=== PATIENT | male | born 1975 | race American Indian/Alaskan Native ===

== ENCOUNTER 2016-08-01 12:20 | Inpatient (IN) | payer MEDICARE ==
[2016-08-01] MEDS ORDERED: LASIX ONE (12:50)
[2016-08-01] MEDS ORDERED: LASIX IV ONE (12:54)
--- NOTE | 2016-08-01 12:58 | XRay Report ---
AP CHEST: HISTORY: Short of breath Compared to 03/19/15. There is mild cardiomegaly. Patchy infiltrate is identified throughout most of the right lung. This could represent unilateral pulmonary edema or pneumonia. The left lung is generally clear. No large pleural effusion or pneumothorax. IMPRESSION: Cardiomegaly and right lung infiltrates as described, probable pulmonary edema. If fever is present, right lung pneumonia could be considered.
[2016-08-01 13:17] LABS: Eosinophils % (Auto) 0.7 % (0.0-4.3)
[2016-08-01 13:23] LABS: Basophils % (Auto) 0.2 % (0.0-1.8); Hematocrit 36.6 % (35.5-45.6); Hemoglobin 11.3 gm/dl (11.8-15.2); Mean Corpuscular HGB Conc 31 % (32-34); Mean Corpuscular Hemoglobin 27 pg (28-32); Mean Corpuscular Volume 87 fl (84-94); Platelet Count 161 K/mm3 (140-440); Red Cell Distribution Width 16.2 % (13.2-15.2); White Blood Count 11.1 K/mm3 (4.5-11.0)
--- NOTE | 2016-08-01 13:28 | Emergency Department Report ---
HPI - General Chief Complaint: Dyspnea/Respdistress Time Seen by Provider: 08/01/16 12:29 - HPI HPI: Chief complaint: Shortness of breath HPI: Patient is a 41-year-old male with a history of congestive heart failure he states he's been having gradually increasing shortness breath over the last several days and it became much worse this morning. Patient states he has been taking his medications and took 40 mg of Lasix by mouth this morning. Patient is now coughing up pink frothy sputum. Patient denies any chest pain. Patient has pedal edema and orthopnea. Mode of arrival: [EMS] Source: [Patient] [old chart] Began: Increasing over the last few days Duration: See above Context: Last ejection fraction at this facility was 35% Quality: No chest pain Severity: [] out of 10 Improved with: Oxygen Worsened with: Laying flat Associated signs and symptoms: Edema ED Past Medical Hx - Past Medical History Previous Medical History?: Yes Hx Hypertension: Yes Hx CVA: Yes (ischemic, no resid. deficits) Hx Congestive Heart Failure: Yes Hx Pulmonary Embolism: Yes Hx Renal Disease: Yes Additional medical history: gout - Surgical History Past Surgical History?: Yes Additional Surgical History: Heart Cath 2006 - Social History Smoking Status: Never Smoker Substance Use Type: Alcohol - Medications Home Medications: Home Medications Medication Instructions Recorded Confirmed Last Taken Type Aspirin [Aspirin BABY CHEW TAB] 81 mg PO QDAY #30 tab.chew 01/06/15 03/19/15 Rx Carvedilol [Coreg] 25 mg PO BID #60 tablet 01/06/15 03/19/15 03/19/15 Rx Famotidine [Pepcid] 10 mg PO BID #60 tablet 01/06/15 03/19/15 03/19/15 Rx Ferrous Sulfate [Feosol 325 MG tab] 325 mg PO BID #60 tablet 01/06/15 03/19/15 03/19/15 Rx Furosemide [Lasix TAB] 40 mg PO 0600,1800 #60 tablet 01/06/15 03/19/15 03/19/15 Rx Gabapentin [Neurontin] 300 mg PO DAILY #30 capsule 01/06/15 03/19/15 03/19/15 Rx Isosorb Dinit/Hydralazine [Bidil 1 each PO TID #90 tablet 01/06/15 03/19/15 Rx 20/37.5MG] Metolazone [Zaroxolyn] 2.5 mg PO Q48HR #15 tablet 01/06/15 03/19/15 03/19/15 Rx Nitroglycerin [Nitrostat] 0.4 mg SL .Q5MIN PRN #30 tab 01/06/15 03/19/15 Rx Potassium Chloride 2 tab PO DAILY #60 tablet.er 01/06/15 03/19/15 03/19/15 Rx Simvastatin [Zocor TAB] 20 mg PO QHS #30 tablet 01/06/15 03/19/15 03/19/15 Rx Cefuroxime Axetil [Ceftin] 500 mg PO Q12H #8 tablet 03/22/15 Unknown Rx Lisinopril [Zestril TAB] 2.5 mg PO QDAY #30 tab 03/22/15 Unknown Rx Warfarin [Coumadin] 2.5 mg PO QDAY #30 tablet 03/22/15 Unknown Rx cloNIDine [Catapres] 0.1 mg PO BID #60 tablet 03/22/15 Unknown Rx Colchicine [Colcrys] 0.6 mg PO DAILY #10 tablet 04/27/15 Unknown Rx HYDROcodone/APAP 10-325 [[place] 1 each PO Q4-6H PRN #30 tablet 04/27/15 Unknown Rx 10/325] ED Review of Systems ROS: Stated complaint: COUGHING UP BLOOD Other details as noted in HPI ROS Constitutional: No fever ENT: No uri symptoms Cardiovascular: No chest pain Respiratory: See HPI GI: No nausea vomiting or diarrhea : No dysuria frequency or urgency, Skin: No rash Neuro: No focal weakness or numbness Psych: No depression Freddy/lymph: edema Physical Exam - Physical Exam Vital Signs: Vital Signs 08/01/16 08/01/16 12:20 12:42 Temperature 98.1 F Pulse Rate 145 H 117 H Respiratory 26 H 29 H Rate Blood Pressure 166/90 Blood Pressure 130/84 [Left] O2 Sat by Pulse 70 L 100 Oximetry Physical Exam: GENERAL: The patient is well-developed well-nourished . Patient is seen immediately upon arrival to the emergency department with significant respiratory distress and cough productive of pink frothy sputum. Patient's pulse ox was 77 on room air and was placed on 100% nonrebreather and switched to BiPAP. HEENT: Normocephalic. Atraumatic. Extraocular motions are intact. Patient has moist mucous membranes. NECK: Supple. No meningitic signs are noted. There is no adenopathy noted. CHEST/LUNGS: Bibasilar rales There is respiratory distress noted. HEART/CARDIOVASCULAR: Regular. There is no tachycardia. There is no gallop rub or murmur. ABDOMEN: Abdomen is soft, nontender. Patient has normal bowel sounds. There is no abdominal distention. SKIN: There is no rash. There is 1-2+ pedal edema. There is no diaphoresis. NEURO: The patient is awake, alert, and oriented. The patient is cooperative. The patient has no focal neurologic deficits. The patient has normal speech. MUSCULOSKELETAL: There is no tenderness or deformity. There is no limitation range of motion. There is no evidence of acute injury. ED Course Vital Signs 08/01/16 08/01/16 12:20 12:42 Temperature 98.1 F Pulse Rate 145 H 117 H Respiratory 26 H 29 H Rate Blood Pressure 166/90 Blood Pressure 130/84 [Left] O2 Sat by Pulse 70 L 100 Oximetry - Reevaluation(s) Reevaluation #1: 08/01/16 14:07 Patient given 40 mg of IV Lasix and placed on BiPAP significant improvement. Patient will be admitted to the hospitalist. ED Medical Decision Making - Lab Data Result diagrams: 08/01/16 12:56 08/01/16 12:56 Laboratory Tests 08/01/16 08/01/16 12:56 12:56 PT 15.6 H INR 1.25 H APTT 34.0 Calcium 8.2 L CK-MB (CK-2) 4.6 H Troponin T < 0.010 NT-Pro-B Natriuret Pep 2299 H - EKG Data -: EKG Interpreted by Me EKG shows normal: sinus rhythm Rate: tachycardia (113) - EKG Data When compared to previous EKG there are: no significant change (except for tachycardia) Interpretation: nonspecific ST-T wave shannan - Radiology Data Radiology results: report reviewed (chest x-ray shows cardiomegaly and pulmonary edema) Critical care time in (mins) excluding proc time.: 38 Critical care attestation.: If time is entered above; I have spent that time in minutes in the direct care of this critically ill patient, excluding procedure time. ED Disposition Clinical Impression: Hypoxia Acute on chronic congestive heart failure Qualifiers: Congestive heart failure type: unspecified congestive heart failure type Qualified Code(s): I50.9 - Heart failure, unspecified Disposition: OP ADMITTED IP TO THIS HOSP Is pt being admited?: Yes Does the pt Need Aspirin: Yes Condition: Fair Referrals: PRIMARY CARE,MD [Primary Care Provider] - 3-5 Days Time of Disposition: 14:12 (admit to the hospitalists)
[2016-08-01 13:33] LABS: INR 1.25 (0.87-1.13)
[2016-08-01] MEDS ORDERED: ASPIRIN PO ONE (13:36)
--- NOTE | 2016-08-01 13:49 | Admit Criteria Form ---
Admission Criteria Documentation: HEART FAILURE Clinical Indications for Admission to Inpatient Care (Place 'X' for any and all applicable criteria): Admission is indicated by ANY ONE of the following(1)(2)(3)(4): [ ]I. Severe electrolyte abnormalities requiring inpatient care(9) [ ]II. Hemodynamic instability [ ]III. Anasarca [ ]IV. Acute cardiac ischemia causing or associated with failure (Also use Angina or Myocardial Infarction as appropriate) [ ]V. Cardiac arrhythmias of immediate concern [ ]. Precipitating cause for acute decompensation (eg, pneumonia, pulmonary embolism) requires inpatient care [X]VII. Pulmonary edema that is very severe (eg, mechanical ventilation needed, imminent or likely, need for 100% oxygen to keep oxygen saturation above 90%) [ ]VIII. Inpatient admission required rather than observation care (Also use Heart Failure: Observation Care as appropriate) because of ANY ONE of the following: [ ]a) Pulmonary edema that is severe or worsening as indicated by ALL of the following: [ ]i) New need for oxygen therapy to keep oxygen saturation above 90% (or increased FiO2 need from baseline) [ ]ii) Has not improved sufficiently with emergency department or observation care IV diuretics or other heart failure treatments[C] [ ]b) Cognitive impairment that is severe or persistent [ ]c) Increased creatinine (new on laboratory test) with reduction of more than 50% in estimated glomerular filtration rate from baseline. [ ]d) Acute renal insufficiency (progressively (ongoing) rising creatinine (known from past laboratory test) with reduction of more than 25% in estimated glomerular filtration rate from baseline) [ ]e) Acute peripheral ischemia (eg, pulseless, cool, mottled, or cyanotic extremity) [ ]f) Acute renal failure [ ]g) Supplemental O2 or respiratory treatment for >24 hr that are performable only in acute inpatient setting [ ]h) Pulmonary artery catheter monitoring [ ]i) Other condition, treatment or monitoring requiring inpatient admission [ ]IX. Contraindications and/or Inappropriate clinical situations for Observational Care in patients with Heart Failure, when ANY ONE of the following is required: [ ]a) Patient with High risk of cardiac embolism (e.g, patients with previous cardiac embolism, LVEF < 40%, age >75 and patients with prosthetic valve) 18 [ ]b) Patient with Moderate risk including DM patient, CAD and patient aged 65-75 [ ]c) Patient with any change in cardiac biomarker especially troponin should be managed as high risk in an inpatient setting 19 [ ]d) Physician judgement irrespective of ECG and other diagnostic findings 20 [ ]e) Patients with hyponatremia have high risk for mortality and require more extensive care and length of stay 21 [ ]f) Need for large volume diuresis 21 [ ]g) Presence of renal insufficiency or hypotension limiting speed of diuresis 21 [ ]h) Acute cardiac Ischemia in the elderly 21 [ ]i) Patients with a 30 day risk of mortality based on a multidimensional prognostic index (MPI) [J,]21 [ ]X. General contraindications and/or Inappropriate clinical situations for Observational Care in patients with Heart Failure, when ANY ONE of the following is required: [ ]a) Prediction of prolongation of LOS based on ANY ONE of the following may be considered as a contraindication for observational care 2, 3, 4, 5, 6, 7, 8 , 9, 10, 11 [ ]i) Age > 65 yrs. [ ]ii) Patient arriving by ambulance [ ]iii) Patient with high acuity [ ]iv) Patient requiring vital sign monitoring [ ]v) Patient on IV medication [ ]b) Systolic blood pressures 180mmHg 3,12 [ ]c) Patient with altered mental status including delirium and other alteration of consciousness, (3) [ ]d) Patient whose discharge disposition will be to a snf home or rehabilitation home should not be managed in Emergency Department Observation Unit. CMS rule requires 3 days hospital stay before such placement.3,13 [ ]e) Patient with failure to thrive due to broad array of etiologies 3,16,17 [ ]f) Inability to ambulate 3,14 Extended stay beyond goal length of stay may be needed for(1)(3)(21)(25): [ ]a) Cardiac ischemia, confirmed or suspected as precipitant [ ]b) Cardiogenic shock or refractory pulmonary edema [ ]c) Acute kidney injury or renal failure [ ]d) Respiratory failure (eg, need for noninvasive or invasive mechanical ventilation) (23) [ ]e) Concomitant pneumonia or significant electrolyte abnormality (eg, severe hyponatremia) [ ]f) Newly diagnosed (new onset) atrial fibrillation [ ]g) Stage IV chronic kidney disease (estimated glomerular filtration rate of less than 30 mL/min/1.73m2 (0.50 mL/sec/1.73m2), and not previously on chronic dialysis The original [facility] content created by [facility] has been revised. The portions of the content which have been revised are identified through the use of italic text or in bold, and [facility] has neither reviewed nor approved the modified material. All other unmodified content is copyright [facility]. Please see references footnoted in the original [facility] edition 2016 Admission Criteria Met: Yes
[2016-08-01 14:10] LABS: Anion Gap TNR mmol/L; BUN/Creatinine Ratio TNR; Blood Urea Nitrogen TNR mg/dL (9-20); Carbon Dioxide TNR mmol/L (22-30); Chloride TNR mmol/L (98-107); Potassium TNR mmol/L (3.6-5.0); Sodium TNR mmol/L (137-145)
[2016-08-01 14:11] LABS: Calcium TNR mg/dL (8.4-10.2); Creatine Kinase TNR units/L (55-170); Creatine Kinase MB TNR ng/mL (0.0-4.0); Glucose TNR mg/dL (75-100)
[2016-08-01 14:33] LABS: Anion Gap 16 mmol/L; BUN/Creatinine Ratio 12.14; Blood Urea Nitrogen 17 mg/dL (9-20); Calcium 7.9 mg/dL (8.4-10.2); Carbon Dioxide 23 mmol/L (22-30); Chloride 102.5 mmol/L (98-107); Glucose 103 mg/dL (75-100); Potassium 3.7 mmol/L (3.6-5.0); Sodium 138 mmol/L (137-145)
[2016-08-01 14:36] LABS: Creatine Kinase 269 units/L (55-170)
--- NOTE | 2016-08-01 19:32 | History and Physical Report ---
History of Present Illness Date of examination: 08/01/16 Date of admission: 08/01/16 14:12 Chief complaint: Increasing SOB for the last 1 week. History of present illness: 41-year-old male with history of congestive heart failure comes in for increasing shortness of breath for 1 week. Severe shortness of breath since this morning. [place] frothy sputum since this morning. No chest pain. No cough. No fever. No chills. Patient has been compliant with his medications. Has been taking his Lasix on a regular basis. Patient also has high blood pressure coronary artery disease hyperlipidemia and gout. Shortness of breath consistent with [place] Heart [employer] class IV symptoms. Orthopnea present. Has to use 3 pillows at nighttime. No recent travel. No leg swelling. Past History Past Medical History: anemia, heart failure (O'Chidi, comp no oral, hopefullyCrohn's disease number are not placed off work hopefully was given the patient), hypertension, hyperlipidemia Past Surgical History: Other (cardiac cath in the past) Social history: lives with family. denies: smoking, alcohol abuse Family history: hypertension Medications and Allergies Allergies Allergy/AdvReac Type Severity Reaction Status Date / Time No Known Allergies Allergy Verified 03/19/15 16:44 Home Medications Medication Instructions Recorded Confirmed Last Taken Type Aspirin [Aspirin BABY CHEW TAB] 81 mg PO QDAY #30 tab.chew 01/06/15 03/19/15 Rx Carvedilol [Coreg] 25 mg PO BID #60 tablet 01/06/15 03/19/15 03/19/15 Rx Famotidine [Pepcid] 10 mg PO BID #60 tablet 01/06/15 03/19/15 03/19/15 Rx Ferrous Sulfate [Feosol 325 MG tab] 325 mg PO BID #60 tablet 01/06/15 03/19/15 03/19/15 Rx Furosemide [Lasix TAB] 40 mg PO 0600,1800 #60 tablet 01/06/15 03/19/15 03/19/15 Rx Gabapentin [Neurontin] 300 mg PO DAILY #30 capsule 01/06/15 03/19/15 03/19/15 Rx Isosorb Dinit/Hydralazine [Bidil 1 each PO TID #90 tablet 01/06/15 03/19/15 Rx 20/37.5MG] Metolazone [Zaroxolyn] 2.5 mg PO Q48HR #15 tablet 01/06/15 03/19/15 03/19/15 Rx Nitroglycerin [Nitrostat] 0.4 mg SL .Q5MIN PRN #30 tab 01/06/15 03/19/15 Rx Potassium Chloride 2 tab PO DAILY #60 tablet.er 01/06/15 03/19/15 03/19/15 Rx Simvastatin [Zocor TAB] 20 mg PO QHS #30 tablet 01/06/15 03/19/15 03/19/15 Rx Cefuroxime Axetil [Ceftin] 500 mg PO Q12H #8 tablet 03/22/15 Unknown Rx Lisinopril [Zestril TAB] 2.5 mg PO QDAY #30 tab 03/22/15 Unknown Rx Warfarin [Coumadin] 2.5 mg PO QDAY #30 tablet 03/22/15 Unknown Rx cloNIDine [Catapres] 0.1 mg PO BID #60 tablet 03/22/15 Unknown Rx Colchicine [Colcrys] 0.6 mg PO DAILY #10 tablet 04/27/15 Unknown Rx HYDROcodone/APAP 10-325 [[place] 1 each PO Q4-6H PRN #30 tablet 04/27/15 Unknown Rx 10/325] Active Meds: Active Medications Influenza Virus Vaccine Quadrival (Fluarix Quad [id number](36 Mos+)) 60 mcg IM .ONCE ONE Stop: 08/02/16 12:01 Pneumococcal Polyvalent Vaccine (Pneumovax 23) 0.5 ml IM .ONCE ONE Stop: 08/02/16 12:01 Review of Systems All systems: negative Constitutional: no weight loss, no weight gain, no fever, no chills Ears, nose, mouth and throat: no hoarseness, no sore throat, no swelling in mouth, no swelling in throat Cardiovascular: orthopnea (I'll ask okay), edema, shortness of breath, dyspnea on exertion, paroxysmal nocturnal dyspnea Respiratory: dyspnea on exertion Gastrointestinal: no nausea, no vomiting, no diarrhea, no constipation Genitourinary Male: no urinary frequency, no urinary hesitancy, no nocturia Musculoskeletal: no neck stiffness, no neck pain Integumentary: no rash, no pruritis, no redness Neurological: no seizures, no syncope Psychiatric: no anxiety, no depression Endocrine: no cold intolerance, no heat intolerance, no polyphagia, no polydipsia, no polyuria Hematologic/Lymphatic: no easy bruising, no easy bleeding Allergic/Immunologic: no urticaria, no allergic rhinitis, no wheezing Exam - Constitutional Vitals: Temp Pulse Resp BP Pulse Ox 98.1 F 88 18 115/63 97 08/01/16 18:00 08/01/16 18:00 08/01/16 18:00 08/01/16 18:00 08/01/16 18:00 General appearance: Present: no acute distress, well-nourished - EENT Eyes: Present: PERRL ENT: hearing intact, clear oral mucosa - Neck Neck: Present: supple, normal ROM - Respiratory Respiratory effort: normal Respiratory: bilateral: CTA, rales (bilateral basal rales) - Cardiovascular Rhythm: regular Heart Sounds: Present: S1 & S2. Absent: rub, click - Extremities Extremities: pulses symmetrical, No edema Extremity abnormal: edema (2+ pitting edema) Peripheral Pulses: within normal limits - Abdominal General gastrointestinal: Present: soft, non-tender, non-distended, normal bowel sounds Male genitourinary: Present: normal - Integumentary Integumentary: Present: clear, warm, dry - Musculoskeletal Musculoskeletal: gait normal, strength equal bilaterally - Psychiatric Psychiatric: appropriate mood/affect, intact judgment & insight - Neurologic Neurologic: CNII-XII intact, moves all extremities Results - Labs CBC & Chem 7: 08/01/16 12:56 08/01/16 12:56 Labs: Laboratory Last Values WBC 11.1 K/mm3 (4.5-11.0) H 08/01/16 12:56 RBC 4.20 M/mm3 (3.65-5.03) 08/01/16 12:56 Hgb 11.3 gm/dl (11.8-15.2) L 08/01/16 12:56 Hct 36.6 % (35.5-45.6) 08/01/16 12:56 MCV 87 fl (84-94) 08/01/16 12:56 MCH 27 pg (28-32) L 08/01/16 12:56 MCHC 31 % (32-34) L 08/01/16 12:56 RDW 16.2 % (13.2-15.2) H 08/01/16 12:56 Plt Count 161 K/mm3 (140-440) 08/01/16 12:56 Lymph % (Auto) 8.7 % (13.4-35.0) L 08/01/16 12:56 [place] % (Auto) 4.2 % (0.0-7.3) 08/01/16 12:56 Eos % (Auto) 0.7 % (0.0-4.3) 08/01/16 12:56 Baso % (Auto) 0.2 % (0.0-1.8) 08/01/16 12:56 Lymph # 1.0 K/mm3 (1.2-5.4) L 08/01/16 12:56 [place] # 0.6 K/mm3 (0.0-0.8) 08/01/16 12:56 Eos # 0.1 K/mm3 (0.0-0.4) 08/01/16 12:56 Baso # 0.1 K/mm3 (0.0-0.1) 08/01/16 12:56 Seg Neutrophils % 82.8 % (40.0-70.0) H 08/01/16 12:56 Seg Neutrophils # 12.7 K/mm3 (1.8-7.7) H 08/01/16 12:56 PT 15.6 Sec. (12.2-14.9) H 08/01/16 12:56 INR 1.25 (0.87-1.13) H 08/01/16 12:56 APTT 34.0 Sec. (24.2-36.6) 08/01/16 12:56 Sodium TNR 08/01/16 12:56 Potassium TNR 08/01/16 12:56 Chloride TNR 08/01/16 12:56 Carbon Dioxide TNR 08/01/16 12:56 Anion Gap TNR 08/01/16 12:56 BUN TNR 08/01/16 12:56 Creatinine TNR 08/01/16 12:56 Estimated GFR TNR 08/01/16 12:56 BUN/Creatinine Ratio TNR 08/01/16 12:56 Glucose TNR 08/01/16 12:56 Calcium TNR 08/01/16 12:56 Total Creatine Kinase TNR 08/01/16 12:56 CK-MB (CK-2) TNR 08/01/16 12:56 CK-MB (CK-2) Rel Index TNR 08/01/16 12:56 Troponin T TNR 08/01/16 12:56 NT-Pro-B Natriuret Pep TNR 08/01/16 12:56 Short CBC 08/01/16 Range/Units 12:56 WBC 11.1 H (4.5-11.0) K/mm3 Hgb 11.3 L (11.8-15.2) gm/dl Hct 36.6 (35.5-45.6) % Plt Count 161 (140-440) K/mm3 BMP 08/01/16 08/01/16 12:40 12:56 Sodium 138 TNR Potassium 3.7 TNR Chloride 102.5 TNR Carbon Dioxide 23 TNR BUN 17 TNR Creatinine 1.4 TNR Glucose 103 H TNR Calcium 7.9 L TNR Cardiac Enzymes 08/01/16 08/01/16 08/01/16 Range/Units 12:40 12:40 12:56 Total Creatine Kinase 269 H TNR (55-170) units/L CK-MB (CK-2) 4.1 H TNR (0.0-4.0) ng/mL Troponin T < 0.010 TNR (0.00-0.029) ng/mL - Imaging and Cardiology EKG: report reviewed (sinus tachycardia and nonspecific ST-T wave changes and LVH.) Chest x-ray: report reviewed (chest x-ray consistent with pulmonary edema. More infiltrates on the right side. Pneumonia right lower lobe. In the differential diagnosis.) Assessment and Plan Advance Directives: Yes (full code) VTE prophylaxis?: Chemical Plan of care discussed with patient/family: Yes - Patient Problems (1) Acute decompensated heart failure Current Visit: No Status: Acute Plan to address problem: Acute congestive heart failure. Will get echocardiogram for ejection fraction and valve function. Patient also started on IV Lasix 40 mg every 12. Cardiology consult requested. Optimize his afterload reduction medications. Patient was in pulmonary edema when he came into the ER which has resolved. (2) Hypoxia Current Visit: Yes Status: Acute Plan to address problem: Hypoxia secondary to acute pulmonary edema resolved (3) Pulmonary edema with congestive heart failure Current Visit: Yes Status: Acute Plan to address problem: As mentioned continue Lasix IV 40 mg every 12. (4) Hypertension Current Visit: Yes Status: Chronic Qualifiers: Hypertension type: essential hypertension Qualified Code(s): I10 - Essential (primary) hypertension Plan to address problem: Continue Coreg 25 mg twice a day and lisinopril 2.5 mg once a day clonidine 0.1 mg twice a day. Also isosorbide dinitrate/hydralazine which is BiDil 20/37.5 3 times a day. (5) Anemia Current Visit: Yes Status: Chronic Qualifiers: Anemia type: iron deficiency Iron deficiency anemia type: I Vitamin B12 deficiency anemia type: V Folate deficiency anemia type: F Bone marrow failure anemia type: B Hemolytic anemia type: H Other causes of anemia: O Plan to address problem: Patient on iron sulfate twice a day which is reduced to once a day. His hemoglobin is near normal. (6) Anticoagulation goal of INR 2 to 3 Current Visit: Yes Status: Chronic Plan to address problem: Continue Coumadin. (7) Gout Current Visit: Yes Status: Chronic Qualifiers: Gout site: G Gout etiology: G Encounter type: E Laterality: L Chronicity: C Presence of tophus: P Plan to address problem: Continue colchicine 0.6 once a day. (8) DVT prophylaxis Current Visit: No Status: Acute Plan to address problem: Patient on Lovenox 40 mg subcutaneous daily. (9) Discharge planning issues Current Visit: Yes Status: Acute Plan to address problem: Probable admission for 3 days.
[2016-08-01] MEDS ORDERED: NORCO 10/325 PO PRN (19:40)
[2016-08-01] MEDS ORDERED: NITROSTAT SL PRN (19:40)
[2016-08-01] MEDS ORDERED: POTASSIUM CHLORIDE PO SCH (19:45)
[2016-08-01] MEDS ORDERED: NON-FORMULARY (Lisinopril [Zestril Tab] 2.5 MG) PO SCH (19:45)
[2016-08-01] MEDS ORDERED: LOVENOX SUB-Q SCH (20:00)
[2016-08-01] MEDS ORDERED: COUMADIN PO SCH (20:00)
[2016-08-01] MEDS: BABY ASPIRIN PO SCH (21:24)
[2016-08-01] MEDS: PEPCID PO SCH (21:24)
[2016-08-01] MEDS: FEOSOL PO SCH (21:25)
[2016-08-01] MEDS: COLCRYS PO SCH (21:25)
[2016-08-01] MEDS: K-DUR PO SCH (21:25)
[2016-08-01] MEDS: COUMADIN PO SCH (21:25)
[2016-08-01] MEDS: NEURONTIN PO SCH (21:25)
[2016-08-01] MEDS: ZOCOR PO SCH (21:26)
[2016-08-01] MEDS: LOVENOX SUB-Q SCH (21:28)
[2016-08-01] MEDS: BIDIL 20/37.5MG PO SCH (21:33)
[2016-08-01] MEDS: CATAPRES PO SCH (21:33)
[2016-08-01] MEDS: COREG PO SCH (21:34)
[2016-08-02] MEDS: LASIX IV SCH ×2 (06:21→18:00)
[2016-08-02 07:18] LABS: INR 1.38 (0.87-1.13)
[2016-08-02] MEDS ORDERED: KCL NICU (2 MEQ/ML) PO SCH (08:00)
[2016-08-02] MEDS: BIDIL 20/37.5MG PO SCH ×3 (08:58→21:10)
[2016-08-02] MEDS: COREG PO SCH (08:59)
[2016-08-02] MEDS: FEOSOL PO SCH (08:59)
[2016-08-02] MEDS: ZESTRIL PO SCH (08:59)
[2016-08-02] MEDS: PEPCID PO SCH ×2 (09:00→21:12)
[2016-08-02] MEDS: COLCRYS PO SCH (09:00)
[2016-08-02] MEDS: K-DUR PO SCH ×2 (09:00→21:10)
[2016-08-02] MEDS: NEURONTIN PO SCH (09:00)
[2016-08-02] MEDS: BABY ASPIRIN PO SCH (09:00)
[2016-08-02] MEDS: CATAPRES PO SCH (09:00)
[2016-08-02] MEDS: LOVENOX SUB-Q SCH ×2 (09:01→21:13)
--- NOTE | 2016-08-02 11:25 | Consultation ---
History of Present Illness Consult date: 08/02/16 Requesting physician: RADHA LAW Consult reason: congestive heart failure History of present illness: The patient is a 41 year old male who is followed by Dr. SHIMON Rodgers in the office with a history of chronic systolic heart failure, non-ischemic cardiomyopathy, HTN, CKD, CVA, chronic anemia who presented with complaints of cough productive of blood tinged sputum, worsening shortness of breath and dyspnea on exertion over the past 2 days. She has chronic 2 pillow orthopnea. He also reports substernal chest pain that is worse with cough and deep inspiration. No palpitations, nausea, vomiting or diaphoresis. Troponin negative. BNP 2370. INR 1.38. Echo done 09/2014 showed EF 35-40%, moderate MR, moderate TR, RVSP 47mmHg. Past History Past Medical History: anemia, heart failure, hypertension, hyperlipidemia, other (CKD, non-ischemic cardiomyopathy) Past Surgical History: denies: No surgical history Social history: lives with family. denies: smoking, alcohol abuse Family history: no significant family history Medications and Allergies Allergies Allergy/AdvReac Type Severity Reaction Status Date / Time No Known Allergies Allergy Verified 03/19/15 16:44 Home Medications Medication Instructions Recorded Confirmed Last Taken Type Aspirin [Aspirin BABY CHEW TAB] 81 mg PO QDAY #30 tab.chew 01/06/15 08/02/16 1 Day Ago Rx Carvedilol [Coreg] 25 mg PO BID #60 tablet 01/06/15 08/02/16 1 Day Ago Rx Famotidine [Pepcid] 10 mg PO BID #60 tablet 01/06/15 08/02/16 1 Day Ago Rx Ferrous Sulfate [Feosol 325 MG tab] 325 mg PO BID #60 tablet 01/06/15 08/02/16 1 Day Ago Rx Furosemide [Lasix TAB] 40 mg PO 0600,1800 #60 tablet 01/06/15 08/02/16 1 Day Ago Rx Gabapentin [Neurontin] 300 mg PO DAILY #30 capsule 01/06/15 08/02/16 1 Day Ago Rx Isosorb Dinit/Hydralazine [Bidil 1 each PO TID #90 tablet 01/06/15 08/02/16 1 Day Ago Rx 20/37.5MG] Metolazone [Zaroxolyn] 2.5 mg PO Q48HR #15 tablet 01/06/15 08/02/16 1 Day Ago Rx Nitroglycerin [Nitrostat] 0.4 mg SL .Q5MIN PRN #30 tab 01/06/15 08/02/16 1 Month Ago Rx Potassium Chloride 2 tab PO DAILY #60 tablet.er 01/06/15 08/02/16 1 Day Ago Rx Simvastatin [Zocor TAB] 20 mg PO QHS #30 tablet 01/06/15 08/02/16 1 Day Ago Rx Cefuroxime Axetil [Ceftin] 500 mg PO Q12H #8 tablet 03/22/15 08/02/16 1 Day Ago Rx Lisinopril [Zestril TAB] 2.5 mg PO QDAY #30 tab 03/22/15 08/02/16 1 Day Ago Rx Warfarin [Coumadin] 2.5 mg PO QDAY #30 tablet 03/22/15 08/02/16 1 Day Ago Rx cloNIDine [Catapres] 0.1 mg PO BID #60 tablet 03/22/15 08/02/16 1 Day Ago Rx Colchicine [Colcrys] 0.6 mg PO DAILY #10 tablet 04/27/15 08/02/16 1 Day Ago Rx HYDROcodone/APAP 10-325 [[place] 1 each PO Q4-6H PRN #30 tablet 04/27/15 08/02/16 1 Day Ago Rx 10/325] Active Meds: Active Medications Acetaminophen/Hydrocodone Bitart ([place] 10/325) 1 each PO Q4H PRN PRN Reason: Pain Aspirin (Baby Aspirin) 81 mg PO QDAY [facility] Last Admin: 08/02/16 09:00 Dose: 81 mg Carvedilol (Coreg) 25 mg PO BID [facility] Last Admin: 08/02/16 08:59 Dose: 25 mg Clonidine HCl (Catapres) 0.1 mg PO BID [facility] Last Admin: 08/02/16 09:00 Dose: 0.1 mg Colchicine (Colcrys) 0.6 mg PO DAILY [facility] Last Admin: 08/02/16 09:00 Dose: 0.6 mg Enoxaparin Sodium (Lovenox) 100 mg SUB-Q Q12HR [facility] Last Admin: 08/02/16 09:01 Dose: 100 mg Famotidine (Pepcid) 10 mg PO BID [facility] Last Admin: 08/02/16 09:00 Dose: 10 mg Ferrous Sulfate (Feosol) 325 mg PO QDAY [facility] Last Admin: 08/02/16 08:59 Dose: 325 mg Furosemide (Lasix) 40 mg IV 0600,1800 [facility] Last Admin: 08/02/16 06:21 Dose: 40 mg Gabapentin (Neurontin) 300 mg PO DAILY [facility] Last Admin: 08/02/16 09:00 Dose: 300 mg Influenza Virus Vaccine Quadrival (Fluarix Quad [id number](36 Mos+)) 60 mcg IM .ONCE ONE Stop: 08/02/16 12:01 Isosorbide Dinitrate/Hydralazine (Bidil 20/37.5mg) 1 each PO TID [facility] Last Admin: 08/02/16 08:58 Dose: 1 each Lisinopril (Zestril) 2.5 mg PO QDAY [facility] Last Admin: 08/02/16 08:59 Dose: 2.5 mg Metolazone (Zaroxolyn) 2.5 mg PO Q48HR [facility] Nitroglycerin (Nitrostat) 0.4 mg SL .Q5MIN PRN PRN Reason: Chest Pain Pneumococcal Polyvalent Vaccine (Pneumovax 23) 0.5 ml IM .ONCE ONE Stop: 08/02/16 12:01 Potassium Chloride (K-Dur) 20 meq PO BID [facility] Last Admin: 08/02/16 09:00 Dose: 20 meq Simvastatin (Zocor) 20 mg PO QHS [facility] Last Admin: 08/01/16 21:26 Dose: 20 mg Warfarin Sodium (Coumadin) 5 mg PO DAILY@1700 [facility] Last Admin: 08/01/16 21:25 Dose: 5 mg Review of Systems Constitutional: fever, no chills Ears, nose, mouth and throat: no nasal congestion, no nasal discharge, no sinus pressure Cardiovascular: chest pain, orthopnea, shortness of breath, dyspnea on exertion , leg edema Respiratory: cough with sputum, hemoptysis, shortness of breath, dyspnea on exertion Gastrointestinal: no abdominal pain, no nausea, no vomiting, no diarrhea, no constipation Genitourinary Male: no dysuria, no hematuria Musculoskeletal: no neck stiffness, no neck pain, no myalgias Integumentary: no rash, no pruritis Neurological: no parathesias, no numbness, no tingling, no headaches Endocrine: no cold intolerance, no heat intolerance Hematologic/Lymphatic: no easy bruising, no easy bleeding Allergic/Immunologic: no urticaria, no wheezing Physical Examination Vital Signs Temp Pulse Resp BP Pulse Ox 98.1 F 145 H 26 H 166/90 70 L 08/01/16 12:20 08/01/16 12:20 08/01/16 12:20 08/01/16 12:20 08/01/16 12:20 General appearance: no acute distress HEENT: Positive: Normocephaly, Mucus Membranes Moist Neck: Positive: neck supple, trachea midline Cardiac: Positive: Reg Rate and Rhythm, S1/S2 Lungs: Positive: clear to auscultation Neuro: Positive: Grossly Intact Abdomen: Positive: Soft, Active Bowel Sounds. Negative: Tender Skin: Positive: Clear. Negative: Rash Extremities: Present: +1 Edema (bilateral lower legs) Results 08/01/16 12:56 08/01/16 12:56 Coagulation 08/02/16 Range/Units 06:37 PT 16.9 H (12.2-14.9) Sec. INR 1.38 H (0.87-1.13) - Imaging and Cardiology Echo: pending, report reviewed EKG: image reviewed EKG interpretations - Telemetry EKG Rhythm: Sinus Rhythm - EKG Sinus rhythms and dysrhythmias: sinus rhythm Chamber hypertrophy or enlargement: left atrial enlargement Repolarization changes or abnormalities: nonspecific abnormality, ST segment, and/or T wave Assessment and Plan Acute on chronic systolic heart failure Echo 09/2014: EF 35-40%, mod MR, mod TR, RVSP 47mmHg, repeat pending continue IV lasix, metolazone, coreg, lisinopril, bidil Hemoptysis/?pneumonia consider pulmonary evaluation Non-ischemic cardiomyopathy Echo 09/2014: EF 35-40%, mod MR, mod TR, RVSP 47mmHg negative stress MPI 11/2008 HTN well controlled Chronic kidney disease appears to be at baseline monitor cr closely Hx. of CVA on coumadin per neurology Chronic anemia The patient has been seen in conjunction with Dr. Batista who agrees with the assessment and plan of care. Thank you Dr. Law for allowing us to participate in the care of this patient.
[2016-08-02] MEDS ORDERED: PNEUMOVAX 23 IM ONE (12:00)
[2016-08-02] MEDS ORDERED: FLUARIX QUAD 2016-2017(36 MOS+) IM ONE (12:00)
[2016-08-02] MEDS: COUMADIN PO SCH (18:01)
[2016-08-02] MEDS: ZOCOR PO SCH (21:10)
--- NOTE | 2016-08-02 21:23 | Progress Note ---
Assessment and Plan 1. Acute on chronic systolic heart failure Echo 09/2014: EF 35-40%, mod MR, mod TR, RVSP 47mmHg, repeat pending continue IV lasix, metolazone, coreg, lisinopril, bidil 2. Hemoptysis/?pneumonia consider pulmonary evaluation 3. Non-ischemic cardiomyopathy Echo 09/2014: EF 35-40%, mod MR, mod TR, RVSP 47mmHg negative stress MPI 11/2008 4. HTN well controlled 5. Chronic kidney disease appears to be at baseline monitor cr closely 6. Hx. of CVA on coumadin per neurology 8. Chronic anemia: Of chronic disease continue to monitor Subjective Date of service: 08/02/16 Principal diagnosis: acute on chronic systolic heart failure, hypertension, pulmonary edema. Interval history: Started having shortness of breath and chest pain. Objective - Constitutional Vitals: Vital Signs - 12hr 08/02/16 08/02/16 08/02/16 10:00 13:24 18:24 Temperature 98.9 F 98.2 F Pulse Rate 80 Pulse Rate [ 80 79 Left From Monitor] Respiratory 18 18 Rate Blood Pressure Blood Pressure 116/55 111/66 [Left Arm] O2 Sat by Pulse 95 93 Oximetry 08/02/16 21:10 Temperature Pulse Rate 81 Pulse Rate [ Left From Monitor] Respiratory Rate Blood Pressure 112/70 Blood Pressure [Left Arm] O2 Sat by Pulse Oximetry General appearance: Present: no acute distress, well-nourished - EENT Eyes: PERRL, EOM intact ENT: hearing intact, clear oral mucosa Ears: bilateral: normal - Neck Neck: supple, normal ROM - Respiratory Respiratory effort: normal Respiratory: bilateral: CTA - Breasts Breasts: normal - Cardiovascular Rhythm: regular Heart Sounds: Present: S1 & S2. Absent: gallop, rub Extremities: pulses intact, No edema, normal color, Full ROM - Gastrointestinal General gastrointestinal: Present: soft, non-tender, non-distended, normal bowel sounds - Genitourinary Male genitourinary: normal - Integumentary Integumentary: clear, warm, dry - Musculoskeletal Musculoskeletal: 1, strength equal bilaterally - Neurologic Neurologic: moves all extremities - Psychiatric Psychiatric: memory intact, appropriate mood/affect, intact judgment & insight - Labs CBC & Chem 7: 08/01/16 12:56 08/01/16 12:56 Labs: Abnormal lab results 08/02/16 Range/Units 06:37 PT 16.9 H (12.2-14.9) Sec. INR 1.38 H (0.87-1.13)
[2016-08-03] MEDS: CATAPRES PO SCH ×3 (00:28→23:44)
[2016-08-03] MEDS: COREG PO SCH ×3 (00:29→22:56)
[2016-08-03] MEDS: LASIX IV SCH ×2 (06:14→17:41)
[2016-08-03 07:15] LABS: INR 1.31 (0.87-1.13)
--- NOTE | 2016-08-03 08:46 | Progress Note ---
Assessment and Plan cardiac status stable acute/chronic sys hrt failure hx recent pneumonia abn cxr hemoptysis hx cva continue present mgt inr target 2-3 consider pulm consult--unilat pulm edema/hemoptysis Subjective Date of service: 08/03/16 Principal diagnosis: acute on chronic systolic heart failure, hypertension, pulmonary edema. Interval history: no new complaints no further hemoptysis Objective Vital Signs Temp Pulse Pulse Pulse Resp BP BP 08/03/16 04:40 99.6 F 98 H 20 118/79 08/03/16 00:35 98.5 F 86 20 132/83 08/03/16 00:29 86 132/83 08/03/16 00:28 86 132/83 08/02/16 21:23 98.4 F 82 20 112/70 08/02/16 21:10 81 112/70 08/02/16 18:24 98.2 F 79 18 111/66 08/02/16 13:24 98.9 F 80 18 116/55 08/02/16 10:00 80 08/02/16 09:13 98.0 F 94 H 18 125/84 Pulse Ox 08/03/16 04:40 98 08/03/16 00:35 96 08/03/16 00:29 08/03/16 00:28 08/02/16 21:23 97 08/02/16 21:10 08/02/16 18:24 93 08/02/16 13:24 95 08/02/16 10:00 08/02/16 09:13 98 - Physical Examination General: No Apparent Distress HEENT: Positive: Normocephaly, Mucus Membranes Moist Neck: Positive: neck supple, trachea midline Cardiac: Positive: Reg Rate and Rhythm. Negative: S3 Lungs: Positive: clear to auscultation Neuro: Positive: Grossly Intact Abdomen: Positive: Soft, Active Bowel Sounds. Negative: Tender Skin: Positive: Clear. Negative: Rash Extremities: Present: +1 Edema (bilateral lower legs) - Labs and Meds Coagulation 08/03/16 Range/Units 05:57 PT 16.2 H (12.2-14.9) Sec. INR 1.31 H (0.87-1.13) - Imaging and Cardiology EKG: image reviewed Echo: pending, report reviewed - EKG Sinus rhythms and dysrhythmias: sinus rhythm Chamber hypertrophy or enlargement: left atrial enlargement Repolarization changes or abnormalities: nonspecific abnormality, ST segment, and/or T wave
[2016-08-03] MEDS: LOVENOX SUB-Q SCH ×2 (09:52→22:57)
[2016-08-03] MEDS: NEURONTIN PO SCH (09:53)
[2016-08-03] MEDS: PEPCID PO SCH ×2 (09:53→22:51)
[2016-08-03] MEDS: FEOSOL PO SCH (09:53)
[2016-08-03] MEDS: COLCRYS PO SCH (09:53)
[2016-08-03] MEDS: K-DUR PO SCH ×2 (09:54→22:54)
[2016-08-03] MEDS: ZESTRIL PO SCH (09:54)
[2016-08-03] MEDS: BIDIL 20/37.5MG PO SCH ×3 (09:54→23:03)
[2016-08-03] MEDS: BABY ASPIRIN PO SCH (09:54)
[2016-08-03] MEDS: ZAROXOLYN PO SCH (09:55)
--- NOTE | 2016-08-03 15:23 | Progress Note ---
Assessment and Plan - Patient Problems (1) Acute decompensated heart failure Current Visit: No Status: Acute Plan to address problem: Acute congestive heart failure. Patient also started on IV Lasix 40 mg every 12. Cardiology consult appreciated. Optimize his afterload reduction medications. Patient was in pulmonary edema when he came into the ER which has resolved. ECHO shows EF of 35 to 40 percent.Motion wall abnormalities c/w combined heart failure. Will change to po Lasix today and discharge tomorrow.Patient counselled about compliance. (2) Hypoxia Current Visit: Yes Status: Acute Plan to address problem: Hypoxia secondary to acute pulmonary edema resolved. (3) Pulmonary edema with congestive heart failure Current Visit: Yes Status: Acute Plan to address problem: As mentioned continue Lasix IV 40 mg every 12. (4) Hypertension Current Visit: Yes Status: Chronic Qualifiers: Hypertension type: essential hypertension Qualified Code(s): I10 - Essential (primary) hypertension Plan to address problem: Continue Coreg 25 mg twice a day and lisinopril 2.5 mg once a day clonidine 0.1 mg twice a day. Also isosorbide dinitrate/hydralazine which is BiDil 20/37.5 3 times a day. (5) Anemia Current Visit: Yes Status: Chronic Qualifiers: Anemia type: iron deficiency Iron deficiency anemia type: I Vitamin B12 deficiency anemia type: V Folate deficiency anemia type: F Bone marrow failure anemia type: B Hemolytic anemia type: H Other causes of anemia: O Plan to address problem: Patient on iron sulfate twice a day which is reduced to once a day. His hemoglobin is near normal. (6) Anticoagulation goal of INR 2 to 3 Current Visit: Yes Status: Chronic Plan to address problem: Continue Coumadin. (7) Gout Current Visit: Yes Status: Chronic Qualifiers: Gout site: G Gout etiology: G Encounter type: E Laterality: L Chronicity: C Presence of tophus: P Plan to address problem: Continue colchicine 0.6 once a day. (8) DVT prophylaxis Current Visit: No Status: Acute Plan to address problem: Patient on Lovenox 40 mg subcutaneous daily. (9) Discharge planning issues Current Visit: Yes Status: Acute Plan to address problem: Patient switched to po lasix today.If doing well may go home tomorrow. History Interval history: SOB better. Hospitalist Physical - Constitutional Vitals: Temp Pulse Resp BP Pulse Ox 97.7 F 74 18 95/51 92 08/03/16 13:37 08/03/16 13:37 08/03/16 13:37 08/03/16 13:37 08/03/16 13:37 General appearance: Present: no acute distress, well-nourished - EENT Eyes: Present: PERRL, EOM intact ENT: hearing intact, clear oral mucosa, dentition normal, hearing decreased - Neck Neck: Present: supple, normal ROM - Respiratory Respiratory: bilateral: CTA - Cardiovascular Rhythm: regular Heart Sounds: Present: S1 & S2 - Extremities Extremities: no ischemia, pulses intact, pulses symmetrical Extremity abnormal: edema, cyanosis, clubbing, ulceration Peripheral Pulses: within normal limits - Abdominal General gastrointestinal: soft, non-tender, non-distended, normal bowel sounds - Integumentary Integumentary: Present: clear, warm, dry, erythema - Neurologic Neurologic: CNII-XII intact, moves all extremities - Allied Health Allied health notes reviewed: nursing, case management Results - Labs CBC & Chem 7: 08/01/16 12:56 08/01/16 12:56 Labs: Laboratory Last Values WBC 11.1 K/mm3 (4.5-11.0) H 08/01/16 12:56 RBC 4.20 M/mm3 (3.65-5.03) 08/01/16 12:56 Hgb 11.3 gm/dl (11.8-15.2) L 08/01/16 12:56 Hct 36.6 % (35.5-45.6) 08/01/16 12:56 MCV 87 fl (84-94) 08/01/16 12:56 MCH 27 pg (28-32) L 08/01/16 12:56 MCHC 31 % (32-34) L 08/01/16 12:56 RDW 16.2 % (13.2-15.2) H 08/01/16 12:56 Plt Count 161 K/mm3 (140-440) 08/01/16 12:56 Lymph % (Auto) 8.7 % (13.4-35.0) L 08/01/16 12:56 [place] % (Auto) 4.2 % (0.0-7.3) 08/01/16 12:56 Eos % (Auto) 0.7 % (0.0-4.3) 08/01/16 12:56 Baso % (Auto) 0.2 % (0.0-1.8) 08/01/16 12:56 Lymph # 1.0 K/mm3 (1.2-5.4) L 08/01/16 12:56 [place] # 0.6 K/mm3 (0.0-0.8) 08/01/16 12:56 Eos # 0.1 K/mm3 (0.0-0.4) 08/01/16 12:56 Baso # 0.1 K/mm3 (0.0-0.1) 08/01/16 12:56 Seg Neutrophils % 82.8 % (40.0-70.0) H 08/01/16 12:56 Seg Neutrophils # 12.7 K/mm3 (1.8-7.7) H 08/01/16 12:56 PT 16.2 Sec. (12.2-14.9) H 08/03/16 05:57 INR 1.31 (0.87-1.13) H 08/03/16 05:57 APTT 34.0 Sec. (24.2-36.6) 08/01/16 12:56 Sodium TNR 08/01/16 12:56 Potassium TNR 08/01/16 12:56 Chloride TNR 08/01/16 12:56 Carbon Dioxide TNR 08/01/16 12:56 Anion Gap TNR 08/01/16 12:56 BUN TNR 08/01/16 12:56 Creatinine TNR 08/01/16 12:56 Estimated GFR TNR 08/01/16 12:56 BUN/Creatinine Ratio TNR 08/01/16 12:56 Glucose TNR 08/01/16 12:56 Calcium TNR 08/01/16 12:56 Total Creatine Kinase TNR 08/01/16 12:56 CK-MB (CK-2) TNR 08/01/16 12:56 CK-MB (CK-2) Rel Index TNR 08/01/16 12:56 Troponin T TNR 08/01/16 12:56 NT-Pro-B Natriuret Pep TNR 08/01/16 12:56 - Imaging and Cardiology Imaging and Cardiology: EF 35 to 40 percent.LV diastolic filling pattern is restrictive.Asome segments of LV wall are hypokinetic.
[2016-08-03] MEDS: COUMADIN PO SCH (17:40)
[2016-08-03] MEDS: ZOCOR PO SCH (22:52)
[2016-08-04 06:08] LABS: Basophils % (Auto) 0.7 % (0.0-1.8); Eosinophils % (Auto) 1.2 % (0.0-4.3); Hematocrit 38.7 % (35.5-45.6); Hemoglobin 12.3 gm/dl (11.8-15.2); Mean Corpuscular HGB Conc 32 % (32-34); Mean Corpuscular Hemoglobin 27 pg (28-32); Mean Corpuscular Volume 85 fl (84-94); Platelet Count 214 K/mm3 (140-440); Red Blood Count 4.53 M/mm3 (3.65-5.03); Red Cell Distribution Width 15.7 % (13.2-15.2); White Blood Count 6.4 K/mm3 (4.5-11.0)
[2016-08-04 06:21] LABS: INR 1.19 (0.87-1.13)
[2016-08-04 07:22] LABS: Albumin 3.3 g/dL (3.9-5); Albumin/Globulin Ratio 0.9 %; BUN/Creatinine Ratio 12.5; Bilirubin,Total 0.6 mg/dL (0.1-1.2); Calcium 8.9 mg/dL (8.4-10.2); Chloride 90.8 mmol/L (98-107); Potassium 3.6 mmol/L (3.6-5.0); Total Protein 7.1 g/dL (6.3-8.2)
[2016-08-04] MEDS: BIDIL 20/37.5MG PO SCH ×3 (08:29→21:41)
[2016-08-04] MEDS: ZESTRIL PO SCH (09:38)
[2016-08-04] MEDS: ZAROXOLYN PO SCH (09:38)
[2016-08-04] MEDS: PEPCID PO SCH ×2 (09:39→21:41)
[2016-08-04] MEDS: K-DUR PO SCH ×2 (09:39→09:40)
[2016-08-04] MEDS: COREG PO SCH ×2 (09:40→21:42)
[2016-08-04] MEDS: COLCRYS PO SCH (09:40)
[2016-08-04] MEDS: BABY ASPIRIN PO SCH (09:40)
[2016-08-04] MEDS: FEOSOL PO SCH (09:40)
[2016-08-04] MEDS: NEURONTIN PO SCH (09:40)
[2016-08-04] MEDS: LASIX PO SCH (09:41)
[2016-08-04] MEDS: LOVENOX SUB-Q SCH ×2 (09:41→21:42)
[2016-08-04] MEDS: CATAPRES PO SCH ×2 (09:41→21:41)
--- NOTE | 2016-08-04 11:48 | Progress Note ---
Assessment and Plan Acute on chronic systolic heart failure-->clinically improving Echo 07/2016: mild LVH, EF 35-40%, moderate MR, mild TR continue lasix, metolazone, coreg, bidil d/c lisinopril and initiate losartan due to cough Hemoptysis-->resolved ?pneumonia, hx. of recent pneumonia consider pulmonary evaluation given unilateral pulm edema Non-ischemic cardiomyopathy EF 35-40% negative stress MPI 11/2008 HTN well controlled Chronic kidney disease appears to be at baseline monitor cr closely Hx. of CVA on coumadin per neurology goal INR 2-3 Chronic anemia Stable cardiac status. Change lisinopril to losartan due to cough. Follow up appointment with Dr. SHIMON Rodgers in the [place] office on 08/17/16 at 2: 45 pm. The patient has been seen in conjunction with Dr. Batista who agrees with the assessment and plan of care. Subjective Date of service: 08/04/16 Principal diagnosis: acute on chronic systolic heart failure, hypertension, pulmonary edema Interval history: The patient is resting comfortably in bed. Shortness of breath improved. C/o cough productive of white sputum. No further hemoptysis. Sinus rhythm on the monitor. Objective Last Vital Signs Temp 97.8 F 08/04/16 08:00 Pulse 56 L 08/04/16 08:00 Resp 20 08/04/16 08:00 BP 118/74 08/04/16 08:00 Pulse Ox 98 08/04/16 08:00 - Physical Examination General: No Apparent Distress HEENT: Positive: Normocephaly, Mucus Membranes Moist Neck: Positive: neck supple, trachea midline Cardiac: Positive: Reg Rate and Rhythm, S1/S2 Lungs: Positive: clear to auscultation Neuro: Positive: Grossly Intact Abdomen: Positive: Soft, Active Bowel Sounds. Negative: Tender Skin: Positive: Clear. Negative: Rash Extremities: Absent: edema - Labs and Meds Cardiac Enzymes 08/04/16 Range/Units 05:38 AST 24 (5-40) units/L Coagulation 08/04/16 Range/Units 05:38 PT 15.0 H (12.2-14.9) Sec. INR 1.19 H (0.87-1.13) CBC 08/04/16 Range/Units 05:38 WBC 6.4 (4.5-11.0) K/mm3 RBC 4.53 (3.65-5.03) M/mm3 Hgb 12.3 (11.8-15.2) gm/dl Hct 38.7 (35.5-45.6) % Plt Count 214 (140-440) K/mm3 Lymph # 1.7 (1.2-5.4) K/mm3 [place] # 0.4 (0.0-0.8) K/mm3 Eos # 0.1 (0.0-0.4) K/mm3 Baso # 0.0 (0.0-0.1) K/mm3 Comprehensive Metabolic Panel 08/04/16 Range/Units 05:38 Sodium 130 L D (137-145) mmol/L Potassium 3.6 (3.6-5.0) mmol/L Chloride 90.8 L (98-107) mmol/L Carbon Dioxide 26 (22-30) mmol/L BUN 20 (9-20) mg/dL Creatinine 1.6 H (0.8-1.5) mg/dL Glucose 97 (75-100) mg/dL Calcium 8.9 (8.4-10.2) mg/dL AST 24 (5-40) units/L ALT 24 (7-56) units/L Alkaline Phosphatase 91 (35-129) units/L Total Protein 7.1 (6.3-8.2) g/dL Albumin 3.3 L (3.9-5) g/dL - Imaging and Cardiology EKG: image reviewed Echo: report reviewed (07/2016: mild LVH, EF 35-40%, restrictive filling, moderate MR, mild TR) - Telemetry EKG Rhythm: Sinus Rhythm - EKG Sinus rhythms and dysrhythmias: sinus rhythm Chamber hypertrophy or enlargement: left atrial enlargement Repolarization changes or abnormalities: nonspecific abnormality, ST segment, and/or T wave
[2016-08-04] MEDS ORDERED: COUMADIN PO SCH (17:00)
--- NOTE | 2016-08-04 20:20 | Progress Note ---
Assessment and Plan Assessment and plan: --Acute on chronic systolic heart failure, left ventricular ejection fraction 35 -40% Symptoms significantly improved ;continue IV lasix, metolazone, coreg, lisinopril, bidil Cardiology following --Hemoptysis/?pneumonia We will manage with oral Levaquin for 5 days, blood-tinged sputum probably secondary to Coumadin therapy No new episodes, If no improvement feels he primary care physician or peanut picker as outpatient -- Non-ischemic cardiomyopathy Continue current antifever medications --HTN ,well controlled --Chronic kidney disease Significantly improved back to baseline -- Hx. of CVA, on coumadin per neurology -- Chronic anemia: Closely monitor H&H Transfuse if needed --DVT prophylaxis patient is already on Coumadin History Interval history: Patient seen and evaluated medical records reviewed Patient feels better denies any chest pain shortness of breath Alert awake oriented 3 not in acute distress Vital signs reviewed Hospitalist Physical - Constitutional Vitals: Temp Pulse Resp BP Pulse Ox 98.1 F 81 18 103/69 93 08/04/16 16:00 08/04/16 16:00 08/04/16 16:00 08/04/16 16:00 08/04/16 12:00 General appearance: Present: no acute distress, well-nourished - EENT Eyes: Present: PERRL, EOM intact - Neck Neck: Present: supple, normal ROM - Respiratory Respiratory effort: normal Respiratory: negative: rales, rhonchi, wheezing - Cardiovascular Rhythm: regular Heart Sounds: Present: S1 & S2 - Extremities Extremities: no ischemia, pulses intact, pulses symmetrical Peripheral Pulses: within normal limits - Abdominal General gastrointestinal: soft, non-tender, non-distended, normal bowel sounds - Integumentary Integumentary: Present: clear, warm - Psychiatric Psychiatric: appropriate mood/affect, cooperative - Neurologic Neurologic: CNII-XII intact, moves all extremities Results - Labs CBC & Chem 7: 08/04/16 05:38 08/04/16 05:38 Labs: Laboratory Last Values WBC 6.4 K/mm3 (4.5-11.0) 08/04/16 05:38 RBC 4.53 M/mm3 (3.65-5.03) 08/04/16 05:38 Hgb 12.3 gm/dl (11.8-15.2) 08/04/16 05:38 Hct 38.7 % (35.5-45.6) 08/04/16 05:38 MCV 85 fl (84-94) 08/04/16 05:38 MCH 27 pg (28-32) L 08/04/16 05:38 MCHC 32 % (32-34) 08/04/16 05:38 RDW 15.7 % (13.2-15.2) H 08/04/16 05:38 Plt Count 214 K/mm3 (140-440) 08/04/16 05:38 Lymph % (Auto) 26.4 % (13.4-35.0) 08/04/16 05:38 [place] % (Auto) 6.0 % (0.0-7.3) 08/04/16 05:38 Eos % (Auto) 1.2 % (0.0-4.3) 08/04/16 05:38 Baso % (Auto) 0.7 % (0.0-1.8) 08/04/16 05:38 Lymph # 1.7 K/mm3 (1.2-5.4) 08/04/16 05:38 [place] # 0.4 K/mm3 (0.0-0.8) 08/04/16 05:38 Eos # 0.1 K/mm3 (0.0-0.4) 08/04/16 05:38 Baso # 0.0 K/mm3 (0.0-0.1) 08/04/16 05:38 Seg Neutrophils % 65.7 % (40.0-70.0) 08/04/16 05:38 Seg Neutrophils # 4.2 K/mm3 (1.8-7.7) 08/04/16 05:38 PT 15.0 Sec. (12.2-14.9) H 08/04/16 05:38 INR 1.19 (0.87-1.13) H 08/04/16 05:38 APTT 34.0 Sec. (24.2-36.6) 08/01/16 12:56 Sodium 130 mmol/L (137-145) L D 08/04/16 05:38 Potassium 3.6 mmol/L (3.6-5.0) 08/04/16 05:38 Chloride 90.8 mmol/L (98-107) L 08/04/16 05:38 Carbon Dioxide 26 mmol/L (22-30) 08/04/16 05:38 Anion Gap 17 mmol/L 08/04/16 05:38 BUN 20 mg/dL (9-20) 08/04/16 05:38 Creatinine 1.6 mg/dL (0.8-1.5) H 08/04/16 05:38 Estimated GFR 57 ml/min 08/04/16 05:38 BUN/Creatinine Ratio 12.50 % 08/04/16 05:38 Glucose 97 mg/dL (75-100) 08/04/16 05:38 Calcium 8.9 mg/dL (8.4-10.2) 08/04/16 05:38 Total Bilirubin 0.6 mg/dL (0.1-1.2) 08/04/16 05:38 AST 24 units/L (5-40) 08/04/16 05:38 ALT 24 units/L (7-56) 08/04/16 05:38 Alkaline Phosphatase 91 units/L (35-129) 08/04/16 05:38 Total Creatine Kinase TNR 08/01/16 12:56 CK-MB (CK-2) TNR 08/01/16 12:56 CK-MB (CK-2) Rel Index TNR 08/01/16 12:56 Troponin T TNR 08/01/16 12:56 NT-Pro-B Natriuret Pep TNR 08/01/16 12:56 Total Protein 7.1 g/dL (6.3-8.2) 08/04/16 05:38 Albumin 3.3 g/dL (3.9-5) L 08/04/16 05:38 Albumin/Globulin Ratio 0.9 % 08/04/16 05:38
[2016-08-04] MEDS: ZOCOR PO SCH (21:42)
[2016-08-05 07:04] LABS: INR 1.26 (0.87-1.13)
[2016-08-05] MEDS: BIDIL 20/37.5MG PO SCH (08:00)
[2016-08-05 08:08] VITALS: BP 129/86
[2016-08-05] MEDS ORDERED: COZAAR PO SCH (10:00)
[2016-08-05] MEDS: CATAPRES PO SCH (12:16)
[2016-08-05] MEDS: BABY ASPIRIN PO SCH (12:16)
[2016-08-05] MEDS: COREG PO SCH (12:17)
[2016-08-05] MEDS: FEOSOL PO SCH (12:17)
[2016-08-05] MEDS: COLCRYS PO SCH (12:17)
[2016-08-05] MEDS: LASIX PO SCH (12:18)
[2016-08-05] MEDS: LOVENOX SUB-Q SCH (12:18)
[2016-08-05] MEDS: K-DUR PO SCH (12:18)
[2016-08-05] MEDS: NEURONTIN PO SCH (12:19)
[2016-08-05] MEDS: PEPCID PO SCH (12:19)
[2016-08-05] MEDS: ZAROXOLYN PO SCH (12:19)
--- NOTE | 2016-08-05 12:32 | Discharge Summary ---
Providers - Providers Date of Admission: 08/01/16 14:12 Date of discharge: 08/05/16 Attending physician: TENA ZHOU 08/01/16 20:21 Consult to Physician [CONS] Routine Consulting Provider: GOGO HINKLE Reason For Exam: chf/htn Place consult to:: liv elliott Notified:: Victor Manuel RN Was contact made?: Yes If yes, spoke with:: Liv Elliott Time called:: 10:00 Primary care physician: [employer] Hospitalization Condition: Fair Disposition: STILL A PATIENT Exam - Constitutional Vitals: Temp Pulse Resp BP Pulse Ox 98.2 F 76 20 129/86 100 08/05/16 08:00 08/05/16 10:00 08/05/16 08:00 08/05/16 08:00 08/05/16 08:00 Plan Follow up with: PRIMARY CAREMD [Primary Care Provider] - 3-5 Days Forms: Warfarin Discharge Instruction
== END 2016-08-05 13:59 | disposition home or self-care (01) | DRG 291 ==
LOC: ED 12:20 → 4A 14:12
PROVIDERS: ADMIT Internal Medicine; ATTEND Internal Medicine
PROC: 5A09457 Assistance with Respiratory Ventilation, 24-96 Consecutive Hours, Continuous Positive Airway Pressure (ICD-10-PCS; principal; 2016-08-01)
DX: I13.0 Hypertensive heart and chronic kidney disease with heart failure and stage 1 through stage 4 chronic kidney disease, or unspecified chronic kidney disease (principal); I50.23 Acute on chronic systolic (congestive) heart failure; D64.9 Anemia, unspecified; M10.9 Gout, unspecified; R09.02 Hypoxemia; I25.10 Atherosclerotic heart disease of native coronary artery without angina pectoris; I42.9 Cardiomyopathy, unspecified; N18.9 Chronic kidney disease, unspecified; I08.1 Rheumatic disorders of both mitral and tricuspid valves; Z86.73 Personal history of transient ischemic attack (TIA), and cerebral infarction without residual deficits; Z86.711 Personal history of pulmonary embolism; Z82.49 Family history of ischemic heart disease and other diseases of the circulatory system; Z79.01 Long term (current) use of anticoagulants; E78.5 Hyperlipidemia, unspecified; Z79.82 Long term (current) use of aspirin
CPT/HCPCS: 36415; 71010; 80048; 80053; 82550; 82553; 83880; 84484; 85025; 85610; 85730; 90686; 90732; 93005; 93010; 93306; 96374; 99291; J1650; J1940

== ENCOUNTER 2017-01-28 14:35 | Emergency (ER) | payer MEDICARE ==
[2017-01-28 15:15] LABS: Basophils % (Auto) 0.6 % (0.0-1.8); Eosinophils % (Auto) 0.7 % (0.0-4.3); Hematocrit 39.9 % (35.5-45.6); Hemoglobin 12.6 gm/dl (11.8-15.2); Mean Corpuscular HGB Conc 32 % (32-34); Mean Corpuscular Hemoglobin 27 pg (28-32); Mean Corpuscular Volume 85 fl (84-94); Platelet Count 221 K/mm3 (140-440); Red Blood Count 4.68 M/mm3 (3.65-5.03); Red Cell Distribution Width 16.3 % (13.2-15.2); White Blood Count 7.3 K/mm3 (4.5-11.0)
[2017-01-28 15:37] LABS: Anion Gap 19 mmol/L; BUN/Creatinine Ratio 10.62; Blood Urea Nitrogen 17 mg/dL (9-20); Calcium 8.7 mg/dL (8.4-10.2); Carbon Dioxide 23 mmol/L (22-30); Chloride 105.1 mmol/L (98-107); Glucose 117 mg/dL (75-100); Potassium 3.5 mmol/L (3.6-5.0); Sodium 144 mmol/L (137-145)
--- NOTE | 2017-01-28 18:17 | XRay Report ---
FINAL REPORT EXAM: XR CHEST ROUTINE 2V HISTORY: cough TECHNIQUE: PA and lateral chest radiographs PRIORS: None. FINDINGS: There is subtle increased opacity over the right hemidiaphragm in the PA projection. This is not seen in lateral view, however. No pleural effusion is seen. Heart is enlarged. No acute osseous abnormality is identified. IMPRESSION: 1. Mild atelectasis versus early infiltrate in the right lung base. 2. Cardiomegaly.
[2017-01-28] MEDS ORDERED: LASIX PO ONE (18:47)
[2017-01-28] MEDS ORDERED: ZITHROMAX PO ONE (18:47)
[2017-01-28 19:34] VITALS: BP 141/97
--- NOTE | 2017-01-28 19:39 | Emergency Department Report ---
ED General Adult HPI - General Chief complaint: Dizziness Stated complaint: DIZZY,COUGH Time Seen by Provider: 01/28/17 16:53 Source: patient Mode of arrival: Ambulatory Limitations: No Limitations - History of Present Illness Initial comments: She has a 41-year-old male past medical history of high blood pressure and congestive heart failure. Who presents with cough. Patient states that he's been coughing up for the last couple days. Patient states that he has chest pain whenever he coughs. Coughing makes it worse it is better at rest. He states that when he coughs the pain is a 5 out 10 in the middle of his chest. Patient denies having any sick contacts. He states that he feels slightly short of breath. Patient denies having any chest pain at rest or having any fever. Severity scale (0 -10): 0 - Related Data Previous Rx's Medication Instructions Recorded Last Taken Type Aspirin [Aspirin BABY CHEW TAB] 81 mg PO QDAY #30 tab.chew 01/06/15 1 Day Ago Rx Carvedilol [Coreg] 25 mg PO BID #60 tablet 01/06/15 1 Day Ago Rx Famotidine [Pepcid] 10 mg PO BID #60 tablet 01/06/15 1 Day Ago Rx Ferrous Sulfate [Feosol 325 MG tab] 325 mg PO BID #60 tablet 01/06/15 1 Day Ago Rx Gabapentin [Neurontin] 300 mg PO DAILY #30 capsule 01/06/15 1 Day Ago Rx Isosorb Dinit/Hydralazine [Bidil 1 each PO TID #90 tablet 01/06/15 1 Day Ago Rx 20/37.5MG] Metolazone [Zaroxolyn] 2.5 mg PO Q48HR #15 tablet 01/06/15 1 Day Ago Rx Nitroglycerin [Nitrostat] 0.4 mg SL .Q5MIN PRN #30 tab 01/06/15 1 Month Ago Rx Potassium Chloride 2 tab PO DAILY #60 tablet.er 01/06/15 1 Day Ago Rx Simvastatin [Zocor TAB] 20 mg PO QHS #30 tablet 01/06/15 1 Day Ago Rx Cefuroxime Axetil [Ceftin] 500 mg PO Q12H #8 tablet 03/22/15 1 Day Ago Rx Lisinopril [Zestril TAB] 2.5 mg PO QDAY #30 tab 03/22/15 1 Day Ago Rx Warfarin [Coumadin] 2.5 mg PO QDAY #30 tablet 03/22/15 1 Day Ago Rx cloNIDine [Catapres] 0.1 mg PO BID #60 tablet 03/22/15 1 Day Ago Rx Colchicine [Colcrys] 0.6 mg PO DAILY #10 tablet 04/27/15 1 Day Ago Rx HYDROcodone/APAP 10-325 [Stirum 1 each PO Q4-6H PRN #30 tablet 04/27/15 1 Day Ago Rx 10/325] Azithromycin [Zithromax Z-ALTHEA] 250 mg PO DAILY #5 tablet 01/28/17 Unknown Rx Benzonatate [Tessalon Perles] 100 mg PO Q8HR #20 capsule 01/28/17 Unknown Rx Furosemide [Lasix TAB] 40 mg PO 0600,1800 #60 tablet 01/28/17 Unknown Rx Furosemide [Lasix TAB] 40 mg PO BID #60 tablet 01/28/17 Unknown Rx Allergies Allergy/AdvReac Type Severity Reaction Status Date / Time No Known Allergies Allergy Verified 01/28/17 14:47 ED Review of Systems ROS: Stated complaint: DIZZY,COUGH Other details as noted in HPI Constitutional: denies: chills, fever Eyes: denies: eye pain, eye discharge, vision change ENT: denies: ear pain, throat pain Respiratory: cough, shortness of breath. denies: wheezing Cardiovascular: denies: chest pain, palpitations Endocrine: no symptoms reported Gastrointestinal: denies: abdominal pain, nausea, diarrhea Genitourinary: denies: urgency, dysuria Musculoskeletal: denies: back pain, joint swelling, arthralgia Skin: denies: rash, lesions Neurological: other (lightheadedness). denies: headache, weakness, paresthesias Psychiatric: denies: anxiety, depression Hematological/Lymphatic: denies: easy bleeding, easy bruising ED Past Medical Hx - Past Medical History Hx Hypertension: Yes Hx CVA: Yes (ischemic, no resid. deficits) Hx Congestive Heart Failure: Yes Hx Pulmonary Embolism: Yes Hx Renal Disease: Yes Hx HIV: No Additional medical history: gout - Surgical History Additional Surgical History: Heart Cath 2005 - Social History Smoking Status: Former Smoker Substance Use Type: Alcohol - Medications Home Medications: Home Medications Medication Instructions Recorded Confirmed Last Taken Type Aspirin [Aspirin BABY CHEW TAB] 81 mg PO QDAY #30 tab.chew 01/06/15 08/02/16 1 Day Ago Rx Carvedilol [Coreg] 25 mg PO BID #60 tablet 01/06/15 08/02/16 1 Day Ago Rx Famotidine [Pepcid] 10 mg PO BID #60 tablet 01/06/15 08/02/16 1 Day Ago Rx Ferrous Sulfate [Feosol 325 MG tab] 325 mg PO BID #60 tablet 01/06/15 08/02/16 1 Day Ago Rx Gabapentin [Neurontin] 300 mg PO DAILY #30 capsule 01/06/15 08/02/16 1 Day Ago Rx Isosorb Dinit/Hydralazine [Bidil 1 each PO TID #90 tablet 01/06/15 08/02/16 1 Day Ago Rx 20/37.5MG] Metolazone [Zaroxolyn] 2.5 mg PO Q48HR #15 tablet 01/06/15 08/02/16 1 Day Ago Rx Nitroglycerin [Nitrostat] 0.4 mg SL .Q5MIN PRN #30 tab 01/06/15 08/02/16 1 Month Ago Rx Potassium Chloride 2 tab PO DAILY #60 tablet.er 01/06/15 08/02/16 1 Day Ago Rx Simvastatin [Zocor TAB] 20 mg PO QHS #30 tablet 01/06/15 08/02/16 1 Day Ago Rx Cefuroxime Axetil [Ceftin] 500 mg PO Q12H #8 tablet 03/22/15 08/02/16 1 Day Ago Rx Lisinopril [Zestril TAB] 2.5 mg PO QDAY #30 tab 03/22/15 08/02/16 1 Day Ago Rx Warfarin [Coumadin] 2.5 mg PO QDAY #30 tablet 03/22/15 08/02/16 1 Day Ago Rx cloNIDine [Catapres] 0.1 mg PO BID #60 tablet 03/22/15 08/02/16 1 Day Ago Rx Colchicine [Colcrys] 0.6 mg PO DAILY #10 tablet 04/27/15 08/02/16 1 Day Ago Rx HYDROcodone/APAP 10-325 [Stirum 1 each PO Q4-6H PRN #30 tablet 04/27/15 08/02/16 1 Day Ago Rx 10/325] Azithromycin [Zithromax Z-ALTHEA] 250 mg PO DAILY #5 tablet 01/28/17 Unknown Rx Benzonatate [Tessalon Perles] 100 mg PO Q8HR #20 capsule 01/28/17 Unknown Rx Furosemide [Lasix TAB] 40 mg PO 0600,1800 #60 tablet 01/28/17 Unknown Rx Furosemide [Lasix TAB] 40 mg PO BID #60 tablet 01/28/17 Unknown Rx ED Physical Exam - General Limitations: No Limitations General appearance: alert, in no apparent distress - Head Head exam: Present: atraumatic, normocephalic - Eye Eye exam: Present: normal appearance - ENT ENT exam: Present: mucous membranes moist - Neck Neck exam: Present: normal inspection - Respiratory Respiratory exam: Present: other (crackles in the right lower base). Absent: respiratory distress - Cardiovascular Cardiovascular Exam: Present: regular rate, normal rhythm. Absent: systolic murmur, diastolic murmur, rubs, gallop - GI/Abdominal GI/Abdominal exam: Present: soft, normal bowel sounds - Rectal Rectal exam: Present: deferred - Extremities Exam Extremities exam: Present: normal inspection, pedal edema (+1 pedal edema) - Back Exam Back exam: Present: normal inspection - Neurological Exam Neurological exam: Present: alert, oriented X3 - Psychiatric Psychiatric exam: Present: normal affect, normal mood - Skin Skin exam: Present: warm, dry, intact, normal color. Absent: rash ED Course Vital Signs 01/28/17 01/28/17 01/28/17 14:47 17:10 17:19 Temperature 98.1 F 97.9 F Pulse Rate 95 H 85 94 H Respiratory 18 20 26 H Rate Blood Pressure 133/94 Blood Pressure 130/85 [Left] O2 Sat by Pulse 98 100 98 Oximetry 01/28/17 01/28/17 17:22 19:33 Temperature 98.2 F Pulse Rate 94 H Respiratory 20 20 Rate Blood Pressure Blood Pressure 141/97 [Left] O2 Sat by Pulse 98 100 Oximetry ED Medical Decision Making - Lab Data Result diagrams: 01/28/17 15:05 01/28/17 15:05 Lab Results 01/28/17 01/28/17 01/28/17 Range/Units 15:05 15:05 15:10 WBC 7.3 (4.5-11.0) K/mm3 RBC 4.68 (3.65-5.03) M/mm3 Hgb 12.6 (11.8-15.2) gm/dl Hct 39.9 (35.5-45.6) % MCV 85 (84-94) fl MCH 27 L (28-32) pg MCHC 32 (32-34) % RDW 16.3 H (13.2-15.2) % Plt Count 221 (140-440) K/mm3 Lymph % (Auto) 20.0 (13.4-35.0) % [place] % (Auto) 3.0 (0.0-7.3) % Eos % (Auto) 0.7 (0.0-4.3) % Baso % (Auto) 0.6 (0.0-1.8) % Lymph # 1.5 (1.2-5.4) K/mm3 [place] # 0.2 (0.0-0.8) K/mm3 Eos # 0.0 (0.0-0.4) K/mm3 Baso # 0.0 (0.0-0.1) K/mm3 Seg Neutrophils % 75.7 H (40.0-70.0) % Seg Neutrophils # 5.5 (1.8-7.7) K/mm3 Sodium 144 (137-145) mmol/L Potassium 3.5 L (3.6-5.0) mmol/L Chloride 105.1 (98-107) mmol/L Carbon Dioxide 23 (22-30) mmol/L Anion Gap 19 mmol/L BUN 17 (9-20) mg/dL Creatinine 1.6 H (0.8-1.5) mg/dL Estimated GFR 57 ml/min BUN/Creatinine Ratio 10.62 % Glucose 117 H (75-100) mg/dL Calcium 8.7 (8.4-10.2) mg/dL Troponin T < 0.010 (0.00-0.029) ng/mL NT-Pro-B Natriuret Pep 3384 H (0-450) pg/mL 01/28/17 Range/Units 18:04 WBC (4.5-11.0) K/mm3 RBC (3.65-5.03) M/mm3 Hgb (11.8-15.2) gm/dl Hct (35.5-45.6) % MCV (84-94) fl MCH (28-32) pg MCHC (32-34) % RDW (13.2-15.2) % Plt Count (140-440) K/mm3 Lymph % (Auto) (13.4-35.0) % [place] % (Auto) (0.0-7.3) % Eos % (Auto) (0.0-4.3) % Baso % (Auto) (0.0-1.8) % Lymph # (1.2-5.4) K/mm3 [place] # (0.0-0.8) K/mm3 Eos # (0.0-0.4) K/mm3 Baso # (0.0-0.1) K/mm3 Seg Neutrophils % (40.0-70.0) % Seg Neutrophils # (1.8-7.7) K/mm3 Sodium (137-145) mmol/L Potassium (3.6-5.0) mmol/L Chloride (98-107) mmol/L Carbon Dioxide (22-30) mmol/L Anion Gap mmol/L BUN (9-20) mg/dL Creatinine (0.8-1.5) mg/dL Estimated GFR ml/min BUN/Creatinine Ratio % Glucose (75-100) mg/dL Calcium (8.4-10.2) mg/dL Troponin T < 0.010 (0.00-0.029) ng/mL NT-Pro-B Natriuret Pep (0-450) pg/mL - EKG Data -: EKG Interpreted by Pr - EKG Data 01/28/17 19:38 EKG shows normal sinus rhythm with sinus arrhythmia possible left atrial management LVH. Patient also has slightly prolonged QT at 490. No ST segment elevations. T wave inversion in V4 V5 - Radiology Data Radiology results: report reviewed, image reviewed Chest x-ray: Shows cardiomegaly and mild right lower lobe infiltrate. - Medical Decision Making Chief medical diagnosis: Pneumonia Differential diagnosis: Congestive heart failure, viral syndrome, pulmonary edema I will EKG, CBC, CMP, troponin, antibiotics, chest x-ray, Lasix Discussed with patient about possibly being admitted for his pneumonia. Patient states he doesn't want to be admitted. I will give patient a refill on his Lasix medication and I will send patient home with outpatient azithromycin. Discussed outpatient and additional verbal discharge instructions were given. Patient agrees with plan. Critical care attestation.: If time is entered above; I have spent that time in minutes in the direct care of this critically ill patient, excluding procedure time. ED Disposition Clinical Impression: Cough Pneumonia Qualifiers: Pneumonia type: due to unspecified organism Laterality: right Lung location: lower lobe of lung Qualified Code(s): J18.1 - Lobar pneumonia, unspecified organism Congestive heart failure Qualifiers: Congestive heart failure type: unspecified congestive heart failure type Congestive heart failure chronicity: unspecified congestive heart failure chronicity Qualified Code(s): I50.9 - Heart failure, unspecified Disposition: TO HOME OR SELFCARE Is pt being admited?: No Condition: Stable Instructions: Bacterial Pneumonia (ED), Heart Failure (ED) Prescriptions: Azithromycin [Zithromax Z-ALTHEA] 250 mg PO DAILY #5 tablet Benzonatate [Tessalon Perles] 100 mg PO Q8HR #20 capsule Furosemide [Lasix TAB] 40 mg PO 0600,1800 #60 tablet Furosemide [Lasix TAB] 40 mg PO BID #60 tablet Referrals: PRIMARY MD SWETHA [Primary Care Provider] - 3-5 Days YUNIER YU JR, MD [Staff Physician] - 3-5 Days
[2017-01-28] MEDS ORDERED: TESSALON PERLES PO ONE (19:42)
== END 2017-01-28 19:56 | disposition home or self-care (01) ==
LOC: ED 14:35
DX: I50.9 Heart failure, unspecified (principal); J18.1 Lobar pneumonia, unspecified organism; R05 Cough; I10 Essential (primary) hypertension; I63.9 Cerebral infarction, unspecified; Z87.891 Personal history of nicotine dependence; I26.99 Other pulmonary embolism without acute cor pulmonale; Z79.82 Long term (current) use of aspirin; Z79.01 Long term (current) use of anticoagulants
CPT/HCPCS: 36415; 71020; 80048; 83880; 84484; 85025; 93005; 93010; 99284

== ENCOUNTER 2017-04-21 15:19 | Inpatient (IN) | payer MEDICARE ==
[2017-04-21 16:13] LABS: BUN/Creatinine Ratio 14; Blood Urea Nitrogen 23 mg/dL (9-20); Calcium 8.3 mg/dL (8.4-10.2); Carbon Dioxide 22 mmol/L (22-30); Glucose 121 mg/dL (75-100)
[2017-04-21 16:14] LABS: Anion Gap 19 mmol/L; Chloride 104.5 mmol/L (98-107); Potassium 3.7 mmol/L (3.6-5.0); Sodium 142 mmol/L (137-145)
[2017-04-21 16:17] LABS: Basophils % (Auto) 0.5 % (0.0-1.8); Hematocrit 35.4 % (35.5-45.6); Hemoglobin 10.9 gm/dl (11.8-15.2); Mean Corpuscular HGB Conc 31 % (32-34); Mean Corpuscular Hemoglobin 26 pg (28-32); Mean Corpuscular Volume 84 fl (84-94); Platelet Count 262 K/mm3 (140-440); Red Blood Count 4.21 M/mm3 (3.65-5.03); Red Cell Distribution Width 18.3 % (13.2-15.2); White Blood Count 4.9 K/mm3 (4.5-11.0)
[2017-04-21 16:23] LABS: INR 2.87 (0.87-1.13)
[2017-04-21 16:24] LABS: Partial Thromboplastin Time 51.5 Sec. (24.2-36.6)
--- NOTE | 2017-04-21 16:46 | XRay Report ---
FINAL REPORT EXAM: XR CHEST ROUTINE 2V HISTORY: Shortness of breath TECHNIQUE: PA view of the chest Comparison: 01/28 FINDINGS: There is again noted moderate cardiomegaly or enlarged cardiac silhouette. There is patchy right basal infiltrate and mild pulmonary vascular prominence. Costophrenic angles are sharp. Imaged axial skeleton demonstrates lower cervical degenerative disease. The right shoulder girdle and both lung bases are somewhat obscured by the annotation of the image. IMPRESSION: Moderate cardiomegaly or enlarged cardiac silhouette. Patchy right basal infiltrate and mild pulmonary vascular prominence. Recommend two view chest as follow-up.
[2017-04-21] MEDS ORDERED: LASIX IV ONE (20:30)
[2017-04-21] MEDS ORDERED: BABY ASPIRIN PO ONE (20:30)
--- NOTE | 2017-04-21 20:33 | Emergency Department Report ---
HPI - General Chief Complaint: Dyspnea/Respdistress Time Seen by Provider: 04/21/17 19:57 - HPI HPI: This is a 41-year-old Citizen Of [place] male presents to the emergency department, sent in by his primary care physician at [facility], with a complaint of shortness of breath and suspicion of CHF exacerbation. Patient says for the past one week, he has been having shortness of breath that increases with exertion, swelling to the lower extremities. He denies any chest pain, fever, back pain, nausea vomiting or diaphoresis. He also has a past medical history of ischemic CVA without residual deficits, hypertension, PE and gout. 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 No recent travel or sick contacts at home. He denies any tobacco or illicit drug use or abuse. ED Past Medical Hx - Past Medical History Hx Hypertension: Yes Hx CVA: Yes (ischemic, no resid. deficits) Hx Congestive Heart Failure: Yes Hx Pulmonary Embolism: Yes Hx Renal Disease: Yes Hx HIV: No Additional medical history: gout - Surgical History Additional Surgical History: Heart Cath 2005 - Social History Smoking Status: Never Smoker Substance Use Type: None - Medications Home Medications: Home Medications Medication Instructions Recorded Confirmed Last Taken Type Carvedilol [Coreg] 25 mg PO BID #60 tablet 01/06/15 02/23/17 1 Day Ago Rx ~02/22/17 Ferrous Sulfate [Feosol 325 MG tab] 325 mg PO BID #60 tablet 01/06/15 02/23/17 1 Day Ago Rx ~08/01/16 Gabapentin [Neurontin] 300 mg PO DAILY #30 capsule 01/06/15 02/23/17 1 Day Ago Rx ~02/22/17 Isosorb Dinit/Hydralazine [Bidil 1 each PO TID #90 tablet 01/06/15 02/23/17 1 Day Ago Rx 20/37.5MG] ~02/22/17 Metolazone [Zaroxolyn] 2.5 mg PO Q48HR #15 tablet 01/06/15 02/23/17 1 Day Ago Rx ~08/01/16 Potassium Chloride 2 tab PO DAILY #60 tablet.er 01/06/15 02/23/17 1 Day Ago Rx ~02/22/17 Simvastatin [Zocor TAB] 20 mg PO QHS #30 tablet 01/06/15 02/23/17 1 Day Ago Rx ~02/22/17 Warfarin [Coumadin] 2.5 mg PO QDAY #30 tablet 03/22/15 02/23/17 1 Day Ago Rx ~02/22/17 Furosemide [Lasix TAB] 40 mg PO BID #60 tablet 01/28/17 02/23/17 1 Day Ago Rx ~02/22/17 Allopurinol 100 mg PO TID 02/23/17 02/23/17 Unknown History cloNIDine [Catapres] 0.3 mg PO BID 02/23/17 02/23/17 1 Day Ago History ~02/22/17 ED Review of Systems ROS: Stated complaint: CHF Other details as noted in HPI Comment: All other systems reviewed and negative Constitutional: denies: chills, fever Eyes: denies: eye pain, eye discharge, vision change ENT: denies: ear pain, throat pain Respiratory: orthopnea, shortness of breath Cardiovascular: edema. denies: chest pain Gastrointestinal: denies: abdominal pain, nausea, diarrhea Genitourinary: denies: urgency, dysuria Musculoskeletal: denies: back pain, joint swelling, arthralgia Skin: denies: rash, lesions Neurological: denies: headache, weakness, paresthesias Physical Exam - Physical Exam Vital Signs: Vital Signs 04/21/17 15:32 Temperature 98 F Pulse Rate 91 H Respiratory 24 Rate Blood Pressure 119/80 O2 Sat by Pulse 97 Oximetry Physical Exam: GENERAL: The patient is well-developed well-nourished. HENT: Normocephalic. Atraumatic. Patient has moist mucous membranes. EYES: Extraocular motions are intact. Pupils equal reactive to light bilaterally. NECK: Supple. Trachea is midline. CHEST/LUNGS: There is some mildly coarse breath sounds without chest. No tachypnea or chest muscle use. There is no respiratory distress noted. HEART/CARDIOVASCULAR: Regular. There is no tachycardia. There is no gallop rub or murmur. ABDOMEN: Abdomen is soft, nontender. Patient has normal bowel sounds. There is no abdominal distention. SKIN: One to 2+ pitting edema to the bilateral lower extremities. NEURO: The patient is awake, alert, and oriented. The patient is cooperative. The patient has no focal neurologic deficits. The patient has normal speech. MUSCULOSKELETAL: There is no tenderness or deformity. There is no limitation range of motion. There is no evidence of acute injury. ED Course Vital Signs 04/21/17 15:32 Temperature 98 F Pulse Rate 91 H Respiratory 24 Rate Blood Pressure 119/80 O2 Sat by Pulse 97 Oximetry ED Medical Decision Making - Lab Data Result diagrams: 04/21/17 15:38 04/21/17 15:38 - EKG Data -: EKG Interpreted by Me EKG shows normal: sinus rhythm, axis (left axis deviation), intervals, QRS complexes (LVH), ST-T waves Rate: normal - EKG Data When compared to previous EKG there are: no significant change Interpretation: unchanged when compared t (02/23/17) - Radiology Data Radiology results: image reviewed interpreted by me: Chest x-ray shows some mild cardiomegaly and pulmonary vascular congestion. No overt pleural effusions. No pneumothorax or pneumonia. - Medical Decision Making 41-year-old male presents with a 1-2 week history of shortness of breath as well as some orthopnea. He has some coarse breath sounds and pitting edema. BNP is greater than 3500. He is therapeutic on his Coumadin and therefore low suspicion for pulmonary embolism. Started on IV Lasix for diuresis and will be admitted to the hospital for further evaluation and treatment. Accepted for admission by Dr Marcial. - Differential Diagnosis CHF, Pneumonia, Asthma, PE Critical Care Time: No Critical care attestation.: If time is entered above; I have spent that time in minutes in the direct care of this critically ill patient, excluding procedure time. ED Disposition Clinical Impression: Chronic anticoagulation CHF exacerbation Qualifiers: Congestive heart failure type: unspecified congestive heart failure type Qualified Code(s): I50.9 - Heart failure, unspecified Dyspnea Qualifiers: Dyspnea type: shortness of breath Qualified Code(s): R06.02 - Shortness of breath; R06.00 - Dyspnea, unspecified; R06.01 - Orthopnea Hypertension Qualifiers: Hypertension type: essential hypertension Qualified Code(s): I10 - Essential ( primary) hypertension Disposition: OP ADMIT IP TO THIS HOSP Is pt being admited?: Yes Condition: Stable Instructions: Hypertension (ED) Referrals: PRIMARY CARE, [Primary Care Provider] - 3-5 Days Time of Disposition: 22:08
--- NOTE | 2017-04-21 23:07 | History and Physical Report ---
History of Present Illness Date of examination: 04/21/17 History of present illness: 41-year-old man with a history of CHF, CVA, hypertension, gout comes to the emergency room complaining of shortness of breath,PND, orthropnea and lower extremity edema. States he is compliant with mediations, however fluid intake is too much Review Of Systems: Constitutional: no weight loss Ears, eyes, nose, mouth and throat: no nasal congestion, no nasal discharge, no sinus pressure, blurry vision, diplopia Neck: No neck pain or rigidity. Cardiovascular: no chest pain, palpitations Respiratory: No shortness of breath, cough Gastrointestinal: no abdominal pain, hematochezia Genitourinary : no dysuria, frequency , hematuria Musculoskeletal: no muscle ache Integumentary: no rash, no pruritis Neurological: no parathesias, focal weakness Endocrine: no cold or heat intolerance, no polyuria or polydipsia Hematologic/Lymphatic: no easy bruising, no easy bleeding, no gland swelling Allergic/Immunologic: no urticaria, no angioedema. PAST MEDICAL HISTORY:CHF, CVA, hypertension, gout co PAST SURGICAL HISTORY: None SOCIAL HISTORY: Quit alcohol, tobacco, no drugs FAMILY HISTORY: Hypertension Medications and Allergies Allergies Allergy/AdvReac Type Severity Reaction Status Date / Time No Known Allergies Allergy Verified 04/21/17 15:31 Home Medications Medication Instructions Recorded Confirmed Last Taken Type Carvedilol [Coreg] 25 mg PO BID #60 tablet 01/06/15 02/23/17 1 Day Ago Rx ~02/22/17 Ferrous Sulfate [Feosol 325 MG tab] 325 mg PO BID #60 tablet 01/06/15 02/23/17 1 Day Ago Rx ~08/01/16 Gabapentin [Neurontin] 300 mg PO DAILY #30 capsule 01/06/15 02/23/17 1 Day Ago Rx ~02/22/17 Isosorb Dinit/Hydralazine [Bidil 1 each PO TID #90 tablet 01/06/15 02/23/17 1 Day Ago Rx 20/37.5MG] ~02/22/17 Metolazone [Zaroxolyn] 2.5 mg PO Q48HR #15 tablet 01/06/15 02/23/17 1 Day Ago Rx ~08/01/16 Potassium Chloride 2 tab PO DAILY #60 tablet.er 01/06/15 02/23/17 1 Day Ago Rx ~02/22/17 Simvastatin [Zocor TAB] 20 mg PO QHS #30 tablet 01/06/15 02/23/17 1 Day Ago Rx ~02/22/17 Warfarin [Coumadin] 2.5 mg PO QDAY #30 tablet 03/22/15 02/23/17 1 Day Ago Rx ~02/22/17 Furosemide [Lasix TAB] 40 mg PO BID #60 tablet 01/28/17 02/23/17 1 Day Ago Rx ~02/22/17 Allopurinol 100 mg PO TID 02/23/17 02/23/17 Unknown History cloNIDine [Catapres] 0.3 mg PO BID 02/23/17 02/23/17 1 Day Ago History ~02/22/17 Exam - Physical Exam Narrative exam: Gen. appearance: Patient lying in bed, no apparent distress HEENT: Normocephalic, atraumatic, pupils equally round and reactive to light, extraocular movement intact, and no sclericterus,. No JVD or thyromegaly or nodule,neck supple, no carotid bruit ,mucous membranes moist, no exudate or erythema Heart: S1, S2, regular rate and rhythm Lungs: Crackles bilaterally, breathing comfortable Abdomen: Positive bowel sounds, nontender, nondistended, no organomegaly Extremity: No edema, cyanosis, clubbing Skin: No rash, nodules, warm, dry Neuro: Oriented 3, cranial nerves II-12 intact, speech is fluent, motor and sensory intact - Constitutional Vitals: Temp Pulse Resp BP Pulse Ox 98.7 F 91 H 17 142/97 99 04/21/17 20:31 04/21/17 20:31 04/21/17 20:31 04/21/17 20:31 04/21/17 20:31 Results - Labs CBC & Chem 7: 04/22/17 05:39 04/22/17 05:39 Labs: Abnormal lab results 04/21/17 04/21/17 04/21/17 Range/Units 15:38 15:38 15:38 Hgb (11.8-15.2) gm/dl Hct (35.5-45.6) % MCH (28-32) pg MCHC (32-34) % RDW (13.2-15.2) % PT 31.8 H (12.2-14.9) Sec. INR 2.87 H (0.87-1.13) APTT 51.5 H (24.2-36.6) Sec. BUN 23 H (9-20) mg/dL Creatinine 1.6 H (0.8-1.5) mg/dL Glucose 121 H (75-100) mg/dL Calcium 8.3 L (8.4-10.2) mg/dL NT-Pro-B Natriuret Pep 3705 H (0-450) pg/mL 04/21/17 Range/Units 15:38 Hgb 10.9 L (11.8-15.2) gm/dl Hct 35.4 L (35.5-45.6) % MCH 26 L (28-32) pg MCHC 31 L (32-34) % RDW 18.3 H (13.2-15.2) % PT (12.2-14.9) Sec. INR (0.87-1.13) APTT (24.2-36.6) Sec. BUN (9-20) mg/dL Creatinine (0.8-1.5) mg/dL Glucose (75-100) mg/dL Calcium (8.4-10.2) mg/dL NT-Pro-B Natriuret Pep (0-450) pg/mL - Imaging and Cardiology EKG: image reviewed Chest x-ray: image reviewed Assessment and Plan Assessment CHF exacerbation, acute on chronic, systolic dysfunction CAP Hypertension History of CVA Plan Admit to medicine Diurese with IV Lasix Continue beta maryam, GRISEL inhibitor, aspirin Check cardiac enzymes, recent echo was done Consult cardiology, start levaquin DVT prophylaxis already initiated
[2017-04-21] MEDS ORDERED: MILK OF MAGNESIA PO PRN (23:08)
[2017-04-21] MEDS ORDERED: TYLENOL PO PRN (23:08)
[2017-04-21] MEDS ORDERED: DULCOLAX PR PRN (23:08)
[2017-04-21] MEDS ORDERED: ZOFRAN IV PRN (23:08)
[2017-04-21 23:53] LABS: Creatine Kinase 995 units/L (55-170); Creatine Kinase MB 3.5 ng/mL (0.0-4.0)
[2017-04-22] MEDS: PERCOCET 5/325 PO PRN ×2 (01:41→21:25)
[2017-04-22] MEDS: LEVAQUIN PO SCH ×2 (04:51→11:26)
[2017-04-22] MEDS: LASIX IV SCH ×3 (04:51→17:46)
[2017-04-22 06:38] LABS: Basophils % (Auto) 0.3 % (0.0-1.8); Eosinophils % (Auto) 0.9 % (0.0-4.3); Hematocrit 36.2 % (35.5-45.6); Hemoglobin 11.1 gm/dl (11.8-15.2); Mean Corpuscular HGB Conc 31 % (32-34); Mean Corpuscular Volume 83 fl (84-94); Platelet Count 265 K/mm3 (140-440); Red Blood Count 4.39 M/mm3 (3.65-5.03); Red Cell Distribution Width 18.1 % (13.2-15.2); White Blood Count 7.1 K/mm3 (4.5-11.0)
[2017-04-22 06:53] LABS: Calcium 8.4 mg/dL (8.4-10.2); Chloride 104.8 mmol/L (98-107); Mean Corpuscular Hemoglobin 25 pg (28-32); Potassium 3.6 mmol/L (3.6-5.0)
[2017-04-22 07:16] LABS: Creatine Kinase MB 3.4 ng/mL (0.0-4.0)
[2017-04-22 07:21] LABS: Creatine Kinase 953 units/L (55-170)
[2017-04-22] MEDS ORDERED: ZESTRIL PO SCH (10:00)
[2017-04-22] MEDS ORDERED: LOVENOX SUB-Q SCH ×2 (10:00→22:00)
[2017-04-22] MEDS: FEOSOL PO SCH ×2 (11:26→21:25)
[2017-04-22] MEDS: BABY ASPIRIN PO SCH (11:26)
[2017-04-22] MEDS: COREG PO SCH ×2 (11:26→21:27)
[2017-04-22] MEDS: NEURONTIN PO SCH (11:26)
[2017-04-22] MEDS: ZYLOPRIM PO SCH ×3 (11:26→21:25)
--- NOTE | 2017-04-22 11:34 | Consultation ---
History of Present Illness Consult date: 04/22/17 Consult reason: shortness of breath Medications and Allergies Allergies Allergy/AdvReac Type Severity Reaction Status Date / Time No Known Allergies Allergy Verified 04/21/17 15:31 Home Medications Medication Instructions Recorded Confirmed Last Taken Type Carvedilol [Coreg] 25 mg PO BID #60 tablet 01/06/15 02/23/17 1 Day Ago Rx ~02/22/17 Ferrous Sulfate [Feosol 325 MG tab] 325 mg PO BID #60 tablet 01/06/15 02/23/17 1 Day Ago Rx ~08/01/16 Gabapentin [Neurontin] 300 mg PO DAILY #30 capsule 01/06/15 02/23/17 1 Day Ago Rx ~02/22/17 Isosorb Dinit/Hydralazine [Bidil 1 each PO TID #90 tablet 01/06/15 02/23/17 1 Day Ago Rx 20/37.5MG] ~02/22/17 Metolazone [Zaroxolyn] 2.5 mg PO Q48HR #15 tablet 01/06/15 02/23/17 1 Day Ago Rx ~08/01/16 Potassium Chloride 2 tab PO DAILY #60 tablet.er 01/06/15 02/23/17 1 Day Ago Rx ~02/22/17 Simvastatin [Zocor TAB] 20 mg PO QHS #30 tablet 01/06/15 02/23/17 1 Day Ago Rx ~02/22/17 Warfarin [Coumadin] 2.5 mg PO QDAY #30 tablet 03/22/15 02/23/17 1 Day Ago Rx ~02/22/17 Furosemide [Lasix TAB] 40 mg PO BID #60 tablet 01/28/17 02/23/17 1 Day Ago Rx ~02/22/17 Allopurinol 100 mg PO TID 02/23/17 02/23/17 Unknown History cloNIDine [Catapres] 0.3 mg PO BID 02/23/17 02/23/17 1 Day Ago History ~02/22/17 Active Meds: Active Medications Acetaminophen (Tylenol) 650 mg PO Q4H PRN PRN Reason: Pain MILD(1-3)/Fever >100.5/LI Allopurinol (Zyloprim) 100 mg PO TID [place] Last Admin: 04/22/17 11:26 Dose: 100 mg Aspirin (Baby Aspirin) 81 mg PO QDAY [facility] Last Admin: 04/22/17 11:26 Dose: 81 mg Bisacodyl (Dulcolax) 10 mg [place] QDAY PRN PRN Reason: Constipation unrelieved by MOM Carvedilol (Coreg) 25 mg PO BID [facility] Last Admin: 04/22/17 11:26 Dose: 25 mg Ferrous Sulfate (Feosol) 325 mg PO BID [facility] Last Admin: 04/22/17 11:26 Dose: 325 mg Furosemide (Lasix) 40 mg IV BID@0600,1800 [facility] Last Admin: 04/22/17 06:43 Dose: Not Given Gabapentin (Neurontin) 300 mg PO DAILY [facility] Last Admin: 04/22/17 11:26 Dose: 300 mg Levofloxacin (Levaquin) 750 mg PO QDAY [facility] Last Admin: 04/22/17 11:26 Dose: 750 mg Lisinopril (Zestril) 2.5 mg PO QDAY [facility] Last Admin: 04/22/17 11:26 Dose: 2.5 mg Magnesium Hydroxide (Milk Of Magnesia) 30 ml PO Q4H PRN PRN Reason: Constipation Ondansetron HCl (Zofran) 4 mg IV Q8H PRN PRN Reason: N/V unrelieved by Reglan Oxycodone/Acetaminophen (Percocet 5/325) 1 tab PO Q6H PRN PRN Reason: Pain, Moderate (4-6) Last Admin: 04/22/17 01:41 Dose: 1 tab Pravastatin Sodium (Pravachol) 40 mg PO QHS [facility] Physical Examination Vital Signs Temp Pulse Resp BP Pulse Ox 98 F 91 H 24 119/80 97 04/21/17 15:32 04/21/17 15:32 04/21/17 15:32 04/21/17 15:32 04/21/17 15:32 Results 04/22/17 05:39 04/22/17 05:39 Cardiac Enzymes 04/21/17 04/21/17 04/21/17 Range/Units 15:38 15:38 15:38 WBC (4.5-11.0) K/mm3 RBC (3.65-5.03) M/mm3 Hgb (11.8-15.2) gm/dl Hct (35.5-45.6) % MCV (84-94) fl MCH (28-32) pg MCHC (32-34) % RDW (13.2-15.2) % Plt Count (140-440) K/mm3 Lymph % (Auto) (13.4-35.0) % [place] % (Auto) (0.0-7.3) % Eos % (Auto) (0.0-4.3) % Baso % (Auto) (0.0-1.8) % Lymph # (1.2-5.4) K/mm3 [place] # (0.0-0.8) K/mm3 Eos # (0.0-0.4) K/mm3 Baso # (0.0-0.1) K/mm3 Seg Neutrophils % (40.0-70.0) % Seg Neutrophils # (1.8-7.7) K/mm3 PT 31.8 H (12.2-14.9) Sec. INR 2.87 H (0.87-1.13) APTT 51.5 H (24.2-36.6) Sec. Sodium 142 (137-145) mmol/L Potassium 3.7 (3.6-5.0) mmol/L Chloride 104.5 (98-107) mmol/L Carbon Dioxide 22 (22-30) mmol/L Anion Gap 19 mmol/L BUN 23 H (9-20) mg/dL Creatinine 1.6 H (0.8-1.5) mg/dL Estimated GFR 57 ml/min BUN/Creatinine Ratio 14 % Glucose 121 H (75-100) mg/dL POC Glucose (70-105) Calcium 8.3 L (8.4-10.2) mg/dL Total Creatine Kinase (55-170) units/L CK-MB (CK-2) (0.0-4.0) ng/mL CK-MB (CK-2) Rel Index (0-4) Troponin T < 0.010 (0.00-0.029) ng/mL NT-Pro-B Natriuret Pep 3705 H (0-450) pg/mL 04/21/17 04/21/17 04/22/17 Range/Units 15:38 23:19 05:39 WBC 4.9 7.1 (4.5-11.0) K/mm3 RBC 4.21 4.39 (3.65-5.03) M/mm3 Hgb 10.9 L 11.1 L (11.8-15.2) gm/dl Hct 35.4 L 36.2 (35.5-45.6) % MCV 84 83 L (84-94) fl MCH 26 L 25 L (28-32) pg MCHC 31 L 31 L (32-34) % RDW 18.3 H 18.1 H (13.2-15.2) % Plt Count 262 265 (140-440) K/mm3 Lymph % (Auto) 32.2 21.4 (13.4-35.0) % [place] % (Auto) 3.4 3.2 (0.0-7.3) % Eos % (Auto) 1.0 0.9 (0.0-4.3) % Baso % (Auto) 0.5 0.3 (0.0-1.8) % Lymph # 1.6 1.5 (1.2-5.4) K/mm3 [place] # 0.2 0.2 (0.0-0.8) K/mm3 Eos # 0.0 0.1 (0.0-0.4) K/mm3 Baso # 0.0 0.0 (0.0-0.1) K/mm3 Seg Neutrophils % 62.9 74.2 H (40.0-70.0) % Seg Neutrophils # 3.1 5.2 (1.8-7.7) K/mm3 PT (12.2-14.9) Sec. INR (0.87-1.13) APTT (24.2-36.6) Sec. Sodium (137-145) mmol/L Potassium (3.6-5.0) mmol/L Chloride (98-107) mmol/L Carbon Dioxide (22-30) mmol/L Anion Gap mmol/L BUN (9-20) mg/dL Creatinine (0.8-1.5) mg/dL Estimated GFR ml/min BUN/Creatinine Ratio % Glucose (75-100) mg/dL POC Glucose (70-105) Calcium (8.4-10.2) mg/dL Total Creatine Kinase 995 H (55-170) units/L CK-MB (CK-2) 3.5 (0.0-4.0) ng/mL CK-MB (CK-2) Rel Index 0.3 (0-4) Troponin T < 0.010 (0.00-0.029) ng/mL NT-Pro-B Natriuret Pep (0-450) pg/mL 04/22/17 04/22/17 04/22/17 Range/Units 05:39 05:39 07:33 WBC (4.5-11.0) K/mm3 RBC (3.65-5.03) M/mm3 Hgb (11.8-15.2) gm/dl Hct (35.5-45.6) % MCV (84-94) fl MCH (28-32) pg MCHC (32-34) % RDW (13.2-15.2) % Plt Count (140-440) K/mm3 Lymph % (Auto) (13.4-35.0) % [place] % (Auto) (0.0-7.3) % Eos % (Auto) (0.0-4.3) % Baso % (Auto) (0.0-1.8) % Lymph # (1.2-5.4) K/mm3 [place] # (0.0-0.8) K/mm3 Eos # (0.0-0.4) K/mm3 Baso # (0.0-0.1) K/mm3 Seg Neutrophils % (40.0-70.0) % Seg Neutrophils # (1.8-7.7) K/mm3 PT (12.2-14.9) Sec. INR (0.87-1.13) APTT (24.2-36.6) Sec. Sodium 143 (137-145) mmol/L Potassium 3.6 (3.6-5.0) mmol/L Chloride 104.8 (98-107) mmol/L Carbon Dioxide 23 (22-30) mmol/L Anion Gap 19 mmol/L BUN 25 H (9-20) mg/dL Creatinine 1.6 H (0.8-1.5) mg/dL Estimated GFR 57 ml/min BUN/Creatinine Ratio 16 % Glucose 93 (75-100) mg/dL POC Glucose 93 (70-105) Calcium 8.4 (8.4-10.2) mg/dL Total Creatine Kinase 953 H (55-170) units/L CK-MB (CK-2) 3.4 (0.0-4.0) ng/mL CK-MB (CK-2) Rel Index 0.3 (0-4) Troponin T < 0.010 (0.00-0.029) ng/mL NT-Pro-B Natriuret Pep (0-450) pg/mL Coagulation 04/21/17 Range/Units 15:38 PT 31.8 H (12.2-14.9) Sec. INR 2.87 H (0.87-1.13) APTT 51.5 H (24.2-36.6) Sec. CBC 04/21/17 04/22/17 Range/Units 15:38 05:39 WBC 4.9 7.1 (4.5-11.0) K/mm3 RBC 4.21 4.39 (3.65-5.03) M/mm3 Hgb 10.9 L 11.1 L (11.8-15.2) gm/dl Hct 35.4 L 36.2 (35.5-45.6) % Plt Count 262 265 (140-440) K/mm3 Lymph # 1.6 1.5 (1.2-5.4) K/mm3 [place] # 0.2 0.2 (0.0-0.8) K/mm3 Eos # 0.0 0.1 (0.0-0.4) K/mm3 Baso # 0.0 0.0 (0.0-0.1) K/mm3 Comprehensive Metabolic Panel 04/21/17 04/22/17 Range/Units 15:38 05:39 Sodium 142 143 (137-145) mmol/L Potassium 3.7 3.6 (3.6-5.0) mmol/L Chloride 104.5 104.8 (98-107) mmol/L Carbon Dioxide 22 23 (22-30) mmol/L BUN 23 H 25 H (9-20) mg/dL Creatinine 1.6 H 1.6 H (0.8-1.5) mg/dL Glucose 121 H 93 (75-100) mg/dL Calcium 8.3 L 8.4 (8.4-10.2) mg/dL Assessment and Plan 41yo AAM: Acute on chronic systolic heart failure Echo 03/06: EF 35-40%, mod MR, mod TR, mild pulm htn continue IV lasix,jaswinder,bb add imdur for better bp control strict i/os ? trigger - diet noncompliance - he states he's been taking his meds (and inr is tx) low salt diet and education Non-ischemic cardiomyopathy negative stress MPI 03/06 HTN poorly controlled, add imdur Chronic kidney disease appears to be at baseline monitor cr closely Hx. of CVA on coumadin per neurology Chronic anemia
--- NOTE | 2017-04-22 15:50 | Progress Note ---
Assessment and Plan - CHF exacerbation, acute on chronic: Systolic dysfunction with Echo 03/06: EF 35-40%, mod MR, mod TR, mild pulm htn Strict Is ans Os. Daily weight. continue IV lasix, acei, bb - CAP Contiue with iv antibiotic and f/u with Cx result - Hypertension optimize control. -History of CVA continue with ASA and anticoagulation -CKD stage 3A Avoid nephrotoxic meds and maintain renal diet. trend Cr - Anemia: Of chronic disease - DVT PPx with lovenoc an GI with pepcid Subjective Date of service: 04/22/17 Principal diagnosis: chest pain, CHF Interval history: Still having shortnes of breath. Denies any chest pain. No fever. Objective - Exam Narrative Exam: Constitutional: Well-nourished well-developed. In no distress Head: Normocephalic atraumatic Eyes: Pupils are equal round and reactive to light Nose: No enlarged turbinates, no septal deviation. Mouth: Moist mucous membranes. Neck: Supple no thyromegaly. No bruit. No JVD Heart: Regular rate and rhythm, S1-S2 abnormal. No rubs murmurs or gallop Lungs: Clear to auscultation bilaterally no rales or rhonchi Abdomen: Soft nontender both his upper extremities no edema orclubbing. Extremities: No edema no cyanosis and no clubbing. Neuro: Alert oriented -3 no focal sensory or motor deficit. Skin: No rashes no hyperemic spots - Constitutional Vitals: Vital Signs - 12hr 04/22/17 04/22/17 04/22/17 04:06 04:18 07:58 Temperature 98.2 F Pulse Rate 89 93 H Respiratory 18 Rate Blood Pressure 142/111 Blood Pressure [Left] O2 Sat by Pulse 100 100 Oximetry 04/22/17 04/22/17 04/22/17 08:00 09:02 13:17 Temperature 99.1 F 98.8 F Pulse Rate 104 H 101 H 97 H Respiratory 20 20 20 Rate Blood Pressure 169/123 Blood Pressure 169/123 149/112 [Left] O2 Sat by Pulse 97 97 Oximetry - Labs CBC & Chem 7: 04/22/17 05:39 04/22/17 05:39 Labs: Abnormal lab results 04/21/17 04/21/17 04/21/17 Range/Units 15:38 15:38 15:38 Hgb (11.8-15.2) gm/dl Hct (35.5-45.6) % MCV (84-94) fl MCH (28-32) pg MCHC (32-34) % RDW (13.2-15.2) % Seg Neutrophils % (40.0-70.0) % PT 31.8 H (12.2-14.9) Sec. INR 2.87 H (0.87-1.13) APTT 51.5 H (24.2-36.6) Sec. BUN 23 H (9-20) mg/dL Creatinine 1.6 H (0.8-1.5) mg/dL Glucose 121 H (75-100) mg/dL Calcium 8.3 L (8.4-10.2) mg/dL Total Creatine Kinase (55-170) units/L NT-Pro-B Natriuret Pep 3705 H (0-450) pg/mL 04/21/17 04/21/17 04/22/17 Range/Units 15:38 23:19 05:39 Hgb 10.9 L 11.1 L (11.8-15.2) gm/dl Hct 35.4 L (35.5-45.6) % MCV 83 L (84-94) fl MCH 26 L 25 L (28-32) pg MCHC 31 L 31 L (32-34) % RDW 18.3 H 18.1 H (13.2-15.2) % Seg Neutrophils % 74.2 H (40.0-70.0) % PT (12.2-14.9) Sec. INR (0.87-1.13) APTT (24.2-36.6) Sec. BUN (9-20) mg/dL Creatinine (0.8-1.5) mg/dL Glucose (75-100) mg/dL Calcium (8.4-10.2) mg/dL Total Creatine Kinase 995 H (55-170) units/L NT-Pro-B Natriuret Pep (0-450) pg/mL 04/22/17 04/22/17 Range/Units 05:39 05:39 Hgb (11.8-15.2) gm/dl Hct (35.5-45.6) % MCV (84-94) fl MCH (28-32) pg MCHC (32-34) % RDW (13.2-15.2) % Seg Neutrophils % (40.0-70.0) % PT (12.2-14.9) Sec. INR (0.87-1.13) APTT (24.2-36.6) Sec. BUN 25 H (9-20) mg/dL Creatinine 1.6 H (0.8-1.5) mg/dL Glucose (75-100) mg/dL Calcium (8.4-10.2) mg/dL Total Creatine Kinase 953 H (55-170) units/L NT-Pro-B Natriuret Pep (0-450) pg/mL
[2017-04-22] MEDS: PEPCID IV SCH (17:46)
[2017-04-22] MEDS: IMDUR PO SCH (17:46)
[2017-04-22] MEDS: LOVENOX SUB-Q SCH (21:25)
[2017-04-22] MEDS: PRAVACHOL PO SCH (21:25)
[2017-04-22] MEDS: APRESOLINE PO SCH (21:26)
[2017-04-23] MEDS: LASIX IV SCH ×2 (05:05→17:45)
[2017-04-23] MEDS: ZYLOPRIM PO SCH ×3 (08:27→22:27)
[2017-04-23] MEDS: NEURONTIN PO SCH (09:53)
[2017-04-23] MEDS: PEPCID IV SCH (09:53)
[2017-04-23] MEDS: LEVAQUIN PO SCH (09:53)
[2017-04-23] MEDS: COZAAR PO SCH (09:53)
[2017-04-23] MEDS: IMDUR PO SCH (09:54)
[2017-04-23] MEDS: COREG PO SCH ×2 (09:55→22:27)
[2017-04-23] MEDS: APRESOLINE PO SCH ×4 (09:55→22:27)
[2017-04-23] MEDS: FEOSOL PO SCH ×2 (09:56→22:26)
[2017-04-23] MEDS: BABY ASPIRIN PO SCH (09:56)
--- NOTE | 2017-04-23 11:01 | Progress Note ---
Assessment and Plan Pt nearing/at euvolemia. Resume home losartan. Obtain BMP and Mg and monitor overnight on telemetry. Will consider OP EP evaluation. The patient has been seen in conjunction with Dr. Bocanegra who agrees with the assessment and plan of care. - Patient Problems (1) Acute on chronic systolic heart failure Current Visit: Yes Status: Chronic (2) Chronic kidney disease Current Visit: Yes Status: Chronic (3) HTN (hypertension) Current Visit: Yes Status: Chronic Qualifiers: Hypertension type: essential hypertension Qualified Code(s): I10 - Essential (primary) hypertension (4) History of CVA (cerebrovascular accident) Current Visit: No Status: Chronic (5) Anemia Current Visit: Yes Status: Chronic Qualifiers: Anemia type: iron deficiency (6) NSVT (nonsustained ventricular tachycardia) Current Visit: Yes Status: Acute Subjective Date of service: 04/23/17 Principal diagnosis: chest pain, CHF Interval history: Pt resting comfortably in bed. no current complaints. states SOB resolved. Pt noted to have 21 beat NSVT this AM - denied any palpitations or chest pain. Objective Last Vital Signs Temp 98.6 F 04/23/17 09:47 Pulse 88 04/23/17 09:59 Resp 20 04/23/17 09:47 BP 126/83 04/23/17 09:59 Pulse Ox 97 04/23/17 09:47 - Physical Examination General: Appears Well HEENT: Positive: PERRL Neck: Positive: neck supple, trachea midline Cardiac: Positive: Reg Rate and Rhythm, S1/S2 Lungs: Positive: clear to auscultation Neuro: Positive: Grossly Intact, Cranial Nerve 2-12 Intact Abdomen: Positive: Unremarkable, Soft, Active Bowel Sounds. Negative: Tender Extremities: Absent: edema - Imaging and Cardiology EKG: image reviewed Pharmacologic stress test: report reviewed (negative stress MPI 03/06) Echo: report reviewed (Echo 03/06: EF 35-40%, mod MR, mod TR, mild pulm htn)
[2017-04-23 14:20] LABS: Calcium 8.4 mg/dL (8.4-10.2); Chloride 98.3 mmol/L (98-107); Magnesium 2.1 mg/dL (1.7-2.3); Potassium 3.3 mmol/L (3.6-5.0)
--- NOTE | 2017-04-23 15:20 | Progress Note ---
Assessment and Plan Assessment and plan: - CHF exacerbation, acute on chronic: diastolic Systolic dysfunction with Echo 03/06: EF 35-40%, mod MR, mod TR, mild pulm htn Strict Is ans Os. Daily weight. continue IV lasix, acei, bb -right lower lobe pneumonia Continue with iv antibiotic and f/u with Cx result - Hypertension optimize control. - Cardiac arrythmia check labs and monition -CHANTEL get home CPAP tonight. Hypokalermia Replace -History of CVA continue with ASA and anticoagulation -CKD stage 3A Avoid nephrotoxic meds and maintain renal diet. trend Cr - Anemia: Of chronic disease - DVT PPx with lovenoc an GI with pepcid PLan dissscused with patient. History Interval history: Patient seen and examined, in no acute distress. Denies any chest pain, nausea, vomiting or diarrhea. Nursing staff reports 21 beats of nsvt. Hospitalist Physical - Constitutional Vitals: Temp Pulse Resp BP Pulse Ox 98.4 F 93 H 20 142/104 100 04/23/17 12:29 04/23/17 12:29 04/23/17 12:29 04/23/17 12:29 04/23/17 12:29 General appearance: Present: no acute distress, well-nourished - EENT Eyes: Present: PERRL, EOM intact ENT: hearing intact, clear oral mucosa, dentition normal - Neck Neck: Present: supple, normal ROM - Respiratory Respiratory effort: accessory muscle use Respiratory: bilateral: CTA - Cardiovascular Rhythm: regular Heart Sounds: Present: S1 & S2. Absent: systolic murmur, diastolic murmur - Extremities Extremities: no ischemia, pulses intact, pulses symmetrical, No edema Peripheral Pulses: within normal limits - Abdominal General gastrointestinal: soft, non-tender, non-distended - Integumentary Integumentary: Present: clear, warm, dry - Psychiatric Psychiatric: appropriate mood/affect, intact judgment & insight - Neurologic Neurologic: CNII-XII intact, moves all extremities - Allied Health Allied health notes reviewed: nursing, OT Results - Labs CBC & Chem 7: 04/22/17 05:39 04/23/17 13:44 Labs: Laboratory Last Values WBC 7.1 K/mm3 (4.5-11.0) 04/22/17 05:39 RBC 4.39 M/mm3 (3.65-5.03) 04/22/17 05:39 Hgb 11.1 gm/dl (11.8-15.2) L 04/22/17 05:39 Hct 36.2 % (35.5-45.6) 04/22/17 05:39 MCV 83 fl (84-94) L 04/22/17 05:39 MCH 25 pg (28-32) L 04/22/17 05:39 MCHC 31 % (32-34) L 04/22/17 05:39 RDW 18.1 % (13.2-15.2) H 04/22/17 05:39 Plt Count 265 K/mm3 (140-440) 04/22/17 05:39 Lymph % (Auto) 21.4 % (13.4-35.0) 04/22/17 05:39 [place] % (Auto) 3.2 % (0.0-7.3) 04/22/17 05:39 Eos % (Auto) 0.9 % (0.0-4.3) 04/22/17 05:39 Baso % (Auto) 0.3 % (0.0-1.8) 04/22/17 05:39 Lymph # 1.5 K/mm3 (1.2-5.4) 04/22/17 05:39 [place] # 0.2 K/mm3 (0.0-0.8) 04/22/17 05:39 Eos # 0.1 K/mm3 (0.0-0.4) 04/22/17 05:39 Baso # 0.0 K/mm3 (0.0-0.1) 04/22/17 05:39 Seg Neutrophils % 74.2 % (40.0-70.0) H 04/22/17 05:39 Seg Neutrophils # 5.2 K/mm3 (1.8-7.7) 04/22/17 05:39 PT 31.8 Sec. (12.2-14.9) H 04/21/17 15:38 INR 2.87 (0.87-1.13) H 04/21/17 15:38 APTT 51.5 Sec. (24.2-36.6) H 04/21/17 15:38 Sodium 140 mmol/L (137-145) 04/23/17 13:44 Potassium 3.3 mmol/L (3.6-5.0) L 04/23/17 13:44 Chloride 98.3 mmol/L (98-107) 04/23/17 13:44 Carbon Dioxide 24 mmol/L (22-30) 04/23/17 13:44 Anion Gap 21 mmol/L 04/23/17 13:44 BUN 25 mg/dL (9-20) H 04/23/17 13:44 Creatinine 1.6 mg/dL (0.8-1.5) H 04/23/17 13:44 Estimated GFR 57 ml/min 04/23/17 13:44 BUN/Creatinine Ratio 16 % 04/23/17 13:44 Glucose 105 mg/dL (75-100) H 04/23/17 13:44 POC Glucose 93 (70-105) 04/23/17 10:43 Calcium 8.4 mg/dL (8.4-10.2) 04/23/17 13:44 Magnesium 2.10 mg/dL (1.7-2.3) 04/23/17 13:44 Total Creatine Kinase 953 units/L (55-170) H 04/22/17 05:39 CK-MB (CK-2) 3.4 ng/mL (0.0-4.0) 04/22/17 05:39 CK-MB (CK-2) Rel Index 0.3 (0-4) 04/22/17 05:39 Troponin T < 0.010 ng/mL (0.00-0.029) 04/22/17 05:39 NT-Pro-B Natriuret Pep 3705 pg/mL (0-450) H 04/21/17 15:38
[2017-04-23] MEDS: K-DUR PO SCH ×2 (17:45→22:26)
[2017-04-23] MEDS: PRAVACHOL PO SCH (22:26)
[2017-04-23] MEDS: LOVENOX SUB-Q SCH (22:27)
[2017-04-24 06:30] LABS: Calcium 8.1 mg/dL (8.4-10.2); Potassium 3.4 mmol/L (3.6-5.0)
[2017-04-24] MEDS: LASIX IV SCH ×2 (06:34→17:30)
[2017-04-24] MEDS: ZYLOPRIM PO SCH ×3 (08:18→21:37)
[2017-04-24] MEDS: APRESOLINE PO SCH ×2 (09:14→21:37)
[2017-04-24] MEDS: IMDUR PO SCH (09:14)
[2017-04-24] MEDS: LEVAQUIN PO SCH (09:15)
[2017-04-24] MEDS: COREG PO SCH ×2 (09:15→21:37)
[2017-04-24] MEDS: PEPCID PO SCH (09:15)
[2017-04-24] MEDS: COZAAR PO SCH (09:15)
[2017-04-24] MEDS: NEURONTIN PO SCH (09:16)
[2017-04-24] MEDS: BABY ASPIRIN PO SCH (09:16)
[2017-04-24] MEDS: FEOSOL PO SCH ×2 (09:16→21:38)
[2017-04-24] MEDS ORDERED: K-DUR PO NR (10:00)
--- NOTE | 2017-04-24 11:56 | Progress Note ---
Assessment and Plan Currently stable cardiac status. Will consider OP EP evaluation. Pt may discharge home from cardiology standpoint. Follow up in our [place] office with Liv Lee NP, on 05/02/2017 @ 2:00PM. The patient has been seen in conjunction with Dr. Bocanegra who agrees with the assessment and plan of care. - Patient Problems (1) Acute on chronic systolic heart failure Current Visit: Yes Status: Chronic (2) Chronic kidney disease Current Visit: Yes Status: Chronic (3) HTN (hypertension) Current Visit: Yes Status: Chronic Qualifiers: Hypertension type: essential hypertension Qualified Code(s): I10 - Essential (primary) hypertension (4) History of CVA (cerebrovascular accident) Current Visit: No Status: Chronic (5) Anemia Current Visit: Yes Status: Chronic Qualifiers: Anemia type: iron deficiency (6) NSVT (nonsustained ventricular tachycardia) Current Visit: Yes Status: Acute (7) Hypokalemia Current Visit: Yes Status: Acute Subjective Date of service: 04/24/17 Principal diagnosis: chest pain, CHF Interval history: Pt resting comfortably in bed. no current complaints. no additional NSVT noted on telemetry overnight. Objective Last Vital Signs Temp 97.7 F 04/24/17 08:05 Pulse 82 04/24/17 10:27 Resp 20 04/24/17 08:05 BP 133/94 04/24/17 09:15 Pulse Ox 98 04/24/17 08:06 - Physical Examination General: Appears Well HEENT: Positive: PERRL Neck: Positive: neck supple, trachea midline Cardiac: Positive: Reg Rate and Rhythm, S1/S2 Lungs: Positive: clear to auscultation Neuro: Positive: Grossly Intact, Cranial Nerve 2-12 Intact Abdomen: Positive: Unremarkable, Soft, Active Bowel Sounds. Negative: Tender Extremities: Absent: edema - Labs and Meds Comprehensive Metabolic Panel 04/23/17 04/24/17 Range/Units 13:44 05:16 Sodium 140 141 (137-145) mmol/L Potassium 3.3 L 3.4 L (3.6-5.0) mmol/L Chloride 98.3 101.0 (98-107) mmol/L Carbon Dioxide 24 25 (22-30) mmol/L BUN 25 H 23 H (9-20) mg/dL Creatinine 1.6 H 1.6 H (0.8-1.5) mg/dL Glucose 105 H 102 H (75-100) mg/dL Calcium 8.4 8.1 L (8.4-10.2) mg/dL - Imaging and Cardiology EKG: image reviewed Echo: report reviewed (Echo 03/06: EF 35-40%, mod MR, mod TR, mild pulm htn)
[2017-04-24] MEDS: LOVENOX SUB-Q SCH (21:38)
--- NOTE | 2017-04-24 22:35 | Progress Note ---
Assessment and Plan Assessment and plan: Acute on chronic systolic/diastolic heart failure Per last ECHO EF 35-40% Continue BB, ACEI, diuresis with IV Lasix Fluid restriction, strict I's and O's Cardiology following NSVT Electrolytes abnormalities corrected Cardiology plans outpatient EP study Follow-up appointment given HTN Regimen adjusted for better BP control RLL pneumonia Continue antibiotics CHANTEL On CPAP CKD stage III Dose medications renally and avoid other nephrotoxins Monitor BUN and creatinine and electrolytes Hypokalemia Replaced Continue to monitor Anemia of chronic kidney disease Prior CVA On antiplatelet therapy, anticoagulation, statin DVT prophylaxis History Interval history: no complaints; no further NSVT on monitor Hospitalist Physical - Constitutional Vitals: Temp Pulse Resp BP Pulse Ox 98.8 F 78 20 123/96 98 04/24/17 20:10 04/24/17 20:10 04/24/17 20:10 04/24/17 20:10 04/24/17 20:10 General appearance: Present: no acute distress, well-nourished - EENT Eyes: Present: PERRL, EOM intact. Absent: scleral icterus, conjunctival injection - Neck Neck: Present: supple, normal ROM. Absent: masses or JVD - Respiratory Respiratory effort: normal Respiratory: bilateral: CTA, negative: rhonchi, wheezing - Cardiovascular Rhythm: regular Heart Sounds: Present: S1 & S2. Absent: systolic murmur - Extremities Extremities: no ischemia - Abdominal General gastrointestinal: soft, non-tender, non-distended, normal bowel sounds - Psychiatric Psychiatric: cooperative - Neurologic Neurologic: CNII-XII intact, no focal deficits Results - Labs CBC & Chem 7: 04/22/17 05:39 04/24/17 05:16 Labs: Laboratory Last Values WBC 7.1 K/mm3 (4.5-11.0) 04/22/17 05:39 RBC 4.39 M/mm3 (3.65-5.03) 04/22/17 05:39 Hgb 11.1 gm/dl (11.8-15.2) L 04/22/17 05:39 Hct 36.2 % (35.5-45.6) 04/22/17 05:39 MCV 83 fl (84-94) L 04/22/17 05:39 MCH 25 pg (28-32) L 04/22/17 05:39 MCHC 31 % (32-34) L 04/22/17 05:39 RDW 18.1 % (13.2-15.2) H 04/22/17 05:39 Plt Count 265 K/mm3 (140-440) 04/22/17 05:39 Lymph % (Auto) 21.4 % (13.4-35.0) 04/22/17 05:39 [place] % (Auto) 3.2 % (0.0-7.3) 04/22/17 05:39 Eos % (Auto) 0.9 % (0.0-4.3) 04/22/17 05:39 Baso % (Auto) 0.3 % (0.0-1.8) 04/22/17 05:39 Lymph # 1.5 K/mm3 (1.2-5.4) 04/22/17 05:39 [place] # 0.2 K/mm3 (0.0-0.8) 04/22/17 05:39 Eos # 0.1 K/mm3 (0.0-0.4) 04/22/17 05:39 Baso # 0.0 K/mm3 (0.0-0.1) 04/22/17 05:39 Seg Neutrophils % 74.2 % (40.0-70.0) H 04/22/17 05:39 Seg Neutrophils # 5.2 K/mm3 (1.8-7.7) 04/22/17 05:39 PT 31.8 Sec. (12.2-14.9) H 04/21/17 15:38 INR 2.87 (0.87-1.13) H 04/21/17 15:38 APTT 51.5 Sec. (24.2-36.6) H 04/21/17 15:38 Sodium 141 mmol/L (137-145) 04/24/17 05:16 Potassium 3.4 mmol/L (3.6-5.0) L 04/24/17 05:16 Chloride 101.0 mmol/L (98-107) 04/24/17 05:16 Carbon Dioxide 25 mmol/L (22-30) 04/24/17 05:16 Anion Gap 18 mmol/L 04/24/17 05:16 BUN 23 mg/dL (9-20) H 04/24/17 05:16 Creatinine 1.6 mg/dL (0.8-1.5) H 04/24/17 05:16 Estimated GFR 57 ml/min 04/24/17 05:16 BUN/Creatinine Ratio 14 % 04/24/17 05:16 Glucose 102 mg/dL (75-100) H 04/24/17 05:16 POC Glucose 98 (70-105) 04/24/17 22:06 Calcium 8.1 mg/dL (8.4-10.2) L 04/24/17 05:16 Magnesium 2.10 mg/dL (1.7-2.3) 04/23/17 13:44 Total Creatine Kinase 953 units/L (55-170) H 04/22/17 05:39 CK-MB (CK-2) 3.4 ng/mL (0.0-4.0) 04/22/17 05:39 CK-MB (CK-2) Rel Index 0.3 (0-4) 04/22/17 05:39 Troponin T < 0.010 ng/mL (0.00-0.029) 04/22/17 05:39 NT-Pro-B Natriuret Pep 3705 pg/mL (0-450) H 04/21/17 15:38
[2017-04-24] MEDS: PRAVACHOL PO SCH (22:38)
[2017-04-25] MEDS: LASIX IV SCH (06:34)
[2017-04-25 08:53] VITALS: BP 133/81
[2017-04-25] MEDS: FEOSOL PO SCH (10:01)
[2017-04-25] MEDS: COZAAR PO SCH (10:01)
[2017-04-25] MEDS: ZYLOPRIM PO SCH (10:01)
[2017-04-25] MEDS: NEURONTIN PO SCH (10:01)
[2017-04-25] MEDS: LEVAQUIN PO SCH (10:01)
[2017-04-25] MEDS: APRESOLINE PO SCH (10:02)
[2017-04-25] MEDS: COREG PO SCH (10:02)
[2017-04-25] MEDS: IMDUR PO SCH (10:02)
[2017-04-25] MEDS: BABY ASPIRIN PO SCH (10:03)
[2017-04-25] MEDS: PEPCID PO SCH (10:03)
--- NOTE | 2017-04-25 11:37 | Progress Note ---
Assessment and Plan Currently stable cardiac status. Will consider OP EP evaluation. Pt may discharge home from cardiology standpoint. Follow up in our [place] office with Liv Lee NP, on 05/02/2017 @ 2:00PM. The patient has been seen in conjunction with Dr. Bocanegra who agrees with the assessment and plan of care. - Patient Problems (1) Acute on chronic systolic heart failure Current Visit: Yes Status: Chronic (2) Chronic kidney disease Current Visit: Yes Status: Chronic (3) HTN (hypertension) Current Visit: Yes Status: Chronic Qualifiers: Hypertension type: essential hypertension Qualified Code(s): I10 - Essential (primary) hypertension (4) History of CVA (cerebrovascular accident) Current Visit: No Status: Chronic (5) Anemia Current Visit: Yes Status: Chronic Qualifiers: Anemia type: iron deficiency (6) NSVT (nonsustained ventricular tachycardia) Current Visit: Yes Status: Acute (7) Hypokalemia Current Visit: Yes Status: Acute Subjective Date of service: 04/25/17 Principal diagnosis: chest pain, CHF Interval history: Pt resting comfortably in bed. no current complaints. no additional NSVT noted on telemetry overnight. Objective Last Vital Signs Temp 98.5 F 04/25/17 08:52 Pulse 80 04/25/17 10:01 Resp 19 04/25/17 08:52 BP 133/81 04/25/17 10:02 Pulse Ox 98 04/25/17 10:00 - Physical Examination General: Appears Well HEENT: Positive: PERRL Neck: Positive: neck supple, trachea midline Cardiac: Positive: Reg Rate and Rhythm, S1/S2 Lungs: Positive: clear to auscultation Neuro: Positive: Grossly Intact, Cranial Nerve 2-12 Intact Abdomen: Positive: Unremarkable, Soft, Active Bowel Sounds. Negative: Tender Extremities: Absent: edema - Imaging and Cardiology EKG: image reviewed Echo: report reviewed (Echo 03/06: EF 35-40%, mod MR, mod TR, mild pulm htn)
--- NOTE | 2017-04-25 12:15 | Discharge Summary ---
Providers - Providers Date of Admission: 04/21/17 23:13 Date of discharge: 04/25/17 Attending physician: BENNY PUENTES 04/21/17 23:08 Consult to Physician [CONS] Routine Consulting Provider: GOGO HINKLE Reason For Exam: chf Place consult to:: [facility] Notified:: y Comment:: added to list Primary care physician: NIGHT TIME NANNY Hospitalization Reason for admission: SOB Condition: Stable Pertinent studies: CXR Hospital course: Sent is a 41 years old male with congestive heart failure, HTN, CAD, CHANTEL, who presented for worsening shortness of breath, orthopnea, bilateral leg edema. Diagnosed weight acute exacerbation of heart failure; diuresed with IV Lasix is initially then transitioned to po. Had for which cardiology was consulted and recommended outpatient EP study. Electrolyte abnormalities have been corrected and antihypertensive regimen adjusted. Discharged in stable condition weight cardiology appointment given. Discharge diagnoses: Acute on chronic systolic/diastolic heart failure NSVT HTN RLL pneumonia CHANTEL CKD stage III Hypokalemia Anemia of chronic kidney disease Prior CVA Disposition: TO HOME OR SELFCARE Time spent for discharge: 45 min Core Measure Documentation - Palliative Care Palliative Care/ Comfort Measures: Not Applicable - Core Measures Any of the following diagnoses?: heart failure - Heart Failure Discharge Requirements GRISEL/ARB for LVSD if EF <40%: Yes Beta maryam at discharge: Yes Exam - Physical Exam Narrative exam: Seen and examined: - Constitutional Vitals: Temp Pulse Resp BP Pulse Ox 98.5 F 80 19 133/81 98 04/25/17 08:52 04/25/17 10:01 04/25/17 08:52 04/25/17 10:02 04/25/17 10:00 General appearance: Present: no acute distress, well-nourished - EENT Eyes: Present: PERRL, EOM intact - Neck Neck: Present: supple, normal ROM. Absent: masses or JVD - Respiratory Respiratory effort: normal Respiratory: bilateral: CTA, negative: rhonchi, wheezing - Cardiovascular Rhythm: regular Heart Sounds: Present: S1 & S2. Absent: systolic murmur - Extremities Extremities: no ischemia - Abdominal General gastrointestinal: Present: soft, non-tender, non-distended, normal bowel sounds - Musculoskeletal Musculoskeletal: strength equal bilaterally - Psychiatric Psychiatric: cooperative - Neurologic Neurologic: CNII-XII intact, no focal deficits Plan Activity: advance as tolerated Diet: low cholesterol, low salt Follow up with: PRIMARY CARE, [Primary Care Provider] - 3-5 Days JACQUIE NUÑEZ NP [Advanced Practice Nurse] - 05/02/17 2:00 pm Prescriptions: Simvastatin [Zocor TAB] 20 mg PO QHS #30 tablet Aspirin [Aspirin BABY CHEW TAB] 81 mg PO QDAY #30 tab.chew Carvedilol [Coreg] 25 mg PO BID #60 tablet Furosemide [Lasix TAB] 40 mg PO BID #60 tablet Isosorb Dinit/Hydralazine [Bidil 20/37.5MG] 1 each PO TID #90 tablet Levofloxacin [Levaquin TAB] 750 mg PO QDAY #1 tablet Losartan [Cozaar] 50 mg PO QDAY #30 tablet
== END 2017-04-25 14:16 | disposition home or self-care (01) | DRG 291 ==
LOC: ED 15:19 → 4A 23:13
PROVIDERS: ADMIT Internal Medicine; ATTEND Internal Medicine
PROC: 5A09357 Assistance with Respiratory Ventilation, Less than 24 Consecutive Hours, Continuous Positive Airway Pressure (ICD-10-PCS; principal; 2017-04-23)
DX: I13.0 Hypertensive heart and chronic kidney disease with heart failure and stage 1 through stage 4 chronic kidney disease, or unspecified chronic kidney disease (principal); I50.23 Acute on chronic systolic (congestive) heart failure; J18.1 Lobar pneumonia, unspecified organism; I47.1 Supraventricular tachycardia; I42.8 Other cardiomyopathies; I27.20 Pulmonary hypertension, unspecified; D63.8 Anemia in other chronic diseases classified elsewhere; G47.33 Obstructive sleep apnea (adult) (pediatric); M10.9 Gout, unspecified; E87.6 Hypokalemia; N18.3 Chronic kidney disease, stage 3 (moderate); Z86.73 Personal history of transient ischemic attack (TIA), and cerebral infarction without residual deficits; Z86.711 Personal history of pulmonary embolism; Z79.899 Other long term (current) drug therapy; Z79.01 Long term (current) use of anticoagulants; Z82.49 Family history of ischemic heart disease and other diseases of the circulatory system
CPT/HCPCS: 36415; 71020; 80048; 82550; 82553; 82962; 83735; 83880; 84484; 85025; 85610; 85730; 93005; 93010; 94660; 94760; 96374; A9270-GY; J1650; J1940

== ENCOUNTER 2017-05-30 20:08 | Emergency (ER) | payer MEDICARE ==
[2017-05-30 21:29] VITALS: BP 134/75
[2017-05-31] MEDS ORDERED: DELTASONE PO ONE (01:35)
--- NOTE | 2017-05-31 01:35 | Emergency Department Report ---
Minor Respiratory - HPI Chief Complaint: Upper Respiratory Infection Stated Complaint: COLD SX Time Seen by Provider: 05/31/17 00:32 Duration: 3 Days Severity: moderate Minor Respiratory: Yes Able to Tolerate Fluids, Yes Cough, Yes Fever, No Rhinorrhea, No Sore Throat, No Ear Pain, No Sick Contacts, No Hemoptysis, No Chest Pain, No Shortness of Breath Other History: Patient is a 41-year-old male history of hypertension presents ED complaining of cough and fever 3 days ago. He states that his cough is intermittent with mucus productive cough he did denies headache, blurred vision , chest pain, shortness of breath and dizziness. ED Review of Systems ROS: Stated complaint: COLD SX Other details as noted in HPI Constitutional: denies: chills, fever Eyes: denies: eye pain, eye discharge, vision change ENT: denies: ear pain, throat pain Respiratory: cough. denies: shortness of breath, wheezing Cardiovascular: denies: chest pain, palpitations Endocrine: no symptoms reported Gastrointestinal: denies: abdominal pain, nausea, diarrhea Genitourinary: denies: urgency, dysuria Musculoskeletal: denies: back pain, joint swelling, arthralgia Skin: denies: rash, lesions Neurological: denies: headache, weakness, paresthesias Psychiatric: denies: anxiety, depression Hematological/Lymphatic: denies: easy bleeding, easy bruising ED Past Medical Hx - Past Medical History Previous Medical History?: Yes Hx Hypertension: Yes Hx CVA: Yes (ischemic, no resid. deficits) Hx Congestive Heart Failure: Yes Hx Pulmonary Embolism: Yes Hx Renal Disease: Yes Hx HIV: No Additional medical history: gout - Surgical History Past Surgical History?: Yes Additional Surgical History: Heart Cath 2005 - Social History Smoking Status: Never Smoker Substance Use Type: None - Medications Home Medications: Home Medications Medication Instructions Recorded Confirmed Last Taken Type Ferrous Sulfate [Feosol 325 MG tab] 325 mg PO BID #60 tablet 01/06/15 04/23/17 1 Day Ago Rx ~08/01/16 Gabapentin [Neurontin] 300 mg PO DAILY #30 capsule 01/06/15 04/23/17 1 Day Ago Rx ~02/22/17 Allopurinol 100 mg PO TID 02/23/17 04/23/17 Unknown History Aspirin [Aspirin BABY CHEW TAB] 81 mg PO QDAY #30 tab.chew 04/25/17 Unknown Rx Carvedilol [Coreg] 25 mg PO BID #60 tablet 04/25/17 Unknown Rx Furosemide [Lasix TAB] 40 mg PO BID #60 tablet 04/25/17 Unknown Rx Isosorb Dinit/Hydralazine [Bidil 1 each PO TID #90 tablet 04/25/17 Unknown Rx 20/37.5MG] Levofloxacin [Levaquin TAB] 750 mg PO QDAY #1 tablet 04/25/17 Unknown Rx Losartan [Cozaar] 50 mg PO QDAY #30 tablet 04/25/17 Unknown Rx Simvastatin [Zocor TAB] 20 mg PO QHS #30 tablet 04/25/17 Unknown Rx Azithromycin [Zithromax TAB] 500 mg PO QDAY #7 tablet 05/31/17 Unknown Rx Benzonatate [Tessalon Perles] 100 mg PO Q8HR #21 capsule 05/31/17 Unknown Rx Minor Respiratory Exam - Exam General: Vital signs noted. No distress. Alert and acting appropriately. HEENT: Yes Moist Mucous Membranes, No Pharyngeal Erythema, No Pharyngeal Exudates, No Rhinorrhea, No Conjuctival Injection, No Frontal Tenderness, No Maxillary Tenderness Ear: Neither TM Bulge, Neither TM Erythema, Neither EAC Pain, Neither EAC Discharge Neck: Yes Supple, No Adenopathy Lungs: Yes Good Air Exchange, No Wheezes, No Ronchi, No Stridor, No Cough, No Labored Respirations, No Retractions, No Use of Accessory Muscles, No Other Abnormal Lung Sounds Heart: Yes Regular, No Murmur Abdomen: Yes Normal Bowel Sounds, No Tenderness, No Peritoneal Signs Skin: No Rash, No Edema Neurologic: Alert and oriented, no deficits. Musculoskeletal: Unremarkable. ED Course Vital Signs 05/30/17 21:26 Temperature 100.9 F H Pulse Rate 89 Respiratory 18 Rate Blood Pressure 134/75 O2 Sat by Pulse 97 Oximetry ED Medical Decision Making - Radiology Data Radiology results: report reviewed, image reviewed FINDINGS: Heart: Normal. Mediastinum/Vessels: Normal. Lungs/Pleural space: Lungs are well-expanded. There are multifocal right perihilar infiltrates. There are no effusions or pneumothoraces.. Bony thorax: No acute osseous abnormality. Other: IMPRESSION: Right perihilar infiltrates.. Transcribed By: CO Dictated By: GUSTAVO ESPARZA MD Electronically Authenticated By: UGSTAVO ESPARZA MD Signed Date/Time: 05/30/17 2208 - Medical Decision Making 41-year-old male presents with right lobe pneumonia ED course: Patient received Tylenol, Robitussin A ED. Chest x-ray ordered. Chest x-ray shows right perihilar Infiltrate I discussed this finding is patient. I discussed with the patient was sent home on antibiotic for infection I discussed the patient to follow up with primary care physician as soon as possible within 3 days. I discussed the patient if symptoms worsen or he develops his symptoms return to ED immediately Vital signs normalized. Patient is in no acute or respiratory distress He understands all instructions given. Critical care attestation.: If time is entered above; I have spent that time in minutes in the direct care of this critically ill patient, excluding procedure time. ED Disposition Clinical Impression: URI (upper respiratory infection), Right pulmonary infiltrate on CXR, Pneumonia Disposition: DC-01 TO HOME OR SELFCARE Is pt being admited?: No Does the pt Need Aspirin: No Condition: Stable Instructions: Upper Respiratory Infection (ED), Community-acquired Pneumonia ( ED), Bacterial Pneumonia (ED) Additional Instructions: Make sure to follow up with the primary care physician as discussed in 3-5 days. Take all your medications as you've been prescribed. If you have any worsening symptoms or develop new symptoms please return to ED immediately. Prescriptions: Azithromycin [Zithromax TAB] 500 mg PO QDAY #7 tablet Benzonatate [Tessalon Perles] 100 mg PO Q8HR #21 capsule Referrals: PRIMARY CAREMD [Primary Care Provider] - 3-5 Days [facility] [Outside] - 3-5 Days [facility] [Outside] - 3-5 Days Forms: Accompanied Note, Work/School Release Form(ED) Time of Disposition: 02:49
[2017-05-31] MEDS ORDERED: TYLENOL PO ONE (01:36)
--- NOTE | 2017-05-31 02:11 | XRay Report ---
FINAL REPORT PROCEDURE: XR CHEST ROUTINE 2V TECHNIQUE: PA and lateral chest radiographs were obtained. CPT 71560 HISTORY: COUGH FEVER COMPARISON: 04/21/2017 FINDINGS: Heart: Normal. Mediastinum/Vessels: Normal. Lungs/Pleural space: Lungs are well-expanded. There are multifocal right perihilar infiltrates. There are no effusions or pneumothoraces.. Bony thorax: No acute osseous abnormality. Other: IMPRESSION: Right perihilar infiltrates..
== END 2017-05-31 03:03 | disposition home or self-care (01) ==
LOC: ED 20:08
DX: J06.9 Acute upper respiratory infection, unspecified (principal); R91.8 Other nonspecific abnormal finding of lung field; J18.9 Pneumonia, unspecified organism; I10 Essential (primary) hypertension
CPT/HCPCS: 71046; 87400; 99284; J7512

== ENCOUNTER 2018-06-12 14:10 | Emergency (ER) | payer MEDICARE ==
[2018-06-12 14:19] VITALS: BP 141/89
--- NOTE | 2018-06-12 16:17 | XRay Report ---
FINAL REPORT EXAM: XR CHEST ROUTINE 2V HISTORY: cough TECHNIQUE: 2 view examination of the chest PRIORS: 04/01/2018 FINDINGS: Stable slight interstitial scar right lung base. The cardiac silhouette size is slightly enlarged without evidence of vascular congestion or pulmonary edema. There is no pulmonary consolidation, pleural effusion, or pneumothorax. The regional skeleton is without acute pathology. IMPRESSION: No evidence of acute pulmonary disease Again noted is slight cardiomegaly
[2018-06-12] MEDS ORDERED: IBUPROFEN PO ONE (16:58)
[2018-06-12] MEDS ORDERED: TESSALON PERLES PO ONE (16:58)
--- NOTE | 2018-06-12 17:39 | Emergency Department Report ---
- General Chief Complaint: Upper Respiratory Infection Stated Complaint: FLU LIKE Time Seen by Provider: 06/12/18 15:36 Source: patient Mode of arrival: Ambulatory Limitations: No Limitations - History of Present Illness Initial Comments: This is a 42-year-old male nontoxic, well nourished in appearance, no acute signs of distress presents to the ED with c/o of productive cough, subjective fever, chills, body aches, rhinorrhea, nasal congestion x2 weeks. Patient describes productive cough as yellow mucus production. Patient denies any sick contact. Patient denies any recent travels, long car, recent hospital stays. Patient denies any calf pain or calf tenderness. Patient denies any chest pain, short of breath, fever, chills, nausea, vomiting, hemoptysis, numbness, ti ngling, headache or stiff neck. Patient denies any allergies or PMH. MD Complaint: fever, cough, rhinorrhea, nasal congestion, other (body aches) -: week(s) (2) Severity: mild Severity scale (0 -10): 8 Quality: aching Consistency: constant Improves With: nothing Worsens With: nothing Associated Symptoms: fever, chills, rhinorrhea, nasal congestion, cough. denies: myalgias, diaphoresis, headache, sore throat, stiff neck, chest pain, shortness of breath, abdominal pain, nausea, vomiting, diarrhea, dysuria, rash, confusion, right sweats, weight loss, epistaxis, hoarseness, ear pain Treatments Prior to Arrival: none - Related Data Home Medications Medication Instructions Recorded Confirmed Last Taken Allopurinol 100 mg PO TID 02/23/17 04/02/18 Unknown Previous Rx's Medication Instructions Recorded Last Taken Type Ferrous Sulfate [Feosol 325 MG tab] 325 mg PO BID #60 tablet 01/06/15 1 Day Ago Rx ~08/01/16 Gabapentin [Neurontin] 300 mg PO DAILY #30 capsule 01/06/15 1 Day Ago Rx ~02/22/17 Aspirin [Aspirin BABY CHEW TAB] 81 mg PO QDAY #30 tab.chew 04/25/17 Unknown Rx Carvedilol [Coreg] 25 mg PO BID #60 tablet 04/25/17 Unknown Rx Furosemide [Lasix TAB] 40 mg PO BID #60 tablet 04/25/17 Unknown Rx Isosorb Dinit/Hydralazine [Bidil 1 each PO TID #90 tablet 04/25/17 Unknown Rx 20/37.5MG] Losartan [Cozaar] 50 mg PO QDAY #30 tablet 04/25/17 Unknown Rx Simvastatin (Nf) [Zocor TAB] 20 mg PO QHS #30 tablet 04/25/17 Unknown Rx Benzonatate [Tessalon Perles] 100 mg PO Q8HR #21 capsule 05/31/17 Unknown Rx Furosemide [Lasix] 20 mg PO QDAY #60 tablet 04/02/18 Unknown Rx levoFLOXacin [Levaquin TAB] 500 mg PO QDAY #7 tablet 04/02/18 Unknown Rx Azithromycin [Zithromax Z-ALTHEA] 250 mg PO DAILY #6 tablet 06/12/18 Unknown Rx Benzonatate [Tessalon Perle] 100 mg PO Q8H PRN #20 capsule 06/12/18 Unknown Rx Ibuprofen [Motrin] 600 mg PO Q8H PRN #20 tablet 06/12/18 Unknown Rx Allergies Allergy/AdvReac Type Severity Reaction Status Date / Time No Known Allergies Allergy Verified 04/21/17 15:31 ED Review of Systems ROS: Stated complaint: FLU LIKE Other details as noted in HPI Constitutional: chills, fever Eyes: denies: eye pain, eye discharge, vision change ENT: congestion. denies: ear pain, throat pain Respiratory: cough. denies: shortness of breath, wheezing Cardiovascular: denies: chest pain, palpitations Endocrine: no symptoms reported Gastrointestinal: denies: abdominal pain, nausea, diarrhea Genitourinary: denies: urgency, dysuria Musculoskeletal: denies: back pain, joint swelling, arthralgia Skin: denies: rash, lesions Neurological: denies: headache, weakness, paresthesias Psychiatric: denies: anxiety, depression Hematological/Lymphatic: denies: easy bleeding, easy bruising ED Past Medical Hx - Past Medical History Hx Hypertension: Yes Hx CVA: Yes (ischemic, no resid. deficits) Hx Congestive Heart Failure: Yes Hx Pulmonary Embolism: Yes Hx Renal Disease: Yes Hx HIV: No Additional medical history: gout - Surgical History Past Surgical History?: Yes Additional Surgical History: Heart Cath 2005 - Social History Smoking Status: Never Smoker Substance Use Type: None - Medications Home Medications: Home Medications Medication Instructions Recorded Confirmed Last Taken Type Ferrous Sulfate [Feosol 325 MG tab] 325 mg PO BID #60 tablet 01/06/15 04/02/18 1 Day Ago Rx ~08/01/16 Gabapentin [Neurontin] 300 mg PO DAILY #30 capsule 01/06/15 04/02/18 1 Day Ago Rx ~02/22/17 Allopurinol 100 mg PO TID 02/23/17 04/02/18 Unknown History Aspirin [Aspirin BABY CHEW TAB] 81 mg PO QDAY #30 tab.chew 04/25/17 04/02/18 Unknown Rx Carvedilol [Coreg] 25 mg PO BID #60 tablet 04/25/17 04/02/18 Unknown Rx Furosemide [Lasix TAB] 40 mg PO BID #60 tablet 04/25/17 04/02/18 Unknown Rx Isosorb Dinit/Hydralazine [Bidil 1 each PO TID #90 tablet 04/25/17 04/02/18 Unknown Rx 20/37.5MG] Losartan [Cozaar] 50 mg PO QDAY #30 tablet 04/25/17 04/02/18 Unknown Rx Simvastatin (Nf) [Zocor TAB] 20 mg PO QHS #30 tablet 04/25/17 04/02/18 Unknown Rx Benzonatate [Tessalon Perles] 100 mg PO Q8HR #21 capsule 05/31/17 04/02/18 Unknown Rx Furosemide [Lasix] 20 mg PO QDAY #60 tablet 04/02/18 Unknown Rx levoFLOXacin [Levaquin TAB] 500 mg PO QDAY #7 tablet 04/02/18 Unknown Rx Azithromycin [Zithromax Z-ALTHEA] 250 mg PO DAILY #6 tablet 06/12/18 Unknown Rx Benzonatate [Tessalon Perle] 100 mg PO Q8H PRN #20 capsule 06/12/18 Unknown Rx Ibuprofen [Motrin] 600 mg PO Q8H PRN #20 tablet 06/12/18 Unknown Rx ED Physical Exam - General Limitations: No Limitations General appearance: alert, in no apparent distress - Head Head exam: Present: atraumatic, normocephalic - Eye Eye exam: Present: normal appearance - Neck Neck exam: Present: normal inspection, full ROM. Absent: tenderness, meningismus - Respiratory Respiratory exam: Present: normal lung sounds bilaterally. Absent: respiratory distress, wheezes, rales, rhonchi, stridor, chest wall tenderness, accessory muscle use, decreased breath sounds, prolonged expiratory - Cardiovascular Cardiovascular Exam: Present: regular rate, normal rhythm, normal heart sounds. Absent: bradycardia, tachycardia, irregular rhythm, systolic murmur, diastolic murmur, rubs, gallop - GI/Abdominal GI/Abdominal exam: Present: soft, normal bowel sounds. Absent: distended, tenderness, guarding, rebound, rigid, diminished bowel sounds - Rectal Rectal exam: Present: deferred - Extremities Exam Extremities exam: Present: normal inspection, full ROM, normal capillary refill - Back Exam Back exam: Present: normal inspection, full ROM - Neurological Exam Neurological exam: Present: alert, oriented X3 - Psychiatric Psychiatric exam: Present: normal affect, normal mood - Skin Skin exam: Present: warm, dry, intact, normal color. Absent: rash ED Course Vital Signs 06/12/18 06/12/18 06/12/18 14:17 17:08 17:11 Temperature 98.4 F Pulse Rate 89 Respiratory 22 15 16 Rate Blood Pressure 141/89 O2 Sat by Pulse 99 Oximetry - Reevaluation(s) Reevaluation #1: 06/12/18 17:48 Patient is speaking in full sentences with no signs of distress noted. ED Medical Decision Making - Medical Decision Making This is a 42-year-old male that presents with bronchitis. Patient is stable and was examined by me. Chest x-ray has been obtained and dictated by radiologist with normal exam. Patient is notified of x-ray results with no questions noted. Due to patient having symptoms of upper respiratory infection and worsening I will treat patient empirically with zpak. Patient was instructed to increase hydration, rest and take Motrin for fever episodes. Patient received motrin and tesslone perrls in the ED. Vitals stable. Patient is nonfebrile and normal heart rate. Patient was instructed Follow-up with a primary care doctor in 3-5 days or if symptoms worsen and continue return to emergency room as soon as possible. At time time of discharge, the patient does not seem toxic or ill in appearance. No acute signs of distress noted. Patient agrees to discharge treatment plan of care. No further questions noted by the patient. Critical care attestation.: If time is entered above; I have spent that time in minutes in the direct care of this critically ill patient, excluding procedure time. ED Disposition Clinical Impression: Bronchitis Disposition: DC-01 TO HOME OR SELFCARE Is pt being admited?: No Does the pt Need Aspirin: No Condition: Stable Instructions: Acute Bronchitis (ED) Additional Instructions: Follow-up with a primary care doctor in 3-5 days or if symptoms worsen and continue return to emergency room as soon as possible. Prescriptions: Azithromycin [Zithromax Z-ALTHEA] 250 mg PO DAILY #6 tablet Benzonatate [Tessalon Perle] 100 mg PO Q8H PRN #20 capsule PRN Reason: Cough Ibuprofen [Motrin] 600 mg PO Q8H PRN #20 tablet PRN Reason: Pain Referrals: PRIMARY CAREMD [Referring] - 3-5 Days LO BAIG MD [Staff Physician] - 3-5 Days [facility] [Outside] - 3-5 Days [facility] [Outside] - 3-5 Days Forms: Work/School Release Form(ED)
== END 2018-06-12 18:00 | disposition home or self-care (01) ==
LOC: ED 14:10
DX: J40 Bronchitis, not specified as acute or chronic (principal); I10 Essential (primary) hypertension; I11.0 Hypertensive heart disease with heart failure; I50.9 Heart failure, unspecified; Z86.73 Personal history of transient ischemic attack (TIA), and cerebral infarction without residual deficits; Z86.711 Personal history of pulmonary embolism
CPT/HCPCS: 71046

== ENCOUNTER 2018-07-10 09:49 | Inpatient (IN) | payer MEDICARE ==
--- NOTE | 2018-07-10 10:15 | Emergency Department Report ---
ED General Adult HPI - General Chief complaint: Altered Mental Status Stated complaint: ALTERED MENTAL STATUS Time Seen by Provider: 07/10/18 10:10 Source: patient, family Mode of arrival: Ambulatory Limitations: Altered Mental Status - History of Present Illness Initial comments: 43-year-old male with a history CVA, hypertension, and CHF presents with the complaint of fusion for a week. Family states that patient has been acting abnormally for the past 5 days. Patient family took the patient to urgent care and patient was referred to the ER today. Patient denies any recent falls. Patient denies any seizure activity. Patient denies any urinary incontinence. Family member states that on Sunday when patient was at [facility] he walked out the incorrect entrance and also across the street incorrectly from where her vehicle was parked. She also has a complaint of chest pain which he states for the past 4 days. Patient also was recently treated this year for bronchitis. - Related Data Home Medications Medication Instructions Recorded Confirmed Last Taken Allopurinol 100 mg PO TID 02/23/17 04/02/18 Unknown Previous Rx's Medication Instructions Recorded Last Taken Type Ferrous Sulfate [Feosol 325 MG tab] 325 mg PO BID #60 tablet 01/06/15 1 Day Ago Rx ~08/01/16 Gabapentin [Neurontin] 300 mg PO DAILY #30 capsule 01/06/15 1 Day Ago Rx ~02/22/17 Aspirin [Aspirin BABY CHEW TAB] 81 mg PO QDAY #30 tab.chew 04/25/17 Unknown Rx Carvedilol [Coreg] 25 mg PO BID #60 tablet 04/25/17 Unknown Rx Furosemide [Lasix TAB] 40 mg PO BID #60 tablet 04/25/17 Unknown Rx Isosorb Dinit/Hydralazine [Bidil 1 each PO TID #90 tablet 04/25/17 Unknown Rx 20/37.5MG] Losartan [Cozaar] 50 mg PO QDAY #30 tablet 04/25/17 Unknown Rx Simvastatin (Nf) [Zocor TAB] 20 mg PO QHS #30 tablet 04/25/17 Unknown Rx Benzonatate [Tessalon Perles] 100 mg PO Q8HR #21 capsule 05/31/17 Unknown Rx Furosemide [Lasix] 20 mg PO QDAY #60 tablet 04/02/18 Unknown Rx levoFLOXacin [Levaquin TAB] 500 mg PO QDAY #7 tablet 04/02/18 Unknown Rx Azithromycin [Zithromax Z-ALTHEA] 250 mg PO DAILY #6 tablet 06/12/18 Unknown Rx Benzonatate [Tessalon Perle] 100 mg PO Q8H PRN #20 capsule 06/12/18 Unknown Rx Ibuprofen [Motrin] 600 mg PO Q8H PRN #20 tablet 06/12/18 Unknown Rx Allergies Allergy/AdvReac Type Severity Reaction Status Date / Time No Known Allergies Allergy Verified 04/21/17 15:31 ED Review of Systems ROS: Stated complaint: ALTERED MENTAL STATUS Other details as noted in HPI Constitutional: denies: chills, fever Eyes: denies: eye pain, eye discharge, vision change ENT: denies: ear pain, throat pain Respiratory: denies: cough, shortness of breath, wheezing Cardiovascular: chest pain. denies: palpitations Endocrine: no symptoms reported Gastrointestinal: denies: abdominal pain, nausea, diarrhea Genitourinary: denies: urgency, dysuria Musculoskeletal: denies: back pain, joint swelling, arthralgia Skin: denies: rash, lesions Neurological: denies: headache, weakness, paresthesias Psychiatric: denies: anxiety, depression Hematological/Lymphatic: denies: easy bleeding, easy bruising ED Past Medical Hx - Past Medical History Hx Hypertension: Yes Hx CVA: Yes (ischemic, no resid. deficits) Hx Congestive Heart Failure: Yes Hx Pulmonary Embolism: Yes Hx Renal Disease: Yes Hx HIV: No Additional medical history: gout - Surgical History Past Surgical History?: Yes Additional Surgical History: Heart Cath 2005 - Social History Smoking Status: Former Smoker Substance Use Type: None - Medications Home Medications: Home Medications Medication Instructions Recorded Confirmed Last Taken Type Ferrous Sulfate [Feosol 325 MG tab] 325 mg PO BID #60 tablet 01/06/15 04/02/18 1 Day Ago Rx ~08/01/16 Gabapentin [Neurontin] 300 mg PO DAILY #30 capsule 01/06/15 04/02/18 1 Day Ago Rx ~02/22/17 Allopurinol 100 mg PO TID 02/23/17 04/02/18 Unknown History Aspirin [Aspirin BABY CHEW TAB] 81 mg PO QDAY #30 tab.chew 04/25/17 04/02/18 Unknown Rx Carvedilol [Coreg] 25 mg PO BID #60 tablet 04/25/17 04/02/18 Unknown Rx Furosemide [Lasix TAB] 40 mg PO BID #60 tablet 04/25/17 04/02/18 Unknown Rx Isosorb Dinit/Hydralazine [Bidil 1 each PO TID #90 tablet 04/25/17 04/02/18 Unknown Rx 20/37.5MG] Losartan [Cozaar] 50 mg PO QDAY #30 tablet 04/25/17 04/02/18 Unknown Rx Simvastatin (Nf) [Zocor TAB] 20 mg PO QHS #30 tablet 04/25/17 04/02/18 Unknown Rx Benzonatate [Tessalon Perles] 100 mg PO Q8HR #21 capsule 05/31/17 04/02/18 Unknown Rx Furosemide [Lasix] 20 mg PO QDAY #60 tablet 04/02/18 Unknown Rx levoFLOXacin [Levaquin TAB] 500 mg PO QDAY #7 tablet 04/02/18 Unknown Rx Azithromycin [Zithromax Z-ALTHEA] 250 mg PO DAILY #6 tablet 06/12/18 Unknown Rx Benzonatate [Tessalon Perle] 100 mg PO Q8H PRN #20 capsule 06/12/18 Unknown Rx Ibuprofen [Motrin] 600 mg PO Q8H PRN #20 tablet 06/12/18 Unknown Rx ED Physical Exam - General Limitations: Altered Mental Status General appearance: other (dehydrated; uncomfortable) - Head Head exam: Present: atraumatic, normocephalic - Eye Eye exam: Present: normal appearance - ENT ENT exam: Present: mucous membranes dry - Neck Neck exam: Present: normal inspection - Respiratory Respiratory exam: Present: normal lung sounds bilaterally. Absent: respiratory distress - Cardiovascular Cardiovascular Exam: Present: regular rate, normal rhythm. Absent: systolic mur mur, diastolic murmur, rubs, gallop - GI/Abdominal GI/Abdominal exam: Present: soft, normal bowel sounds - Rectal Rectal exam: Present: deferred - Extremities Exam Extremities exam: Present: normal inspection, calf tenderness (tenderness in left calf region) - Back Exam Back exam: Present: normal inspection - Neurological Exam Neurological exam: Present: alert, oriented X3, CN II-XII intact. Absent: motor sensory deficit - Psychiatric Psychiatric exam: Present: normal affect, normal mood - Skin Skin exam: Present: warm, dry, intact, normal color. Absent: rash ED Course Vital Signs 07/10/18 07/10/18 07/10/18 09:57 10:16 10:30 Temperature 97.9 F Pulse Rate 104 H 88 89 Respiratory 18 26 H 18 Rate Blood Pressure 185/128 172/118 O2 Sat by Pulse 98 100 95 Oximetry 07/10/18 10:45 Temperature Pulse Rate Respiratory Rate Blood Pressure 162/120 O2 Sat by Pulse 98 Oximetry ED Medical Decision Making - Lab Data Result diagrams: 07/10/18 10:18 07/10/18 10:18 - EKG Data EKG shows normal: sinus rhythm Rate: normal - EKG Data Interpretation: nonspecific ST-T wave shannan - Medical Decision Making Case discussed with neurologist, Dr. Clement. Patient is not a TPA candidate. Patient to be admitted to the hospitalist service for continued management and treatment. - Differential Diagnosis CVA; TIA; Intracranial Hemorrhage; Anemia; Electrolyte Abnormality Critical care attestation.: If time is entered above; I have spent that time in minutes in the direct care of this critically ill patient, excluding procedure time. ED Disposition Clinical Impression: Altered mental status, unspecified, Hypertension Disposition: OP ADMIT IP TO THIS HOSP Is pt being admited?: Yes Condition: Stable Instructions: Hypertension (ED) Referrals: PRIMARY CARE, [Referring] - 3-5 Days Time of Disposition: 12:50 Print Language: YI
[2018-07-10 10:27] LABS: Basophils # (Auto) 0.1 K/mm3 (0.0-0.1); Eosinophils % (Auto) 0.4 % (0.0-4.3); Hematocrit 45.8 % (35.5-45.6); Hemoglobin 14.4 gm/dl (11.8-15.2); Lymphocytes # (Auto) 1.5 K/mm3 (1.2-5.4); Mean Corpuscular HGB Conc 32 % (32-34); Mean Corpuscular Volume 84 fl (84-94); Monocytes # (Auto) 0.4 K/mm3 (0.0-0.8); Monocytes % (Auto) 8.1 % (0.0-7.3); Platelet Count 276 K/mm3 (140-440); Red Blood Count 5.45 M/mm3 (3.65-5.03); Red Cell Distribution Width 17.3 % (13.2-15.2)
[2018-07-10 10:39] LABS: INR 2.04 (0.87-1.13); Partial Thromboplastin Time 39.1 Sec. (24.2-36.6)
--- NOTE | 2018-07-10 10:40 | Cat Scan Report ---
HEAD CT WITHOUT CONTRAST INDICATION: Altered mental status. 98N. COMPARISON: 08/13/2014 FINDINGS: Noncontrast head CT demonstrates stable ventricles and sulci without acute or recent infarct, hemorrhage, mass effect or midline shift. Stable approximately 1.7 cm left frontal lobe encephalomalacia, axial image 45. Minimal, benign bilateral basal ganglia calcifications. No abnormal extra-axial fluid collections. Posterior fossa structures and basilar cisterns within normal limits. Slight leftward nasal septal bowing and a small 2 mm leftward nasal septal spur as on axial image 7. Clear imaged paranasal sinuses and mastoid air cells. Normal eye globes. Intact calvarium. Normal scalp soft tissues. Few small radiopaque dental material. CONCLUSION: No acute intracranial CT abnormality with few other findings, as above. MRI is more sensitive for detection of acute infarct and may be useful for further evaluation in the setting of a focal neurologic deficit. I phoned the above results to Dr. Marcial in the ER, 10:25 AM, 07/10/2018. Thank you for the opportunity to participate in this patient's care.
[2018-07-10 10:42] LABS: Alanine Aminotransferase 18 units/L (7-56); Albumin 4.4 g/dL (3.9-5); BUN/Creatinine Ratio 11; Blood Urea Nitrogen 17 mg/dL (9-20); Calcium 9.2 mg/dL (8.4-10.2); Hemolysis Index 9
[2018-07-10 11:29] LABS: Bacteria,Urine 1+ /HPF (Negative); Bilirubin,Urine NEG (Negative); Blood,Urine NEG (Negative); Color,Urine Yellow (Yellow); Mucus,Urine 1+ /HPF
[2018-07-10 11:30] LABS: Protein,Urine >2000 mg dL mg/dL (Negative)
[2018-07-10 11:38] LABS: Amphetamine Screen,Urine PRESUMPTIVE NEGATIVE; Benzodiazepines Screen,Urine PRESUMPTIVE NEGATIVE; Cannabinoid Screen,Urine PRESUMPTIVE NEGATIVE; Cocaine Screen,Urine PRESUMPTIVE NEGATIVE; Methadone Screen,Urine PRESUMPTIVE NEGATIVE; Opiate Screen,Urine PRESUMPTIVE NEGATIVE
--- NOTE | 2018-07-10 11:48 | XRay Report ---
PORTABLE CHEST INDICATION: Chest pain. COMPARISON: 06/12/2018 FINDINGS: Portable, frontal chest radiograph again suggests mild cardiomegaly. Grossly normal mediastinal and hilar contours. Right hemidiaphragm slightly higher than the left. Clear lungs. EKG leads. Intact bones. CONCLUSION: No acute chest process with mild cardiomegaly again noted, as described. Thank you for the opportunity to participate in this patient's care.
--- NOTE | 2018-07-10 13:14 | History and Physical Report ---
History of Present Illness Chief complaint: He is confused and feeling weak History of present illness: 43 YO Male with CVA, PE, CHF, HTN presents to ED for evaluation. Pt is confused and lethargic and provides limited history. Pt history provided by family who is at bedside during exam and interview. As per family, the patient has experienced increased confusion and weakness over the past 1 weak, with progressively worsening symptoms over the past 5 days. Pt family states that patient was at [employer] and became confused, and walked into traffic while attempting to leave the store via the wrong exit. Pt transported to [facility] by family for further care and evaluation. Pt seen and evaluated in ED and found to have Encephalopathy, and clinical findings suspicious for Demyelinating Neuropathy. Pt admitted to Medical floor. Neurology consulted in ED. Medications and Allergies Allergies Allergy/AdvReac Type Severity Reaction Status Date / Time No Known Allergies Allergy Verified 04/21/17 15:31 Home Medications Medication Instructions Recorded Confirmed Last Taken Type Ferrous Sulfate [Feosol 325 MG tab] 325 mg PO BID #60 tablet 01/06/15 04/02/18 1 Day Ago Rx ~08/01/16 Gabapentin [Neurontin] 300 mg PO DAILY #30 capsule 01/06/15 04/02/18 1 Day Ago Rx ~02/22/17 Allopurinol 100 mg PO TID 02/23/17 04/02/18 Unknown History Aspirin [Aspirin BABY CHEW TAB] 81 mg PO QDAY #30 tab.chew 04/25/17 04/02/18 Unknown Rx Carvedilol [Coreg] 25 mg PO BID #60 tablet 04/25/17 04/02/18 Unknown Rx Furosemide [Lasix TAB] 40 mg PO BID #60 tablet 04/25/17 04/02/18 Unknown Rx Isosorb Dinit/Hydralazine [Bidil 1 each PO TID #90 tablet 04/25/17 04/02/18 Unknown Rx 20/37.5MG] Losartan [Cozaar] 50 mg PO QDAY #30 tablet 04/25/17 04/02/18 Unknown Rx Simvastatin (Nf) [Zocor TAB] 20 mg PO QHS #30 tablet 04/25/17 04/02/18 Unknown Rx Benzonatate [Tessalon Perles] 100 mg PO Q8HR #21 capsule 05/31/17 04/02/18 Unknown Rx Furosemide [Lasix] 20 mg PO QDAY #60 tablet 04/02/18 Unknown Rx levoFLOXacin [Levaquin TAB] 500 mg PO QDAY #7 tablet 04/02/18 Unknown Rx Azithromycin [Zithromax Z-ALTHEA] 250 mg PO DAILY #6 tablet 06/12/18 Unknown Rx Benzonatate [Tessalon Perle] 100 mg PO Q8H PRN #20 capsule 06/12/18 Unknown Rx Ibuprofen [Motrin] 600 mg PO Q8H PRN #20 tablet 06/12/18 Unknown Rx Exam - Constitutional Vitals: Temp Pulse Resp BP Pulse Ox 97.9 F 89 18 162/120 98 07/10/18 09:57 07/10/18 10:30 07/10/18 10:30 07/10/18 10:45 07/10/18 10:45 General appearance: Present: mild distress - EENT Eyes: Present: PERRL ENT: hearing intact, clear oral mucosa - Neck Neck: Present: supple, normal ROM - Respiratory Respiratory effort: normal Respiratory: bilateral: CTA - Cardiovascular Heart Sounds: Present: S1 & S2. Absent: rub, click - Extremities Extremities: pulses symmetrical, No edema Peripheral Pulses: within normal limits - Abdominal General gastrointestinal: Present: soft, non-tender, non-distended, normal bowel sounds Male genitourinary: Present: normal - Integumentary Integumentary: Present: clear, warm, dry - Musculoskeletal Musculoskeletal: gait normal, strength equal bilaterally - Psychiatric Psychiatric: appropriate mood/affect, intact judgment & insight - Neurologic Neurologic: CNII-XII intact, moves all extremities Results - Labs CBC & Chem 7: 07/10/18 10:18 07/10/18 10:18 Labs: Abnormal lab results 07/10/18 07/10/18 07/10/18 Range/Units 10:18 10:18 10:18 RBC 5.45 H (3.65-5.03) M/mm3 Hct 45.8 H (35.5-45.6) % MCH 27 L (28-32) pg RDW 17.3 H (13.2-15.2) % [place] % (Auto) 8.1 H (0.0-7.3) % PT 24.4 H (12.2-14.9) Sec. INR 2.04 H (0.87-1.13) APTT 39.1 H (24.2-36.6) Sec. Glucose 107 H (75-100) mg/dL Total Protein 8.5 H (6.3-8.2) g/dL Assessment and Plan - Patient Problems (1) Encephalopathy Current Visit: Yes Status: Acute Plan to address problem: CT head, neuro checks, supportive care, CBC, CMP, (2) Demyelinating neuropathy Current Visit: Yes Status: Acute Plan to address problem: CT head, MR Brain, MR Lumbar Spine, Neuro checks, ESR, CRP, (3) DVT prophylaxis Current Visit: Yes Status: Acute Plan to address problem: SCD to BLE while in bed.
[2018-07-10] MEDS ORDERED: TYLENOL PO PRN (13:28)
[2018-07-10] MEDS ORDERED: SODIUM CHLORIDE FLUSH SYRINGE 10 ML IV PRN (13:28)
[2018-07-10] MEDS ORDERED: ZOFRAN IV PRN (13:28)
[2018-07-10] MEDS ORDERED: TESSALON PERLES PO PRN (13:32)
[2018-07-10] MEDS ORDERED: IBUPROFEN PO PRN (13:32)
[2018-07-10 14:12] LABS: Erythrocyte Sedimentation Rate 29 mm/Hr (0-20)
[2018-07-10 14:27] LABS: Free T4 (Free Thyroxine) 1.53 ng/dL (0.76-1.46)
--- NOTE | 2018-07-10 16:20 | Vascular Lab Report ---
FINAL REPORT EXAM: VL VENOUS DUPLEX LE LT HISTORY: lower extremity pain TECHNIQUE: Grayscale and color and spectral Doppler ultrasound imaging of the left lower extremity w as performed for the purposes of assessing for deep venous thrombosis. PRIORS: None. FINDINGS: No evidence of deep venous thrombosis is seen within the left common femoral through the posterior ti bial and peroneal veins. Normal compression and color flow is seen throughout the venous system of th e left lower extremity. Normal augmentation was seen. IMPRESSION: Negative for left lower extremity deep venous thrombosis.
[2018-07-10] MEDS: ZYLOPRIM PO SCH ×2 (16:56→21:15)
[2018-07-10] MEDS: BIDIL 20/37.5MG PO SCH ×2 (16:56→21:13)
[2018-07-10] MEDS ORDERED: NON-FORMULARY (Simvastatin (Nf) 20 MG) PO SCH (22:00)
[2018-07-10] MEDS: FEOSOL PO SCH (22:53)
[2018-07-10] MEDS: COREG PO SCH (22:54)
[2018-07-10] MEDS: SODIUM CHLORIDE FLUSH SYRINGE 10 ML IV SCH (22:55)
[2018-07-11] MEDS: BIDIL 20/37.5MG PO SCH ×3 (08:25→21:02)
--- NOTE | 2018-07-11 09:49 | Progress Note ---
Assessment and Plan Assessment and plan: Acute encephalopathy. CT scan of the head negative. MRI pending. Neurology consultation pending. History CVA. Continue aspirin daily Chronic systolic heart failure. Compensated. Continue current medical management. Hypertension. Resume anti-hypertensive medications. Chronic kidney disease 3. Patient's creatinine appears to be at baseline. Anemia of chronic kidney disease History Interval history: 43 YO Male with CVA, PE, CHF, HTN presents to ED for experienced increased confusion and weakness over the past 1 week, with progressively worsening symptoms over the past 5 days. Pt seen and evaluated in ED and found to have Encephalopathy, and clinical findings suspicious for Demyelinating Neuropathy. Patient currently appears to be alert and oriented Hospitalist Physical - Constitutional Vitals: Temp Pulse Resp BP Pulse Ox 98.6 F 77 24 147/104 99 07/11/18 05:48 07/11/18 08:25 07/11/18 05:48 07/11/18 08:25 07/10/18 22:23 General appearance: Present: no acute distress - EENT Eyes: Present: PERRL, EOM intact ENT: hearing intact, clear oral mucosa, dentition normal - Neck Neck: Present: supple, normal ROM - Respiratory Respiratory effort: normal Respiratory: bilateral: CTA - Cardiovascular Rhythm: regular Heart Sounds: Present: S1 & S2. Absent: gallop, rub - Extremities Extremities: no ischemia, No edema, Full ROM - Abdominal General gastrointestinal: soft, non-tender, non-distended, normal bowel sounds - Integumentary Integumentary: Present: clear, warm, dry - Neurologic Neurologic: CNII-XII intact, moves all extremities Results - Labs CBC & Chem 7: 07/10/18 10:18 07/10/18 10:18 Labs: Laboratory Last Values WBC 5.0 K/mm3 (4.5-11.0) 07/10/18 10:18 RBC 5.45 M/mm3 (3.65-5.03) H 07/10/18 10:18 Hgb 14.4 gm/dl (11.8-15.2) 07/10/18 10:18 Hct 45.8 % (35.5-45.6) H 07/10/18 10:18 MCV 84 fl (84-94) 07/10/18 10:18 MCH 27 pg (28-32) L 07/10/18 10:18 MCHC 32 % (32-34) 07/10/18 10:18 RDW 17.3 % (13.2-15.2) H 07/10/18 10:18 Plt Count 276 K/mm3 (140-440) 07/10/18 10:18 Lymph % (Auto) 31.0 % (13.4-35.0) 07/10/18 10:18 [place] % (Auto) 8.1 % (0.0-7.3) H 07/10/18 10:18 Eos % (Auto) 0.4 % (0.0-4.3) 07/10/18 10:18 Baso % (Auto) 1.0 % (0.0-1.8) 07/10/18 10:18 Lymph # 1.5 K/mm3 (1.2-5.4) 07/10/18 10:18 [place] # 0.4 K/mm3 (0.0-0.8) 07/10/18 10:18 Eos # 0.0 K/mm3 (0.0-0.4) 07/10/18 10:18 Baso # 0.1 K/mm3 (0.0-0.1) 07/10/18 10:18 Seg Neutrophils % 59.5 % (40.0-70.0) 07/10/18 10:18 Seg Neutrophils # 3.0 K/mm3 (1.8-7.7) 07/10/18 10:18 ESR 29 mm/Hr (0-20) 07/10/18 13:38 PT 24.4 Sec. (12.2-14.9) H 07/10/18 10:18 INR 2.04 (0.87-1.13) H 07/10/18 10:18 APTT 39.1 Sec. (24.2-36.6) H 07/10/18 10:18 Sodium 143 mmol/L (137-145) 07/10/18 10:18 Potassium 3.7 mmol/L (3.6-5.0) 07/10/18 10:18 Chloride 106.2 mmol/L (98-107) 07/10/18 10:18 Carbon Dioxide 23 mmol/L (22-30) 07/10/18 10:18 Anion Gap 18 mmol/L 07/10/18 10:18 BUN 17 mg/dL (9-20) 07/10/18 10:18 Creatinine 1.5 mg/dL (0.8-1.5) 07/10/18 10:18 Estimated GFR > 60 ml/min 07/10/18 10:18 BUN/Creatinine Ratio 11 % 07/10/18 10:18 Glucose 107 mg/dL (75-100) H 07/10/18 10:18 POC Glucose 89 (70-105) 07/10/18 10:37 Calcium 9.2 mg/dL (8.4-10.2) 07/10/18 10:18 Total Bilirubin 0.70 mg/dL (0.1-1.2) 07/10/18 10:18 AST 20 units/L (5-40) 07/10/18 10:18 ALT 18 units/L (7-56) 07/10/18 10:18 Alkaline Phosphatase 112 units/L (35-129) 07/10/18 10:18 Troponin T < 0.010 ng/mL (0.00-0.029) 07/10/18 10:18 C-Reactive Protein 0.70 mg/dL (0.00-1.30) 07/10/18 13:38 NT-Pro-B Natriuret Pep 1367 pg/mL (0-450) H 07/10/18 17:00 Total Protein 8.5 g/dL (6.3-8.2) H 07/10/18 10:18 Albumin 4.4 g/dL (3.9-5) 07/10/18 10:18 Albumin/Globulin Ratio 1.1 % 07/10/18 10:18 TSH 1.150 mlU/mL (0.270-4.200) 07/10/18 13:38 Free T4 1.53 ng/dL (0.76-1.46) H 07/10/18 13:38 Urine Color Yellow (Yellow) 07/10/18 11:05 Urine Turbidity Clear (Clear) 07/10/18 11:05 Urine pH 5.0 (5.0-7.0) 07/10/18 11:05 Ur Specific [place] 1.026 (1.003-1.030) 07/10/18 11:05 Urine Protein >2000 mg dl mg/dL (Negative) 07/10/18 11:05 Urine Glucose (UA) Neg mg/dL (Negative) 07/10/18 11:05 Urine Ketones Neg mg/dL (Negative) 07/10/18 11:05 Urine Blood Neg (Negative) 07/10/18 11:05 Urine Nitrite Neg (Negative) 07/10/18 11:05 Urine Bilirubin Neg (Negative) 07/10/18 11:05 Urine Urobilinogen 2.0 mg/dL (<2.0) 07/10/18 11:05 Ur Leukocyte Esterase Neg (Negative) 07/10/18 11:05 Urine WBC (Auto) 2.0 /HPF (0.0-6.0) 07/10/18 11:05 Urine RBC (Auto) 6.0 /HPF (0.0-6.0) 07/10/18 11:05 U Epithel Cells (Auto) < 1.0 /HPF (0-13.0) 07/10/18 11:05 Urine Bacteria (Auto) 1+ /HPF (Negative) 07/10/18 11:05 Urine Mucus 1+ /HPF 07/10/18 11:05 Urine Opiates Screen Presumptive negative 07/10/18 11:05 Urine Methadone Screen Presumptive negative 07/10/18 11:05 Ur Barbiturates Screen Presumptive negative 07/10/18 11:05 Ur Phencyclidine Scrn Presumptive negative 07/10/18 11:05 Ur Amphetamines Screen Presumptive negative 07/10/18 11:05 U Benzodiazepines Scrn Presumptive negative 07/10/18 11:05 Urine Cocaine Screen Presumptive negative 07/10/18 11:05 U Marijuana (THC) Screen Presumptive negative 07/10/18 11:05 Drugs of Abuse Note Disclamer 07/10/18 11:05 Plasma/Serum Alcohol < 0.01 % (0-0.07) 07/10/18 10:18 HIV 1&2 Antibody Rapid Non react (Non React) 07/10/18 13:38 HIV P24 Antigen Non react (Non React) 07/10/18 13:38
[2018-07-11] MEDS ORDERED: BABY ASPIRIN PO SCH (10:00)
[2018-07-11] MEDS: ZYLOPRIM PO SCH ×3 (10:44→21:02)
[2018-07-11] MEDS: COZAAR PO SCH (10:45)
[2018-07-11] MEDS: COREG PO SCH ×2 (10:45→21:02)
[2018-07-11] MEDS: FEOSOL PO SCH ×2 (10:45→21:02)
[2018-07-11] MEDS: SODIUM CHLORIDE FLUSH SYRINGE 10 ML IV SCH ×2 (10:46→21:03)
[2018-07-11] MEDS: NEURONTIN PO SCH (10:46)
--- NOTE | 2018-07-11 11:24 | Magnetic Resonance Report ---
MRI BRAIN WITHOUT AND WITH CONTRAST: 07/11/18 CLINICAL: Weakness. TECHNIQUE: Axial diffusion, T1, FLAIR, gradient echo T2*, and coronal and axial T2 and sagittal T1 plus coronal and axial postcontrast T1 sequences on a 1.5 [place] magnet. 20.0 cc of Multihance was injected intravenously for the contrast portion of the exam. Consent was obtained prior to the administration of contrast. FINDINGS: The ventricles are normal size but the sulci are slightly prominent for age. No restricted diffusion. A small area of encephalomalacia in the left frontal lobe involves the inferior frontal lobe gyrus. There is mild adjacent gliosis it is evident on the T2 and FLAIR sequences. Moderate bilateral multifocal white matter hyperintensities of the frontal and parietal lobes on FLAIR and T2. No hemorrhage, edema or extra-axial collection. No mass or enhancing lesion. Normal pituitary and optic chiasm. The brainstem and cerebellum are normal. Intact vascular flow voids. The orbits, sinuses and soft tissues are normal. Normal calvarium and skull base. IMPRESSION: 1. No evidence of acute/subacute infarct or hemorrhage. 2. A small chronic infarct of the left frontal lobe. 3. Mild global cortical atrophy. 4. Moderate bilateral multifocal frontal and parietal lobe white matter hyperintensities on FLAIR and T2. This may represent chronic white matter microangiopathy but the pattern is nonspecific.
--- NOTE | 2018-07-11 19:47 | Consultation ---
History of Present Illness Consult date: 07/11/18 Requesting physician: KURTIS STEVENSON Reason for Consult: altered mental status Chief complaint: confusion History of present illness: This 43-year-old right-handed -Mac[place] male recalls having headache on the right side without nausea but with some photophobia though no phonophobia associated with [facility]. He says he had a stroke a year ago from which he was confused for 3 days and had some weakness on his left side and for which he went to [facility] in [place] and had an MRI done. He states he was given a blue pill to help his thinking but not a cholesterol medicine though he was given 81 mg aspirin to take. He states he's followed by Dr. Lerner, neurologist in [place] and also Dr. Beach, his PCP in [place]. MRI shows left mid frontal cortical small stroke on FLAIR that also enhances a little on with a few peripheral lacunes bilaterally that do not enhance. I showed these to him and explained this represents a recent stroke but not within 3 weeks since it is not showing up on diffusion. He says does not drive due to his prior stroke. I later spoke to his who said that his prior stroke was over 3 years ago and looking back through the records I see that it was in 2013 here at which time MRI showed a larger stroke in the same area as the current one. She says this was before they got and she was not aware of any strength deficit. Notes from that admission stated he had trouble with speech. The records from that admission indicated because of cardiomyopathy he was started on warfarin along with Lovenox. He still was on warfarin in 2017 but later it seems that that was changed to aspirin. She states that he does drive some so I told her he cannot drive until he has six-months straight of no confusion spells. She has seen him have confusion such as one in which he thought he got money from an RANJITH but failed to do so. She has not see any staring spells with lipsmacking or chewing however. I told her it appears his most recent stroke but we are seeing on the scan is adjacent to that old stroke. I described the incident today (see below) in which he thought he was putting on glasses but they were not there. 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 denies: smoking (quit 5 years ago), prescription drug abuse, IV drug use Family history: diabetes (sister was borderline for DM), hypertension (brother), other (no epilepsy). denies: stroke Medications and Allergies Allergies Allergy/AdvReac Type Severity Reaction Status Date / Time No Known Allergies Allergy Verified 04/21/17 15:31 Home Medications Medication Instructions Recorded Confirmed Last Taken Type Gabapentin [Neurontin] 300 mg PO DAILY #30 capsule 01/06/15 07/10/18 1 Day Ago Rx ~02/22/17 Losartan [Cozaar] 50 mg PO QDAY #30 tablet 04/25/17 07/10/18 Unknown Rx Benzonatate [Tessalon Perle] 100 mg PO Q8H PRN #20 capsule 06/12/18 07/10/18 Unknown Rx Ibuprofen [Motrin] 600 mg PO Q8H PRN #20 tablet 06/12/18 07/10/18 Unknown Rx Clonidine HCl [Catapres] 0.3 mg PO QPM 07/10/18 07/10/18 Unknown History Hydralazine HCl 50 mg PO TID 07/10/18 07/10/18 Unknown History Metoprolol [Lopressor TAB] 50 mg PO TID 07/10/18 07/10/18 Unknown History Potassium Chloride [K-Dur] 20 meq PO BID 07/10/18 07/10/18 Unknown History amLODIPine [Norvasc] 10 mg PO DAILY 07/10/18 07/10/18 Unknown History Active Meds: Active Medications Acetaminophen (Tylenol) 650 mg PO Q4H PRN PRN Reason: Pain MILD(1-3)/Fever >100.5/LI Allopurinol (Zyloprim) 100 mg PO TID [facility] Last Admin: 07/11/18 15:17 Dose: 100 mg Documented by: Aspirin (Baby Aspirin) 81 mg PO QDAY [facility] Last Admin: 07/11/18 10:45 Dose: Not Given Documented by: Benzonatate (Tessalon Perles) 100 mg PO Q8H PRN PRN Reason: Cough Carvedilol (Coreg) 25 mg PO BID [facility] Last Admin: 07/11/18 10:45 Dose: Not Given Documented by: Ferrous Sulfate (Feosol) 325 mg PO BID [facility] Last Admin: 07/11/18 10:45 Dose: Not Given Documented by: Gabapentin (Neurontin) 300 mg PO DAILY [facility] Last Admin: 07/11/18 10:46 Dose: Not Given Documented by: Ibuprofen (Motrin) 600 mg PO Q8H PRN PRN Reason: Pain Isosorbide Dinitrate/Hydralazine (Bidil 20/37.5mg) 1 each PO TID [facility] Last Admin: 07/11/18 15:07 Dose: Not Given Documented by: Losartan Potassium (Cozaar) 50 mg PO QDAY [facility] Last Admin: 07/11/18 10:45 Dose: Not Given Documented by: Ondansetron HCl (Zofran) 4 mg IV Q8H PRN PRN Reason: Nausea And Vomiting Sodium Chloride (Sodium Chloride Flush Syringe 10 Ml) 10 ml IV BID [facility] Last Admin: 07/11/18 10:46 Dose: Not Given Documented by: Sodium Chloride (Sodium Chloride Flush Syringe 10 Ml) 10 ml IV PRN PRN PRN Reason: LINE FLUSH Review of Systems All systems: negative (no headaches usually, occasional dizziness, CPAP for 6 months which works, memory ok, numbness right foot at times since stroke, says was weak left side from stroke) Physical Examination - Vital Signs Vital Signs: Vital Signs Temp Pulse Resp BP Pulse Ox 97.9 F 104 H 18 185/128 98 07/10/18 09:57 07/10/18 09:57 07/10/18 09:57 07/10/18 09:57 07/10/18 09:57 - Physical Exam Narrative exam: General Appearance: well developed but overweight (per BMI) mid 40's male in [facility]. HEENT: atraumatic, normocephalic; no bruits, 2+ Maykel without soreness or induration or enlargement, sclerae nonicteric. Oropharynx pink and moist. No TMJ click, no TMJ or sinus soreness to pressure or percussion. Neck: supple, no bruits. Heart: no murmur or extra sounds. Extremities: no clubbing, cyanosis or edema. 2+ dorsalis pedis pulses bilaterally. Neurologic Exam: Mental Status: Awake, alert, oriented X 3, speech is clear, names pen and ink instead of tip of pen and calls the clip the ink but gets glasses and their lenses and abstracts well. Names President and initially gives Cori as Staff Psychiatrist but gives Vanesa after Christophe as prompt, serial 7's with at least one error but gets 5+7=12, no right-left confusion, gets 2 of 3 objects at 3 minutes, spells WORLD backwards DROWL (at least 2 transpositions). Cranial Nerves: sykes show partial extinction right superior quadrant, no papilledema, SVPs present, PERRLA, EOMs full without nystagmus or diplopia, facial sensation intact to pinprick and light touch, no facial weakness, Caballero is midline, palate rises symmetrically to phonation, shoulder shrug is 5 X 2, tongue protrudes midline. Cerebellar: finger to nose is slightly dysmetric right, tandem is normal. Sensory: intact to light touch, pinprick, and vibrations. Double simultaneous stimulation is intact. Motor Exam Upper Extremities: no drift or pronation, Maikel intact. Quartz Miner are 5 X 2, tone is normal. No atrophy or fasciculations are noted visually. Motor Exam Lower Extremities: walks well on heels and toes and hops equally on both sides. Maikel intact. Tone is normal. No atrophy or fasciculations are noted visually. Reflexes: Palmomental, snout and jaw jerk are negative. Triceps are 1, biceps are 2 right and 1+ left and brachioradialis are 1 bilaterally. Rkis's is negative bilaterally. Knee jerks are 1+ and ankle jerks are 1+ right and 1 left without clonus. Toes are downgoing bilaterally to Babinski testing. Results - Laboratory Findings CBC and BMP: 07/10/18 10:18 07/10/18 10:18 Abnormal Lab Findings: Abnormal Labs 07/10/18 07/10/18 07/10/18 10:18 10:18 10:18 RBC 5.45 H Hct 45.8 H MCH 27 L RDW 17.3 H Elmore % (Auto) 8.1 H PT 24.4 H INR 2.04 H APTT 39.1 H Glucose 107 H NT-Pro-B Natriuret Pep Total Protein 8.5 H Free T4 07/10/18 07/10/18 13:38 17:00 RBC Hct MCH RDW [place] % (Auto) PT INR APTT Glucose NT-Pro-B Natriuret Pep 1367 H Total Protein Free T4 1.53 H Assessment and Plan Impression: 1. Embolic strokes 2. Confusion episodes Plan: 1. Will confer with his since he had an episode when I went back and is showing the images of his stroke, in which I asked him if he wore glasses he said he did an looked in the drawer where he said they were and seemingly thought he was putting them on since when I asked him where they were he said they were on his head. I told him they weren't there and I looked in the drawer and there were no glasses. I then asked him did he really wear glasses and he said sometimes. This does not to me suggest a seizure but something more psychiatric. Spoke to his later as in HPI. 2. I will ask his whether she ever sees anything suggestive of a complex partial seizure such as staring, lip smacking or chewing amnesia for the episode. If so, I will suggest she take him back to the neurologist in [place] to consider a trial of an antiepileptic medication. He should not drive in the meantime and says he is not driving. Told her this when I later reached her. 3. Will order echo with bubbles if not done. Unknown what workup he had at [facility] [place] for prior stroke. Later found he has had echoes showing cardiomyopathy. May need to go back on warfarin based on the cardiomyopathy. 4. Will order fasting lipids if not already ordered. 5. Should have a 30 day event monitoring to rule out occult PAF. 6. I will change him to Plavix for now since he appears to be an aspirin failure. If he cannot afford generic Plavix, his aspirin should be increased to 325 mg a day. May need warfarin as per above. 7. Will order additional stroke labs since he is a relatively young stroke patient, and since INR is elevated but no mention of warfarin as current med. If it turns out he is on warfarin, should add aspirin 81 mg if not on it already. 60 minutes spent including review of 100s of MRI images, a portion of them printed and labeled for him to also show his . Thank you for an interesting consultation on this unfortunate mid 40s man.
--- NOTE | 2018-07-11 20:17 | Magnetic Resonance Report ---
FINAL REPORT EXAM: MR LUMBAR SPINE WO/W CON HISTORY: weaknessPatient motion, best possible study. Sequences repeated, still had motion. TECHNIQUE: MRI of the lumbar spine: Axial: T1, T2, gadolinium-enhanced fat-suppressed T1 Sagittal: T1, T2 and STIR, gadolinium-enhanced fat-suppressed T1 PRIORS: None. FINDINGS: Axial images are markedly motion degraded. The lumbar vertebral bodies have normal height and alignment and lumbar lordosis is preserved. The pa raspinous soft tissues are unremarkable. The conus medullaris is in a normal location and has a mary l signal intensity and appearance. T 12-L1 to L4-L5: No disc bulge or protrusion. The facet joints appear well preserved. No spinal or f oraminal stenosis. L5-S1: Diffuse disc desiccation. Large broad-based posterior disc bulge with a central disc protrusio n. Moderate bilateral facet and ligamentum flavum hypertrophy. Mild right and moderate left neural fo raminal narrowing. IMPRESSION: Degenerative disc disease with a large broad-based posterior disc bulge and a central disc protrusion at L5-S1. The axial images are markedly motion degraded.
[2018-07-11] MEDS: PLAVIX PO SCH (21:02)
--- NOTE | 2018-07-11 22:32 | Cat Scan Report ---
FINAL REPORT EXAM: CT ANGIO HEAD HISTORY: stroke TECHNIQUE: CT angiography of the head with 100 cc of Omnipaque 350 contrast intravenously. Axial thi n-section images with sagittal and coronal reconstructions. PRIORS: None. FINDINGS: There are no areas of abnormal enhancement. The bilateral internal carotid arteries appear normal and patent. The bilateral anterior and middle c erebral arteries and the Platinum of Art appear normal. The vertebrobasilar system appears normal. T he bilateral posterior cerebral arteries appear normal. No aneurysms or significant stenoses are demonstrated. IMPRESSION: Normal CT angiogram of the head
--- NOTE | 2018-07-11 22:48 | Cat Scan Report ---
FINAL REPORT EXAM: CT ANGIO NECK HISTORY: strokes Helical CT was performed of the neck after administration of intravenous iodinated contrast for CT an giography. Images are reconstructed in the sagittal and coronal planes. 150 cc of Omnipaque 350 were used for the IV contrast agent PRIORS: None. FINDINGS: The aortic arch appears normal. The left vertebral artery originates from the aortic arch instead of the left subclavian artery, a normal variation. The upper mediastinum appears normal. The lung apices are clear. The jugular veins are patent. Right: The common carotid artery and carotid bulb appear normal. The internal carotid artery is witho ut stenosis. The external carotid artery and branches are within normal limits. The vertebral artery is patent and appears normal. Left: The common carotid artery and carotid bulb appear normal. The internal carotid artery is witho ut stenosis. The external carotid artery and branches are within normal limits. The vertebral artery is patent and appears normal. Soft tissues: The pharynx and para-pharyngeal soft tissues appear normal. The parotid and submandibu lar glands appear normal. The thyroid appears normal. No abnormal soft tissue masses are demonstrated . Bones: The bones appear normal. IMPRESSION: Normal CT angiogram of the neck
[2018-07-12 06:57] LABS: Chol/HDL Ratio 2.75 %
[2018-07-12] MEDS: ZYLOPRIM PO SCH ×3 (08:32→21:38)
[2018-07-12] MEDS: BIDIL 20/37.5MG PO SCH ×3 (08:32→21:41)
[2018-07-12] MEDS: FEOSOL PO SCH ×2 (10:49→21:37)
[2018-07-12] MEDS: PLAVIX PO SCH (10:49)
[2018-07-12] MEDS: COREG PO SCH ×3 (10:49→23:06)
[2018-07-12] MEDS: NEURONTIN PO SCH (10:49)
[2018-07-12] MEDS: COZAAR PO SCH (10:50)
[2018-07-12] MEDS: SODIUM CHLORIDE FLUSH SYRINGE 10 ML IV SCH ×2 (10:50→21:38)
--- NOTE | 2018-07-12 13:46 | Event Note ---
Date: 07/12/18 Echo shows longstanding cardiomyopathy for which he was previously on warfarin, which I recommend resuming. Bubble portion was negative (to be added in addendum). CTAs of head and neck are normal. Should verify with his his ETOH intake in case he needs an ETOH withdrawal protocol. Texted this to Dr. Arora. His is to confer with his outside neurologist as outpatient if she sees any complex partial seizures. Hallucination (apparently) of eyeglasses does not sound like a seizure to me. Signing off, call for any questions.
--- NOTE | 2018-07-12 14:12 | Progress Note ---
Assessment and Plan Assessment and plan: Subacute Embolic CVA. Bubble study negative. CTAs of head and neck are normal. Acute encephalopathy. Etiology secondary to above. History CVA. Continue aspirin daily Chronic systolic heart failure. Compensated. Continue current medical management. Echo reveals EF20-25%. Mod LVH Dilated LV. Dilated Cardiomyopathy. Coumadin resumed per Neurology recommendations Hypertension. Resume anti-hypertensive medications. Chronic kidney disease 3. Patient's creatinine appears to be at baseline. Anemia of chronic kidney disease. 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 Pt feels better today Hospitalist Physical - Constitutional Vitals: Temp Pulse Resp BP Pulse Ox 97.9 F 80 18 142/97 99 07/12/18 12:22 07/12/18 12:22 07/12/18 12:22 07/12/18 12:22 07/12/18 12:22 General appearance: Present: no acute distress - EENT Eyes: Present: PERRL, EOM intact ENT: hearing intact, clear oral mucosa, dentition normal - Neck Neck: Present: supple, normal ROM - Respiratory Respiratory effort: normal Respiratory: bilateral: CTA - Cardiovascular Rhythm: regular Heart Sounds: Present: S1 & S2. Absent: gallop, rub - Extremities Extremities: no ischemia, No edema, Full ROM - Abdominal General gastrointestinal: soft, non-tender, non-distended, normal bowel sounds - Integumentary Integumentary: Present: clear, warm, dry - Neurologic Neurologic: CNII-XII intact, moves all extremities Results - Labs CBC & Chem 7: 07/10/18 10:18 07/10/18 10:18 Labs: Laboratory Last Values WBC 5.0 K/mm3 (4.5-11.0) 07/10/18 10:18 RBC 5.45 M/mm3 (3.65-5.03) H 07/10/18 10:18 Hgb 14.4 gm/dl (11.8-15.2) 07/10/18 10:18 Hct 45.8 % (35.5-45.6) H 07/10/18 10:18 MCV 84 fl (84-94) 07/10/18 10:18 MCH 27 pg (28-32) L 07/10/18 10:18 MCHC 32 % (32-34) 07/10/18 10:18 RDW 17.3 % (13.2-15.2) H 07/10/18 10:18 Plt Count 276 K/mm3 (140-440) 07/10/18 10:18 Lymph % (Auto) 31.0 % (13.4-35.0) 07/10/18 10:18 Chase % (Auto) 8.1 % (0.0-7.3) H 07/10/18 10:18 Eos % (Auto) 0.4 % (0.0-4.3) 07/10/18 10:18 Baso % (Auto) 1.0 % (0.0-1.8) 07/10/18 10:18 Lymph # 1.5 K/mm3 (1.2-5.4) 07/10/18 10:18 Chase # 0.4 K/mm3 (0.0-0.8) 07/10/18 10:18 Eos # 0.0 K/mm3 (0.0-0.4) 07/10/18 10:18 Baso # 0.1 K/mm3 (0.0-0.1) 07/10/18 10:18 Seg Neutrophils % 59.5 % (40.0-70.0) 07/10/18 10:18 Seg Neutrophils # 3.0 K/mm3 (1.8-7.7) 07/10/18 10:18 ESR 29 mm/Hr (0-20) 07/10/18 13:38 PT 24.4 Sec. (12.2-14.9) H 07/10/18 10:18 INR 2.04 (0.87-1.13) H 07/10/18 10:18 APTT 39.1 Sec. (24.2-36.6) H 07/10/18 10:18 Sodium 143 mmol/L (137-145) 07/10/18 10:18 Potassium 3.7 mmol/L (3.6-5.0) 07/10/18 10:18 Chloride 106.2 mmol/L (98-107) 07/10/18 10:18 Carbon Dioxide 23 mmol/L (22-30) 07/10/18 10:18 Anion Gap 18 mmol/L 07/10/18 10:18 BUN 17 mg/dL (9-20) 07/10/18 10:18 Creatinine 1.5 mg/dL (0.8-1.5) 07/10/18 10:18 Estimated GFR > 60 ml/min 07/10/18 10:18 BUN/Creatinine Ratio 11 % 07/10/18 10:18 Glucose 107 mg/dL (75-100) H 07/10/18 10:18 POC Glucose 89 (70-105) 07/10/18 10:37 Calcium 9.2 mg/dL (8.4-10.2) 07/10/18 10:18 Total Bilirubin 0.70 mg/dL (0.1-1.2) 07/10/18 10:18 AST 20 units/L (5-40) 07/10/18 10:18 ALT 18 units/L (7-56) 07/10/18 10:18 Alkaline Phosphatase 112 units/L (35-129) 07/10/18 10:18 Troponin T < 0.010 ng/mL (0.00-0.029) 07/10/18 10:18 C-Reactive Protein 0.70 mg/dL (0.00-1.30) 07/10/18 13:38 NT-Pro-B Natriuret Pep 1367 pg/mL (0-450) H 07/10/18 17:00 Total Protein 8.5 g/dL (6.3-8.2) H 07/10/18 10:18 Albumin 4.4 g/dL (3.9-5) 07/10/18 10:18 Albumin/Globulin Ratio 1.1 % 07/10/18 10:18 Triglycerides 62 mg/dL (2-149) 07/12/18 05:46 Cholesterol 99 mg/dL (50-199) 07/12/18 05:46 LDL Cholesterol Direct 55 mg/dL (50-130) 07/12/18 05:46 HDL Cholesterol 36 mg/dL (40-59) L 07/12/18 05:46 Cholesterol/HDL Ratio 2.75 % 07/12/18 05:46 TSH 1.150 mlU/mL (0.270-4.200) 07/10/18 13:38 Free T4 1.53 ng/dL (0.76-1.46) H 07/10/18 13:38 Urine Color Yellow (Yellow) 07/10/18 11:05 Urine Turbidity Clear (Clear) 07/10/18 11:05 Urine pH 5.0 (5.0-7.0) 07/10/18 11:05 Ur Specific [place] 1.026 (1.003-1.030) 07/10/18 11:05 Urine Protein >2000 mg dl mg/dL (Negative) 07/10/18 11:05 Urine Glucose (UA) Neg mg/dL (Negative) 07/10/18 11:05 Urine Ketones Neg mg/dL (Negative) 07/10/18 11:05 Urine Blood Neg (Negative) 07/10/18 11:05 Urine Nitrite Neg (Negative) 07/10/18 11:05 Urine Bilirubin Neg (Negative) 07/10/18 11:05 Urine Urobilinogen 2.0 mg/dL (<2.0) 07/10/18 11:05 Ur Leukocyte Esterase Neg (Negative) 07/10/18 11:05 Urine WBC (Auto) 2.0 /HPF (0.0-6.0) 07/10/18 11:05 Urine RBC (Auto) 6.0 /HPF (0.0-6.0) 07/10/18 11:05 U Epithel Cells (Auto) < 1.0 /HPF (0-13.0) 07/10/18 11:05 Urine Bacteria (Auto) 1+ /HPF (Negative) 07/10/18 11:05 Urine Mucus 1+ /HPF 07/10/18 11:05 Urine Opiates Screen Presumptive negative 07/10/18 11:05 Urine Methadone Screen Presumptive negative 07/10/18 11:05 Ur Barbiturates Screen Presumptive negative 07/10/18 11:05 Ur Phencyclidine Scrn Presumptive negative 07/10/18 11:05 Ur Amphetamines Screen Presumptive negative 07/10/18 11:05 U Benzodiazepines Scrn Presumptive negative 07/10/18 11:05 Urine Cocaine Screen Presumptive negative 07/10/18 11:05 U Marijuana (THC) Screen Presumptive negative 07/10/18 11:05 Drugs of Abuse Note Disclamer 07/10/18 11:05 Plasma/Serum Alcohol < 0.01 % (0-0.07) 07/10/18 10:18 HIV 1&2 Antibody Rapid Non react (Non React) 07/10/18 13:38 HIV P24 Antigen Non react (Non React) 07/10/18 13:38
[2018-07-12 16:44] LABS: INR 1.34 (0.87-1.13)
--- NOTE | 2018-07-12 17:40 | Electroencephalogram Report ---
Electroencephalogram EEG Date of exam: 07/11/18 History: Episode of confusion. MRI showed recent stroke on FLAIR with slight enhancement which was in the same area as a prior larger stroke from 2014. Description: EEG findings: This 23 channel (one of which is EKG) digital EEG was performed ov er 20 minutes using the international 10/20 montage. There is 9-10 Hz alpha activity in the posterior leads and some anterior beta activity. With drowsiness, a mixture of delta and theta frequencies are seen and later sleep spindles, POSTS (posterior occipital sharp transients of sleep), and K complexes appear. No epileptiform activity is seen. Interpretation: EEG reading: Normal waking and brief sleep electroencephalogram for age. This EEG does not exclude epilepsy of partial onset. Up to 4 EEGs over several months may be need to capture interictal epileptiform activity.
[2018-07-12] MEDS: COUMADIN PO SCH (21:37)
[2018-07-13] MEDS: ZYLOPRIM PO SCH ×3 (09:29→20:25)
[2018-07-13] MEDS: BIDIL 20/37.5MG PO SCH ×3 (09:29→20:30)
[2018-07-13] MEDS: FEOSOL PO SCH ×2 (10:18→22:34)
[2018-07-13] MEDS: COZAAR PO SCH (10:18)
[2018-07-13] MEDS: PLAVIX PO SCH (10:18)
[2018-07-13] MEDS: COREG PO SCH ×2 (10:18→22:35)
[2018-07-13] MEDS: SODIUM CHLORIDE FLUSH SYRINGE 10 ML IV SCH ×2 (10:19→22:35)
[2018-07-13] MEDS: NEURONTIN PO SCH (10:19)
--- NOTE | 2018-07-13 12:49 | Progress Note ---
Assessment and Plan Assessment and plan: Subacute Embolic CVA. Bubble study negative. CTAs of head and neck are normal. Acute encephalopathy. Etiology secondary to above. History CVA. Continue aspirin daily Chronic systolic heart failure. Compensated. Continue current medical management. Echo reveals EF20-25%. Mod LVH Dilated LV. Dilated Cardiomyopathy. Coumadin resumed per Neurology recommendations Hypertension. Resume anti-hypertensive medications. Chronic kidney disease 3. Patient's creatinine appears to be at baseline. Anemia of chronic kidney disease. F/U H/H, transfuse for hgb< 7.0 Disposition. 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 Absent: gallop, rub - Extremities Extremities: no ischemia, No edema, Full ROM - Abdominal General gastrointestinal: soft, non-tender, non-distended, normal bowel sounds - Integumentary Integumentary: Present: clear, warm, dry - Neurologic Neurologic: CNII-XII intact, moves all extremities Results - Labs CBC & Chem 7: 07/10/18 10:18 07/10/18 10:18 Labs: Laboratory Last Values WBC 5.0 K/mm3 (4.5-11.0) 07/10/18 10:18 RBC 5.45 M/mm3 (3.65-5.03) H 07/10/18 10:18 Hgb 14.4 gm/dl (11.8-15.2) 07/10/18 10:18 Hct 45.8 % (35.5-45.6) H 07/10/18 10:18 MCV 84 fl (84-94) 07/10/18 10:18 MCH 27 pg (28-32) L 07/10/18 10:18 MCHC 32 % (32-34) 07/10/18 10:18 RDW 17.3 % (13.2-15.2) H 07/10/18 10:18 Plt Count 276 K/mm3 (140-440) 07/10/18 10:18 Lymph % (Auto) 31.0 % (13.4-35.0) 07/10/18 10:18 [place] % (Auto) 8.1 % (0.0-7.3) H 07/10/18 10:18 Eos % (Auto) 0.4 % (0.0-4.3) 07/10/18 10:18 Baso % (Auto) 1.0 % (0.0-1.8) 07/10/18 10:18 Lymph # 1.5 K/mm3 (1.2-5.4) 07/10/18 10:18 [place] # 0.4 K/mm3 (0.0-0.8) 07/10/18 10:18 Eos # 0.0 K/mm3 (0.0-0.4) 07/10/18 10:18 Baso # 0.1 K/mm3 (0.0-0.1) 07/10/18 10:18 Seg Neutrophils % 59.5 % (40.0-70.0) 07/10/18 10:18 Seg Neutrophils # 3.0 K/mm3 (1.8-7.7) 07/10/18 10:18 ESR 29 mm/Hr (0-20) 07/10/18 13:38 PT 17.4 Sec. (12.2-14.9) H 07/12/18 16:03 INR 1.34 (0.87-1.13) H 07/12/18 16:03 APTT 39.1 Sec. (24.2-36.6) H 07/10/18 10:18 Sodium 143 mmol/L (137-145) 07/10/18 10:18 Potassium 3.7 mmol/L (3.6-5.0) 07/10/18 10:18 Chloride 106.2 mmol/L (98-107) 07/10/18 10:18 Carbon Dioxide 23 mmol/L (22-30) 07/10/18 10:18 Anion Gap 18 mmol/L 07/10/18 10:18 BUN 17 mg/dL (9-20) 07/10/18 10:18 Creatinine 1.5 mg/dL (0.8-1.5) 07/10/18 10:18 Estimated GFR > 60 ml/min 07/10/18 10:18 BUN/Creatinine Ratio 11 % 07/10/18 10:18 Glucose 107 mg/dL (75-100) H 07/10/18 10:18 POC Glucose 89 (70-105) 07/10/18 10:37 Calcium 9.2 mg/dL (8.4-10.2) 07/10/18 10:18 Total Bilirubin 0.70 mg/dL (0.1-1.2) 07/10/18 10:18 AST 20 units/L (5-40) 07/10/18 10:18 ALT 18 units/L (7-56) 07/10/18 10:18 Alkaline Phosphatase 112 units/L (35-129) 07/10/18 10:18 Troponin T < 0.010 ng/mL (0.00-0.029) 07/10/18 10:18 C-Reactive Protein 0.70 mg/dL (0.00-1.30) 07/10/18 13:38 NT-Pro-B Natriuret Pep 1367 pg/mL (0-450) H 07/10/18 17:00 Total Protein 8.5 g/dL (6.3-8.2) H 07/10/18 10:18 Albumin 4.4 g/dL (3.9-5) 07/10/18 10:18 Albumin/Globulin Ratio 1.1 % 07/10/18 10:18 Triglycerides 62 mg/dL (2-149) 07/12/18 05:46 Cholesterol 99 mg/dL (50-199) 07/12/18 05:46 LDL Cholesterol Direct 55 mg/dL (50-130) 07/12/18 05:46 HDL Cholesterol 36 mg/dL (40-59) L 07/12/18 05:46 Cholesterol/HDL Ratio 2.75 % 07/12/18 05:46 TSH 1.150 mlU/mL (0.270-4.200) 07/10/18 13:38 Free T4 1.53 ng/dL (0.76-1.46) H 07/10/18 13:38 Urine Color Yellow (Yellow) 07/10/18 11:05 Urine Turbidity Clear (Clear) 07/10/18 11:05 Urine pH 5.0 (5.0-7.0) 07/10/18 11:05 Ur Specific [place] 1.026 (1.003-1.030) 07/10/18 11:05 Urine Protein >2000 mg dl mg/dL (Negative) 07/10/18 11:05 Urine Glucose (UA) Neg mg/dL (Negative) 07/10/18 11:05 Urine Ketones Neg mg/dL (Negative) 07/10/18 11:05 Urine Blood Neg (Negative) 07/10/18 11:05 Urine Nitrite Neg (Negative) 07/10/18 11:05 Urine Bilirubin Neg (Negative) 07/10/18 11:05 Urine Urobilinogen 2.0 mg/dL (<2.0) 07/10/18 11:05 Ur Leukocyte Esterase Neg (Negative) 07/10/18 11:05 Urine WBC (Auto) 2.0 /HPF (0.0-6.0) 07/10/18 11:05 Urine RBC (Auto) 6.0 /HPF (0.0-6.0) 07/10/18 11:05 U Epithel Cells (Auto) < 1.0 /HPF (0-13.0) 07/10/18 11:05 Urine Bacteria (Auto) 1+ /HPF (Negative) 07/10/18 11:05 Urine Mucus 1+ /HPF 07/10/18 11:05 Urine Opiates Screen Presumptive negative 07/10/18 11:05 Urine Methadone Screen Presumptive negative 07/10/18 11:05 Ur Barbiturates Screen Presumptive negative 07/10/18 11:05 Ur Phencyclidine Scrn Presumptive negative 07/10/18 11:05 Ur Amphetamines Screen Presumptive negative 07/10/18 11:05 U Benzodiazepines Scrn Presumptive negative 07/10/18 11:05 Urine Cocaine Screen Presumptive negative 07/10/18 11:05 U Marijuana (THC) Screen Presumptive negative 07/10/18 11:05 Drugs of Abuse Note Disclamer 07/10/18 11:05 Plasma/Serum Alcohol < 0.01 % (0-0.07) 07/10/18 10:18 HIV 1&2 Antibody Rapid Non react (Non React) 07/10/18 13:38 HIV P24 Antigen Non react (Non React) 07/10/18 13:38
[2018-07-13] MEDS: COUMADIN PO SCH (16:39)
[2018-07-14 07:56] LABS: Basophils % (Auto) 0.7 % (0.0-1.8); Eosinophils # (Auto) 0.2 K/mm3 (0.0-0.4); Eosinophils % (Auto) 3.2 % (0.0-4.3); Hematocrit 38.3 % (35.5-45.6); Hemoglobin 12.1 gm/dl (11.8-15.2); Lymphocytes # (Auto) 2.1 K/mm3 (1.2-5.4); Lymphocytes % (Auto) 40.1 % (13.4-35.0); Mean Corpuscular HGB Conc 32 % (32-34); Mean Corpuscular Volume 82 fl (84-94); Monocytes # (Auto) 0.3 K/mm3 (0.0-0.8); Monocytes % (Auto) 6.5 % (0.0-7.3); Platelet Count 244 K/mm3 (140-440); Red Blood Count 4.67 M/mm3 (3.65-5.03); Red Cell Distribution Width 16.8 % (13.2-15.2)
[2018-07-14 07:58] LABS: INR 1.43 (0.87-1.13)
[2018-07-14] MEDS: BIDIL 20/37.5MG PO SCH ×3 (08:00→22:38)
[2018-07-14 08:10] LABS: BUN/Creatinine Ratio 9; Blood Urea Nitrogen 11 mg/dL (9-20); Calcium 8.4 mg/dL (8.4-10.2); Hemolysis Index 25
[2018-07-14] MEDS: NEURONTIN PO SCH (11:40)
[2018-07-14] MEDS: COZAAR PO SCH (11:40)
[2018-07-14] MEDS: FEOSOL PO SCH ×2 (11:41→22:39)
[2018-07-14] MEDS: COREG PO SCH ×2 (11:41→22:39)
[2018-07-14] MEDS: SODIUM CHLORIDE FLUSH SYRINGE 10 ML IV SCH ×2 (11:41→22:40)
[2018-07-14] MEDS: PLAVIX PO SCH (11:41)
[2018-07-14] MEDS: ZYLOPRIM PO SCH ×3 (14:14→22:39)
--- NOTE | 2018-07-14 14:50 | Progress Note ---
Assessment and Plan Assessment and plan: Subacute Embolic CVA. Bubble study negative. CTAs of head and neck are normal. Acute encephalopathy. Etiology secondary to above. History CVA. Continue aspirin daily Chronic systolic heart failure. Compensated. Continue current medical management. Echo reveals EF20-25%. Mod LVH Dilated LV. Dilated Cardiomyopathy. Coumadin resumed per Neurology recommendations. INR remains subtherapeutic. Consider heparin bridge if no improvement. Hypertension. Cont. anti-hypertensive medications. Chronic kidney disease 3. Patient's creatinine appears to be at baseline. Anemia of chronic kidney disease. F/U H/H, transfuse for hgb< 7.0 Disposition. Anticipate d/c when INR 2-3 History Interval history: No new issues overnight Hospitalist Physical - Constitutional Vitals: Temp Pulse Resp BP Pulse Ox 97.8 F 84 20 139/78 98 07/14/18 11:35 07/14/18 14:20 07/14/18 11:35 07/14/18 14:20 07/14/18 11:35 General appearance: Present: no acute distress - EENT Eyes: Present: PERRL, EOM intact ENT: hearing intact, clear oral mucosa, dentition normal - Neck Neck: Present: supple, normal ROM - Respiratory Respiratory effort: normal Respiratory: bilateral: CTA - Cardiovascular Rhythm: regular Heart Sounds: Present: S1 & S2. Absent: gallop, rub - Extremities Extremities: no ischemia, No edema, Full ROM - Abdominal General gastrointestinal: soft, non-tender, non-distended, normal bowel sounds - Integumentary Integumentary: Present: clear, warm, dry - Neurologic Neurologic: CNII-XII intact, moves all extremities Results - Labs CBC & Chem 7: 07/14/18 07:06 07/14/18 07:06 Labs: Laboratory Last Values WBC 5.2 K/mm3 (4.5-11.0) 07/14/18 07:06 RBC 4.67 M/mm3 (3.65-5.03) 07/14/18 07:06 Hgb 12.1 gm/dl (11.8-15.2) 07/14/18 07:06 Hct 38.3 % (35.5-45.6) 07/14/18 07:06 MCV 82 fl (84-94) L 07/14/18 07:06 MCH 26 pg (28-32) L 07/14/18 07:06 MCHC 32 % (32-34) 07/14/18 07:06 RDW 16.8 % (13.2-15.2) H 07/14/18 07:06 Plt Count 244 K/mm3 (140-440) 07/14/18 07:06 Lymph % (Auto) 40.1 % (13.4-35.0) H 07/14/18 07:06 [place] % (Auto) 6.5 % (0.0-7.3) 07/14/18 07:06 Eos % (Auto) 3.2 % (0.0-4.3) 07/14/18 07:06 Baso % (Auto) 0.7 % (0.0-1.8) 07/14/18 07:06 Lymph # 2.1 K/mm3 (1.2-5.4) 07/14/18 07:06 [place] # 0.3 K/mm3 (0.0-0.8) 07/14/18 07:06 Eos # 0.2 K/mm3 (0.0-0.4) 07/14/18 07:06 Baso # 0.0 K/mm3 (0.0-0.1) 07/14/18 07:06 Seg Neutrophils % 49.5 % (40.0-70.0) 07/14/18 07:06 Seg Neutrophils # 2.6 K/mm3 (1.8-7.7) 07/14/18 07:06 ESR 29 mm/Hr (0-20) 07/10/18 13:38 PT 18.4 Sec. (12.2-14.9) H 07/14/18 07:06 INR 1.43 (0.87-1.13) H 07/14/18 07:06 APTT 39.1 Sec. (24.2-36.6) H 07/10/18 10:18 Sodium 140 mmol/L (137-145) 07/14/18 07:06 Potassium 3.7 mmol/L (3.6-5.0) 07/14/18 07:06 Chloride 103.3 mmol/L (98-107) 07/14/18 07:06 Carbon Dioxide 22 mmol/L (22-30) 07/14/18 07:06 Anion Gap 18 mmol/L 07/14/18 07:06 BUN 11 mg/dL (9-20) 07/14/18 07:06 Creatinine 1.2 mg/dL (0.8-1.5) 07/14/18 07:06 Estimated GFR > 60 ml/min 07/14/18 07:06 BUN/Creatinine Ratio 9 % 07/14/18 07:06 Glucose 89 mg/dL (75-100) 07/14/18 07:06 POC Glucose 89 (70-105) 07/10/18 10:37 Calcium 8.4 mg/dL (8.4-10.2) 07/14/18 07:06 Total Bilirubin 0.70 mg/dL (0.1-1.2) 07/10/18 10:18 AST 20 units/L (5-40) 07/10/18 10:18 ALT 18 units/L (7-56) 07/10/18 10:18 Alkaline Phosphatase 112 units/L (35-129) 07/10/18 10:18 Troponin T < 0.010 ng/mL (0.00-0.029) 07/10/18 10:18 C-Reactive Protein 0.70 mg/dL (0.00-1.30) 07/10/18 13:38 NT-Pro-B Natriuret Pep 1367 pg/mL (0-450) H 07/10/18 17:00 Total Protein 8.5 g/dL (6.3-8.2) H 07/10/18 10:18 Albumin 4.4 g/dL (3.9-5) 07/10/18 10:18 Albumin/Globulin Ratio 1.1 % 07/10/18 10:18 Triglycerides 62 mg/dL (2-149) 07/12/18 05:46 Cholesterol 99 mg/dL (50-199) 07/12/18 05:46 LDL Cholesterol Direct 55 mg/dL (50-130) 07/12/18 05:46 HDL Cholesterol 36 mg/dL (40-59) L 07/12/18 05:46 Cholesterol/HDL Ratio 2.75 % 07/12/18 05:46 TSH 1.150 mlU/mL (0.270-4.200) 07/10/18 13:38 Free T4 1.53 ng/dL (0.76-1.46) H 07/10/18 13:38 Urine Color Yellow (Yellow) 07/10/18 11:05 Urine Turbidity Clear (Clear) 07/10/18 11:05 Urine pH 5.0 (5.0-7.0) 07/10/18 11:05 Ur Specific [place] 1.026 (1.003-1.030) 07/10/18 11:05 Urine Protein >2000 mg dl mg/dL (Negative) 07/10/18 11:05 Urine Glucose (UA) Neg mg/dL (Negative) 07/10/18 11:05 Urine Ketones Neg mg/dL (Negative) 07/10/18 11:05 Urine Blood Neg (Negative) 07/10/18 11:05 Urine Nitrite Neg (Negative) 07/10/18 11:05 Urine Bilirubin Neg (Negative) 07/10/18 11:05 Urine Urobilinogen 2.0 mg/dL (<2.0) 07/10/18 11:05 Ur Leukocyte Esterase Neg (Negative) 07/10/18 11:05 Urine WBC (Auto) 2.0 /HPF (0.0-6.0) 07/10/18 11:05 Urine RBC (Auto) 6.0 /HPF (0.0-6.0) 07/10/18 11:05 U Epithel Cells (Auto) < 1.0 /HPF (0-13.0) 07/10/18 11:05 Urine Bacteria (Auto) 1+ /HPF (Negative) 07/10/18 11:05 Urine Mucus 1+ /HPF 07/10/18 11:05 Urine Opiates Screen Presumptive negative 07/10/18 11:05 Urine Methadone Screen Presumptive negative 07/10/18 11:05 Ur Barbiturates Screen Presumptive negative 07/10/18 11:05 Ur Phencyclidine Scrn Presumptive negative 07/10/18 11:05 Ur Amphetamines Screen Presumptive negative 07/10/18 11:05 U Benzodiazepines Scrn Presumptive negative 07/10/18 11:05 Urine Cocaine Screen Presumptive negative 07/10/18 11:05 U Marijuana (THC) Screen Presumptive negative 07/10/18 11:05 Drugs of Abuse Note Disclamer 07/10/18 11:05 Plasma/Serum Alcohol < 0.01 % (0-0.07) 07/10/18 10:18 HIV 1&2 Antibody Rapid Non react (Non React) 07/10/18 13:38 HIV P24 Antigen Non react (Non React) 07/10/18 13:38
[2018-07-14] MEDS: COUMADIN PO SCH (18:02)
[2018-07-14 20:42] LABS: dRVVT Confirm Negative (Negative)
[2018-07-15 03:30] LABS: Cardiolipin Ab IgA <11 APL (<=11); Cardiolipin Ab IgG <14 GPL (<=14); Cardiolipin Ab IgM <12 MPL (<=12)
[2018-07-15 06:19] LABS: INR 1.73 (0.87-1.13)
[2018-07-15] MEDS: BIDIL 20/37.5MG PO SCH ×3 (08:22→21:50)
[2018-07-15] MEDS: ZYLOPRIM PO SCH ×3 (08:23→21:51)
[2018-07-15] MEDS: PLAVIX PO SCH (09:23)
[2018-07-15] MEDS: COZAAR PO SCH (09:23)
[2018-07-15] MEDS: FEOSOL PO SCH ×2 (09:23→21:50)
[2018-07-15] MEDS: NEURONTIN PO SCH (09:23)
[2018-07-15] MEDS: COREG PO SCH ×2 (09:24→21:51)
[2018-07-15] MEDS: SODIUM CHLORIDE FLUSH SYRINGE 10 ML IV SCH ×2 (09:24→21:52)
[2018-07-15 14:47] LABS: Protein S, Free 44 % normal (57-171); Protein S, Total 69 % normal (70-140)
[2018-07-15] MEDS: COUMADIN PO SCH (16:43)
--- NOTE | 2018-07-15 16:55 | Progress Note ---
Assessment and Plan Assessment and plan: Chronic CVA. Bubble study negative. CTAs of head and neck are normal. MRI is negative acute changes. Patient is on Plavix Acute encephalopathy. Etiology secondary to above. Chronic systolic heart failure. Compensated. Continue current medical management. Echo reveals EF20-25%. Mod LVH Dilated LV. Dilated Cardiomyopathy. Coumadin resumed per Neurology recommendations. INR remains subtherapeutic. Patient is on warfarin and heparin bridge. INR this morning was 1.7, will discharge once the INR is subtherapeutic Hypertension. Cont. anti-hypertensive medications. Chronic kidney disease 3. Patient's creatinine appears to be at baseline. Anemia of chronic kidney disease. F/U H/H, transfuse for hgb< 7.0 Disposition. Anticipate d/c when INR is between 2-3 History Interval history: Patient was seen and evaluated this morning, patient didn't have any weakness. Hospitalist Physical - Physical exam Narrative exam: Not in cardiopulmonary distress. The patient appeared well nourished and normally developed. Vital signs as documented. Head exam is unremarkable. No scleral icterus . Neck is without jugular venous distension, thyromegaly, or carotid bruits. Lungs are clear to auscultation. Cardiac exam reveals regular rate and Rhythm. First and second heart sounds normal. No murmurs, rubs or gallops. Abdominal exam reveals normal bowel sounds, no masses, no organomegaly and no aortic enlargement. Extremities are nonedematous and both femoral and pedal pulses are normal. 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 No focal weakness. - Constitutional Vitals: Temp Pulse Resp BP Pulse Ox 97.8 F 77 18 124/69 98 07/15/18 11:22 07/15/18 11:22 07/15/18 11:22 07/15/18 11:22 07/15/18 11:22 General appearance: Present: no acute distress Results - Labs CBC & Chem 7: 07/14/18 07:06 07/14/18 07:06 Labs: Laboratory Last Values WBC 5.2 K/mm3 (4.5-11.0) 07/14/18 07:06 RBC 4.67 M/mm3 (3.65-5.03) 07/14/18 07:06 Hgb 12.1 gm/dl (11.8-15.2) 07/14/18 07:06 Hct 38.3 % (35.5-45.6) 07/14/18 07:06 MCV 82 fl (84-94) L 07/14/18 07:06 MCH 26 pg (28-32) L 07/14/18 07:06 MCHC 32 % (32-34) 07/14/18 07:06 RDW 16.8 % (13.2-15.2) H 07/14/18 07:06 Plt Count 244 K/mm3 (140-440) 07/14/18 07:06 Lymph % (Auto) 40.1 % (13.4-35.0) H 07/14/18 07:06 [place] % (Auto) 6.5 % (0.0-7.3) 07/14/18 07:06 Eos % (Auto) 3.2 % (0.0-4.3) 07/14/18 07:06 Baso % (Auto) 0.7 % (0.0-1.8) 07/14/18 07:06 Lymph # 2.1 K/mm3 (1.2-5.4) 07/14/18 07:06 [place] # 0.3 K/mm3 (0.0-0.8) 07/14/18 07:06 Eos # 0.2 K/mm3 (0.0-0.4) 07/14/18 07:06 Baso # 0.0 K/mm3 (0.0-0.1) 07/14/18 07:06 Seg Neutrophils % 49.5 % (40.0-70.0) 07/14/18 07:06 Seg Neutrophils # 2.6 K/mm3 (1.8-7.7) 07/14/18 07:06 ESR 29 mm/Hr (0-20) 07/10/18 13:38 PT 21.4 Sec. (12.2-14.9) H 07/15/18 05:16 INR 1.73 (0.87-1.13) H 07/15/18 05:16 APTT 39.1 Sec. (24.2-36.6) H 07/10/18 10:18 Lupus Anticoagulant see below H 07/11/18 21:16 LA PTT Baseline 54 sec (<=40) H 07/11/18 21:16 dRVVT Confirm Interp Negative (Negative) 07/11/18 21:16 Free Protein S 44 % normal (57-171) L 07/11/18 21:16 Total Protein S 69 % normal (70-140) L 07/11/18 21:16 Sodium 140 mmol/L (137-145) 07/14/18 07:06 Potassium 3.7 mmol/L (3.6-5.0) 07/14/18 07:06 Chloride 103.3 mmol/L (98-107) 07/14/18 07:06 Carbon Dioxide 22 mmol/L (22-30) 07/14/18 07:06 Anion Gap 18 mmol/L 07/14/18 07:06 BUN 11 mg/dL (9-20) 07/14/18 07:06 Creatinine 1.2 mg/dL (0.8-1.5) 07/14/18 07:06 Estimated GFR > 60 ml/min 07/14/18 07:06 BUN/Creatinine Ratio 9 % 07/14/18 07:06 Glucose 89 mg/dL (75-100) 07/14/18 07:06 POC Glucose 89 (70-105) 07/10/18 10:37 Calcium 8.4 mg/dL (8.4-10.2) 07/14/18 07:06 Total Bilirubin 0.70 mg/dL (0.1-1.2) 07/10/18 10:18 AST 20 units/L (5-40) 07/10/18 10:18 ALT 18 units/L (7-56) 07/10/18 10:18 Alkaline Phosphatase 112 units/L (35-129) 07/10/18 10:18 Troponin T < 0.010 ng/mL (0.00-0.029) 07/10/18 10:18 C-Reactive Protein 0.70 mg/dL (0.00-1.30) 07/10/18 13:38 NT-Pro-B Natriuret Pep 1367 pg/mL (0-450) H 07/10/18 17:00 Total Protein 8.5 g/dL (6.3-8.2) H 07/10/18 10:18 Albumin 4.4 g/dL (3.9-5) 07/10/18 10:18 Albumin/Globulin Ratio 1.1 % 07/10/18 10:18 Triglycerides 62 mg/dL (2-149) 07/12/18 05:46 Cholesterol 99 mg/dL (50-199) 07/12/18 05:46 LDL Cholesterol Direct 55 mg/dL (50-130) 07/12/18 05:46 HDL Cholesterol 36 mg/dL (40-59) L 07/12/18 05:46 Cholesterol/HDL Ratio 2.75 % 07/12/18 05:46 TSH 1.150 mlU/mL (0.270-4.200) 07/10/18 13:38 Free T4 1.53 ng/dL (0.76-1.46) H 07/10/18 13:38 Urine Color Yellow (Yellow) 07/10/18 11:05 Urine Turbidity Clear (Clear) 07/10/18 11:05 Urine pH 5.0 (5.0-7.0) 07/10/18 11:05 Ur Specific [place] 1.026 (1.003-1.030) 07/10/18 11:05 Urine Protein >2000 mg dl mg/dL (Negative) 07/10/18 11:05 Urine Glucose (UA) Neg mg/dL (Negative) 07/10/18 11:05 Urine Ketones Neg mg/dL (Negative) 07/10/18 11:05 Urine Blood Neg (Negative) 07/10/18 11:05 Urine Nitrite Neg (Negative) 07/10/18 11:05 Urine Bilirubin Neg (Negative) 07/10/18 11:05 Urine Urobilinogen 2.0 mg/dL (<2.0) 07/10/18 11:05 Ur Leukocyte Esterase Neg (Negative) 07/10/18 11:05 Urine WBC (Auto) 2.0 /HPF (0.0-6.0) 07/10/18 11:05 Urine RBC (Auto) 6.0 /HPF (0.0-6.0) 07/10/18 11:05 U Epithel Cells (Auto) < 1.0 /HPF (0-13.0) 07/10/18 11:05 Urine Bacteria (Auto) 1+ /HPF (Negative) 07/10/18 11:05 Urine Mucus 1+ /HPF 07/10/18 11:05 Urine Opiates Screen Presumptive negative 07/10/18 11:05 Urine Methadone Screen Presumptive negative 07/10/18 11:05 Ur Barbiturates Screen Presumptive negative 07/10/18 11:05 Ur Phencyclidine Scrn Presumptive negative 07/10/18 11:05 Ur Amphetamines Screen Presumptive negative 07/10/18 11:05 U Benzodiazepines Scrn Presumptive negative 07/10/18 11:05 Urine Cocaine Screen Presumptive negative 07/10/18 11:05 U Marijuana (THC) Screen Presumptive negative 07/10/18 11:05 Drugs of Abuse Note Disclamer 07/10/18 11:05 Plasma/Serum Alcohol < 0.01 % (0-0.07) 07/10/18 10:18 Cardiolipid IgG Ab <14 GPL (<=14) 07/11/18 21:26 Cardiolipid IgA Ab <11 APL (<=11) 07/11/18 21:26 Cardiolipid IgM Ab <12 MPL (<=12) 07/11/18 21:26 HIV 1&2 Antibody Rapid Non react (Non React) 07/10/18 13:38 HIV P24 Antigen Non react (Non React) 07/10/18 13:38 Miscellaneous Test Flexitest 1 07/12/18 05:46 Nutrition/Malnutrition Assess - Dietary Evaluation Nutrition/Malnutrition Findings: Nutrition Notes Start: 07/15/18 15:52 Freq: Status: Active Protocol: Document 07/15/18 15:58 RM (Rec: 07/15/18 15:59 RM [id number]) Nutrition Notes Need for Assessment generated from: Education Initial or Follow up Brief Note Subjective/Other Information Screened for Coumadin/Vit K diet education. Pt already familiar with diet. Nutrition Intervention Revisit per MD consult or patient Sign Off request:
[2018-07-16 06:54] LABS: INR 2.14 (0.87-1.13)
[2018-07-16] MEDS: FEOSOL PO SCH (11:33)
[2018-07-16] MEDS: NEURONTIN PO SCH (11:33)
[2018-07-16] MEDS: PLAVIX PO SCH (11:33)
[2018-07-16] MEDS: COREG PO SCH (11:33)
[2018-07-16] MEDS: COZAAR PO SCH (11:33)
[2018-07-16] MEDS: SODIUM CHLORIDE FLUSH SYRINGE 10 ML IV SCH (11:34)
[2018-07-16] MEDS: ZYLOPRIM PO SCH ×2 (11:38→16:10)
[2018-07-16] MEDS: BIDIL 20/37.5MG PO SCH ×2 (11:38→16:10)
[2018-07-16] MEDS: COUMADIN PO SCH (16:11)
--- NOTE | 2018-07-16 16:23 | Discharge Summary ---
Providers - Providers Date of Admission: 07/10/18 13:28 Attending physician: ANNA ANNE MD 07/10/18 13:28 Consult to Physician [CONS] Routine Comment: Consulting Provider: AURELIA JAMES Physician Instructions: Reason For Exam: weakness, confusion 07/11/18 15:05 Physical Therapy Evaluation and Treat [CONS] Routine Comment: Reason For Exam: weakness/pain lower extremities Primary care physician: MANDY BE Hospitalization Reason for admission: Altered mental status Condition: Stable Pertinent studies: Doppler ultrasound negative for PE MR head IMPRESSION: 1. No evidence of acute/subacute infarct or hemorrhage. 2. A small chronic infarct of the left frontal lobe. 3. Mild global cortical atrophy. 4. Moderate bilateral multifocal frontal and parietal lobe white matter hyperintensities on FLAIR and T2. This may represent chronic white matter microangiopathy but the pattern is nonspecific. Lumbar MRI IMPRESSION: Degenerative disc disease with a large broad-based posterior disc bulge and a central disc protrusion at L5-S1. The axial images are markedly motion degraded. CT angiogram neck and head normal angiogram Echo - If of 25-30%, no thrombus, no patent foramen ovale Hospital course: 43 YO Male with CVA, PE, CHF, HTN presents to ED for evaluation. Pt is confused and lethargic and provides limited history. Pt history provided by family who is at bedside during exam and interview. As per family, the patient has experienced increased confusion and weakness over the past 1 weak, with progressively worsening symptoms over the past 5 days. Pt family states that patient was at [employer] and became confused, and walked into traffic while attempting to leave the store via the wrong exit. Pt transported to [facility] by family for further care and evaluation. Pt seen and evaluated in ED and found to have Encephalopathy, and clinical findings suspicious for Demyelinating Neuropathy. Pt admitted to Medical floor. Neurology consulted in ED. Patient was admitted to the floor and workup for CVA was negative, neurology evaluated and acute CVA was ruled out. Patient's altered mental status resolved. Patient's INR was subtherapeutic and was restart his Coumadin discharge at home when INR was therapeutic. Patient was hemodynamically stable at the time of discharge. No confusion, shortness of breath, leg swelling or chest pain. She advised to have follow-up with his primary care physician for INR check. Patient's questions and concerns were addressed has a bedside. Appropriate medication scripts were given of discharge. Disposition: [id number]-01 TO HOME OR SELFCARE Time spent for discharge: 32 minutes - Discharge Diagnoses (1) History of CVA (cerebrovascular accident) Status: Chronic (2) Altered mental status, unspecified Status: Acute Qualifiers: Altered mental status type: disorientation Qualified Code(s): R41.0 - Disorientation, unspecified (3) HTN (hypertension) Status: Chronic Qualifiers: (4) Congestive heart failure Status: Chronic Core Measure Documentation - Palliative Care Palliative Care/ Comfort Measures: Not Applicable - Core Measures Any of the following diagnoses?: heart failure, history only (CVA) - Heart Failure Discharge Requirements GRISEL/ARB for LVSD if EF <40%: Yes Beta maryam at discharge: Yes Exam - Physical Exam Narrative exam: Not in cardiopulmonary distress. The patient appeared well nourished and normally developed. Vital signs as documented. Head exam is unremarkable. No scleral icterus . Neck is without jugular venous distension, thyromegaly, or carotid bruits. Lungs are clear to auscultation. Cardiac exam reveals regular rate and Rhythm. First and second heart sounds normal. No murmurs, rubs or gallops. Abdominal exam reveals normal bowel sounds, no masses, no organomegaly and no aortic enlargement. Extremities are nonedematous and both femoral and pedal pulses are normal. 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 - Constitutional Vitals: Temp Pulse Resp BP Pulse Ox 98.0 F 80 20 140/93 94 07/16/18 12:02 07/16/18 16:10 07/16/18 12:02 07/16/18 16:10 07/16/18 12:02 Plan Activity: no restrictions Weight Bearing Status: Full Weight Bearing Diet: low cholesterol, low salt Follow up with: PRIMARY CARE, [Referring] - 3-5 Days Forms: Warfarin Discharge Instruction Prescriptions: Clopidogrel [Plavix] 75 mg PO QDAY #30 tablet Warfarin [Coumadin] 10 mg PO DAILY@1700 #30 tablet
[2018-07-16 17:55] VITALS: BP 132/95
== END 2018-07-16 18:24 | disposition home or self-care (01) | DRG 71 ==
LOC: ED 09:49 → 3A 13:28
PROVIDERS: ADMIT Internal Medicine; ATTEND Internal Medicine
DX: G93.40 Encephalopathy, unspecified (principal); I50.22 Chronic systolic (congestive) heart failure; I13.0 Hypertensive heart and chronic kidney disease with heart failure and stage 1 through stage 4 chronic kidney disease, or unspecified chronic kidney disease; I42.0 Dilated cardiomyopathy; N18.3 Chronic kidney disease, stage 3 (moderate); G62.9 Polyneuropathy, unspecified; M10.9 Gout, unspecified; D63.1 Anemia in chronic kidney disease; F10.10 Alcohol abuse, uncomplicated; R41.82 Altered mental status, unspecified; Z86.73 Personal history of transient ischemic attack (TIA), and cerebral infarction without residual deficits; Z83.3 Family history of diabetes mellitus; Z82.49 Family history of ischemic heart disease and other diseases of the circulatory system; Z79.899 Other long term (current) drug therapy; Z86.711 Personal history of pulmonary embolism; Z79.82 Long term (current) use of aspirin
CPT/HCPCS: 36415; 70450; 70496; 70498; 70553; 71045; 72158; 80048; 80053; 80061; 80307; 80320; 81001; 82962; 83516; 83880; 84439; 84443; 84484; 85025; 85210; 85301; 85305; 85610; 85613; 85652; 85730; 86140; 86147; 87806; 93005; 93010; 93306; 95819; G0378; A9577; G0480; Q9967

== ENCOUNTER 2019-08-27 10:41 | Outpatient (CLI) | payer MEDICARE ==
[2019-08-27 11:10] LABS: INR 1.49 (0.87-1.13)
== END 2019-08-27 10:42 | disposition home or self-care (01) ==
LOC: LAB 10:41
PROVIDERS: ATTEND Surgery
DX: I42.9 Cardiomyopathy, unspecified (principal)
CPT/HCPCS: 36415; 85610

== ENCOUNTER 2019-09-17 10:17 | Outpatient (CLI) | payer MEDICARE ==
[2019-09-17 10:58] LABS: INR 1.8 (0.87-1.13)
== END 2019-09-17 10:18 | disposition home or self-care (01) ==
LOC: LAB 10:17
PROVIDERS: ATTEND Family Medicine
DX: I42.9 Cardiomyopathy, unspecified (principal)
CPT/HCPCS: 36415; 85610

== ENCOUNTER 2020-02-13 10:46 | Emergency (ER) | payer MEDICARE ==
[2020-02-13 10:58] VITALS: BP 124/73
[2020-02-13] MEDS ORDERED: dexAMETHasone 20 MG/5 ML VIAL IM ONE (12:07)
[2020-02-13] MEDS ORDERED: diphenhydrAMINE 25 MG CAP PO ONE (12:07)
[2020-02-13] MEDS ORDERED: FAMOTIDINE 20 MG TAB PO ONE (12:07)
--- NOTE | 2020-02-13 13:28 | Emergency Department Report ---
ED General Adult HPI - General Chief complaint: Dental/Oral Stated complaint: ALLERGIC REACTION TO MEDS Time Seen by Provider: 02/13/20 11:36 Source: patient Mode of arrival: Ambulatory Limitations: No Limitations - History of Present Illness Initial comments: Patient is a 44-year-old male who presents emergency room with complaints of a possible allergic reaction that began 5 days ago. He has associated lower lip swelling. Patient was recently started on multiple medications after a hospitalization. He states that he has taken amlodipine in the past and does not believe it is related to the amlodipine. He denies any rash, shortness of breath, throat swelling, difficulty swallowing. He denies any known allergies. he denies this ever happening in the past. - Related Data Previous Rx's Medication Instructions Recorded Last Taken Type Benzonatate [Tessalon Perle] 100 mg PO Q8H PRN #20 capsule 06/12/18 Unknown Rx Ibuprofen [Motrin 600 MG tab] 600 mg PO Q8H PRN #20 tablet 06/12/18 Unknown Rx Aspirin [Aspirin BABY CHEW TAB] 81 mg PO QDAY #100 tab.chew 02/04/20 Unknown Rx Clopidogrel [Plavix] 75 mg PO QDAY #30 tablet 02/04/20 Unknown Rx Furosemide [Lasix TAB] 40 mg PO QDAY #30 tablet 02/04/20 Unknown Rx Gabapentin 300 mg PO BID #60 capsule 02/04/20 Unknown Rx ISOSORBIDE MONOnitrate [Imdur ER] 30 mg PO QDAY #30 tablet 02/04/20 Unknown Rx Metoprolol [Lopressor TAB] 50 mg PO BID #60 tablet 02/04/20 Unknown Rx Potassium Chloride [K-Dur] 20 meq PO QDAY #30 02/04/20 Unknown Rx Warfarin [Coumadin] 10 mg PO DAILY@1700 #30 tablet 02/04/20 Unknown Rx amLODIPine 10 mg PO DAILY #30 tablet 02/04/20 Unknown Rx hydrALAZINE [Apresoline TAB] 50 mg PO TID #90 tablet 02/04/20 Unknown Rx oxyCODONE /ACETAMINOPHEN [Percocet 1 tab PO Q6H PRN #14 tablet 02/04/20 Unknown Rx 5/325 mg] Famotidine [Pepcid] 40 mg PO QHS #10 tablet 02/13/20 Unknown Rx Prednisone [predniSONE 10 mg 10 mg PO .TAPER #1 tab.ds.pk 02/13/20 Unknown Rx (6-Day Pack, 21 Tabs)] diphenhydrAMINE [Benadryl CAP] 50 mg PO Q8HR PRN #10 capsule 02/13/20 Unknown Rx Allergies Allergy/AdvReac Type Severity Reaction Status Date / Time No Known Allergies Allergy Verified 04/21/17 15:31 ED Review of Systems ROS: Stated complaint: ALLERGIC REACTION TO MEDS Other details as noted in HPI Comment: All other systems reviewed and negative ED Past Medical Hx - Past Medical History Previous Medical History?: Yes Hx Hypertension: Yes Hx CVA: Yes (ischemic, no resid. deficits) Hx Congestive Heart Failure: Yes Hx Diabetes: No Hx Pulmonary Embolism: Yes Hx Renal Disease: Yes Hx HIV: No Additional medical history: gout - Surgical History Past Surgical History?: Yes Additional Surgical History: Heart Cath 2005 - Social History Smoking Status: Former Smoker - Medications Home Medications: Home Medications Medication Instructions Recorded Confirmed Last Taken Type Benzonatate [Tessalon Perle] 100 mg PO Q8H PRN #20 capsule 06/12/18 07/10/18 Unknown Rx Ibuprofen [Motrin 600 MG tab] 600 mg PO Q8H PRN #20 tablet 06/12/18 07/10/18 Unknown Rx Aspirin [Aspirin BABY CHEW TAB] 81 mg PO QDAY #100 tab.chew 02/04/20 Unknown Rx Clopidogrel [Plavix] 75 mg PO QDAY #30 tablet 02/04/20 Unknown Rx Furosemide [Lasix TAB] 40 mg PO QDAY #30 tablet 02/04/20 Unknown Rx Gabapentin 300 mg PO BID #60 capsule 02/04/20 Unknown Rx ISOSORBIDE MONOnitrate [Imdur ER] 30 mg PO QDAY #30 tablet 02/04/20 Unknown Rx Metoprolol [Lopressor TAB] 50 mg PO BID #60 tablet 02/04/20 Unknown Rx Potassium Chloride [K-Dur] 20 meq PO QDAY #30 02/04/20 Unknown Rx Warfarin [Coumadin] 10 mg PO DAILY@1700 #30 tablet 02/04/20 Unknown Rx amLODIPine 10 mg PO DAILY #30 tablet 02/04/20 Unknown Rx hydrALAZINE [Apresoline TAB] 50 mg PO TID #90 tablet 02/04/20 Unknown Rx oxyCODONE /ACETAMINOPHEN [Percocet 1 tab PO Q6H PRN #14 tablet 02/04/20 Unknown Rx 5/325 mg] Famotidine [Pepcid] 40 mg PO QHS #10 tablet 02/13/20 Unknown Rx Prednisone [predniSONE 10 mg 10 mg PO .TAPER #1 tab.ds.pk 02/13/20 Unknown Rx (6-Day Pack, 21 Tabs)] diphenhydrAMINE [Benadryl CAP] 50 mg PO Q8HR PRN #10 capsule 02/13/20 Unknown Rx ED Physical Exam - General Limitations: No Limitations General appearance: alert, in no apparent distress - Head Head exam: Present: atraumatic, normocephalic - Eye Eye exam: Present: normal appearance - ENT ENT exam: Present: normal orophraynx, mucous membranes moist, other (mild amount of lower lip edema, no other facial edema, no tongue edema, uvula is midline, no uvular edema or deviation) - Respiratory Respiratory exam: Present: normal lung sounds bilaterally. Absent: respiratory distress, wheezes, rales, rhonchi, stridor, chest wall tenderness, accessory muscle use, decreased breath sounds, prolonged expiratory - Cardiovascular Cardiovascular Exam: Present: regular rate, normal rhythm, normal heart sounds. Absent: systolic murmur, diastolic murmur, rubs, gallop - Neurological Exam Neurological exam: Present: alert, oriented X3 - Psychiatric Psychiatric exam: Present: normal affect, normal mood - Skin Skin exam: Present: warm, dry, intact. Absent: rash ED Course Vital Signs 02/13/20 10:57 Temperature 98.6 F Pulse Rate 83 Respiratory 20 Rate Blood Pressure 124/73 O2 Sat by Pulse 96 Oximetry ED Medical Decision Making - Medical Decision Making Patient is a 44-year-old male who presents emergency room with complaints of a possible allergic reaction that began 5 days ago. He has associated lower lip swelling. Patient was recently started on multiple medications after a hospitalization. He states that he has taken amlodipine in the past and does not believe it is related to the amlodipine. He denies any rash, shortness of breath, throat swelling, difficulty swallowing. He denies any known allergies. he denies this ever happening in the past. vitals are normal. on exam: mild amount of lower lip edema, no other facial edema, no tongue edema, uvula is midline, no uvular edema or deviation. Patient given dexamethasone, Benadryl, Pepcid. He states that his symptoms have improved, there is still a mild amount of swelling present to the lower lip. He was observed while in the emergency department and had no further exacerbation of his reaction. Discussed case with Dr. Meadows, ER attending who went through patient's recently prescribed medication and he believes likely secondary to losartan, he advised to take patient off losartan, he advised to place patient on medication for angioedema, he states that patient does not need EpiPen. Patient given prescription for Benadryl, Pepcid, prednisone. advised pt please take medication as prescribed. please stop taking losartan. please follow up with a primary care doctor. return to the emergency room for any new or worsening symptoms. Critical care attestation.: If time is entered above; I have spent that time in minutes in the direct care of this critically ill patient, excluding procedure time. ED Disposition Clinical Impression: Angioedema Qualifiers: Encounter type: initial encounter Qualified Code(s): T78.3XXA - Angioneurotic edema, initial encounter Disposition: TO HOME OR SELFCARE Is pt being admited?: No Does the pt Need Aspirin: No Condition: Stable Instructions: Angioedema (ED) Additional Instructions: please take medication as prescribed. please stop taking losartan. please follow up with a primary care doctor. return to the emergency room for any new or worsening symptoms. Prescriptions: Famotidine [Pepcid] 40 mg PO QHS #10 tablet diphenhydrAMINE [Benadryl CAP] 50 mg PO Q8HR PRN #10 capsule PRN Reason: Angioedema Prednisone [predniSONE 10 mg (6-Day Pack, 21 Tabs)] 10 mg PO .TAPER #1 tab.ds.pk Referrals: GENESIS QUINN MD [Primary Care Provider] - 2-3 Days MANDY BE MD [Staff Physician] - 2-3 Days [facility] [Provider Group] - 2-3 Days Time of Disposition: 13:28 Print Language: SWEDISH
== END 2020-02-13 13:42 | disposition home or self-care (01) ==
LOC: ED 10:46
DX: T78.3XXA Angioneurotic edema, initial encounter (principal); I50.9 Heart failure, unspecified; I11.0 Hypertensive heart disease with heart failure; Z87.891 Personal history of nicotine dependence; Z98.890 Other specified postprocedural states; Z86.73 Personal history of transient ischemic attack (TIA), and cerebral infarction without residual deficits; Z79.1 Long term (current) use of non-steroidal anti-inflammatories (NSAID); Z79.899 Other long term (current) drug therapy; Y92.89 Other specified places as the place of occurrence of the external cause
CPT/HCPCS: 96372; 99282; J1100

== ENCOUNTER 2020-02-27 13:52 | Observation (INO) | payer MEDICARE ==
--- NOTE | 2020-02-27 15:20 | XRay Report ---
CHEST 2 VIEWS INDICATION: Chest Pain. COMPARISON: 02/01/2020 FINDINGS: Support devices: None. Heart: Within normal limits. Lungs/pleura: Bilateral infiltrates or lung opacities have developed. This may represent pulmonary ed gay. No pleural effusion or pneumothorax. Additional findings: None. IMPRESSION: Bilateral pulmonary opacities or pulmonary edema has developed. Signer Name: Vikas Bush Jr, MD Signed: 02/27/2020 3:15 PM Workstation Name: [id number]
[2020-02-27 15:24] LABS: Basophils # (Auto) 0.1 K/mm3 (0.0-0.1); Basophils % (Auto) 0.9 % (0.0-1.8); Eosinophils # (Auto) 0.1 K/mm3 (0.0-0.4); Hematocrit 31.9 % (35.5-45.6); Hemoglobin 10.3 gm/dl (11.8-15.2); Lymphocytes # (Auto) 1.9 K/mm3 (1.2-5.4); Lymphocytes % (Auto) 15.5 % (13.4-35.0); Mean Corpuscular HGB Conc 32 % (32-34); Mean Corpuscular Volume 88 fl (84-94); Monocytes # (Auto) 0.5 K/mm3 (0.0-0.8); Monocytes % (Auto) 3.7 % (0.0-7.3); Platelet Count 219 K/mm3 (140-440); Red Blood Count 3.62 M/mm3 (3.65-5.03); Red Cell Distribution Width 16.7 % (13.2-15.2)
[2020-02-27 15:43] LABS: BUN/Creatinine Ratio 16; Blood Urea Nitrogen 22 mg/dL (9-20); Calcium 8.2 mg/dL (8.4-10.2); Hemolysis Index 21
[2020-02-27] MEDS ORDERED: FUROSEMIDE 40 MG/4 ML INJ IV ONE (22:36)
--- NOTE | 2020-02-27 23:00 | Emergency Department Report ---
ED General Adult HPI - General Chief complaint: Chest Pain Stated complaint: CHEST PAIN/FLUID IN ANKLE/COUGHING Time Seen by Provider: 02/27/20 22:32 Source: patient Mode of arrival: Ambulatory Limitations: No Limitations - History of Present Illness Initial comments: Patient is a 44-year-old [place] male who is presenting with shortness of breath and cough. Patient states for the last week he has had some increased shortness of breath especially with exertion and with lying flat. Patient states the cough is nonproductive. Denies fevers chills. Patient has some chest discomfort which he states is a tightness. He is complaining that his ank les are more swollen than normal as well. Patient states his been compliant with all of his medications except for amlodipine which he ran out of approximately a week ago. Patient last had a heart cath in 2005. Patient does have a history of congestive heart failure and hypertension. His last stress test was earlier this year and he had a EF of 25%. - Related Data Previous Rx's Medication Instructions Recorded Last Taken Type Benzonatate [Tessalon Perle] 100 mg PO Q8H PRN #20 capsule 06/12/18 Unknown Rx Ibuprofen [Motrin 600 MG tab] 600 mg PO Q8H PRN #20 tablet 06/12/18 Unknown Rx Aspirin [Aspirin BABY CHEW TAB] 81 mg PO QDAY #100 tab.chew 02/04/20 Unknown Rx Clopidogrel [Plavix] 75 mg PO QDAY #30 tablet 02/04/20 Unknown Rx Furosemide [Lasix TAB] 40 mg PO QDAY #30 tablet 02/04/20 Unknown Rx Gabapentin 300 mg PO BID #60 capsule 02/04/20 Unknown Rx ISOSORBIDE MONOnitrate [Imdur ER] 30 mg PO QDAY #30 tablet 02/04/20 Unknown Rx Metoprolol [Lopressor TAB] 50 mg PO BID #60 tablet 02/04/20 Unknown Rx Potassium Chloride [K-Dur] 20 meq PO QDAY #30 02/04/20 Unknown Rx Warfarin [Coumadin] 10 mg PO DAILY@1700 #30 tablet 02/04/20 Unknown Rx amLODIPine 10 mg PO DAILY #30 tablet 02/04/20 Unknown Rx hydrALAZINE [Apresoline TAB] 50 mg PO TID #90 tablet 02/04/20 Unknown Rx oxyCODONE /ACETAMINOPHEN [Percocet 1 tab PO Q6H PRN #14 tablet 02/04/20 Unknown Rx 5/325 mg] Famotidine [Pepcid] 40 mg PO QHS #10 tablet 02/13/20 Unknown Rx Prednisone [predniSONE 10 mg 10 mg PO .TAPER #1 tab.ds.pk 02/13/20 Unknown Rx (6-Day Pack, 21 Tabs)] diphenhydrAMINE [Benadryl CAP] 50 mg PO Q8HR PRN #10 capsule 02/13/20 Unknown Rx Allergies Allergy/AdvReac Type Severity Reaction Status Date / Time No Known Allergies Allergy Verified 04/21/17 15:31 ED Review of Systems ROS: Stated complaint: CHEST PAIN/FLUID IN ANKLE/COUGHING Other details as noted in HPI Comment: All other systems reviewed and negative ED Past Medical Hx - Past Medical History Previous Medical History?: Yes Hx Hypertension: Yes Hx CVA: Yes (ischemic, no resid. deficits) Hx Congestive Heart Failure: Yes Hx Diabetes: No Hx Pulmonary Embolism: Yes Hx Renal Disease: Yes Hx HIV: No Additional medical history: gout - Surgical History Past Surgical History?: Yes Additional Surgical History: Heart Cath 2005 - Social History Smoking Status: Former Smoker - Medications Home Medications: Home Medications Medication Instructions Recorded Confirmed Last Taken Type Benzonatate [Tessalon Perle] 100 mg PO Q8H PRN #20 capsule 06/12/18 07/10/18 Unknown Rx Ibuprofen [Motrin 600 MG tab] 600 mg PO Q8H PRN #20 tablet 06/12/18 07/10/18 Unknown Rx Aspirin [Aspirin BABY CHEW TAB] 81 mg PO QDAY #100 tab.chew 02/04/20 Unknown Rx Clopidogrel [Plavix] 75 mg PO QDAY #30 tablet 02/04/20 Unknown Rx Furosemide [Lasix TAB] 40 mg PO QDAY #30 tablet 02/04/20 Unknown Rx Gabapentin 300 mg PO BID #60 capsule 02/04/20 Unknown Rx ISOSORBIDE MONOnitrate [Imdur ER] 30 mg PO QDAY #30 tablet 02/04/20 Unknown Rx Metoprolol [Lopressor TAB] 50 mg PO BID #60 tablet 02/04/20 Unknown Rx Potassium Chloride [K-Dur] 20 meq PO QDAY #30 02/04/20 Unknown Rx Warfarin [Coumadin] 10 mg PO DAILY@1700 #30 tablet 02/04/20 Unknown Rx amLODIPine 10 mg PO DAILY #30 tablet 02/04/20 Unknown Rx hydrALAZINE [Apresoline TAB] 50 mg PO TID #90 tablet 02/04/20 Unknown Rx oxyCODONE /ACETAMINOPHEN [Percocet 1 tab PO Q6H PRN #14 tablet 02/04/20 Unknown Rx 5/325 mg] Famotidine [Pepcid] 40 mg PO QHS #10 tablet 02/13/20 Unknown Rx Prednisone [predniSONE 10 mg 10 mg PO .TAPER #1 tab.ds.pk 02/13/20 Unknown Rx (6-Day Pack, 21 Tabs)] diphenhydrAMINE [Benadryl CAP] 50 mg PO Q8HR PRN #10 capsule 02/13/20 Unknown Rx ED Physical Exam - General Limitations: No Limitations General appearance: alert, in no apparent distress - Head Head exam: Present: atraumatic, normocephalic - Eye Eye exam: Present: normal appearance - ENT ENT exam: Present: mucous membranes moist - Neck Neck exam: Present: normal inspection - Respiratory Respiratory exam: Present: respiratory distress (tachypnea), rales. Absent: normal lung sounds bilaterally, wheezes, rhonchi, stridor - Cardiovascular Cardiovascular Exam: Present: regular rate, normal rhythm. Absent: systolic murmur, diastolic murmur, rubs, gallop - GI/Abdominal GI/Abdominal exam: Present: soft, normal bowel sounds. Absent: distended, tenderness, guarding, rebound - Rectal Rectal exam: Present: deferred - Extremities Exam Extremities exam: Present: normal inspection - Back Exam Back exam: Present: normal inspection - Neurological Exam Neurological exam: Present: alert, oriented X3 - Psychiatric Psychiatric exam: Present: normal affect, normal mood - Skin Skin exam: Present: warm, dry, intact, normal color. Absent: rash ED Course Vital Signs 02/27/20 14:54 Temperature 98.9 F Pulse Rate 91 H Respiratory 20 Rate Blood Pressure 129/78 O2 Sat by Pulse 94 Oximetry ED Medical Decision Making - Lab Data Result diagrams: 02/27/20 15:09 02/27/20 15:09 Lab Results 02/27/20 02/27/20 02/27/20 Range/Units 15:09 15:09 16:45 WBC 12.3 H (4.5-11.0) K/mm3 RBC 3.62 L (3.65-5.03) M/mm3 Hgb 10.3 L (11.8-15.2) gm/dl Hct 31.9 L (35.5-45.6) % MCV 88 (84-94) fl MCH 29 (28-32) pg MCHC 32 (32-34) % RDW 16.7 H (13.2-15.2) % Plt Count 219 (140-440) K/mm3 Lymph % (Auto) 15.5 (13.4-35.0) % [place] % (Auto) 3.7 (0.0-7.3) % Eos % (Auto) 1.0 (0.0-4.3) % Baso % (Auto) 0.9 (0.0-1.8) % Lymph # (Auto) 1.9 (1.2-5.4) K/mm3 [place] # (Auto) 0.5 (0.0-0.8) K/mm3 Eos # (Auto) 0.1 (0.0-0.4) K/mm3 Baso # (Auto) 0.1 (0.0-0.1) K/mm3 Seg Neutrophils % 78.9 H (40.0-70.0) % Seg Neutrophils # 9.7 H (1.8-7.7) K/mm3 Sodium 140 (137-145) mmol/L Potassium 4.2 (3.6-5.0) mmol/L Chloride 104.6 (98-107) mmol/L Carbon Dioxide 20 L (22-30) mmol/L Anion Gap 20 mmol/L BUN 22 H (9-20) mg/dL Creatinine 1.4 H (0.8-1.3) mg/dL Estimated GFR > 60 ml/min BUN/Creatinine Ratio 16 % Glucose 102 H (75-100) mg/dL Calcium 8.2 L (8.4-10.2) mg/dL Troponin T < 0.010 < 0.010 (0.00-0.029) ng/mL 02/27/20 Range/Units 20:54 WBC (4.5-11.0) K/mm3 RBC (3.65-5.03) M/mm3 Hgb (11.8-15.2) gm/dl Hct (35.5-45.6) % MCV (84-94) fl MCH (28-32) pg MCHC (32-34) % RDW (13.2-15.2) % Plt Count (140-440) K/mm3 Lymph % (Auto) (13.4-35.0) % [place] % (Auto) (0.0-7.3) % Eos % (Auto) (0.0-4.3) % Baso % (Auto) (0.0-1.8) % Lymph # (Auto) (1.2-5.4) K/mm3 [place] # (Auto) (0.0-0.8) K/mm3 Eos # (Auto) (0.0-0.4) K/mm3 Baso # (Auto) (0.0-0.1) K/mm3 Seg Neutrophils % (40.0-70.0) % Seg Neutrophils # (1.8-7.7) K/mm3 Sodium (137-145) mmol/L Potassium (3.6-5.0) mmol/L Chloride (98-107) mmol/L Carbon Dioxide (22-30) mmol/L Anion Gap mmol/L BUN (9-20) mg/dL Creatinine (0.8-1.3) mg/dL Estimated GFR ml/min BUN/Creatinine Ratio % Glucose (75-100) mg/dL Calcium (8.4-10.2) mg/dL Troponin T < 0.010 (0.00-0.029) ng/mL - EKG Data -: EKG Interpreted by Sc - EKG Data 02/27/20 23:03 EKG shows sinus tachycardia 101. [place] normal intervals are normal. There is evidence of LVH. No ST segment elevation or depression. - Radiology Data Patient: NANETTE ROCKWELL MR#: [id number] : 1975 Acct:[id number] Age/Sex: 44 / M ADM Date: 02/27/20 Loc: ED Attending Dr: Ordering Physician: IVON DAWN MD Date of Service: 02/27/20 Procedure(s): XR chest routine 2V Accession Number(s): [id number] cc: ED MD NEREYDA Fluoro Time In Minutes: CHEST 2 VIEWS INDICATION: Chest Pain. COMPARISON: 02/01/2020 FINDINGS: Support devices: None. Heart: Within normal limits. Lungs/pleura: Bilateral infiltrates or lung opacities have developed. This may represent pulmonary edema. No pleural effusion or pneumothorax. Additional findings: None. IMPRESSION: Bilateral pulmonary opacities or pulmonary edema has developed. Signer Name: Vikas Bush Jr, MD Signed: 02/27/2020 3:15 PM Workstation Name: [id number] - Medical Decision Making Patient with significant pulmonary edema on chest x-ray. Patient be admitted to the hospitalist service for further diuresis. Critical care attestation.: If time is entered above; I have spent that time in minutes in the direct care of this critically ill patient, excluding procedure time. ED Disposition Clinical Impression: Acute congestive heart failure Disposition: DC-09 OP ADMIT IP TO THIS HOSP Is pt being admited?: Yes Does the pt Need Aspirin: No Condition: Stable Time of Disposition: 23:05
[2020-02-28] MEDS ORDERED: MAGNESIUM HYDROXIDE (MOM) ORAL LIQD UDC PO PRN (00:08)
[2020-02-28] MEDS ORDERED: ONDANSETRON 4 MG/2 ML INJ IV PRN (00:08)
[2020-02-28] MEDS ORDERED: ACETAMINOPHEN 325 MG TAB PO PRN (00:08)
--- NOTE | 2020-02-28 00:18 | History and Physical Report ---
History of Present Illness Date of examination: 02/27/20 Date of admission: 02/27/20 23:05 Chief complaint: Shortness of Breath History of present illness: Patient is a 44-year-old male with known history of hypertension, CHF with ejection fraction of 40 to 45% ( on echo done in 01/2020) presenting to the emergency room today complaining of shortness of breath and cough which has been ongoing for the past few days. Shortness of breath is said to be worse on exe rtion and while lying flat. He has had some mild cough which is nonproductive. Patient denies any chest pain, no fever or chills, no headache or dizziness, no nausea vomiting and no abdominal pain. He indicates he has been compliant with his medication except for one of his blood pressure medication-amlodipine which he ran out of about a week ago. Work-up in the emergency room today reveals pulmonary vascular congestion on the chest x-ray. BNP was elevated. Patient is being admitted for CHF exacerbation. Past History Past Medical History: heart failure, hypertension, pulmonary embolism, stroke, other (Gout) Past Surgical History: PTCA Social history: smoking (Former smoker) Family history: no significant family history Medications and Allergies Allergies Allergy/AdvReac Type Severity Reaction Status Date / Time No Known Allergies Allergy Verified 04/21/17 15:31 Home Medications Medication Instructions Recorded Confirmed Last Taken Type Benzonatate [Tessalon Perle] 100 mg PO Q8H PRN #20 capsule 06/12/18 07/10/18 Unknown Rx Ibuprofen [Motrin 600 MG tab] 600 mg PO Q8H PRN #20 tablet 06/12/18 07/10/18 Unknown Rx Aspirin [Aspirin BABY CHEW TAB] 81 mg PO QDAY #100 tab.chew 02/04/20 Unknown Rx Clopidogrel [Plavix] 75 mg PO QDAY #30 tablet 02/04/20 Unknown Rx Furosemide [Lasix TAB] 40 mg PO QDAY #30 tablet 02/04/20 Unknown Rx Gabapentin 300 mg PO BID #60 capsule 02/04/20 Unknown Rx ISOSORBIDE MONOnitrate [Imdur ER] 30 mg PO QDAY #30 tablet 02/04/20 Unknown Rx Metoprolol [Lopressor TAB] 50 mg PO BID #60 tablet 02/04/20 Unknown Rx Potassium Chloride [K-Dur] 20 meq PO QDAY #30 02/04/20 Unknown Rx Warfarin [Coumadin] 10 mg PO DAILY@1700 #30 tablet 02/04/20 Unknown Rx amLODIPine 10 mg PO DAILY #30 tablet 02/04/20 Unknown Rx hydrALAZINE [Apresoline TAB] 50 mg PO TID #90 tablet 02/04/20 Unknown Rx oxyCODONE /ACETAMINOPHEN [Percocet 1 tab PO Q6H PRN #14 tablet 02/04/20 Unknown Rx 5/325 mg] Famotidine [Pepcid] 40 mg PO QHS #10 tablet 02/13/20 Unknown Rx Prednisone [predniSONE 10 mg 10 mg PO .TAPER #1 tab.ds.pk 02/13/20 Unknown Rx (6-Day Pack, 21 Tabs)] diphenhydrAMINE [Benadryl CAP] 50 mg PO Q8HR PRN #10 capsule 02/13/20 Unknown Rx Review of Systems Constitutional: no fever, no chills Ears, nose, mouth and throat: no nasal congestion, no sore throat Cardiovascular: no chest pain, no palpitations Respiratory: shortness of breath, no cough, no wheezing Gastrointestinal: no abdominal pain, no nausea, no vomiting, no diarrhea Genitourinary Male: no dysuria, no hematuria, no flank pain Musculoskeletal: no neck pain, no low back pain Neurological: no headaches, no confusion Psychiatric: no anxiety, no depression Exam - Constitutional Vitals: Temp Pulse Resp BP Pulse Ox 98.9 F 96 H 28 H 142/95 98 02/27/20 14:54 02/28/20 00:01 02/28/20 00:01 02/28/20 00:01 02/28/20 00:01 General appearance: Present: no acute distress, well-nourished, obese - EENT Eyes: Present: PERRL, EOM intact. Absent: scleral icterus ENT: hearing intact, clear oral mucosa, dentition normal - Neck Neck: Present: supple, normal ROM - Respiratory Respiratory effort: normal Respiratory: bilateral: rales - Cardiovascular Rhythm: regular Heart Sounds: Present: S1 & S2. Absent: gallop, systolic murmur, diastolic murmur, rub - Extremities Extremities: no ischemia, pulses intact, pulses symmetrical, Full ROM Extremity abnormal: edema (2+ bilateral lower extremity edema) Peripheral Pulses: within normal limits - Abdominal General gastrointestinal: Present: soft, non-tender, non-distended, normal bowel sounds. Absent: mass - Integumentary Integumentary: Present: clear, warm, dry. Absent: rash - Musculoskeletal Musculoskeletal: strength equal bilaterally - Psychiatric Psychiatric: appropriate mood/affect, intact judgment & insight, memory intact, cooperative - Neurologic Neurologic: CNII-XII intact, no focal deficits, moves all extremities HEART Score - HEART Score Troponin: Troponin T < 0.010 ng/mL (0.00-0.029) 02/27/20 20:54 Results - Labs CBC & Chem 7: 02/27/20 15:09 02/27/20 15:09 Labs: Abnormal lab results 02/27/20 02/27/20 Range/Units 15: 15:09 WBC 12.3 H (4.5-11.0) K/mm3 RBC 3.62 L (3.65-5.03) M/mm3 Hgb 10.3 L (11.8-15.2) gm/dl Hct 31.9 L (35.5-45.6) % RDW 16.7 H (13.2-15.2) % Seg Neutrophils % 78.9 H (40.0-70.0) % Seg Neutrophils # 9.7 H (1.8-7.7) K/mm3 Carbon Dioxide 20 L (22-30) mmol/L BUN 22 H (9-20) mg/dL Creatinine 1.4 H (0.8-1.3) mg/dL Glucose 102 H (75-100) mg/dL Calcium 8.2 L (8.4-10.2) mg/dL Assessment and Plan - Patient Problems (1) Acute on chronic congestive heart failure Current Visit: No Status: Acute Plan to address problem: Patient placed on diuretics. Will monitor inputs and outputs. We will also monitor daily weights. We will place a consult to cardiology for further evaluation and recommendation. (2) Gout Current Visit: No Status: Chronic Plan to address problem: Stable. (3) HLD (hyperlipidemia) Current Visit: No Status: Chronic Qualifiers: Hyperlipidemia type: mixed hyperlipidemia Qualified Code(s): E78.2 - Mixed hyperlipidemia Plan to address problem: We will resume routine home medications and monitor lipid profile. (4) HTN (hypertension) Current Visit: No Status: Chronic Qualifiers: Plan to address problem: We will place patient on his routine blood pressure medication and monitor vital signs closely. (5) Leukocytosis Current Visit: Yes Status: Acute Plan to address problem: Possibly secondary to steroid use. Review of patient's medications reveals that patient is on prednisone.. We will monitor CBC. (6) DVT prophylaxis Current Visit: No Status: Acute Plan to address problem: Patient placed on subcutaneous heparin. (7) Full code status Current Visit: Yes Status: Acute
[2020-02-28] MEDS: FUROSEMIDE 40 MG/4 ML INJ IV SCH ×2 (05:09→17:08)
[2020-02-28] MEDS: MORPHINE 2 MG/1 ML INJ IV PRN ×2 (07:36→14:00)
[2020-02-28] MEDS: HEPARIN 5,000 UNIT/1 ML VIAL SUB-Q SCH ×2 (13:09→21:09)
[2020-02-28] MEDS ORDERED: oxyCODONE /ACETAMINOPHEN 5-325MG TAB PO PRN (13:31)
--- NOTE | 2020-02-28 13:34 | Progress Note ---
Assessment and Plan Assessment and plan: -- Acute on chronic congestive heart failure/EF 40 to 45% Current Visit: No Status: Acute Plan to address problem: Patient placed on diuretics. Will monitor inputs and outputs. We will also monitor daily weights. cardiology consulted for further evaluation and recommendation. --Gout Current Visit: No Status: Chronic Plan to address problem: Stable. --H/O PE/CVA on chronic anticoagulation --HLD (hyperlipidemia) Current Visit: No Status: Chronic Qualifiers: Hyperlipidemia type: mixed hyperlipidemia Qualified Code(s): E78.2 - Mixed hyperlipidemia Plan to address problem: We will resume routine home medications and monitor lipid profile. --HTN (hypertension) Current Visit: No Status: Chronic Qualifiers: Plan to address problem: We will place patient on his routine blood pressure medication and monitor vital signs closely. -- Leukocytosis Current Visit: Yes Status: Acute Plan to address problem: Possibly secondary to steroid use. Review of patient's medications reveals that patient is on prednisone.. We will monitor CBC. --DVT prophylaxis Current Visit: No Status: Acute Plan to address problem: Patient placed on subcutaneous heparin. --Full code status Current Visit: Yes Status: Acute History Interval history: I have seen and examined the patient at the bedside Patient's chart and medications reviewed Patient complains of chest pain intermittent Vital signs reviewed Hospitalist Physical - Constitutional Vitals: Temp Pulse Resp BP Pulse Ox 98.1 F 108 H 20 127/86 97 02/28/20 08:54 02/28/20 08:54 02/28/20 08:54 02/28/20 08:54 02/28/20 10:01 General appearance: Present: no acute distress, well-nourished, obese - EENT Eyes: Present: PERRL, EOM intact - Neck Neck: Present: supple, normal ROM - Respiratory Respiratory effort: normal Respiratory: bilateral: diminished, negative: rales, rhonchi, wheezing - Cardiovascular Rhythm: regular Heart Sounds: Present: S1 & S2 - Extremities Extremities: no ischemia, No edema - Abdominal General gastrointestinal: soft, non-tender, non-distended, normal bowel sounds - Integumentary Integumentary: Present: clear, warm - Psychiatric Psychiatric: appropriate mood/affect, cooperative - Neurologic Neurologic: moves all extremities HEART Score - HEART Score Troponin: Troponin T < 0.010 ng/mL (0.00-0.029) 02/27/20 20:54 Results - Labs CBC & Chem 7: 02/27/20 15:09 02/27/20 15:09 Labs: Laboratory Last Values WBC 12.3 K/mm3 (4.5-11.0) H 02/27/20 15:09 RBC 3.62 M/mm3 (3.65-5.03) L 02/27/20 15:09 Hgb 10.3 gm/dl (11.8-15.2) L 02/27/20 15:09 Hct 31.9 % (35.5-45.6) L 02/27/20 15:09 MCV 88 fl (84-94) 02/27/20 15:09 MCH 29 pg (28-32) 02/27/20 15:09 MCHC 32 % (32-34) 02/27/20 15:09 RDW 16.7 % (13.2-15.2) H 02/27/20 15:09 Plt Count 219 K/mm3 (140-440) 02/27/20 15:09 Lymph % (Auto) 15.5 % (13.4-35.0) 02/27/20 15:09 [place] % (Auto) 3.7 % (0.0-7.3) 02/27/20 15:09 Eos % (Auto) 1.0 % (0.0-4.3) 02/27/20 15:09 Baso % (Auto) 0.9 % (0.0-1.8) 02/27/20 15:09 Lymph # (Auto) 1.9 K/mm3 (1.2-5.4) 02/27/20 15:09 [place] # (Auto) 0.5 K/mm3 (0.0-0.8) 02/27/20 15:09 Eos # (Auto) 0.1 K/mm3 (0.0-0.4) 02/27/20 15:09 Baso # (Auto) 0.1 K/mm3 (0.0-0.1) 02/27/20 15:09 Seg Neutrophils % 78.9 % (40.0-70.0) H 02/27/20 15:09 Seg Neutrophils # 9.7 K/mm3 (1.8-7.7) H 02/27/20 15:09 Sodium 140 mmol/L (137-145) 02/27/20 15:09 Potassium 4.2 mmol/L (3.6-5.0) 02/27/20 15:09 Chloride 104.6 mmol/L (98-107) 02/27/20 15:09 Carbon Dioxide 20 mmol/L (22-30) L 02/27/20 15:09 Anion Gap 20 mmol/L 02/27/20 15:09 BUN 22 mg/dL (9-20) H 02/27/20 15:09 Creatinine 1.4 mg/dL (0.8-1.3) H 02/27/20 15:09 Estimated GFR > 60 ml/min 02/27/20 15:09 BUN/Creatinine Ratio 16 % 02/27/20 15:09 Glucose 102 mg/dL (75-100) H 02/27/20 15:09 Calcium 8.2 mg/dL (8.4-10.2) L 02/27/20 15:09 Troponin T < 0.010 ng/mL (0.00-0.029) 02/27/20 20:54 NT-Pro-B Natriuret Pep 932.7 pg/mL (0-450) H 02/27/20 22:32 Nasal Screen MRSA (PCR) Negative (Negative) 02/28/20 05:00 Rodriguez/IV: IV Catheter Type [Left Hand] INT / Saline Lock Active Medications - Current Medications Current Medications: Generic Name Dose Route Start Last Admin Trade Name Freq PRN Reason Stop Dose Admin Acetaminophen 650 mg 02/28/20 00:08 Tylenol PO Q4H PRN Pain MILD(1-3)/Fever >100.5/LI Furosemide 40 mg 02/28/20 06:00 02/28/20 05:09 Lasix IV 40 mg BID@0600,1800 [place] Administration Heparin Sodium (Porcine) 5,000 unit 02/28/20 14:00 02/28/20 13:09 Heparin SUB-Q 5,000 unit Q8HR [place] Administration Magnesium Hydroxide 30 ml 02/28/20 00:08 Milk Of Magnesia PO Q4H PRN Constipation Morphine Sulfate 2 mg 02/28/20 00:08 02/28/20 07:36 Morphine IV 2 mg Q4H PRN Administration Pain, Moderate (4-6) Ondansetron HCl 4 mg 10/10/20 00:08 Zofran IV Q8H PRN Nausea And Vomiting Sodium Chloride 10 ml 02/28/20 10:00 02/28/20 09:20 Sodium Chloride Flush Syringe 10 Ml IV 10 ml BID [place] Administration Sodium Chloride 10 ml 02/28/20 00:08 Sodium Chloride Flush Syringe 10 Ml IV PRN PRN LINE FLUSH
--- NOTE | 2020-02-28 13:43 | Consultation ---
History of Present Illness Consult date: 02/28/20 Requesting physician: TENA ZHOU Consult reason: congestive heart failure History of present illness: 44-year-old gentleman with a past medical history of hypertension, mid range heart failure EF 40 to 45%, hyperlipidemia, history of stroke, history of pulmonary embolus, chronic kidney disease, questionable history of demyelinating disease, and gout presented to [facility] emergency department complaining of shortness of breath, increasing orthopnea and increasing bilateral leg edema. The patient admits that he ran out of his amlodipine a week ago. In the emergency department chest x-ray suggested pulmonary vascular congestion. The patient's white count was mildly elevated at 12.3 and his creatinine was 1.4. Twelve-lead EKG reveals sinus tachycardia with occasional PVCs. Past History Past Medical History: heart failure, hypertension, pulmonary embolism, stroke, other (Gout) Past Surgical History: PTCA Social history: smoking (Former smoker). denies: IV drug use Family history: no significant family history Medications and Allergies Allergies Allergy/AdvReac Type Severity Reaction Status Date / Time No Known Allergies Allergy Verified 04/21/17 15:31 Home Medications Medication Instructions Recorded Confirmed Last Taken Type Benzonatate [Tessalon Perle] 100 mg PO Q8H PRN #20 capsule 06/12/18 02/28/20 Unknown Rx Ibuprofen [Motrin 600 MG tab] 600 mg PO Q8H PRN #20 tablet 06/12/18 02/28/20 Unknown Rx Aspirin [Aspirin BABY CHEW TAB] 81 mg PO QDAY #100 tab.chew 02/04/20 02/28/20 Unknown Rx Clopidogrel [Plavix] 75 mg PO QDAY #30 tablet 02/04/20 02/28/20 Unknown Rx Furosemide [Lasix TAB] 40 mg PO QDAY #30 tablet 02/04/20 02/28/20 Unknown Rx Gabapentin 300 mg PO BID #60 capsule 02/04/20 02/28/20 Unknown Rx ISOSORBIDE MONOnitrate [Imdur ER] 30 mg PO QDAY #30 tablet 02/04/20 02/28/20 Unknown Rx Metoprolol [Lopressor TAB] 50 mg PO BID #60 tablet 02/04/20 02/28/20 Unknown Rx Potassium Chloride [K-Dur] 20 meq PO QDAY #30 02/04/20 02/28/20 Unknown Rx Warfarin [Coumadin] 10 mg PO DAILY@1700 #30 tablet 02/04/20 02/28/20 Unknown Rx amLODIPine 10 mg PO DAILY #30 tablet 02/04/20 02/28/20 Unknown Rx hydrALAZINE [Apresoline TAB] 50 mg PO TID #90 tablet 02/04/20 02/28/20 Unknown Rx oxyCODONE /ACETAMINOPHEN [Percocet 1 tab PO Q6H PRN #14 tablet 02/04/20 02/28/20 Unknown Rx 5/325 mg] Famotidine [Pepcid] 40 mg PO QHS #10 tablet 02/13/20 02/28/20 Unknown Rx Prednisone [predniSONE 10 mg 10 mg PO .TAPER #1 tab.ds.pk 02/13/20 02/28/20 Unkn own Rx (6-Day Pack, 21 Tabs)] diphenhydrAMINE [Benadryl CAP] 50 mg PO Q8HR PRN #10 capsule 02/13/20 02/28/20 Unknown Rx Active Meds: Active Medications Acetaminophen (Tylenol) 650 mg PO Q4H PRN PRN Reason: Pain MILD(1-3)/Fever >100.5/LI Amlodipine Besylate (Amlodipine) 10 mg PO DAILY [facility] Aspirin (Baby Aspirin) 81 mg PO QDAY [facility] Clopidogrel Bisulfate (Plavix) 75 mg PO QDAY [facility] Furosemide (Lasix) 40 mg IV BID@0600,1800 [facility] Last Admin: 02/28/20 05:09 Dose: 40 mg Documented by: Gabapentin (Gabapentin) 300 mg PO BID [facility] Heparin Sodium (Porcine) (Heparin) 5,000 unit SUB-Q Q8HR [facility] Last Admin: 02/28/20 13:09 Dose: 5,000 unit Documented by: Hydralazine HCl (Apresoline) 50 mg PO TID [facility] Isosorbide Mononitrate (Imdur) 30 mg PO QDAY [facility] Magnesium Hydroxide (Milk Of Magnesia) 30 ml PO Q4H PRN PRN Reason: Constipation Metoprolol Tartrate (Metoprolol) 50 mg PO BID [facility] Morphine Sulfate (Morphine) 2 mg IV Q4H PRN PRN Reason: Pain, Moderate (4-6) Last Admin: 02/28/20 07:36 Dose: 2 mg Documented by: Ondansetron HCl (Zofran) 4 mg IV Q8H PRN PRN Reason: Nausea And Vomiting Oxycodone/Acetaminophen (Percocet 5/325) 1 tab PO Q6H PRN PRN Reason: Pain, Moderate (4-6) Sodium Chloride (Sodium Chloride Flush Syringe 10 Ml) 10 ml IV BID [place] Last Admin: 02/28/20 09:20 Dose: 10 ml Documented by: Sodium Chloride (Sodium Chloride Flush Syringe 10 Ml) 10 ml IV PRN PRN PRN Reason: LINE FLUSH Review of Systems Constitutional: no fever, no chills, no night sweats Ears, nose, mouth and throat: no tinnitis, no decreased hearing Cardiovascular: orthopnea, edema, shortness of breath, no syncope Respiratory: cough Gastrointestinal: no abdominal pain, no nausea, no vomiting Genitourinary Male: no flank pain, no discharge Rectal: no pain, no incontinence Musculoskeletal: no neck stiffness, no neck pain Integumentary: no rash, no pruritis Neurological: no head injury, no transient paralysis Psychiatric: no anxiety, no memory loss Endocrine: no heat intolerance, no polyphagia Hematologic/Lymphatic: easy bruising Physical Examination Vital Signs Temp Pulse Resp BP Pulse Ox 98.9 F 91 H 20 129/78 94 02/27/20 14:54 02/27/20 14:54 02/27/20 14:54 02/27/20 14:54 02/27/20 14:54 General appearance: no acute distress HEENT: Positive: PERRL, EOMI Neck: Positive: neck supple, trachea midline Cardiac: Positive: Regular Rate, Tachycardia Lungs: Positive: clear to auscultation, Normal Breath Sounds Neuro: Positive: Grossly Intact Abdomen: Positive: Soft, Active Bowel Sounds Male genitourinary: Positive: deferred Skin: Negative: Rash Extremities: Present: +2 Edema, warm Results 02/27/20 15:09 02/27/20 15:09 CBC 02/27/20 Range/Units 15:09 WBC 12.3 H (4.5-11.0) K/mm3 RBC 3.62 L (3.65-5.03) M/mm3 Hgb 10.3 L (11.8-15.2) gm/dl Hct 31.9 L (35.5-45.6) % Plt Count 219 (140-440) K/mm3 Lymph # (Auto) 1.9 (1.2-5.4) K/mm3 [place] # (Auto) 0.5 (0.0-0.8) K/mm3 Eos # (Auto) 0.1 (0.0-0.4) K/mm3 Baso # (Auto) 0.1 (0.0-0.1) K/mm3 Comprehensive Metabolic Panel 02/27/20 Range/Units 15:09 Sodium 140 (137-145) mmol/L Potassium 4.2 (3.6-5.0) mmol/L Chloride 104.6 (98-107) mmol/L Carbon Dioxide 20 L (22-30) mmol/L BUN 22 H (9-20) mg/dL Creatinine 1.4 H (0.8-1.3) mg/dL Glucose 102 H (75-100) mg/dL Calcium 8.2 L (8.4-10.2) mg/dL - Imaging and Cardiology Echo: report reviewed Cardiac cath: report reviewed Assessment and Plan 44 male Acute on chronic HF (mid range EF 40-45%) Pulmonary hypertension Hypertension Hyperlipidemia History of stroke History of pulmonary embolus Chronic kidney disease ? Demyelinating disease Gout Echocardiogram 01/2020: Mild LVH, mild LVE, EF 40 to 45%, moderate to severe LAE, moderate MR, RVSP 65 mmHg Left heart catheterization 01/2020: No gradient across aortic valve, RCA: Small nondominant, angiographically normal, left main: Patent, LAD: Patent, LCx: Distal 40%, LVEDP 35 to 40 mmHg Agree with gentle diuresis/strict I's and O's/monitor creatinine Continue metoprolol 50 BID /[id number] TID/amlodipine 10 QD/Imdur 30 Patient currently on triple therapy aspirin 81 mg/Plavix 75 mg/and warfarin
[2020-02-28] MEDS: hydrALAZINE 25 MG TAB PO SCH ×2 (13:50→21:09)
[2020-02-28] MEDS ORDERED: CYCLOBENZAPRINE 10 MG TAB PO PRN (14:06)
[2020-02-28 14:54] LABS: INR 2.5 (0.87-1.13)
[2020-02-28] MEDS: WARFARIN 10 MG TAB PO SCH (17:07)
[2020-02-28] MEDS: GABAPENTIN 300 MG CAP PO SCH (21:09)
[2020-02-28] MEDS: METOPROLOL TARTRATE 50 MG TAB PO SCH (21:10)
[2020-02-29 05:19] LABS: Basophils # (Auto) 0.1 K/mm3 (0.0-0.1); Basophils % (Auto) 1.3 % (0.0-1.8); Eosinophils # (Auto) 0.2 K/mm3 (0.0-0.4); Eosinophils % (Auto) 1.7 % (0.0-4.3); Hematocrit 34.3 % (35.5-45.6); Hemoglobin 11.1 gm/dl (11.8-15.2); Lymphocytes # (Auto) 1.6 K/mm3 (1.2-5.4); Lymphocytes % (Auto) 15.2 % (13.4-35.0); Mean Corpuscular HGB Conc 32 % (32-34); Mean Corpuscular Volume 88 fl (84-94); Monocytes # (Auto) 0.4 K/mm3 (0.0-0.8); Platelet Count 241 K/mm3 (140-440); Red Blood Count 3.88 M/mm3 (3.65-5.03); Red Cell Distribution Width 17.3 % (13.2-15.2)
[2020-02-29 05:28] LABS: INR 2.62 (0.87-1.13)
[2020-02-29] MEDS: FUROSEMIDE 40 MG/4 ML INJ IV SCH ×2 (05:32→17:57)
[2020-02-29] MEDS: HEPARIN 5,000 UNIT/1 ML VIAL SUB-Q SCH (05:32)
[2020-02-29 05:37] LABS: BUN/Creatinine Ratio 15; Blood Urea Nitrogen 19 mg/dL (9-20); Calcium 8.2 mg/dL (8.4-10.2); Hemolysis Index 1
[2020-02-29] MEDS: hydrALAZINE 25 MG TAB PO SCH ×3 (08:00→22:52)
[2020-02-29] MEDS: amLODIPine 10 MG TAB PO SCH (10:37)
[2020-02-29] MEDS: CLOPIDOGREL 75 MG TAB PO SCH (10:38)
[2020-02-29] MEDS: METOPROLOL TARTRATE 50 MG TAB PO SCH ×2 (10:38→22:54)
[2020-02-29] MEDS: GABAPENTIN 300 MG CAP PO SCH ×2 (10:38→22:54)
[2020-02-29] MEDS: ASPIRIN 81 MG TAB CHEW PO SCH (10:38)
--- NOTE | 2020-02-29 14:01 | Progress Note ---
Assessment and Plan 44 male Acute on chronic HF (mid range EF 40-45%) Pulmonary hypertension Hypertension Hyperlipidemia History of stroke History of pulmonary embolus Chronic kidney disease ? Demyelinating disease Gout Echocardiogram 01/2020: Mild LVH, mild LVE, EF 40 to 45%, moderate to severe LAE, moderate MR, RVSP 65 mmHg Left heart catheterization 01/2020: No gradient across aortic valve, RCA: Small nondominant, angiographically normal, left main: Patent, LAD: Patent, LCx: Distal 40%, LVEDP 35 to 40 mmHg Agree with gentle diuresis/strict I's and O's/monitor creatinine Continue metoprolol 50 BID /[id number] TID/amlodipine 10 QD/Imdur 30 Patient currently on triple therapy aspirin 81 mg/Plavix 75 mg/and warfarin Subjective Date of service: 02/29/20 Principal diagnosis: CHF Interval history: Pt sitting up in bed feels much better Objective Vital Signs Temp Pulse Resp BP Pulse Ox 02/29/20 11:46 98.0 F 67 20 103/69 98 02/29/20 11:39 98.0 F 89 20 120/65 92 02/29/20 08:44 100 H 02/29/20 08:34 98.7 F 100 H 20 146/95 91 02/29/20 04:17 98.8 F 92 H 20 130/94 95 02/29/20 04:00 128 H 02/28/20 23:55 97.0 F L 97 H 24 152/97 94 02/28/20 20:19 98.0 F 97 H 22 152/99 97 02/28/20 16:31 98.3 F 92 H 20 135/84 96 - Physical Examination HEENT: Positive: PERRL, EOMI Neck: Positive: neck supple, trachea midline Cardiac: Positive: Reg Rate and Rhythm Lungs: Positive: clear to auscultation, Normal Breath Sounds Neuro: Positive: Grossly Intact Abdomen: Positive: Soft, Active Bowel Sounds Skin: Negative: Rash Extremities: Present: +2 Edema, warm - Labs and Meds Coagulation 02/28/20 02/29/20 Range/Units 13:55 04:34 PT 27.4 H 28.4 H (12.2-14.9) Sec. INR 2.50 H 2.62 H (0.87-1.13) CBC 02/29/20 Range/Units 04:34 WBC 10.9 (4.5-11.0) K/mm3 RBC 3.88 (3.65-5.03) M/mm3 Hgb 11.1 L (11.8-15.2) gm/dl Hct 34.3 L (35.5-45.6) % Plt Count 241 (140-440) K/mm3 Lymph # (Auto) 1.6 (1.2-5.4) K/mm3 [place] # (Auto) 0.4 (0.0-0.8) K/mm3 Eos # (Auto) 0.2 (0.0-0.4) K/mm3 Baso # (Auto) 0.1 (0.0-0.1) K/mm3 Comprehensive Metabolic Panel 02/29/20 Range/Units 04:34 Sodium 137 (137-145) mmol/L Potassium 3.3 L D (3.6-5.0) mmol/L Chloride 101.0 (98-107) mmol/L Carbon Dioxide 23 (22-30) mmol/L BUN 19 (9-20) mg/dL Creatinine 1.3 (0.8-1.3) mg/dL Glucose 106 H (75-100) mg/dL Calcium 8.2 L (8.4-10.2) mg/dL - Imaging and Cardiology Echo: report reviewed Cardiac cath: report reviewed
[2020-02-29] MEDS: WARFARIN 10 MG TAB PO SCH (17:57)
--- NOTE | 2020-02-29 19:44 | Progress Note ---
Assessment and Plan Assessment and plan: Patient feels slightly better, no new complaints today Vital signs noted, symptoms significantly improved Continues to be stable possible discharge home tomorrow if cardiology has no plans -- Acute on chronic systolic CHF/EF 40 to 45% Current Visit: No Status: Acute Plan to address problem: Patient symptoms significantly improved Continue current anti-failure medications Symptoms improved --Gout Current Visit: No Status: Chronic Plan to address problem: Stable. --H/O PE/CVA on chronic anticoagulation --HLD (hyperlipidemia) Current Visit: No Status: Chronic Plan to address problem: We will resume routine home medications and monitor lipid profile. --HTN (hypertension) Current Visit: No Status: Chronic Plan to address problem: We will place patient on his routine blood pressure medication and monitor vital signs closely. -- Leukocytosis Current Visit: Yes Status: Acute Plan to address problem: Possibly secondary to steroid use. patient is on prednisone.. No evidence of sepsis --DVT prophylaxis Current Visit: No Status: Acute Plan to address problem: Patient placed on subcutaneous heparin. --Full code status Current Visit: Yes Status: Acute Possible discharge home tomorrow if stable And cleared by cardiology History Interval history: I have seen and examined the patient at the bedside Patient is sitting in chair denies any chest pain or shortness of breath Vital signs noted Hospitalist Physical - Constitutional Vitals: Temp Pulse Resp BP Pulse Ox 98.7 F 88 20 116/79 97 02/29/20 15:43 02/29/20 16:00 02/29/20 15:43 02/29/20 15:43 02/29/20 15:43 General appearance: Present: no acute distress, well-nourished, obese - EENT Eyes: Present: PERRL, EOM intact - Neck Neck: Present: supple, normal ROM - Respiratory Respiratory effort: normal Respiratory: bilateral: diminished, negative: rales, rhonchi, wheezing - Cardiovascular Rhythm: regular Heart Sounds: Present: S1 & S2 - Extremities Extremities: no ischemia, No edema - Abdominal General gastrointestinal: soft, non-tender, non-distended, normal bowel sounds - Integumentary Integumentary: Present: clear, warm - Psychiatric Psychiatric: appropriate mood/affect, cooperative - Neurologic Neurologic: CNII-XII intact, moves all extremities HEART Score - HEART Score Troponin: Troponin T < 0.010 ng/mL (0.00-0.029) 02/27/20 20:54 Results - Labs CBC & Chem 7: 02/29/20 04:34 02/29/20 04:34 Labs: Laboratory Last Values WBC 10.9 K/mm3 (4.5-11.0) 02/29/20 04:34 RBC 3.88 M/mm3 (3.65-5.03) 02/29/20 04:34 Hgb 11.1 gm/dl (11.8-15.2) L 02/29/20 04:34 Hct 34.3 % (35.5-45.6) L 02/29/20 04:34 MCV 88 fl (84-94) 02/29/20 04:34 MCH 29 pg (28-32) 02/29/20 04:34 MCHC 32 % (32-34) 02/29/20 04:34 RDW 17.3 % (13.2-15.2) H 02/29/20 04:34 Plt Count 241 K/mm3 (140-440) 02/29/20 04:34 Lymph % (Auto) 15.2 % (13.4-35.0) 02/29/20 04:34 [place] % (Auto) 4.0 % (0.0-7.3) 02/29/20 04:34 Eos % (Auto) 1.7 % (0.0-4.3) 02/29/20 04:34 Baso % (Auto) 1.3 % (0.0-1.8) 02/29/20 04:34 Lymph # (Auto) 1.6 K/mm3 (1.2-5.4) 02/29/20 04:34 [place] # (Auto) 0.4 K/mm3 (0.0-0.8) 02/29/20 04:34 Eos # (Auto) 0.2 K/mm3 (0.0-0.4) 02/29/20 04:34 Baso # (Auto) 0.1 K/mm3 (0.0-0.1) 02/29/20 04:34 Seg Neutrophils % 77.8 % (40.0-70.0) H 02/29/20 04:34 Seg Neutrophils # 8.5 K/mm3 (1.8-7.7) H 02/29/20 04:34 PT 28.4 Sec. (12.2-14.9) H 02/29/20 04:34 INR 2.62 (0.87-1.13) H 02/29/20 04:34 Sodium 137 mmol/L (137-145) 02/29/20 04:34 Potassium 3.3 mmol/L (3.6-5.0) L D 02/29/20 04:34 Chloride 101.0 mmol/L (98-107) 02/29/20 04:34 Carbon Dioxide 23 mmol/L (22-30) 02/29/20 04:34 Anion Gap 16 mmol/L 02/29/20 04:34 BUN 19 mg/dL (9-20) 02/29/20 04:34 Creatinine 1.3 mg/dL (0.8-1.3) 02/29/20 04:34 Estimated GFR > 60 ml/min 02/29/20 04:34 BUN/Creatinine Ratio 15 % 02/29/20 04:34 Glucose 106 mg/dL (75-100) H 02/29/20 04:34 Calcium 8.2 mg/dL (8.4-10.2) L 02/29/20 04:34 Troponin T < 0.010 ng/mL (0.00-0.029) 02/27/20 20:54 NT-Pro-B Natriuret Pep 932.7 pg/mL (0-450) H 02/27/20 22:32 Nasal Screen MRSA (PCR) Negative (Negative) 02/28/20 05:00 Rodriguez/IV: Voiding Method Urinal IV Catheter Type [Left Hand] INT / Saline Lock Active Medications - Current Medications Current Medications: Generic Name Dose Route Start Last Admin Trade Name Freq PRN Reason Stop Dose Admin Acetaminophen 650 mg 02/28/20 00:08 Tylenol PO Q4H PRN Pain MILD(1-3)/Fever >100.5/LI Amlodipine Besylate 10 mg 02/29/20 10:00 02/29/20 10:37 Amlodipine PO 10 mg DAILY [place] Administration Aspirin 81 mg 02/29/20 10:00 02/29/20 10:38 Baby Aspirin PO 81 mg QDAY [place] Administration Clopidogrel Bisulfate 75 mg 02/29/20 10:00 02/29/20 10:38 Plavix PO 75 mg QDAY [place] Administration Cyclobenzaprine HCl 5 mg 02/28/20 14:06 02/28/20 14:47 Flexeril PO 5 mg Q8H PRN Administration Muscle Spasm Furosemide 40 mg 02/28/20 06:00 02/29/20 17:57 Lasix IV 40 mg BID@0600,1800 [place] Administration Gabapentin 300 mg 02/28/20 22:00 02/29/20 10:38 Gabapentin PO 300 mg BID [place] Administration Hydralazine HCl 50 mg 02/28/20 14:00 02/29/20 14:00 Apresoline PO 50 mg TID [place] Administration Isosorbide Mononitrate 30 mg 02/29/20 10:00 02/29/20 10:38 Imdur PO 30 mg QDAY [place] Administration Magnesium Hydroxide 30 ml 02/28/20 00:08 Milk Of Magnesia PO Q4H PRN Constipation Metoprolol Tartrate 50 mg 02/28/20 22:00 02/29/20 10:38 Metoprolol PO 50 mg BID [place] Administration Morphine Sulfate 2 mg 02/28/20 00:08 02/28/20 14:00 Morphine IV 2 mg Q4H PRN Administration Pain, Moderate (4-6) Ondansetron HCl 4 mg 02/28/20 00:08 Zofran IV Q8H PRN Nausea And Vomiting Oxycodone/Acetaminophen 1 tab 02/28/20 13:31 Percocet 5/325 PO Q6H PRN Pain, Moderate (4-6) Sodium Chloride 10 ml 02/28/20 10:00 02/29/20 10:39 Sodium Chloride Flush Syringe 10 Ml IV 10 ml BID [place] Administration Sodium Chloride 10 ml 02/28/20 00:08 Sodium Chloride Flush Syringe 10 Ml IV PRN PRN LINE FLUSH Warfarin Sodium 10 mg 02/28/20 17:00 02/29/20 17:57 Coumadin PO 10 mg DAILY@1700 [place] Administration Protocol
[2020-03-01] MEDS: FUROSEMIDE 40 MG/4 ML INJ IV SCH (05:38)
[2020-03-01 06:47] LABS: INR 2.92 (0.87-1.13)
[2020-03-01 08:32] VITALS: BP 121/63
[2020-03-01] MEDS: ASPIRIN 81 MG TAB CHEW PO SCH (09:54)
[2020-03-01] MEDS: GABAPENTIN 300 MG CAP PO SCH (09:54)
[2020-03-01] MEDS: hydrALAZINE 25 MG TAB PO SCH ×2 (09:54→16:59)
[2020-03-01] MEDS: amLODIPine 10 MG TAB PO SCH (09:54)
[2020-03-01] MEDS: CLOPIDOGREL 75 MG TAB PO SCH (09:54)
[2020-03-01] MEDS: METOPROLOL TARTRATE 50 MG TAB PO SCH (09:54)
--- NOTE | 2020-03-01 13:05 | Progress Note ---
Assessment and Plan 44 male Acute on chronic HF (mid range EF 40-45%) Pulmonary hypertension Hypertension Hyperlipidemia History of stroke History of pulmonary embolus Chronic kidney disease ? Demyelinating disease Gout Echocardiogram 01/2020: Mild LVH, mild LVE, EF 40 to 45%, moderate to severe LAE, moderate MR, RVSP 65 mmHg Left heart catheterization 01/2020: No gradient across aortic valve, RCA: Small nondominant, angiographically normal, left main: Patent, LAD: Patent, LCx: Distal 40%, LVEDP 35 to 40 mmHg Currently stable cardiac status. Pt appears to be nearing/at euvolemia. Pt may discharge from cardiology standpoint. At discharge, resume home PO lasix 40mg daily. Continue metoprolol 50 BID /[id number] TID/amlodipine 10 QD/Imdur 30 Patient currently on triple therapy aspirin 81 mg/Plavix 75 mg/and warfarin - no apparent cardiac indication for continuation of both ASA and Plavix, can discontinue ASA from cardiac standpoint and plan to readdress continuation of Plavix as OP. Recommend pt follow up in our office within 2 weeks of discharge ([phone]). The patient has been seen in conjunction with Dr. Jae Rodgers who agrees with the assessment and plan of care. Subjective Date of service: 03/01/20 Principal diagnosis: CHF Interval history: pt resting in bed, states he is feeling much better today. in SR on tele, SB HR low 46bpm noted overnight. Objective Last Vital Signs Temp 98.1 F 03/01/20 07:43 Pulse 72 03/01/20 08:00 Resp 20 03/01/20 07:43 BP 121/63 03/01/20 07:43 Pulse Ox 90 03/01/20 07:43 - Physical Examination General: No Apparent Distress HEENT: Positive: PERRL, EOMI Neck: Positive: neck supple, trachea midline Cardiac: Positive: Reg Rate and Rhythm, S1/S2 Lungs: Positive: Decreased Breath Sounds Neuro: Positive: Grossly Intact Abdomen: Positive: Soft, Active Bowel Sounds Skin: Negative: Rash Extremities: Present: +2 Edema, warm - Labs and Meds Coagulation 03/01/20 Range/Units 05:44 PT 30.9 H (12.2-14.9) Sec. INR 2.92 H (0.87-1.13) - Imaging and Cardiology Echo: report reviewed Cardiac cath: report reviewed
--- NOTE | 2020-03-01 15:27 | Discharge Summary ---
Providers - Providers Date of Admission: 02/27/20 23:05 Date of discharge: 03/01/20 Attending physician: TENA ZHOU 02/28/20 06:48 Consult to Physician [CONS] Routine Comment: Consulting Provider: SARBJIT NICE Physician Instructions: Reason For Exam: CHF EXAC. Primary care physician: [employer] [facility]ARIAN Hospitalization Reason for admission: Worsening shortness of breath/acute on chronic systolic CHF EF 40 to 45% Condition: Stable Pertinent studies: Chest x-ray; bilateral pulmonary opacities/pulmonary edema Hospital course: 44-year-old male patient withhistory of hypertension, CHF with ejection fraction of 40 to 45% ( on echo done in 01/2020) was admitted through emergency room with worsening shortness of breath and cough which has been ongoing for the past few days. Shortness of breath is said to be worse on exertion and while lying flat. Work-up in the emergency room is consistent with acute exacerbation of chronic systolic congestive heart failure with pulmonary vascular congestion on the chest x-ray and elevated BNP . Patient was admitted appropriately managed with anti-failure medications, evaluated by cardiology, medications optimized Patient symptoms slowly but gradually improved Today patient is comfortable no new complaints vital signs stable Physical examination prior to discharge is unremarkable Patient from home vital medical follow-up and tolerated Patient verbalized understanding Patient cleared by cardiology for discharge and follow-up in the office per schedule Patient also complains of some muscle cramps, relieved by muscle relaxers Flexeril Patient's potassium at the time of discharge was 3.4, 40 mEq p.o. KCl was given prior to discharge Discharge diagnosis; --Acute on chronic systolic congestive heart failure ejection fraction Resume home anti-failure medications Input output monitoring, low-sodium diet, daily weights --Acute pulmonary edema; due to fluid overload Diuretics, input output monitoring, low-sodium diet, fluid restriction Closely monitor --History of gout; stable --History of PE; on Coumadin Therapeutic INR, check frequent INRs Target INR 2-3 at primary care physician's office --Obesity; BMI 34.9 Advised weight reduction when medically stable --DVT prophylaxis; patient is on Coumadin Patient is hemodynamically and clinically stable at discharge Disposition: TO HOME OR SELFCARE Time spent for discharge: 32 min Core Measure Documentation - Palliative Care Palliative Care/ Comfort Measures: Not Applicable - Core Measures Any of the following diagnoses?: none Exam - Constitutional Vitals: Temp Pulse Resp BP Pulse Ox 98.1 F 72 20 121/63 90 03/01/20 07:43 03/01/20 08:00 03/01/20 07:43 03/01/20 07:43 03/01/20 07:43 General appearance: Present: no acute distress, well-nourished - EENT Eyes: Present: PERRL, EOM intact - Neck Neck: Present: supple, normal ROM - Respiratory Respiratory effort: normal Respiratory: bilateral: diminished, negative: rales, rhonchi, wheezing - Cardiovascular Rhythm: regular Heart Sounds: Present: S1 & S2 - Extremities Extremities: no ischemia, No edema - Abdominal General gastrointestinal: Present: soft, non-tender, non-distended, normal bowel sounds - Integumentary Integumentary: Present: clear, warm - Musculoskeletal Musculoskeletal: strength equal bilaterally, generalized weakness - Psychiatric Psychiatric: appropriate mood/affect, cooperative - Neurologic Neurologic: moves all extremities Plan Activity: no restrictions Diet: low salt, other (cardiac diet) Additional Instructions: If you have worsening symptoms contact MD or go to emergency room. Encouraged to comply with medications, diet, follow-up visits. Periodic check of INR, target level of INR 2-3. Next INR check 03/02/20 at PMDs office. Aspirin discontinued[do not take] Follow up with: PRIMARY CARE, [Primary Care Provider] - 7 Days ROYCE PELAYO MD [Staff Physician] - 14 Days Prescriptions: Warfarin [Coumadin] 7.5 mg PO DAILY@1700 #30 tablet Cyclobenzaprine HCl [Flexeril 5 MG TAB] 5 mg PO TID PRN #15 tab PRN Reason: Muscle Spasm
[2020-03-01] MEDS ORDERED: POTASSIUM CHLORIDE ER 20 MEQ TAB PO NR (16:00)
[2020-03-01] MEDS ORDERED: WARFARIN 7.5 MG TAB PO SCH (17:00)
== END 2020-03-01 18:51 | disposition home or self-care (01) ==
LOC: ED 13:52 → 4A 23:05
PROVIDERS: ADMIT Internal Medicine Geriatric Medicine; ATTEND Internal Medicine
DX: I13.0 Hypertensive heart and chronic kidney disease with heart failure and stage 1 through stage 4 chronic kidney disease, or unspecified chronic kidney disease (principal); I50.9 Heart failure, unspecified; N18.9 Chronic kidney disease, unspecified; M10.9 Gout, unspecified; E78.5 Hyperlipidemia, unspecified; D72.829 Elevated white blood cell count, unspecified; J81.1 Chronic pulmonary edema; E66.9 Obesity, unspecified; Z86.711 Personal history of pulmonary embolism; Z87.891 Personal history of nicotine dependence; Z79.82 Long term (current) use of aspirin; Z79.01 Long term (current) use of anticoagulants; Z95.1 Presence of aortocoronary bypass graft; Z86.73 Personal history of transient ischemic attack (TIA), and cerebral infarction without residual deficits; Z68.34 Body mass index [BMI] 34.0-34.9, adult
CPT/HCPCS: 36415; 71046; 80048; 83735; 83880; 84132; 84484; 85025; 85610; 87641; 93005; 94760; 96372; 96374; 96375; 96376; 99285; G0378; J1644; J1940; J2270

== ENCOUNTER 2020-03-11 10:33 | Inpatient (IN) | payer MEDICARE ==
[2020-03-11] MEDS ORDERED: LOPERAMIDE 2 MG CAP PO ONE (11:11)
--- NOTE | 2020-03-11 11:39 | Emergency Department Report ---
ED N/V/D HPI - General Chief complaint: Nausea/Vomiting/Diarrhea Stated complaint: DEHYDRATION Time Seen by Provider: 03/11/20 11:01 Source: patient Mode of arrival: Ambulatory Limitations: No Limitations - History of Present Illness Initial comments: Chief complaint: " I am suffering from severe dehydration." HPI: This is a 44-year-old male with history of congestive heart failure EF 40 to 45%, alcohol dependence, CVA, chronic kidney disease, anemia, pulmonary embolism on warfarin therapy who presents with diarrhea and generalized general malaise for the past week. He denies fever. Denies shortness of breath he denies cough. He does have mild headache and sore throat. Recently discharged 10 days ago from this hospital after treatment and management of acute exacerbation of CHF. He denies pain. PCP Dr. Beach N[employer] Operator Dr. Vishal SMALLWOOD complaint: diarrhea, other (Mild headache mild sore throat) -: Gradual, week(s) (1) Description of Diarrhea: water Associated Abdominal Pain: No Severity: severe Consistency: constant Improves with: none Worsens with: none Context: other (Recent admission 10 days ago for CHF exacerbation) Associated Symptoms: headaches, malaise, other (Sore throat) - Related Data Previous Rx's Medication Instructions Recorded Last Taken Type Benzonatate [Tessalon Perle] 100 mg PO Q8H PRN #20 capsule 06/12/18 Unknown Rx Ibuprofen [Motrin 600 MG tab] 600 mg PO Q8H PRN #20 tablet 06/12/18 Unknown Rx Aspirin [Aspirin BABY CHEW TAB] 81 mg PO QDAY #100 tab.chew 02/04/20 Unknown Rx Clopidogrel [Plavix] 75 mg PO QDAY #30 tablet 02/04/20 Unknown Rx Furosemide [Lasix TAB] 40 mg PO QDAY #30 tablet 02/04/20 Unknown Rx Gabapentin 300 mg PO BID #60 capsule 02/04/20 Unknown Rx ISOSORBIDE MONOnitrate [Imdur ER] 30 mg PO QDAY #30 tablet 02/04/20 Unknown Rx Metoprolol [Lopressor TAB] 50 mg PO BID #60 tablet 02/04/20 Unknown Rx Potassium Chloride [K-Dur] 20 meq PO QDAY #30 02/04/20 Unknown Rx amLODIPine 10 mg PO DAILY #30 tablet 02/04/20 Unknown Rx hydrALAZINE [Apresoline TAB] 50 mg PO TID #90 tablet 02/04/20 Unknown Rx oxyCODONE /ACETAMINOPHEN [Percocet 1 tab PO Q6H PRN #14 tablet 02/04/20 Unknown Rx 5/325 mg] Famotidine [Pepcid] 40 mg PO QHS #10 tablet 02/13/20 Unknown Rx Prednisone [predniSONE 10 mg 10 mg PO .TAPER #1 tab.ds.pk 02/13/20 Unknown Rx (6-Day Pack, 21 Tabs)] diphenhydrAMINE [Benadryl CAP] 50 mg PO Q8HR PRN #10 capsule 02/13/20 Unknown Rx Cyclobenzaprine HCl [Flexeril 5 MG 5 mg PO TID PRN #15 tab 03/01/20 Unknown Rx TAB] Warfarin [Coumadin] 7.5 mg PO DAILY@1700 #30 tablet 03/01/20 Unknown Rx Allergies Allergy/AdvReac Type Severity Reaction Status Date / Time No Known Allergies Allergy Verified 04/21/17 15:31 ED Review of Systems ROS: Stated complaint: DEHYDRATION Other details as noted in HPI Comment: All other systems reviewed and negative Constitutional: denies: chills, fever, malaise ENT: throat pain Respiratory: denies: cough, shortness of breath Gastrointestinal: diarrhea. denies: abdominal pain, nausea, vomiting Neurological: headache ED Past Medical Hx - Past Medical History Previous Medical History?: Yes Hx Hypertension: Yes Hx CVA: Yes (ischemic, no resid. deficits) Hx Congestive Heart Failure: Yes Hx Diabetes: No Hx Pulmonary Embolism: Yes Hx Renal Disease: Yes Hx Asthma: Yes Hx COPD: No Hx HIV: No Additional medical history: gout - Surgical History Past Surgical History?: Yes Additional Surgical History: Heart Cath 2006 - Social History Smoking Status: Never Smoker Substance Use Type: Alcohol - Medications Home Medications: Home Medications Medication Instructions Recorded Confirmed Last Taken Type Benzonatate [Tessalon Perle] 100 mg PO Q8H PRN #20 capsule 06/12/18 02/28/20 Unknown Rx Ibuprofen [Motrin 600 MG tab] 600 mg PO Q8H PRN #20 tablet 06/12/18 02/28/20 Unknown Rx Aspirin [Aspirin BABY CHEW TAB] 81 mg PO QDAY #100 tab.chew 02/04/20 02/28/20 Unknown Rx Clopidogrel [Plavix] 75 mg PO QDAY #30 tablet 02/04/20 02/28/20 Unknown Rx Furosemide [Lasix TAB] 40 mg PO QDAY #30 tablet 02/04/20 02/28/20 Unknown Rx Gabapentin 300 mg PO BID #60 capsule 02/04/20 02/28/20 Unknown Rx ISOSORBIDE MONOnitrate [Imdur ER] 30 mg PO QDAY #30 tablet 02/04/20 02/28/20 Unknown Rx Metoprolol [Lopressor TAB] 50 mg PO BID #60 tablet 02/04/20 02/28/20 Unknown Rx Potassium Chloride [K-Dur] 20 meq PO QDAY #30 02/04/20 02/28/20 Unknown Rx amLODIPine 10 mg PO DAILY #30 tablet 02/04/20 02/28/20 Unknown Rx hydrALAZINE [Apresoline TAB] 50 mg PO TID #90 tablet 02/04/20 02/28/20 Unknown Rx oxyCODONE /ACETAMINOPHEN [Percocet 1 tab PO Q6H PRN #14 tablet 02/04/20 02/28/20 Unknown Rx 5/325 mg] Famotidine [Pepcid] 40 mg PO QHS #10 tablet 02/13/20 02/28/20 Unknown Rx Prednisone [predniSONE 10 mg 10 mg PO .TAPER #1 tab.ds.pk 02/13/20 02/28/20 Unknown Rx (6-Day Pack, 21 Tabs)] diphenhydrAMINE [Benadryl CAP] 50 mg PO Q8HR PRN #10 capsule 02/13/20 02/28/20 Unknown Rx Cyclobenzaprine HCl [Flexeril 5 MG 5 mg PO TID PRN #15 tab 03/01/20 Unknown Rx TAB] Warfarin [Coumadin] 7.5 mg PO DAILY@1700 #30 tablet 03/01/20 Unknown Rx ED Physical Exam - General Limitations: No Limitations General appearance: alert, in no apparent distress - Head Head exam: Present: atraumatic, normocephalic - Eye Eye exam: Present: normal appearance - ENT ENT exam: Present: mucous membranes dry - Neck Neck exam: Present: normal inspection - Respiratory Respiratory exam: Present: normal lung sounds bilaterally. Absent: respiratory distress, wheezes, rales, rhonchi - Cardiovascular Cardiovascular Exam: Present: regular rate, normal rhythm, normal heart sounds. Absent: systolic murmur, diastolic murmur, rubs, gallop - GI/Abdominal GI/Abdominal exam: Present: soft, normal bowel sounds. Absent: distended, tenderness, guarding, rebound - Rectal Rectal exam: Present: deferred - Extremities Exam Extremities exam: Present: normal inspection - Neurological Exam Neurological exam: Present: alert, oriented X3 - Psychiatric Psychiatric exam: Present: normal affect, normal mood - Skin Skin exam: Present: warm, dry, intact, normal color. Absent: rash ED Course Vital Signs 03/11/20 03/11/20 10:37 11:02 Temperature 99.0 F 98.4 F Pulse Rate 93 H Respiratory 24 18 Rate Blood Pressure 100/64 Blood Pressure 132/86 [Right] O2 Sat by Pulse 91 100 Oximetry ED Medical Decision Making - Lab Data Result diagrams: 03/11/20 11:18 03/11/20 11:18 - Medical Decision Making Acute respiratory failure hypoxia with history of headache sore throat diarr hea.. Upon triage patient 91% on room air. On chest radiograph patient has patchy airspace disease. On my personal review I suspect multifocal pneumonia more so than pulmonary edema. Patient has elevation of COVID-19 markers including LDH ferritin and CRP. I suspect COVID-19 infection. Patient also has concomitant diagnosis of CHF. Antibiotics were ordered in the emergency department. Patient is requiring oxygen supplementation 2 L nasal cannula. Will encourage patient to have p.o. hydration versus IV fluid. Considering patient has a history of CKD and CHF. Critical care attestation.: If time is entered above; I have spent that time in minutes in the direct care of this critically ill patient, excluding procedure time. ED Disposition Clinical Impression: Acute respiratory failure with hypoxia, Suspected COVID-19 virus infection, CKD (chronic kidney disease), Chronic anticoagulation Disposition: OP ADMIT IP TO THIS HOSP Is pt being admited?: Yes Does the pt Need Aspirin: No Condition: Stable
[2020-03-11 11:52] LABS: Basophils % (Auto) 0.3 % (0.0-1.8); Hematocrit 37.2 % (35.5-45.6); Hemoglobin 12.3 gm/dl (11.8-15.2); Lymphocytes # (Auto) 0.8 K/mm3 (1.2-5.4); Lymphocytes % (Auto) 15.1 % (13.4-35.0); Mean Corpuscular HGB Conc 33 % (32-34); Mean Corpuscular Volume 85 fl (84-94); Monocytes # (Auto) 0.2 K/mm3 (0.0-0.8); Monocytes % (Auto) 4.5 % (0.0-7.3); Platelet Count 410 K/mm3 (140-440); Red Cell Distribution Width 17.6 % (13.2-15.2)
[2020-03-11 11:58] LABS: INR 1.82 (0.87-1.13)
--- NOTE | 2020-03-11 12:05 | XRay Report ---
CHEST 1 VIEW INDICATION / CLINICAL INFORMATION: Shortness of breath history of CHF. COMPARISON: 02/27/2020 FINDINGS: SUPPORT DEVICES: None. HEART / MEDIASTINUM: No significant abnormality. LUNGS / PLEURA: Bilateral airspace disease No pneumothorax. ADDITIONAL FINDINGS: No significant additional findings. IMPRESSION: Slight improvement in the bilateral airspace disease from 02/27/2020. Signer Name: Oscar Varela MD FACDarron Signed: 03/11/2020 12:01 PM Workstation Name: [email or web address]
[2020-03-11 12:06] LABS: C-Reactive Protein 6.7 mg/dL (0.00-1.30)
[2020-03-11] MEDS ORDERED: cefTRIAXone/NS 1 GM/50 ML 1 GM/50 ML BAG IV ONE (12:59)
[2020-03-11] MEDS ORDERED: AZITHROMYCIN 500 MG in SODIUM CHLORIDE 0.9% 250ML 250 ML IV ONE (13:30)
--- NOTE | 2020-03-11 16:34 | History and Physical Report ---
History of Present Illness Chief complaint: Shortness of breath History of present illness: 44-year-old male with known history of hypertension, CHF with ejection fraction of 40 to 45% (on echo done in 01/2020), Gout presenting to the emergency room complaining of shortness of breath, diarrhea, abdominal pain and vomiting. He says symptoms started 5 days prior. He was recently discharged from here about a week ago after management for acute on chronic systolic CHF. He denies any ingestion of unaccustomed meals. He deneis any contact with someone with COVID- 19. He was recently tested for COVID-19 and was negative. His labs have been reviewed Medications and Allergies Allergies Allergy/AdvReac Type Severity Reaction Status Date / Time No Known Allergies Allergy Verified 04/21/17 15:31 Home Medications Medication Instructions Recorded Confirmed Last Taken Type Benzonatate [Tessalon Perle] 100 mg PO Q8H PRN #20 capsule 06/12/18 02/28/20 Unknown Rx Ibuprofen [Motrin 600 MG tab] 600 mg PO Q8H PRN #20 tablet 06/12/18 02/28/20 Unknown Rx Aspirin [Aspirin BABY CHEW TAB] 81 mg PO QDAY #100 tab.chew 02/04/20 02/28/20 Unknown Rx Clopidogrel [Plavix] 75 mg PO QDAY #30 tablet 02/04/20 02/28/20 Unknown Rx Furosemide [Lasix TAB] 40 mg PO QDAY #30 tablet 02/04/20 02/28/20 Unknown Rx Gabapentin 300 mg PO BID #60 capsule 02/04/20 02/28/20 Unknown Rx ISOSORBIDE MONOnitrate [Imdur ER] 30 mg PO QDAY #30 tablet 02/04/20 02/28/20 Unknown Rx Metoprolol [Lopressor TAB] 50 mg PO BID #60 tablet 02/04/20 02/28/20 Unknown Rx Potassium Chloride [K-Dur] 20 meq PO QDAY #30 02/04/20 02/28/20 Unknown Rx amLODIPine 10 mg PO DAILY #30 tablet 02/04/20 02/28/20 Unknown Rx hydrALAZINE [Apresoline TAB] 50 mg PO TID #90 tablet 02/04/20 02/28/20 Unknown Rx oxyCODONE /ACETAMINOPHEN [Percocet 1 tab PO Q6H PRN #14 tablet 02/04/20 02/28/20 Unknown Rx 5/325 mg] Famotidine [Pepcid] 40 mg PO QHS #10 tablet 02/13/20 02/28/20 Unknown Rx Prednisone [predniSONE 10 mg 10 mg PO .TAPER #1 tab.ds.pk 02/13/20 02/28/20 Unknown Rx (6-Day Pack, 21 Tabs)] diphenhydrAMINE [Benadryl CAP] 50 mg PO Q8HR PRN #10 capsule 02/13/20 02/28/20 Unknown Rx Cyclobenzaprine HCl [Flexeril 5 MG 5 mg PO TID PRN #15 tab 03/01/20 Unknown Rx TAB] Warfarin [Coumadin] 7.5 mg PO DAILY@1700 #30 tablet 03/01/20 Unknown Rx Review of Systems Cardiovascular: dyspnea on exertion Exam - Physical Exam Narrative exam: VITAL SIGNS: Reviewed. GENERAL: Awake and alert on response to questions HEAD: No signs of head trauma. EYES: Pupils are equal. Extraocular motions intact. EARS: Hearing grossly intact. MOUTH: Oropharynx is normal. NECK: No adenopathy, no JVD. CHEST: Has some rales. CARDIAC: Regular rate and rhythm. S1 and S2, without murmurs, gallops, or rubs. VASCULAR: No Edema. Peripheral pulses normal and equal in all extremities. ABDOMEN: Soft, non tender and non distended. No rebound or guarding, and no masses palpated. Bowel Sounds normal. MUSCULOSKELETAL: Good range of motion of all major joints. Extremities without clubbing, cyanosis or edema. NEUROLOGIC EXAM: Alert and oriented x3. No focal neurologic deficits PSYCHIATRIC: Stable mood SKIN: No obvious lesions - Constitutional Vitals: Temp Pulse Resp BP Pulse Ox 98.4 F 95 H 35 H 107/67 96 03/11/20 11:02 03/11/20 15:45 03/11/20 15:45 03/11/20 15:45 03/11/20 15:45 Results - Labs CBC & Chem 7: 03/11/20 11:18 03/11/20 11:18 Labs: Laboratory Last Values WBC 5.2 K/mm3 (4.5-11.0) 03/11/20 11:18 RBC 4.40 M/mm3 (3.65-5.03) 03/11/20 11:18 Hgb 12.3 gm/dl (11.8-15.2) 03/11/20 11:18 Hct 37.2 % (35.5-45.6) 03/11/20 11:18 MCV 85 fl (84-94) 03/11/20 11:18 MCH 28 pg (28-32) 03/11/20 11:18 MCHC 33 % (32-34) 03/11/20 11:18 RDW 17.6 % (13.2-15.2) H 03/11/20 11:18 Plt Count 410 K/mm3 (140-440) 03/11/20 11:18 Lymph % (Auto) 15.1 % (13.4-35.0) 03/11/20 11:18 [place] % (Auto) 4.5 % (0.0-7.3) 03/11/20 11:18 Eos % (Auto) 0.0 % (0.0-4.3) 03/11/20 11:18 Baso % (Auto) 0.3 % (0.0-1.8) 03/11/20 11:18 Lymph # (Auto) 0.8 K/mm3 (1.2-5.4) L 03/11/20 11:18 [place] # (Auto) 0.2 K/mm3 (0.0-0.8) 03/11/20 11:18 Eos # (Auto) 0.0 K/mm3 (0.0-0.4) 03/11/20 11:18 Baso # (Auto) 0.0 K/mm3 (0.0-0.1) 03/11/20 11:18 Seg Neutrophils % 80.1 % (40.0-70.0) H 03/11/20 11:18 Seg Neutrophils # 4.2 K/mm3 (1.8-7.7) 03/11/20 11:18 PT 21.3 Sec. (12.2-14.9) H 03/11/20 11:18 INR 1.82 (0.87-1.13) H 03/11/20 11:18 D-Dimer 261.32 ng/mlDDU (0-234) H 03/11/20 11:18 Sodium 132 mmol/L (137-145) L 03/11/20 11:18 Potassium 3.8 mmol/L (3.6-5.0) 03/11/20 11:18 Chloride 99.2 mmol/L (98-107) 03/11/20 11:18 Carbon Dioxide 19 mmol/L (22-30) L 03/11/20 11:18 Anion Gap 18 mmol/L 03/11/20 11:18 BUN 26 mg/dL (9-20) H 03/11/20 11:18 Creatinine 1.8 mg/dL (0.8-1.3) H 03/11/20 11:18 Estimated GFR 49 ml/min 03/11/20 11:18 BUN/Creatinine Ratio 14 % 03/11/20 11:18 Glucose 99 mg/dL (75-100) 03/11/20 11:18 Glucose 100 mg/dL (75-100) 03/11/20 11:18 Lactic Acid 1.70 mmol/L (0.7-2.0) 03/11/20 14:29 Calcium 8.0 mg/dL (8.4-10.2) L 03/11/20 11:18 Ferritin 894.4 ng/mL (30.0-300.0) H 03/11/20 11:18 Lactate Dehydrogenase 902 units/L (91-180) H 03/11/20 11:18 C-Reactive Protein 6.70 mg/dL (0.00-1.30) H 03/11/20 11:18 NT-Pro-B Natriuret Pep 893.1 pg/mL (0-450) H 03/11/20 11:18 Procalcitonin 0.32 ng/mL (<0.15) 03/11/20 11:18 Microbiology: Microbiology 03/11/20 11:18 Peripheral/Venous Blood Culture - Preliminary Culture in Progress 03/11/20 11:18 Peripheral/Venous Blood Culture - Preliminary Culture in Progress Rodriguez/IV: IV Catheter Type [Right Wrist] INT / Saline Lock Assessment and Plan Assessment and plan: -- Acute respiratory failure with hypoxia Current Visit: No Status: Acute Plan to address problem: Continue oxygen supplementation Patient has elevated inflammatory markers-noted ferritin, LDH and [id number] test ordered Dexamethasone 6 mg IV daily pending COVID-19 test IV antibiotics as procalcitonin 0.3 ABG stat ordered Hold Lasix for now due to JIM ---Multiple episodes of diarrhea with abdominal pain Current Visit: No Status: Chronic Plan to address problem: Check C. difficile infection CT abdomen and pelvis without contrast COVID-19 test -- Chronic systolic CHF/EF 40 to 45% Current Visit: No Status: Acute Plan to address problem: Hold Lasix for now due to JIM ProBNP is elevated but close to baseline -- Acute Kidney injury Current Visit: No Status: Acute Plan to address problem: Hold Lasix for now Check urine electrolytes Hold NSAIDs --Gout Current Visit: No Status: Chronic Plan to address problem: Stable. --H/O PE/CVA on chronic anticoagulation --HLD (hyperlipidemia) Current Visit: No Status: Chronic Plan to address problem: Continue home medications --HTN (hypertension) Current Visit: No Status: Chronic Plan to address problem: BP soft. Hold BP medications today and reassess tomorrow --DVT prophylaxis Current Visit: No Status: Acute Plan to address problem: On Coumadin --Full code status Current Visit: Yes Status: Acute
[2020-03-11] MEDS ORDERED: ONDANSETRON 4 MG/2 ML INJ IV PRN (16:53)
[2020-03-11] MEDS ORDERED: BENZONATATE 100 MG CAP PO PRN (16:55)
[2020-03-11] MEDS ORDERED: dexAMETHasone 4 MG/ML VIAL ONE (17:16)
[2020-03-11] MEDS: dexAMETHasone 4 MG/ML VIAL IV SCH (17:20)
[2020-03-11] MEDS: WARFARIN 7.5 MG TAB PO SCH (18:07)
[2020-03-11 18:33] LABS: C-Reactive Protein 6.4 mg/dL (0.00-1.30)
--- NOTE | 2020-03-11 23:04 | Cat Scan Report ---
CT ABDOMEN AND PELVIS WITHOUT CONTRAST INDICATION / CLINICAL INFORMATION: Abdominal pain - rule out possible colitis. TECHNIQUE: Axial CT images were obtained through the abdomen and pelvis without IV contrast. All CT scans at [facility] location are performed using CT dose reduction for ALARA by means of automated exposure control. COMPARISON: None available. FINDINGS: LOWER CHEST: Scattered groundglass opacities throughout the visualized portion of bilateral lower yuan g sykes. LIVER: Scattered tiny hypoattenuating lesions throughout right hepatic lobe are too small to characte rize. GALLBLADDER: No significant abnormality. BILE DUCTS: No significant abnormality. PANCREAS: No significant abnormality. SPLEEN: No significant abnormality. ADRENALS: No significant abnormality. RIGHT KIDNEY / URETER: No significant abnormality. LEFT KIDNEY / URETER: No significant abnormality. STOMACH / SMALL BOWEL: No significant abnormality. COLON: No significant abnormality. APPENDIX: No significant abnormality. PERITONEUM: No free fluid. No free air. No fluid collection. LYMPH NODES: No significant adenopathy. AORTA / ARTERIES: Mild atherosclerotic calcification without acute abnormality. IVC / VEINS: No significant abnormality. URINARY BLADDER: No significant abnormality. REPRODUCTIVE ORGANS: No significant abnormality. ADDITIONAL FINDINGS: None. SKELETAL SYSTEM: Focal hypoattenuating lesion of L3 vertebral body. IMPRESSION: 1. Scattered groundglass opacities throughout the visualized portion of bilateral lower lung sykes. Atypical versus viral infectious process leads the differential. 2. No evidence of acute process in the abdomen or pelvis. Specifically no evidence of colitis. 3. Focal hypoattenuating lesion of L3 vertebral body does not show aggressive features and may repres ent a benign fibro-osseous lesion. However, CT follow-up to determine stability is recommended. Signer Name: Dalton Rodriguez MD Signed: 03/11/2020 11:00 PM Workstation Name: [id number]
[2020-03-12] MEDS: ACETAMINOPHEN 325 MG TAB PO PRN (00:38)
[2020-03-12 05:27] LABS: Basophils % (Auto) 0.1 % (0.0-1.8); Hematocrit 36.2 % (35.5-45.6); Hemoglobin 11.5 gm/dl (11.8-15.2); Lymphocytes # (Auto) 0.4 K/mm3 (1.2-5.4); Lymphocytes % (Auto) 11.9 % (13.4-35.0); Mean Corpuscular HGB Conc 32 % (32-34); Mean Corpuscular Volume 85 fl (84-94); Monocytes # (Auto) 0.1 K/mm3 (0.0-0.8); Monocytes % (Auto) 3.9 % (0.0-7.3); Platelet Count 392 K/mm3 (140-440); Red Blood Count 4.25 M/mm3 (3.65-5.03); Red Cell Distribution Width 17.2 % (13.2-15.2)
[2020-03-12 05:37] LABS: INR 2.19 (0.87-1.13)
[2020-03-12 05:52] LABS: Calcium 7.9 mg/dL (8.4-10.2)
[2020-03-12] MEDS: METOPROLOL TARTRATE 50 MG TAB PO SCH ×3 (10:05→21:56)
[2020-03-12] MEDS: amLODIPine 10 MG TAB PO SCH (10:24)
[2020-03-12] MEDS: CLOPIDOGREL 75 MG TAB PO SCH (10:24)
[2020-03-12] MEDS: GABAPENTIN 300 MG CAP PO SCH ×3 (10:24→22:04)
[2020-03-12] MEDS: cefTRIAXone/NS 1 GM/50 ML 1 GM/50 ML BAG IV SCH (10:25)
[2020-03-12] MEDS: dexAMETHasone 4 MG/ML VIAL IV SCH (10:25)
[2020-03-12] MEDS: AZITHROMYCIN 250 MG TAB PO SCH (10:27)
--- NOTE | 2020-03-12 13:00 | Progress Note ---
Assessment and Plan Assessment and plan: 44-year-old male with known history of hypertension, CHF with ejection fraction of 40 to 45% (on echo done in 01/2020), Gout presenting to the emergency room complaining of shortness of breath, diarrhea, abdominal pain and vomiting. He says symptoms started 5 days prior. He was recently discharged from here about a week ago after management for acute on chronic systolic CHF. He denies any ingestion of unaccustomed meals. He deneis any contact with someone with COVID- 19. He was recently tested for COVID-19 and was negative. His labs have been reviewed. Had JIM and elevated inflammatory markers. COVID- 19 test ordered. Hold Lasix for now due to JIM. 03/12. Patient seen and examined at bedside this morning. Patient feels much better today but still needs oxygen to maintain saturation. He is on antibiotics for bilateral opacities found on x-ray. Awaiting COVID-19 test today. Continue dexamethasone for now -- Acute respiratory failure with hypoxia Current Visit: No Status: Acute Plan to address problem: Continue oxygen supplementation Patient has elevated inflammatory markers-noted ferritin, LDH and CRP COVID-19 test pending Continue dexamethasone 6 mg IV daily pending COVID-19 test IV antibiotics as procalcitonin 0.3 Hold Lasix for now due to JIM Has bilateral opacities in both lower lungs ---Multiple episodes of diarrhea with abdominal pain Current Visit: No Status: Chronic Plan to address problem: C. difficile PCR pending CT abdomen and pelvis without contrast-no colitis COVID-19 test pending -- Chronic systolic CHF/EF 40 to 45% Current Visit: No Status: Acute Plan to address problem: Hold Lasix for now due to JIM ProBNP is elevated but close to baseline -- Acute Kidney injury Current Visit: No Status: Acute Plan to address problem: Hold Lasix for now Check urine electrolytes Hold NSAIDs --Gout Current Visit: No Status: Chronic Plan to address problem: Stable. --H/O PE/CVA on chronic anticoagulation --HLD (hyperlipidemia) Current Visit: No Status: Chronic Plan to address problem: Continue home medications --HTN (hypertension) Current Visit: No Status: Chronic Plan to address problem: BP soft. Hold BP medications today and reassess tomorrow --DVT prophylaxis Current Visit: No Status: Acute Plan to address problem: On Coumadin --Full code status Current Visit: Yes Status: Acute History Interval history: Patient seen and examined at bedside this morning. Patient feels much better. He still needs oxygen to maintain saturation. COVID-19 test ordered and results are pending labs have been reviewed Hospitalist Physical - Physical exam Narrative exam: VITAL SIGNS: Reviewed. GENERAL: Awake and alert on response to questions HEAD: No signs of head trauma. EYES: Pupils are equal. Extraocular motions intact. EARS: Hearing grossly intact. MOUTH: Oropharynx is normal. NECK: No adenopathy, no JVD. CHEST: Has some rales. CARDIAC: Regular rate and rhythm. S1 and S2, without murmurs, gallops, or rubs. VASCULAR: No Edema. Peripheral pulses normal and equal in all extremities. ABDOMEN: Soft, non tender and non distended. No rebound or guarding, and no masses palpated. Bowel Sounds normal. MUSCULOSKELETAL: Good range of motion of all major joints. Extremities without clubbing, cyanosis or edema. NEUROLOGIC EXAM: Alert and oriented x3. No focal neurologic deficits PSYCHIATRIC: Stable mood SKIN: No obvious lesions - Constitutional Vitals: Temp Pulse Resp BP Pulse Ox 98 F 94 H 18 125/85 99 03/12/20 05:40 03/12/20 05:40 03/12/20 05:40 03/12/20 05:40 03/12/20 04:54 Results - Labs CBC & Chem 7: 03/12/20 04:37 03/12/20 04:37 Labs: Laboratory Last Values WBC 3.5 K/mm3 (4.5-11.0) L 03/12/20 04:37 RBC 4.25 M/mm3 (3.65-5.03) 03/12/20 04:37 Hgb 11.5 gm/dl (11.8-15.2) L 03/12/20 04:37 Hct 36.2 % (35.5-45.6) 03/12/20 04:37 MCV 85 fl (84-94) 03/12/20 04:37 MCH 27 pg (28-32) L 03/12/20 04:37 MCHC 32 % (32-34) 03/12/20 04:37 RDW 17.2 % (13.2-15.2) H 03/12/20 04:37 Plt Count 392 K/mm3 (140-440) 03/12/20 04:37 Lymph % (Auto) 11.9 % (13.4-35.0) L 03/12/20 04:37 [place] % (Auto) 3.9 % (0.0-7.3) 03/12/20 04:37 Eos % (Auto) 0.0 % (0.0-4.3) 03/12/20 04:37 Baso % (Auto) 0.1 % (0.0-1.8) 03/12/20 04:37 Lymph # (Auto) 0.4 K/mm3 (1.2-5.4) L 03/12/20 04:37 [place] # (Auto) 0.1 K/mm3 (0.0-0.8) 03/12/20 04:37 Eos # (Auto) 0.0 K/mm3 (0.0-0.4) 03/12/20 04:37 Baso # (Auto) 0.0 K/mm3 (0.0-0.1) 03/12/20 04:37 Seg Neutrophils % 84.1 % (40.0-70.0) H 03/12/20 04:37 Seg Neutrophils # 3.0 K/mm3 (1.8-7.7) 03/12/20 04:37 PT 24.7 Sec. (12.2-14.9) H 03/12/20 04:37 INR 2.19 (0.87-1.13) H 03/12/20 04:37 D-Dimer 261.32 ng/mlDDU (0-234) H 03/11/20 11:18 ABG pH 7.478 (7.320-7.450) H 03/11/20 18:15 POC ABG pCO2 24.6 mmHg (32.0-48.0) L 03/11/20 18:15 POC ABG pO2 69.7 mmHg (83-108) L 03/11/20 18:15 POC ABG HCO3 17.8 03/11/20 18:15 POC ABG Base Excess -4.1 03/11/20 18:15 ABG Hemoglobin 12.5 (12.0-17.5) 03/11/20 18:15 ABG Sodium 129.3 mmol/L (136.0-145.0) L 03/11/20 18:15 ABG Potassium 3.7 mmol/L (3.40-4.50) 03/11/20 18:15 ABG Chloride 101.0 mmol/L (98-107) 03/11/20 18:15 ABG Glucose 92 mg/dL (65-95) 03/11/20 18:15 FiO2 100 03/11/20 18:15 Sodium 135 mmol/L (137-145) L 03/12/20 04:37 Potassium 3.9 mmol/L (3.6-5.0) 03/12/20 04:37 Chloride 100.1 mmol/L (98-107) 03/12/20 04:37 Carbon Dioxide 19 mmol/L (22-30) L 03/12/20 04:37 Anion Gap 20 mmol/L 03/12/20 04:37 BUN 30 mg/dL (9-20) H 03/12/20 04:37 Creatinine 1.9 mg/dL (0.8-1.3) H 03/12/20 04:37 Estimated GFR 46 ml/min 03/12/20 04:37 BUN/Creatinine Ratio 16 % 03/12/20 04:37 Glucose 112 mg/dL (75-100) H 03/12/20 04:37 POC Glucose 102 mg/dL (70-105) 03/12/20 11:18 Lactic Acid 1.70 mmol/L (0.7-2.0) 03/11/20 14:29 Calcium 7.9 mg/dL (8.4-10.2) L 03/12/20 04:37 Ferritin 967.8 ng/mL (30.0-300.0) H 03/11/20 18:00 Total Bilirubin 0.50 mg/dL (0.1-1.2) 03/12/20 04:37 AST 59 units/L (5-40) H 03/12/20 04:37 ALT 45 units/L (7-56) 03/12/20 04:37 Alkaline Phosphatase 83 units/L (35-129) 03/12/20 04:37 Lactate Dehydrogenase 973 units/L (91-180) H 03/11/20 18:00 C-Reactive Protein 6.40 mg/dL (0.00-1.30) H 03/11/20 18:00 NT-Pro-B Natriuret Pep 893.1 pg/mL (0-450) H 03/11/20 11:18 Total Protein 6.5 g/dL (6.3-8.2) 03/12/20 04:37 Albumin 3.0 g/dL (3.9-5) L 03/12/20 04:37 Albumin/Globulin Ratio 0.9 % 03/12/20 04:37 Procalcitonin 0.32 ng/mL (<0.15) 03/11/20 11:18 Arterial Blood Glucose 92 mg/dL (65-95) 03/11/20 18:15 Arterial Blood Ionized Calcium 4.3 mg/dL (4.6-5.3) L 03/11/20 18:15 Microbiology: Microbiology 03/11/20 11:18 Peripheral/Venous Blood Culture - Preliminary NO GROWTH AFTER 24 HOURS 03/11/20 11:18 Peripheral/Venous Blood Culture - Preliminary NO GROWTH AFTER 24 HOURS Rodriguez/IV: Voiding Method Toilet IV Catheter Type [Right Wrist] INT / Saline Lock Active Medications - Current Medications Current Medications: Generic Name Dose Route Start Last Admin Trade Name Freq PRN Reason Stop Dose Admin Acetaminophen 650 mg 03/11/20 16:53 03/12/20 00:38 Tylenol PO 650 mg Q4H PRN Administration Pain MILD(1-3)/Fever >100.5/LI Amlodipine Besylate 10 mg 03/12/20 10:00 03/12/20 10:24 Amlodipine PO 10 mg DAILY [facility] Administration Azithromycin 250 mg 03/12/20 10:00 03/12/20 10:27 Zithromax PO 250 mg DAILY [facility] Administration Benzonatate 100 mg 03/11/20 16:55 Tessalon Perles PO Q8H PRN Cough Clopidogrel Bisulfate 75 mg 03/12/20 10:00 03/12/20 10:24 Plavix PO 75 mg DAILY [facility] Administration Dexamethasone 6 mg 03/11/20 17:00 03/12/20 10:25 Decadron IV 6 mg DAILY [place] Administration Gabapentin 300 mg 03/11/20 22:00 03/12/20 10:24 Gabapentin PO 300 mg BID [place] Administration Hydralazine HCl 50 mg 03/11/20 20:00 Apresoline PO TID [facility] Ceftriaxone Sodium 1 gm in 50 mls @ 100 mls/hr 03/12/20 10:00 03/12/20 10:25 Rocephin/Ns 1 Gm/50 Ml IV 100 mls/hr Q24HR [place] Administration Protocol Isosorbide Mononitrate 30 mg 03/12/20 10:00 Imdur PO QDAY [facility] Metoprolol Tartrate 50 mg 03/11/20 22:00 03/12/20 10:24 Metoprolol PO 50 mg BID [place] Administration Ondansetron HCl 4 mg 03/11/20 16:53 Zofran IV Q8H PRN Nausea And Vomiting Sodium Chloride 10 ml 03/11/20 22:00 03/12/20 10:26 Sodium Chloride Flush Syringe 10 Ml IV 10 ml BID [place] Administration Sodium Chloride 10 ml 03/11/20 16:53 Sodium Chloride Flush Syringe 10 Ml IV PRN PRN LINE FLUSH Warfarin Sodium 7.5 mg 03/11/20 17:00 03/11/20 18:07 Coumadin PO 7.5 mg DAILY@1700 [facility] Administration Protocol Nutrition/Malnutrition Assess - Dietary Evaluation Nutrition/Malnutrition Findings: Nutrition Notes Start: 03/12/20 11:06 Freq: Status: Active Protocol: Document 03/12/20 11:06 LM (Rec: 03/12/20 11:09 LM [id number]) Nutrition Notes Need for Assessment generated from: Education Initial or Follow up Brief Note Pertinent Medications Coumadin Weight Status Obese Subjective/Other Information Screen for Coumadin education. Pt stated eating well [employer] and not wt loss. Pt aware of vitamin K and Coumadin interaction and did not want any education. Nutrition Intervention Revisit per MD consult or patient Sign Off request:
[2020-03-12] MEDS: WARFARIN 7.5 MG TAB PO SCH (17:55)
[2020-03-12] MEDS: hydrALAZINE 25 MG TAB PO SCH ×2 (21:57→22:04)
[2020-03-13] MEDS: ACETAMINOPHEN 325 MG TAB PO PRN (06:51)
--- NOTE | 2020-03-13 08:35 | XRay Report ---
. XR chest 1V ap INDICATION / CLINICAL INFORMATION: Shortness of breath. COMPARISON: Radiograph from two days prior. FINDINGS: SUPPORT DEVICES: None. HEART / MEDIASTINUM: Prominent but unchanged. LUNGS / PLEURA: Lung parenchyma is not significantly changed with persistent bilateral airspace disea se. Costophrenic sulci are sharp. No pneumothorax. ADDITIONAL FINDINGS: No significant additional findings. IMPRESSION: 1. No significant interval change with persistent airspace disease. Signer Name: Leighton Almaguer MD Signed: 03/13/2020 8:30 AM Workstation Name: [id number]
[2020-03-13] MEDS: cefTRIAXone/NS 1 GM/50 ML 1 GM/50 ML BAG IV SCH (09:37)
[2020-03-13] MEDS: CLOPIDOGREL 75 MG TAB PO SCH (09:38)
[2020-03-13] MEDS: GABAPENTIN 300 MG CAP PO SCH ×2 (09:38→22:02)
[2020-03-13] MEDS: dexAMETHasone 4 MG/ML VIAL IV SCH (09:38)
[2020-03-13] MEDS: AZITHROMYCIN 250 MG TAB PO SCH (09:38)
[2020-03-13] MEDS: hydrALAZINE 25 MG TAB PO SCH ×4 (09:38→22:03)
[2020-03-13] MEDS: METOPROLOL TARTRATE 50 MG TAB PO SCH ×2 (09:39→22:03)
[2020-03-13] MEDS: amLODIPine 10 MG TAB PO SCH (09:40)
--- NOTE | 2020-03-13 10:13 | Progress Note ---
Assessment and Plan Assessment and plan: 44-year-old male with known history of hypertension, CHF with ejection fraction of 40 to 45% (on echo done in 01/2020), Gout presenting to the emergency room complaining of shortness of breath, diarrhea, abdominal pain and vomiting. He says symptoms started 5 days prior. He was recently discharged from here about a week ago after management for acute on chronic systolic CHF. He denies any ingestion of unaccustomed meals. He deneis any contact with someone with COVID- 19. He was recently tested for COVID-19 and was negative. His labs have been reviewed. Had JIM and elevated inflammatory markers. COVID- 19 test ordered. Hold Lasix for now due to JIM. 03/12. Patient seen and examined at bedside this morning. Patient feels much better today but still needs oxygen to maintain saturation. He is on antibiotics for bilateral opacities found on x-ray. Awaiting COVID-19 test today. Continue dexamethasone for now 03/13. COVID-19 test positive. ID consulted. Continue dexamethasone and a ntibiotics for now. Overnight, patient became more hypoxic and had to be placed on BiPAP. Pulmonology consult requested. Patient will be going to the [facility] for close observation. Problems -- Acute respiratory failure with hypoxia Current Visit: No Status: Acute Plan to address problem: Continue oxygen supplementation COVID-19 positive Patient on BiPAP-pulmonology consult requested this a.m. patient will need to be transferred to [facility] -- COVID-19 positive test (U07.1, COVID-19) with Acute Pneumonia (J12.89, Other viral pneumonia) Current Visit: Yes Status: Acute Plan to address problem: Continue dexamethasone 6 mg IV daily ID consulted. Patient not a candidate for remdesivir for now due to JIM. Prone positioning if able Continue to monitor inflammatory markers -- Acute Kidney injury Current Visit: No Status: Acute Plan to address problem: Hold Lasix for now Nephrology consulted ---Multiple episodes of diarrhea with abdominal pain Current Visit: No Status: Chronic Plan to address problem: COVID-19 test positive Supportive management Monitor symptoms closely -- Chronic systolic CHF/EF 40 to 45% Current Visit: No Status: Acute Plan to address problem: Hold Lasix for now due to JIM ProBNP is elevated but close to baseline --Gout Current Visit: No Status: Chronic Plan to address problem: Stable. --H/O PE/CVA on chronic anticoagulation --HLD (hyperlipidemia) Current Visit: No Status: Chronic Plan to address problem: Continue home medications --HTN (hypertension) Current Visit: No Status: Chronic Plan to address problem: BP soft. Hold BP medications today and reassess tomorrow --DVT prophylaxis Current Visit: No Status: Acute Plan to address problem: On Coumadin --Full code status Current Visit: Yes Status: Acute History Interval history: Patient seen and examined at bedside this morning. Patient feels much better. He still needs oxygen to maintain saturation. COVID-19 test ordered and results are pending labs have been reviewed Hospitalist Physical - Physical exam Narrative exam: VITAL SIGNS: Reviewed. GENERAL: Awake and alert on response to questions. On BiPAP HEAD: No signs of head trauma. EYES: Pupils are equal. Extraocular motions intact. EARS: Hearing grossly intact. MOUTH: Oropharynx is normal. NECK: No adenopathy, no JVD. CHEST: Rales bilaterally CARDIAC: Regular rate and rhythm. S1 and S2, without murmurs, gallops, or rubs. VASCULAR: No Edema. Peripheral pulses normal and equal in all extremities. ABDOMEN: Soft, non tender and non distended. No rebound or guarding, and no masses palpated. Bowel Sounds normal. MUSCULOSKELETAL: Good range of motion of all major joints. Extremities without clubbing, cyanosis or edema. NEUROLOGIC EXAM: Alert and oriented x3. No focal neurologic deficits PSYCHIATRIC: Stable mood SKIN: No obvious lesions - Constitutional Vitals: Temp Pulse Resp BP Pulse Ox 100.7 F H 82 26 H 100/60 92 03/13/20 04:47 03/13/20 04:47 03/13/20 04:47 03/13/20 04:47 03/13/20 04:47 Results - Labs CBC & Chem 7: 03/12/20 04:37 03/12/20 04:37 Labs: Laboratory Last Values WBC 3.5 K/mm3 (4.5-11.0) L 03/12/20 04:37 RBC 4.25 M/mm3 (3.65-5.03) 03/12/20 04:37 Hgb 11.5 gm/dl (11.8-15.2) L 03/12/20 04:37 Hct 36.2 % (35.5-45.6) 03/12/20 04:37 MCV 85 fl (84-94) 03/12/20 04:37 MCH 27 pg (28-32) L 03/12/20 04:37 MCHC 32 % (32-34) 03/12/20 04:37 RDW 17.2 % (13.2-15.2) H 03/12/20 04:37 Plt Count 392 K/mm3 (140-440) 03/12/20 04:37 Lymph % (Auto) 11.9 % (13.4-35.0) L 03/12/20 04:37 [place] % (Auto) 3.9 % (0.0-7.3) 03/12/20 04:37 Eos % (Auto) 0.0 % (0.0-4.3) 03/12/20 04:37 Baso % (Auto) 0.1 % (0.0-1.8) 03/12/20 04:37 Lymph # (Auto) 0.4 K/mm3 (1.2-5.4) L 03/12/20 04:37 [place] # (Auto) 0.1 K/mm3 (0.0-0.8) 03/12/20 04:37 Eos # (Auto) 0.0 K/mm3 (0.0-0.4) 03/12/20 04:37 Baso # (Auto) 0.0 K/mm3 (0.0-0.1) 03/12/20 04:37 Seg Neutrophils % 84.1 % (40.0-70.0) H 03/12/20 04:37 Seg Neutrophils # 3.0 K/mm3 (1.8-7.7) 03/12/20 04:37 PT 24.7 Sec. (12.2-14.9) H 03/12/20 04:37 INR 2.19 (0.87-1.13) H 03/12/20 04:37 D-Dimer 261.32 ng/mlDDU (0-234) H 03/11/20 11:18 ABG pH 7.409 (7.320-7.450) 03/13/20 09:13 POC ABG pCO2 34.7 mmHg (32.0-48.0) 03/13/20 09:13 POC ABG pO2 89.0 mmHg (83-108) 03/13/20 09:13 POC ABG HCO3 21.5 03/13/20 09:13 POC ABG Base Excess -2.6 03/13/20 09:13 ABG Hemoglobin 12.5 (12.0-17.5) 03/13/20 09:13 ABG Sodium 130.7 mmol/L (136.0-145.0) L 03/13/20 09:13 ABG Potassium 3.8 mmol/L (3.40-4.50) 03/13/20 09:13 ABG Chloride 102.0 mmol/L (98-107) 03/13/20 09:13 ABG Glucose 98 mg/dL (65-95) H 03/13/20 09:13 FiO2 60.0 03/13/20 09:13 Sodium 135 mmol/L (137-145) L 03/12/20 04:37 Potassium 3.9 mmol/L (3.6-5.0) 03/12/20 04:37 Chloride 100.1 mmol/L (98-107) 03/12/20 04:37 Carbon Dioxide 19 mmol/L (22-30) L 03/12/20 04:37 Anion Gap 20 mmol/L 03/12/20 04:37 BUN 30 mg/dL (9-20) H 03/12/20 04:37 Creatinine 1.9 mg/dL (0.8-1.3) H 03/12/20 04:37 Estimated GFR 46 ml/min 03/12/20 04:37 BUN/Creatinine Ratio 16 % 03/12/20 04:37 Glucose 112 mg/dL (75-100) H 03/12/20 04:37 POC Glucose 91 mg/dL (70-105) 03/13/20 08:34 Lactic Acid 1.70 mmol/L (0.7-2.0) 03/11/20 14:29 Calcium 7.9 mg/dL (8.4-10.2) L 03/12/20 04:37 Ferritin 967.8 ng/mL (30.0-300.0) H 03/11/20 18:00 Total Bilirubin 0.50 mg/dL (0.1-1.2) 03/12/20 04:37 AST 59 units/L (5-40) H 03/12/20 04:37 ALT 45 units/L (7-56) 03/12/20 04:37 Alkaline Phosphatase 83 units/L (35-129) 03/12/20 04:37 Lactate Dehydrogenase 973 units/L (91-180) H 03/11/20 18:00 C-Reactive Protein 6.40 mg/dL (0.00-1.30) H 03/11/20 18:00 NT-Pro-B Natriuret Pep 893.1 pg/mL (0-450) H 03/11/20 11:18 Total Protein 6.5 g/dL (6.3-8.2) 03/12/20 04:37 Albumin 3.0 g/dL (3.9-5) L 03/12/20 04:37 Albumin/Globulin Ratio 0.9 % 03/12/20 04:37 Procalcitonin 0.32 ng/mL (<0.15) 03/11/20 11:18 Arterial Blood Glucose 98 mg/dL (65-95) H 03/13/20 09:13 Arterial Blood Ionized Calcium 4.4 mg/dL (4.6-5.3) L 03/13/20 09:13 Coronavirus (PCR) Positive (Negative) A 03/12/20 10:07 Microbiology: Microbiology 03/11/20 11:18 Peripheral/Venous Blood Culture - Preliminary NO GROWTH AFTER 24 HOURS 03/11/20 11:18 Peripheral/Venous Blood Culture - Preliminary NO GROWTH AFTER 24 HOURS Rodriguez/IV: Voiding Method Urinal IV Catheter Type [Right INT / Saline Lock Forearm] IV Catheter Type [Right Wrist] INT / Saline Lock Active Medications - Current Medications Current Medications: Generic Name Dose Route Start Last Admin Trade Name Freq PRN Reason Stop Dose Admin Acetaminophen 650 mg 03/11/20 16:53 03/13/20 06:51 Tylenol PO 650 mg Q4H PRN Administration Pain MILD(1-3)/Fever >100.5/LI Amlodipine Besylate 10 mg 03/12/20 10:00 03/13/20 09:40 Amlodipine PO Not Given DAILY [facility] Azithromycin 250 mg 03/12/20 10:00 03/13/20 09:38 Zithromax PO 250 mg DAILY [place] Administration Benzonatate 100 mg 03/11/20 16:55 Tessalon Perles PO Q8H PRN Cough Clopidogrel Bisulfate 75 mg 03/12/20 10:00 03/13/20 09:38 Plavix PO 75 mg DAILY [place] Administration Dexamethasone 6 mg 03/11/20 17:00 03/13/20 09:38 Decadron IV 6 mg DAILY [place] Administration Gabapentin 300 mg 03/11/20 22:00 03/13/20 09:38 Gabapentin PO 300 mg BID [place] Administration Hydralazine HCl 50 mg 03/11/20 20:00 03/13/20 09:39 Apresoline PO Not Given TID [place] Ceftriaxone Sodium 1 gm in 50 mls @ 100 mls/hr 03/12/20 10:00 03/13/20 09:37 Rocephin/Ns 1 Gm/50 Ml IV 100 mls/hr Q24HR [place] Administration Protocol Isosorbide Mononitrate 30 mg 03/12/20 10:00 03/13/20 09:37 Imdur PO 30 mg QDAY [place] Administration Metoprolol Tartrate 50 mg 03/11/20 22:00 03/13/20 09:39 Metoprolol PO 50 mg BID [place] Administration Ondansetron HCl 4 mg 03/11/20 16:53 Zofran IV Q8H PRN Nausea And Vomiting Sodium Chloride 10 ml 03/11/20 22:00 03/12/20 21:57 Sodium Chloride Flush Syringe 10 Ml IV 10 ml BID [place] Administration Sodium Chloride 10 ml 03/11/20 16:53 Sodium Chloride Flush Syringe 10 Ml IV PRN PRN LINE FLUSH Warfarin Sodium 7.5 mg 03/11/20 17:00 03/12/20 17:55 Coumadin PO 7.5 mg DAILY@1700 [facility] Administration Protocol Nutrition/Malnutrition Assess - Dietary Evaluation Nutrition/Malnutrition Findings: Nutrition Notes Start: 03/12/20 11:06 Freq: Status: Active Protocol: Document 03/12/20 11:06 LM (Rec: 03/12/20 11:09 LM [id number]) Nutrition Notes Need for Assessment generated from: Education Initial or Follow up Brief Note Pertinent Medications Coumadin Weight Status Obese Subjective/Other Information Screen for Coumadin education. Pt stated eating well [employer] and not wt loss. Pt aware of vitamin K and Coumadin interaction and did not want any education. Nutrition Intervention Revisit per MD consult or patient Sign Off request:
[2020-03-13] MEDS ORDERED: FAMOTIDINE 20 MG/2 ML INJ IV SCH (11:00)
[2020-03-13] MEDS ORDERED: FUROSEMIDE 40 MG/4 ML INJ IV ONE (11:23)
--- NOTE | 2020-03-13 11:31 | Consultation ---
History of Present Illness - Reason for Consult Consult date: 03/13/20 acute renal failure, chronic renal failure - History of Present Illness The patient is a 44 YO male with known history of Obesity, Hypertension, Systolic CHF, EF of 40 to 45% (Echo done 01/2020) and Gout who presented to [facility] ED 03/11 complaining of shortness of breath, diarrhea, nausea and vomiting for about a week duration. Associated symptoms include diffuse abdominal discomfort. He was recently discharged treated for acute on chronic systolic CHF and discharged on 03/01. He denies fever, chills, sick contact, reash, leg swelling, dysuria, hematuria, dizziness or syncope. He tested positive for COVID-19 during this admission. Labs significant for Creat 1.9 and BUN 30. Nephrology was consulted for further evaluation of JIM. Past History Past Medical History: other (See HPI.) Medications and Allergies Allergies Allergy/AdvReac Type Severity Reaction Status Date / Time No Known Allergies Allergy Verified 04/21/17 15:31 Home Medications Medication Instructions Recorded Confirmed Last Taken Type Benzonatate [Tessalon Perle] 100 mg PO Q8H PRN #20 capsule 06/12/18 03/13/20 Unknown Rx Ibuprofen [Motrin 600 MG tab] 600 mg PO Q8H PRN #20 tablet 06/12/18 03/13/20 Unknown Rx Aspirin [Aspirin BABY CHEW TAB] 81 mg PO QDAY #100 tab.chew 02/04/20 03/13/20 Unknown Rx Clopidogrel [Plavix] 75 mg PO QDAY #30 tablet 02/04/20 03/13/20 Unknown Rx Furosemide [Lasix TAB] 40 mg PO QDAY #30 tablet 02/04/20 03/13/20 Unknown Rx Gabapentin 300 mg PO BID #60 capsule 02/04/20 03/13/20 Unknown Rx ISOSORBIDE MONOnitrate [Imdur ER] 30 mg PO QDAY #30 tablet 02/04/20 03/13/20 Unknown Rx Metoprolol [Lopressor TAB] 50 mg PO BID #60 tablet 02/04/20 03/13/20 Unknown Rx Potassium Chloride [K-Dur] 20 meq PO QDAY #30 02/04/20 03/13/20 Unknown Rx amLODIPine 10 mg PO DAILY #30 tablet 02/04/20 03/13/20 Unknown Rx hydrALAZINE [Apresoline TAB] 50 mg PO TID #90 tablet 02/04/20 03/13/20 Unknown Rx oxyCODONE /ACETAMINOPHEN [Percocet 1 tab PO Q6H PRN #14 tablet 02/04/20 03/13/20 Unknown Rx 5/325 mg] Famotidine [Pepcid] 40 mg PO QHS #10 tablet 02/13/20 03/13/20 Unknown Rx Prednisone [predniSONE 10 mg 10 mg PO .TAPER #1 tab.ds.pk 02/13/20 03/13/20 Unknown Rx (6-Day Pack, 21 Tabs)] diphenhydrAMINE [Benadryl CAP] 50 mg PO Q8HR PRN #10 capsule 02/13/20 03/13/20 Unknown Rx Cyclobenzaprine HCl [Flexeril 5 MG 5 mg PO TID PRN #15 tab 03/01/20 03/13/20 Unknown Rx TAB] Warfarin [Coumadin] 7.5 mg PO DAILY@1700 #30 tablet 03/01/20 03/13/20 Unknown Rx Active Meds: Active Medications Acetaminophen (Tylenol) 650 mg PO Q4H PRN PRN Reason: Pain MILD(1-3)/Fever >100.5/LI Last Admin: 03/13/20 06:51 Dose: 650 mg Documented by: Amlodipine Besylate (Amlodipine) 10 mg PO DAILY [facility] Last Admin: 03/13/20 09:40 Dose: Not Given Documented by: Azithromycin (Zithromax) 250 mg PO DAILY [facility] Last Admin: 03/13/20 09:38 Dose: 250 mg Documented by: Benzonatate (Tessalon Perles) 100 mg PO Q8H PRN PRN Reason: Cough Clopidogrel Bisulfate (Plavix) 75 mg PO DAILY [facility] Last Admin: 03/13/20 09:38 Dose: 75 mg Documented by: Dexamethasone (Decadron) 4 mg PO DAILY [facility] Stop: 03/20/20 10:01 Dexamethasone (Decadron) 2 mg PO DAILY [facility] Stop: 03/20/20 10:01 Famotidine (Pepcid) 20 mg PO BID [facility] Gabapentin (Gabapentin) 300 mg PO BID [facility] Last Admin: 03/13/20 09:38 Dose: 300 mg Documented by: Hydralazine HCl (Apresoline) 50 mg PO TID [facility] Last Admin: 03/13/20 09:39 Dose: Not Given Documented by: Ceftriaxone Sodium (Rocephin/Ns 1 Gm/50 Ml) 1 gm in 50 mls @ 100 mls/hr IV Q24HR [facility]; Protocol Last Admin: 03/13/20 09:37 Dose: 100 mls/hr Documented by: Isosorbide Mononitrate (Imdur) 30 mg PO QDAY [facility] Last Admin: 03/13/20 09:37 Dose: 30 mg Documented by: Metoprolol Tartrate (Metoprolol) 50 mg PO BID [facility] Last Admin: 03/13/20 09:39 Dose: 50 mg Documented by: Ondansetron HCl (Zofran) 4 mg IV Q8H PRN PRN Reason: Nausea And Vomiting Sodium Chloride (Sodium Chloride Flush Syringe 10 Ml) 10 ml IV BID [facility] Last Admin: 03/12/20 21:57 Dose: 10 ml Documented by: Sodium Chloride (Sodium Chloride Flush Syringe 10 Ml) 10 ml IV PRN PRN PRN Reason: LINE FLUSH Warfarin Sodium (Coumadin) 7.5 mg PO DAILY@1700 [facility]; Protocol Last Admin: 03/12/20 17:55 Dose: 7.5 mg Documented by: Review of Systems Constitutional: fatigue, no weight loss, no weight gain, no fever, no chills, no anorexia Cardiovascular: shortness of breath, dyspnea on exertion, high blood pressure, no chest pain, no orthopnea, no edema, no syncope, no lightheadedness, no leg edema Respiratory: shortness of breath, dyspnea on exertion, no cough, no hemoptysis Gastrointestinal: abdominal pain, nausea, vomiting, diarrhea, no hematemesis, no melena, no hematochezia Genitourinary Male: no dysuria, no hematuria Rectal: no bleeding Integumentary: no rash, no jaundice Neurological: no syncope, no convulsions, no aphasia, no change in speech, no change in mentation, no confusion Exam - Vital Signs Vital signs: Vital Signs Temp Pulse Resp BP Pulse Ox 99.0 F 93 H 24 100/64 91 03/11/20 10:37 03/11/20 10:37 03/11/20 10:37 03/11/20 10:37 03/11/20 10:37 Results - Lab Results 03/12/20 04:37 03/12/20 04:37 Most recent lab results ABG pH 7.409 (7.320-7.450) 03/13/20 09:13 Calcium 7.9 mg/dL (8.4-10.2) L 03/12/20 04:37 - Image Kidney/bladder ultrasound: pending Assessment and Plan 1. Acute kidney injury: Acute kidney injury superimposed on CKD in the setting of COVID infection. CT abdomen negative for hydro. Monitor renal function. Renal prognosis is guarded. Avoid nephrotoxic agents. Meds dosage based on GFR. 2. FEN: Metabolic acidosis, monitor, monitor. Cautious use of diuretics if needed. Monitor lytes. 3. Acute hypoxic resp failure: Likely secondary to COVID-19 infection. CXR showed pulmonary infiltrate. On HFNC O2. Followed by Pulmonary. 4. Severe COVID-19 pneumonia. ID consulted. On Coumadin and INR therapeutic. Steroids. 5. Hypertension: BP is low, adjust meds as needed. Monitor BP. Subjective: Patient was seen and examined at the bedside. RN at the bedside. - General Appearance General appearance: well-developed, well-nourished, appears stated age, no distress, on HFNC O2 HEENT: ATNC Neck: supple Respiratory: faint rales noted Cardiology: S1S2, no murmur Gastrointestinal: normoactive bowel sounds, not tenderness, not distended Integumentary: no obvious rash Neurologic: AOX4, able to move all 4 extremities Ext: no edema noted
--- NOTE | 2020-03-13 11:31 | Consultation ---
History of Present Illness Consult date: 03/13/20 Requesting physician: HAJA IZQUIERDO Reason for consult: hypoxemia, other (COVID 19) History of present illness: 44 y/o male admitted 2 days ago with nausea and vomiting. Concern for severe dehydration. Patient also found to be mildly hypoxic with bilateral opacities on imaging. COVID checked and positive. Was on 3Tower but oxygen requirement has gradually increased and now patient is currently on bipap therapy. IMS consulted this am patient has been transferred to [facility]. ABG this am actually shows improvement in oxygenation compared to admission. Per RT notes, bipap therapy was placed secondary to increased work of breathing. I/O show that patient is positive about 1 liter. His lasix was held on admission secondary to a bump in Cr. He has already been started on Dexamethasone. Of note, he has HFrEF and prior history of PE on Warfarin therapy. Patient also has pulmonary hypertension as well. Past History Past Medical History: heart failure, hypertension, hyperlipidemia, pulmonary embolism Medications and Allergies Allergies Allergy/AdvReac Type Severity Reaction Status Date / Time No Known Allergies Allergy Verified 04/21/17 15:31 Home Medications Medication Instructions Recorded Confirmed Last Taken Type Benzonatate [Tessalon Perle] 100 mg PO Q8H PRN #20 capsule 06/12/18 03/13/20 Unknown Rx Ibuprofen [Motrin 600 MG tab] 600 mg PO Q8H PRN #20 tablet 06/12/18 03/13/20 Unknown Rx Aspirin [Aspirin BABY CHEW TAB] 81 mg PO QDAY #100 tab.chew 02/04/20 03/13/20 Unknown Rx Clopidogrel [Plavix] 75 mg PO QDAY #30 tablet 02/04/20 03/13/20 Unknown Rx Furosemide [Lasix TAB] 40 mg PO QDAY #30 tablet 02/04/20 03/13/20 Unknown Rx Gabapentin 300 mg PO BID #60 capsule 02/04/20 03/13/20 Unknown Rx ISOSORBIDE MONOnitrate [Imdur ER] 30 mg PO QDAY #30 tablet 02/04/20 03/13/20 Unknown Rx Metoprolol [Lopressor TAB] 50 mg PO BID #60 tablet 02/04/20 03/13/20 Unknown Rx Potassium Chloride [K-Dur] 20 meq PO QDAY #30 02/04/20 03/13/20 Unknown Rx amLODIPine 10 mg PO DAILY #30 tablet 02/04/20 03/13/20 Unknown Rx hydrALAZINE [Apresoline TAB] 50 mg PO TID #90 tablet 02/04/20 03/13/20 Unknown Rx oxyCODONE /ACETAMINOPHEN [Percocet 1 tab PO Q6H PRN #14 tablet 02/04/20 03/13/20 Unknown Rx 5/325 mg] Famotidine [Pepcid] 40 mg PO QHS #10 tablet 02/13/20 03/13/20 Unknown Rx Prednisone [predniSONE 10 mg 10 mg PO .TAPER #1 tab.ds.pk 02/13/20 03/13/20 Unknown Rx (6-Day Pack, 21 Tabs)] diphenhydrAMINE [Benadryl CAP] 50 mg PO Q8HR PRN #10 capsule 02/13/20 03/13/20 Unknown Rx Cyclobenzaprine HCl [Flexeril 5 MG 5 mg PO TID PRN #15 tab 03/01/20 03/13/20 Unknown Rx TAB] Warfarin [Coumadin] 7.5 mg PO DAILY@1700 #30 tablet 03/01/20 03/13/20 Unknown Rx Active Meds: Active Medications Acetaminophen (Tylenol) 650 mg PO Q4H PRN PRN Reason: Pain MILD(1-3)/Fever >100.5/LI Last Admin: 03/13/20 06:51 Dose: 650 mg Documented by: Amlodipine Besylate (Amlodipine) 10 mg PO DAILY [facility] Last Admin: 03/13/20 09:40 Dose: Not Given Documented by: Azithromycin (Zithromax) 250 mg PO DAILY [facility] Last Admin: 03/13/20 09:38 Dose: 250 mg Documented by: Benzonatate (Tessalon Perles) 100 mg PO Q8H PRN PRN Reason: Cough Clopidogrel Bisulfate (Plavix) 75 mg PO DAILY [facility] Last Admin: 03/13/20 09:38 Dose: 75 mg Documented by: Dexamethasone (Decadron) 4 mg PO DAILY [facility] Stop: 03/20/20 10:01 Dexamethasone (Decadron) 2 mg PO DAILY [facility] Stop: 03/20/20 10:01 Famotidine (Pepcid) 20 mg PO BID [facility] Furosemide (Lasix) 40 mg IV ONCE ONE Stop: 03/13/20 11:24 Gabapentin (Gabapentin) 300 mg PO BID [facility] Last Admin: 03/13/20 09:38 Dose: 300 mg Documented by: Hydralazine HCl (Apresoline) 50 mg PO TID [facility] Last Admin: 03/13/20 09:39 Dose: Not Given Documented by: Ceftriaxone Sodium (Rocephin/Ns 1 Gm/50 Ml) 1 gm in 50 mls @ 100 mls/hr IV Q24HR [facility]; Protocol Last Admin: 03/13/20 09:37 Dose: 100 mls/hr Documented by: Isosorbide Mononitrate (Imdur) 30 mg PO QDAY [facility] Last Admin: 03/13/20 09:37 Dose: 30 mg Documented by: Metoprolol Tartrate (Metoprolol) 50 mg PO BID [facility] Last Admin: 03/13/20 09:39 Dose: 50 mg Documented by: Ondansetron HCl (Zofran) 4 mg IV Q8H PRN PRN Reason: Nausea And Vomiting Sodium Chloride (Sodium Chloride Flush Syringe 10 Ml) 10 ml IV BID [facility] Last Admin: 03/12/20 21:57 Dose: 10 ml Documented by: Sodium Chloride (Sodium Chloride Flush Syringe 10 Ml) 10 ml IV PRN PRN PRN Reason: LINE FLUSH Warfarin Sodium (Coumadin) 7.5 mg PO DAILY@1700 [facility]; Protocol Last Admin: 03/12/20 17:55 Dose: 7.5 mg Documented by: Physical Examination Vital signs: Vital Signs Temp Pulse Resp BP Pulse Ox 99.0 F 93 H 24 100/64 91 03/11/20 10:37 03/11/20 10:37 03/11/20 10:37 03/11/20 10:37 03/11/20 10:37 Patient not examined in person secondary to positive COVID state and efforts to preserve PPE during the global pandemic of COVID 19. The [facility] physician has seen and examined patient today. Results - Laboratory Findings CBC and BMP: 03/12/20 04:37 03/12/20 04:37 ABG ABG pH 7.409 (7.320-7.450) 03/13/20 09:13 POC ABG pCO2 34.7 mmHg (32.0-48.0) 03/13/20 09:13 POC ABG pO2 89.0 mmHg (83-108) 03/13/20 09:13 POC ABG HCO3 21.5 03/13/20 09:13 PT/INR, D-dimer PT 24.7 Sec. (12.2-14.9) H 03/12/20 04:37 INR 2.19 (0.87-1.13) H 03/12/20 04:37 D-Dimer 261.32 ng/mlDDU (0-234) H 03/11/20 11:18 Abnormal lab findings: Abnormal Labs 03/11/20 03/11/20 03/11/20 11:18 11:18 11:18 WBC Hgb MCH RDW 17.6 H Lymph % (Auto) Lymph # (Auto) 0.8 L Seg Neutrophils % 80.1 H PT INR D-Dimer ABG pH POC ABG pCO2 POC ABG pO2 ABG Sodium ABG Glucose Sodium 132 L Carbon Dioxide 19 L BUN 26 H Creatinine 1.8 H Glucose POC Glucose Calcium 8.0 L Ferritin AST Lactate Dehydrogenase 902 H C-Reactive Protein 6.70 H NT-Pro-B Natriuret Pep Albumin Arterial Blood Glucose Arterial Blood Ionized Calcium Coronavirus (PCR) 03/11/20 03/11/20 03/11/20 11:18 11:18 11:18 WBC Hgb MCH RDW Lymph % (Auto) Lymph # (Auto) Seg Neutrophils % PT 21.3 H INR 1.82 H D-Dimer 261.32 H ABG pH POC ABG pCO2 POC ABG pO2 ABG Sodium ABG Glucose Sodium Carbon Dioxide BUN Creatinine Glucose POC Glucose Calcium Ferritin 894.4 H AST Lactate Dehydrogenase C-Reactive Protein NT-Pro-B Natriuret Pep 893.1 H Albumin Arterial Blood Glucose Arterial Blood Ionized Calcium Coronavirus (PCR) 03/11/20 03/11/20 03/11/20 18:00 18:00 18:00 WBC Hgb MCH RDW Lymph % (Auto) Lymph # (Auto) Seg Neutrophils % PT INR D-Dimer ABG pH POC ABG pCO2 POC ABG pO2 ABG Sodium ABG Glucose Sodium 132 L Carbon Dioxide 18 L BUN Creatinine Glucose POC Glucose Calcium Ferritin 967.8 H AST Lactate Dehydrogenase 973 H C-Reactive Protein 6.40 H NT-Pro-B Natriuret Pep Albumin Arterial Blood Glucose Arterial Blood Ionized Calcium Coronavirus (PCR) 03/11/20 03/12/20 03/12/20 18:15 04:37 04:37 WBC 3.5 L Hgb 11.5 L MCH 27 L RDW 17.2 H Lymph % (Auto) 11.9 L Lymph # (Auto) 0.4 L Seg Neutrophils % 84.1 H PT INR D-Dimer ABG pH 7.478 H POC ABG pCO2 24.6 L POC ABG pO2 69.7 L ABG Sodium 129.3 L ABG Glucose Sodium 135 L Carbon Dioxide 19 L BUN 30 H Creatinine 1.9 H Glucose 112 H POC Glucose Calcium 7.9 L Ferritin AST 59 H Lactate Dehydrogenase C-Reactive Protein NT-Pro-B Natriuret Pep Albumin 3.0 L Arterial Blood Glucose Arterial Blood Ionized Calcium 4.3 L Coronavirus (PCR) 03/12/20 03/12/20 03/12/20 04:37 10:07 16:50 WBC Hgb MCH RDW Lymph % (Auto) Lymph # (Auto) Seg Neutrophils % PT 24.7 H INR 2.19 H D-Dimer ABG pH POC ABG pCO2 POC ABG pO2 ABG Sodium ABG Glucose Sodium Carbon Dioxide BUN Creatinine Glucose POC Glucose 110 H Calcium Ferritin AST Lactate Dehydrogenase C-Reactive Protein NT-Pro-B Natriuret Pep Albumin Arterial Blood Glucose Arterial Blood Ionized Calcium Coronavirus (PCR) Positive A 03/13/20 09:13 WBC Hgb MCH RDW Lymph % (Auto) Lymph # (Auto) Seg Neutrophils % PT INR D-Dimer ABG pH POC ABG pCO2 POC ABG pO2 ABG Sodium 130.7 L ABG Glucose 98 H Sodium Carbon Dioxide BUN Creatinine Glucose POC Glucose Calcium Ferritin AST Lactate Dehydrogenase C-Reactive Protein NT-Pro-B Natriuret Pep Albumin Arterial Blood Glucose 98 H Arterial Blood Ionized Calcium 4.4 L Coronavirus (PCR) - Diagnostic Findings Chest x-ray: image reviewed (New CXR from today is improved compared to admission CXR) Assessment and Plan 44 y/o male with multiple comorbidities admitted with COVID 19 pneumonia, possible CHF exacerbation with volume overload and renal disease, likely chronic vs acute on chronic and pulmonary HTN. 1. Agree with transfer to [facility] 2. Will ask patient to prone during the day and sleep prone as night if capable 3. Will give lasix 40mg IV x1. Renal has been consulted but I/O shows positive fluid balance. Given his reduced EF and pulmonary HTN, plus COVID, would be better to run this patient on the hypovolemic side 4. Agree with Steroids. Likely will change to IV given Bipap requirement. Doubt he will be a candidate for Remdesivir given renal function. No other experimental therapies available yet 5. 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 INR is therapeutic 6. GI prophylaxis 7. Follow up any renal recs Overall prognosis is guarded given multiple comorbids and now COVID 19
[2020-03-13] MEDS: FAMOTIDINE 20 MG TAB PO SCH ×2 (12:28→22:04)
[2020-03-13 13:27] LABS: Bacteria,Urine 1+ /HPF (Negative); Bilirubin,Urine NEG (Negative); Blood,Urine SM (Negative); Color,Urine Yellow (Yellow); Mucus,Urine FEW /HPF; Urobilinogen,Urine < 2.0 mg/dL (<2.0)
[2020-03-13 13:31] LABS: Protein,Urine >500 mg/dL (Negative)
[2020-03-13] MEDS ORDERED: WARFARIN 5 MG TAB PO SCH (17:00)
[2020-03-13] MEDS: WARFARIN 7.5 MG TAB PO SCH (17:18)
[2020-03-13 18:20] LABS: INR 3.55 (0.87-1.13)
[2020-03-13 18:53] LABS: Albumin 3.2 g/dL (3.9-5); C-Reactive Protein 3.5 mg/dL (0.00-1.30); Calcium 8.3 mg/dL (8.4-10.2)
--- NOTE | 2020-03-13 19:40 | Consultation ---
History of Present Illness - Reason for Consult Consult date: 03/13/20 COVID Requesting physician: HAJA IZQUIERDO - History of Present Illness 44 result male with history of hypertension, CHF EF 40 to 45%, gout, admitted on 1021 2024-day history of worsening shortness of breath, abdominal pain, nausea, vomiting and diarrhea. Patient was recently discharged from [facility] a week before admission for CHF exacerbation. On arrival, temperature 99.9-100, HR 93, RR 24, O2 sat 91%, BP 93/62. Initial WBC 5.2. Creatinine 1.8. Urinalysis negative. SARS-CoV-2 PCR positive. Chest x-ray shows bilateral airspace disease. CT of the abdomen shows bilateral groundglass opacities. Currently on high flow nasal cannula. Review of Systems: reviewed ED and H&P notes. Limited due to PPE conservation strategy Past History Past Medical History: other (See HPI.) Medications and Allergies Allergies Allergy/AdvReac Type Severity Reaction Status Date / Time No Known Allergies Allergy Verified 04/21/17 15:31 Home Medications Medication Instructions Recorded Confirmed Last Taken Type Benzonatate [Tessalon Perle] 100 mg PO Q8H PRN #20 capsule 06/12/18 03/13/20 Unknown Rx Ibuprofen [Motrin 600 MG tab] 600 mg PO Q8H PRN #20 tablet 06/12/18 03/13/20 Unknown Rx Aspirin [Aspirin BABY CHEW TAB] 81 mg PO QDAY #100 tab.chew 02/04/20 03/13/20 Unknown Rx Clopidogrel [Plavix] 75 mg PO QDAY #30 tablet 02/04/20 03/13/20 Unknown Rx Furosemide [Lasix TAB] 40 mg PO QDAY #30 tablet 02/04/20 03/13/20 Unknown Rx Gabapentin 300 mg PO BID #60 capsule 02/04/20 03/13/20 Unknown Rx ISOSORBIDE MONOnitrate [Imdur ER] 30 mg PO QDAY #30 tablet 02/04/20 03/13/20 Unknown Rx Metoprolol [Lopressor TAB] 50 mg PO BID #60 tablet 02/04/20 03/13/20 Unknown Rx Potassium Chloride [K-Dur] 20 meq PO QDAY #30 02/04/20 03/13/20 Unknown Rx amLODIPine 10 mg PO DAILY #30 tablet 02/04/20 03/13/20 Unknown Rx hydrALAZINE [Apresoline TAB] 50 mg PO TID #90 tablet 02/04/20 03/13/20 Unknown Rx oxyCODONE /ACETAMINOPHEN [Percocet 1 tab PO Q6H PRN #14 tablet 02/04/20 03/13/20 Unknown Rx 5/325 mg] Famotidine [Pepcid] 40 mg PO QHS #10 tablet 02/13/20 03/13/20 Unknown Rx Prednisone [predniSONE 10 mg 10 mg PO .TAPER #1 tab.ds.pk 02/13/20 03/13/20 Unknown Rx (6-Day Pack, 21 Tabs)] diphenhydrAMINE [Benadryl CAP] 50 mg PO Q8HR PRN #10 capsule 02/13/20 03/13/20 Unknown Rx Cyclobenzaprine HCl [Flexeril 5 MG 5 mg PO TID PRN #15 tab 03/01/20 03/13/20 Unknown Rx TAB] Warfarin [Coumadin] 7.5 mg PO DAILY@1700 #30 tablet 03/01/20 03/13/20 Unknown Rx Active Meds: Active Medications Acetaminophen (Tylenol) 650 mg PO Q4H PRN PRN Reason: Pain MILD(1-3)/Fever >100.5/LI Last Admin: 03/13/20 06:51 Dose: 650 mg Documented by: Azithromycin (Zithromax) 250 mg PO DAILY [facility] Last Admin: 03/13/20 09:38 Dose: 250 mg Documented by: Benzonatate (Tessalon Perles) 100 mg PO Q8H PRN PRN Reason: Cough Clopidogrel Bisulfate (Plavix) 75 mg PO DAILY [facility] Last Admin: 03/13/20 09:38 Dose: 75 mg Documented by: Dexamethasone (Decadron) 4 mg PO DAILY [facility] Stop: 03/20/20 10:01 Dexamethasone (Decadron) 2 mg PO DAILY [facility] Stop: 03/20/20 10:01 Famotidine (Pepcid) 20 mg PO BID [facility] Last Admin: 03/13/20 12:28 Dose: 20 mg Documented by: Gabapentin (Gabapentin) 300 mg PO BID [facility] Last Admin: 03/13/20 09:38 Dose: 300 mg Documented by: Hydralazine HCl (Apresoline) 50 mg PO TID [facility] Last Admin: 03/13/20 17:18 Dose: 50 mg Documented by: Ceftriaxone Sodium (Rocephin/Ns 1 Gm/50 Ml) 1 gm in 50 mls @ 100 mls/hr IV Q24HR [facility]; Protocol Last Admin: 03/13/20 09:37 Dose: 100 mls/hr Documented by: Isosorbide Mononitrate (Imdur) 30 mg PO QDAY [facility] Last Admin: 03/13/20 09:37 Dose: 30 mg Documented by: Metoprolol Tartrate (Metoprolol) 50 mg PO BID [facility] Last Admin: 03/13/20 09:39 Dose: 50 mg Documented by: Ondansetron HCl (Zofran) 4 mg IV Q8H PRN PRN Reason: Nausea And Vomiting Sodium Chloride (Sodium Chloride Flush Syringe 10 Ml) 10 ml IV BID [facility] Last Admin: 03/13/20 10:15 Dose: 10 ml Documented by: Sodium Chloride (Sodium Chloride Flush Syringe 10 Ml) 10 ml IV PRN PRN PRN Reason: LINE FLUSH Warfarin Sodium (Coumadin) 5 mg PO DAILY@1700 [facility] Last Admin: 03/13/20 17:19 Dose: 5 mg Documented by: Physical Examination - Physical Exam Narrative exam: Physical Exam: reviewed ED and hospitalist notes, limited due to conservation of PPE and decrease risk of transmission. General appearance: limited due to conservation of PPE Eyes: limited due to conservation of PPE HENT: Atraumatic; limited due to conservation of PPE Lungs: limited due to conservation of PPE CV: limited due to conservation of PPE Abdomen: limited due to conservation of PPE Extremities: limited due to conservation of PPE Skin: limited due to conservation of PPE Psych: limited due to conservation of PPE Neuro: limited due to conservation of PPE - Constitutional Vitals: Vital Signs Temp Pulse Resp BP Pulse Ox 98.9 F 86 36 H 110/70 93 03/13/20 16:00 03/13/20 18:00 03/13/20 18:00 03/13/20 18:00 03/13/20 18:00 Temperature -Last 24 Hours Temperature 98.9 F Temperature 100.7 F Temperature 98.5 F Results - Labs CBC & Chem 7: 03/12/20 04:37 03/13/20 17:25 Labs: Abnormal lab results 03/13/20 03/13/20 03/13/20 Range/Units 09:13 13:05 17:25 PT (12.2-14.9) Sec. INR (0.87-1.13) D-Dimer 287.92 H (0-234) ng/mlDDU ABG Sodium 130.7 L (136.0-145.0) mmol/L ABG Glucose 98 H (65-95) mg/dL Sodium (137-145) mmol/L Chloride (98-107) mmol/L BUN (9-20) mg/dL Creatinine (0.8-1.3) mg/dL Glucose (75-100) mg/dL Calcium (8.4-10.2) mg/dL Ferritin (30.0-300.0) ng/mL AST (5-40) units/L Lactate Dehydrogenase (91-180) units/L C-Reactive Protein (0.00-1.30) mg/dL NT-Pro-B Natriuret Pep (0-450) pg/mL Albumin (3.9-5) g/dL Arterial Blood Glucose 98 H (65-95) mg/dL Arterial Blood Ionized Calcium 4.4 L (4.6-5.3) mg/dL Urine Creatinine 135.0 H (0.1-20.0) mg/dL 03/13/20 03/13/20 03/13/20 Range/Units 17:25 17:25 17:25 PT (12.2-14.9) Sec. INR (0.87-1.13) D-Dimer (0-234) ng/mlDDU ABG Sodium (136.0-145.0) mmol/L ABG Glucose (65-95) mg/dL Sodium 133 L (137-145) mmol/L Chloride 95.0 L (98-107) mmol/L BUN 39 H (9-20) mg/dL Creatinine 1.8 H (0.8-1.3) mg/dL Glucose 101 H (75-100) mg/dL Calcium 8.3 L (8.4-10.2) mg/dL Ferritin 3088.0 H (30.0-300.0) ng/mL AST 84 H (5-40) units/L Lactate Dehydrogenase 1506 H (91-180) units/L C-Reactive Protein 3.50 H (0.00-1.30) mg/dL NT-Pro-B Natriuret Pep 2216 H (0-450) pg/mL Albumin 3.2 L (3.9-5) g/dL Arterial Blood Glucose (65-95) mg/dL Arterial Blood Ionized Calcium (4.6-5.3) mg/dL Urine Creatinine (0.1-20.0) mg/dL 03/13/20 Range/Units 17:25 PT 36.1 H (12.2-14.9) Sec. INR 3.55 H (0.87-1.13) D-Dimer (0-234) ng/mlDDU ABG Sodium (136.0-145.0) mmol/L ABG Glucose (65-95) mg/dL Sodium (137-145) mmol/L Chloride (98-107) mmol/L BUN (9-20) mg/dL Creatinine (0.8-1.3) mg/dL Glucose (75-100) mg/dL Calcium (8.4-10.2) mg/dL Ferritin (30.0-300.0) ng/mL AST (5-40) units/L Lactate Dehydrogenase (91-180) units/L C-Reactive Protein (0.00-1.30) mg/dL NT-Pro-B Natriuret Pep (0-450) pg/mL Albumin (3.9-5) g/dL Arterial Blood Glucose (65-95) mg/dL Arterial Blood Ionized Calcium (4.6-5.3) mg/dL Urine Creatinine (0.1-20.0) mg/dL Assessment and Plan Cultures: Blood culture SARS CoV2 PCR positive Assessment: #Severe sepsis: likely due to bilateral pneumonia. #Severe COVID pneumonia: Inflammatory markers elevated. CT shows bilateral groundglass opacities. #Acute hypoxemic respiratory failure: Patient currently on high flow nasal cannula. #Elevated LFTs: from COVID #JIM: from COVID #Transaminitis: From Covid Recommendations: -Continue Dexamethasone 6 mg IV/PO daily for 10 days -Start Remdesivir 200 mg IV q day x 1 day followed by 100 mg IV q day x 4 days (CrCl>30. Order placed) -Monitor inflammatory markers - ferritin, Ddimer, CRP, LDH -Stop ceftriaxone procalcitonin <0.25 ng/mL -Monitor liver function test on Remdesivir -Continue anticoagulation per System Protocol -Prone positioning as possible -TTE High risk mortality All laboratory, cultures and imaging were reviewed. Will follow Janelle Parra MD Infectious Diseases Maintenance Engineer [employer] [facility] M [phone] O [phone]
[2020-03-13] MEDS ORDERED: REMDESIVIR 200 MG in SODIUM CHLORIDE 0.9% 250ML 250 ML IV ONE (21:00)
[2020-03-13] MEDS ORDERED: REMDESIVIR 100 MG VIAL IV ONE (21:00)
[2020-03-13] MEDS: SODIUM CHLORIDE 0.9% 50 ML IVPB IV SCH (22:01)
[2020-03-14] MEDS: ACETAMINOPHEN 325 MG TAB PO PRN (03:36)
[2020-03-14 06:39] LABS: Hematocrit 38.5 % (35.5-45.6); Hemoglobin 12.3 gm/dl (11.8-15.2); Mean Corpuscular HGB Conc 32 % (32-34); Mean Corpuscular Volume 85 fl (84-94); Platelet Count 432 K/mm3 (140-440); Red Blood Count 4.54 M/mm3 (3.65-5.03); Red Cell Distribution Width 17.8 % (13.2-15.2)
[2020-03-14 06:42] LABS: INR 4.6 (0.87-1.13)
[2020-03-14 06:54] LABS: Albumin 2.8 g/dL (3.9-5); Calcium 7.9 mg/dL (8.4-10.2)
[2020-03-14 08:04] LABS: Anisocytosis Few; Band Neutrophils # (Manual) 0.2 K/mm3; Basophils % (Manual) 0 % (0.0-1.8); Eosinophils % (Manual) 0 % (0.0-4.3); Macrocytosis Few; Platelet Estimate Consistent w Auto; Total Cells Counted 100
[2020-03-14] MEDS: GABAPENTIN 300 MG CAP PO SCH ×2 (09:01→21:22)
[2020-03-14] MEDS: DEXAMETHASONE 4 MG TAB PO SCH (09:02)
[2020-03-14] MEDS: METOPROLOL TARTRATE 50 MG TAB PO SCH ×2 (09:02→21:22)
[2020-03-14] MEDS: hydrALAZINE 25 MG TAB PO SCH ×3 (09:02→19:35)
[2020-03-14] MEDS: CLOPIDOGREL 75 MG TAB PO SCH (09:02)
[2020-03-14] MEDS: FAMOTIDINE 20 MG TAB PO SCH ×2 (09:02→21:22)
[2020-03-14] MEDS: AZITHROMYCIN 250 MG TAB PO SCH (09:03)
[2020-03-14] MEDS: cefTRIAXone/NS 1 GM/50 ML 1 GM/50 ML BAG IV SCH (09:03)
[2020-03-14] MEDS ORDERED: FUROSEMIDE 40 MG/4 ML INJ IV ONE (09:42)
--- NOTE | 2020-03-14 09:46 | Progress Note ---
Assessment and Plan 44 y/o male with multiple comorbidities admitted with COVID 19 pneumonia, possible CHF exacerbation with volume overload and renal disease, likely chronic vs acute on chronic and pulmonary HTN. 1. Wean FiO2 for sats >88%. 2. Will ask patient to prone during the day and sleep prone as night if capable 3. WIll give an additional 40 of IV lasix today. Had good urine output with this. Need to keep him as dry as possible and for as long as renal function and BP will tolerate. 4. Agree with Steroids. Order in 2 doses to equal 6mg. 5. 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 INR is therapeutic 6. GI prophylaxis 7. Follow up any new renal recs Overall prognosis is guarded given multiple comorbids and now COVID 19 Subjective Date of service: 03/14/20 Interval history: BNP was >2k. Tolerated lasix 40 yesterday with no issues. Cr stable. Unfort unately, no change in his oxygen requirement. ID started remdisivir on yesterday. Suggested an echo but because he is positive they won't do it. Objective Vital Signs - 12hr 03/13/20 03/13/20 03/13/20 22:00 22:03 23:00 Temperature Pulse Rate 91 H 85 85 Pulse Rate [ From Monitor] Respiratory 35 H 30 H Rate Respiratory Rate [ Generalized] Blood Pressure 108/72 108/72 112/68 O2 Sat by Pulse 92 90 Oximetry 03/14/20 03/14/20 03/14/20 00:00 00:04 00:28 Temperature 99.9 F H Pulse Rate 85 90 Pulse Rate [ From Monitor] Respiratory 34 H Rate Respiratory 40 H Rate [ Generalized] Blood Pressure 107/78 O2 Sat by Pulse 93 Oximetry 03/14/20 03/14/20 03/14/20 01:00 02:01 02:14 Temperature Pulse Rate 90 97 H Pulse Rate [ From Monitor] Respiratory 35 H 14 Rate Respiratory Rate [ Generalized] Blood Pressure 124/69 99/77 O2 Sat by Pulse 94 86 92 Oximetry 03/14/20 03/14/20 03/14/20 03:01 03:36 04:00 Temperature 100.7 F H Pulse Rate 98 H 98 H Pulse Rate [ 97 H From Monitor] Respiratory 47 H 20 46 H Rate Respiratory Rate [ Generalized] Blood Pressure 100/71 111/75 O2 Sat by Pulse 86 96 Oximetry 03/14/20 03/14/20 03/14/20 04:19 04:36 05:01 Temperature Pulse Rate 97 H 90 Pulse Rate [ From Monitor] Respiratory 32 H 28 H Rate Respiratory Rate [ Generalized] Blood Pressure 118/77 O2 Sat by Pulse 89 Oximetry 03/14/20 03/14/20 03/14/20 06:00 07:00 07:43 Temperature Pulse Rate 97 H 94 H Pulse Rate [ From Monitor] Respiratory 22 Rate Respiratory Rate [ Generalized] Blood Pressure 128/94 132/96 O2 Sat by Pulse 88 98 90 Oximetry 03/14/20 03/14/20 03/14/20 08:00 08:01 09:02 Temperature Pulse Rate 100 H 87 Pulse Rate [ 115 H From Monitor] Respiratory 49 H 27 H Rate Respiratory Rate [ Generalized] Blood Pressure 135/88 137/68 O2 Sat by Pulse 90 91 Oximetry 03/14/20 09:19 Temperature Pulse Rate Pulse Rate [ From Monitor] Respiratory Rate Respiratory Rate [ Generalized] Blood Pressure O2 Sat by Pulse 96 Oximetry CBC and BMP: 03/14/20 04:43 03/14/20 04:43 ABG, PT/INR, D-dimer: ABG ABG pH 7.409 (7.320-7.450) 03/13/20 09:13 POC ABG pCO2 34.7 mmHg (32.0-48.0) 03/13/20 09:13 POC ABG pO2 89.0 mmHg (83-108) 03/13/20 09:13 POC ABG HCO3 21.5 03/13/20 09:13 PT/INR, D-dimer PT 44.2 Sec. (12.2-14.9) H 03/14/20 04:43 INR 4.60 (0.87-1.13) H 03/14/20 04:43 D-Dimer 287.92 ng/mlDDU (0-234) H 03/13/20 17:25 Abnormal lab findings: Abnormal Labs 03/11/20 03/11/20 03/11/20 11:18 11:18 11:18 WBC Hgb MCH RDW 17.6 H Lymph % (Auto) Lymph # (Auto) 0.8 L Seg Neutrophils % 80.1 H Seg Neuts % (Manual) Lymphocytes % (Manual) Seg Neutrophils # Man Lymphocytes # (Manual) PT INR D-Dimer ABG pH POC ABG pCO2 POC ABG pO2 ABG Sodium ABG Glucose Sodium 132 L Chloride Carbon Dioxide 19 L BUN 26 H Creatinine 1.8 H Glucose POC Glucose Calcium 8.0 L Magnesium Ferritin AST Lactate Dehydrogenase 902 H C-Reactive Protein 6.70 H NT-Pro-B Natriuret Pep Albumin Arterial Blood Glucose Arterial Blood Ionized Calcium Urine Creatinine Coronavirus (PCR) 03/11/20 03/11/20 03/11/20 11:18 11:18 11:18 WBC Hgb MCH RDW Lymph % (Auto) Lymph # (Auto) Seg Neutrophils % Seg Neuts % (Manual) Lymphocytes % (Manual) Seg Neutrophils # Man Lymphocytes # (Manual) PT 21.3 H INR 1.82 H D-Dimer 261.32 H ABG pH POC ABG pCO2 POC ABG pO2 ABG Sodium ABG Glucose Sodium Chloride Carbon Dioxide BUN Creatinine Glucose POC Glucose Calcium Magnesium Ferritin 894.4 H AST Lactate Dehydrogenase C-Reactive Protein NT-Pro-B Natriuret Pep 893.1 H Albumin Arterial Blood Glucose Arterial Blood Ionized Calcium Urine Creatinine Coronavirus (PCR) 03/11/20 03/11/20 03/11/20 18:00 18:00 18:00 WBC Hgb MCH RDW Lymph % (Auto) Lymph # (Auto) Seg Neutrophils % Seg Neuts % (Manual) Lymphocytes % (Manual) Seg Neutrophils # Man Lymphocytes # (Manual) PT INR D-Dimer ABG pH POC ABG pCO2 POC ABG pO2 ABG Sodium ABG Glucose Sodium 132 L Chloride Carbon Dioxide 18 L BUN Creatinine Glucose POC Glucose Calcium Magnesium Ferritin 967.8 H AST Lactate Dehydrogenase 973 H C-Reactive Protein 6.40 H NT-Pro-B Natriuret Pep Albumin Arterial Blood Glucose Arterial Blood Ionized Calcium Urine Creatinine Coronavirus (PCR) 03/11/20 03/12/20 03/12/20 18:15 04:37 04:37 WBC 3.5 L Hgb 11.5 L MCH 27 L RDW 17.2 H Lymph % (Auto) 11.9 L Lymph # (Auto) 0.4 L Seg Neutrophils % 84.1 H Seg Neuts % (Manual) Lymphocytes % (Manual) Seg Neutrophils # Man Lymphocytes # (Manual) PT INR D-Dimer ABG pH 7.478 H POC ABG pCO2 24.6 L POC ABG pO2 69.7 L ABG Sodium 129.3 L ABG Glucose Sodium 135 L Chloride Carbon Dioxide 19 L BUN 30 H Creatinine 1.9 H Glucose 112 H POC Glucose Calcium 7.9 L Magnesium Ferritin AST 59 H Lactate Dehydrogenase C-Reactive Protein NT-Pro-B Natriuret Pep Albumin 3.0 L Arterial Blood Glucose Arterial Blood Ionized Calcium 4.3 L Urine Creatinine Coronavirus (PCR) 03/12/20 03/12/20 03/12/20 04:37 10:07 16:50 WBC Hgb MCH RDW Lymph % (Auto) Lymph # (Auto) Seg Neutrophils % Seg Neuts % (Manual) Lymphocytes % (Manual) Seg Neutrophils # Man Lymphocytes # (Manual) PT 24.7 H INR 2.19 H D-Dimer ABG pH POC ABG pCO2 POC ABG pO2 ABG Sodium ABG Glucose Sodium Chloride Carbon Dioxide BUN Creatinine Glucose POC Glucose 110 H Calcium Magnesium Ferritin AST Lactate Dehydrogenase C-Reactive Protein NT-Pro-B Natriuret Pep Albumin Arterial Blood Glucose Arterial Blood Ionized Calcium Urine Creatinine Coronavirus (PCR) Positive A 03/13/20 03/13/20 03/13/20 09:13 13:05 17:25 WBC Hgb MCH RDW Lymph % (Auto) Lymph # (Auto) Seg Neutrophils % Seg Neuts % (Manual) Lymphocytes % (Manual) Seg Neutrophils # Man Lymphocytes # (Manual) PT INR D-Dimer 287.92 H ABG pH POC ABG pCO2 POC ABG pO2 ABG Sodium 130.7 L ABG Glucose 98 H Sodium Chloride Carbon Dioxide BUN Creatinine Glucose POC Glucose Calcium Magnesium Ferritin AST Lactate Dehydrogenase C-Reactive Protein NT-Pro-B Natriuret Pep Albumin Arterial Blood Glucose 98 H Arterial Blood Ionized Calcium 4.4 L Urine Creatinine 135.0 H Coronavirus (PCR) 03/13/20 03/13/20 03/13/20 17:25 17:25 17:25 WBC Hgb MCH RDW Lymph % (Auto) Lymph # (Auto) Seg Neutrophils % Seg Neuts % (Manual) Lymphocytes % (Manual) Seg Neutrophils # Man Lymphocytes # (Manual) PT INR D-Dimer ABG pH POC ABG pCO2 POC ABG pO2 ABG Sodium ABG Glucose Sodium 133 L Chloride 95.0 L Carbon Dioxide BUN 39 H Creatinine 1.8 H Glucose 101 H POC Glucose Calcium 8.3 L Magnesium Ferritin 3088.0 H AST 84 H Lactate Dehydrogenase 1506 H C-Reactive Protein 3.50 H NT-Pro-B Natriuret Pep 2216 H Albumin 3.2 L Arterial Blood Glucose Arterial Blood Ionized Calcium Urine Creatinine Coronavirus (PCR) 03/13/20 03/14/20 03/14/20 17:25 04:43 04:43 WBC Hgb MCH RDW Lymph % (Auto) Lymph # (Auto) Seg Neutrophils % Seg Neuts % (Manual) Lymphocytes % (Manual) Seg Neutrophils # Man Lymphocytes # (Manual) PT 36.1 H 44.2 H INR 3.55 H 4.60 H D-Dimer ABG pH POC ABG pCO2 POC ABG pO2 ABG Sodium ABG Glucose Sodium 135 L Chloride Carbon Dioxide 20 L BUN 37 H Creatinine 1.8 H Glucose POC Glucose Calcium 7.9 L Magnesium 2.50 H Ferritin AST 100 H Lactate Dehydrogenase C-Reactive Protein NT-Pro-B Natriuret Pep Albumin 2.8 L Arterial Blood Glucose Arterial Blood Ionized Calcium Urine Creatinine Coronavirus (PCR) 03/14/20 04:43 WBC Hgb MCH 27 L RDW 17.8 H Lymph % (Auto) Lymph # (Auto) Seg Neutrophils % Seg Neuts % (Manual) 93.0 H Lymphocytes % (Manual) 2.0 L Seg Neutrophils # Man 9.7 H Lymphocytes # (Manual) 0.2 L PT INR D-Dimer ABG pH POC ABG pCO2 POC ABG pO2 ABG Sodium ABG Glucose Sodium Chloride Carbon Dioxide BUN Creatinine Glucose POC Glucose Calcium Magnesium Ferritin AST Lactate Dehydrogenase C-Reactive Protein NT-Pro-B Natriuret Pep Albumin Arterial Blood Glucose Arterial Blood Ionized Calcium Urine Creatinine Coronavirus (PCR)
[2020-03-14] MEDS: DEXAMETHASONE 2 MG TAB PO SCH (10:29)
--- NOTE | 2020-03-14 11:26 | Progress Note ---
Assessment and Plan 1. Acute kidney injury: Acute kidney injury superimposed on CKD in the setting of COVID infection. CT abdomen negative for hydro. Monitor renal function. Creatinine leveled off. Renal prognosis is guarded. Avoid nephrotoxic agents. Meds dosage based on GFR. 2. FEN: Metabolic acidosis, monitor, monitor. Cautious use of diuretics if needed. Monitor lytes. 3. Acute hypoxic resp failure: Likely secondary to COVID-19 infection. CXR showed pulmonary infiltrate. On BIPAP. Followed by Pulmonary. 4. Severe COVID-19 pneumonia. Followed by ID. On Coumadin and INR 4.6. Steroids. 5. Hypertension: BP is better, adjust meds as needed. Monitor BP. Subjective: Patient was seen and examined at the bedside. - General Appearance General appearance: well-developed, well-nourished, appears stated age, no distress, on BIPAP HEENT: ATNC Neck: supple Respiratory: faint rales noted Cardiology: S1S2, no murmur Gastrointestinal: normoactive bowel sounds, not tenderness, not distended Integumentary: no obvious rash Neurologic: AOX4, able to move all 4 extremities Ext: no edema noted Subjective Date of service: 03/14/20 Objective - Vital Signs Vital signs: Vital Signs - 12hr 03/14/20 03/14/20 03/14/20 00:00 00:04 00:28 Temperature 99.9 F H Pulse Rate 85 90 Pulse Rate [ From Monitor] Respiratory 34 H Rate Respiratory 40 H Rate [ Generalized] Blood Pressure 107/78 O2 Sat by Pulse 93 Oximetry 03/14/20 03/14/20 03/14/20 01:00 02:01 02:14 Temperature Pulse Rate 90 97 H Pulse Rate [ From Monitor] Respiratory 35 H 14 Rate Respiratory Rate [ Generalized] Blood Pressure 124/69 99/77 O2 Sat by Pulse 94 86 92 Oximetry 03/14/20 03/14/20 03/14/20 03:01 03:36 04:00 Temperature 100.7 F H Pulse Rate 98 H 98 H Pulse Rate [ 97 H From Monitor] Respiratory 47 H 20 46 H Rate Respiratory Rate [ Generalized] Blood Pressure 100/71 111/75 O2 Sat by Pulse 86 96 Oximetry 03/14/20 03/14/20 03/14/20 04:19 04:36 05:01 Temperature Pulse Rate 97 H 90 Pulse Rate [ From Monitor] Respiratory 32 H 28 H Rate Respiratory Rate [ Generalized] Blood Pressure 118/77 O2 Sat by Pulse 89 Oximetry 03/14/20 03/14/20 03/14/20 06:00 07:00 07:43 Temperature Pulse Rate 97 H 94 H Pulse Rate [ From Monitor] Respiratory 22 Rate Respiratory Rate [ Generalized] Blood Pressure 128/94 132/96 O2 Sat by Pulse 88 98 90 Oximetry 03/14/20 03/14/20 03/14/20 08:00 08:01 09:01 Temperature 99.9 F H Pulse Rate 100 H 87 121 H Pulse Rate [ 115 H From Monitor] Respiratory 49 H 27 H 52 H Rate Respiratory Rate [ Generalized] Blood Pressure 135/88 106/76 O2 Sat by Pulse 90 91 86 Oximetry 03/14/20 03/14/20 03/14/20 09:02 09:19 10:01 Temperature Pulse Rate Pulse Rate [ From Monitor] Respiratory Rate Respiratory Rate [ Generalized] Blood Pressure 137/68 122/54 O2 Sat by Pulse 96 83 L Oximetry 03/14/20 03/14/20 10:24 11:00 Temperature Pulse Rate 85 92 H Pulse Rate [ From Monitor] Respiratory 31 H 50 H Rate Respiratory Rate [ Generalized] Blood Pressure 122/54 111/68 O2 Sat by Pulse 95 92 Oximetry - Lab 03/14/20 04:43 03/14/20 04:43 Most recent lab results ABG pH 7.409 (7.320-7.450) 03/13/20 09:13 Calcium 7.9 mg/dL (8.4-10.2) L 03/14/20 04:43 Phosphorus 3.20 mg/dL (2.5-4.5) 03/14/20 04:43 Magnesium 2.50 mg/dL (1.7-2.3) H 03/14/20 04:43 Urine Creatinine 135.0 mg/dL (0.1-20.0) H 03/13/20 13:05 Urine Sodium 33 mmol/L 03/13/20 13:05 Medications & Allergies - Medications Allergies/Adverse Reactions: Allergies No Known Allergies Allergy (Verified 04/21/17 15:31) Home Medications: Home Medications Medication Instructions Recorded Confirmed Last Taken Type Benzonatate [Tessalon Perle] 100 mg PO Q8H PRN #20 capsule 06/12/18 03/13/20 Unknown Rx Ibuprofen [Motrin 600 MG tab] 600 mg PO Q8H PRN #20 tablet 06/12/18 03/13/20 U nknown Rx Aspirin [Aspirin BABY CHEW TAB] 81 mg PO QDAY #100 tab.chew 02/04/20 03/13/20 Unknown Rx Clopidogrel [Plavix] 75 mg PO QDAY #30 tablet 02/04/20 03/13/20 Unknown Rx Furosemide [Lasix TAB] 40 mg PO QDAY #30 tablet 02/04/20 03/13/20 Unknown Rx Gabapentin 300 mg PO BID #60 capsule 02/04/20 03/13/20 Unknown Rx ISOSORBIDE MONOnitrate [Imdur ER] 30 mg PO QDAY #30 tablet 02/04/20 03/13/20 Unknown Rx Metoprolol [Lopressor TAB] 50 mg PO BID #60 tablet 02/04/20 03/13/20 Unknown Rx Potassium Chloride [K-Dur] 20 meq PO QDAY #30 02/04/20 03/13/20 Unknown Rx amLODIPine 10 mg PO DAILY #30 tablet 02/04/20 03/13/20 Unknown Rx hydrALAZINE [Apresoline TAB] 50 mg PO TID #90 tablet 02/04/20 03/13/20 Unknown Rx oxyCODONE /ACETAMINOPHEN [Percocet 1 tab PO Q6H PRN #14 tablet 02/04/20 03/13/20 Unknown Rx 5/325 mg] Famotidine [Pepcid] 40 mg PO QHS #10 tablet 02/13/20 03/13/20 Unknown Rx Prednisone [predniSONE 10 mg 10 mg PO .TAPER #1 tab.ds.pk 02/13/20 03/13/20 Unknown Rx (6-Day Pack, 21 Tabs)] diphenhydrAMINE [Benadryl CAP] 50 mg PO Q8HR PRN #10 capsule 02/13/20 03/13/20 Unknown Rx Cyclobenzaprine HCl [Flexeril 5 MG 5 mg PO TID PRN #15 tab 03/01/20 03/13/20 Unknown Rx TAB] Warfarin [Coumadin] 7.5 mg PO DAILY@1700 #30 tablet 03/01/20 03/13/20 Unknown Rx Active Medications: Generic Name Dose Route Start Last Admin Trade Name Freq PRN Reason Stop Dose Admin Acetaminophen 650 mg 03/11/20 16:53 03/14/20 03:36 Tylenol PO 650 mg Q4H PRN Administration Pain MILD(1-3)/Fever >100.5/LI Azithromycin 250 mg 03/12/20 10:00 03/14/20 09:03 Zithromax PO 250 mg DAILY [place] Administration Benzonatate 100 mg 03/11/20 16:55 03/13/20 22:02 Tessalon Perles PO 100 mg Q8H PRN Administration Cough Clopidogrel Bisulfate 75 mg 03/12/20 10:00 03/14/20 09:02 Plavix PO 75 mg DAILY [place] Administration Dexamethasone 4 mg 03/14/20 10:00 03/14/20 09:02 Decadron PO 03/20/20 10:01 4 mg DAILY [place] Administration Dexamethasone 2 mg 03/14/20 10:00 03/14/20 10:29 Decadron PO 03/20/20 10:01 Not Given DAILY [place] Famotidine 20 mg 03/13/20 11:00 03/14/20 09:02 Pepcid PO 20 mg BID [place] Administration Gabapentin 300 mg 03/11/20 22:00 03/14/20 09:01 Gabapentin PO 300 mg BID [place] Administration Hydralazine HCl 50 mg 03/11/20 20:00 03/14/20 09:02 Apresoline PO 50 mg TID [place] Administration Ceftriaxone Sodium 1 gm in 50 mls @ 100 mls/hr 03/12/20 10:00 03/14/20 09:03 Rocephin/Ns 1 Gm/50 Ml IV 100 mls/hr Q24HR [place] Administration Protocol REMDESIVIR 100 mg/ Sodium 250 mls @ 500 mls/hr 03/14/20 21:00 Chloride IV 03/17/20 21:29 Q24HR@2100 [place] Isosorbide Mononitrate 30 mg 03/12/20 10:00 03/14/20 09:02 Imdur PO 30 mg QDAY [place] Administration Metoprolol Tartrate 50 mg 03/11/20 22:00 03/14/20 09:02 Metoprolol PO 50 mg BID [place] Administration Ondansetron HCl 4 mg 03/11/20 16:53 Zofran IV Q8H PRN Nausea And Vomiting Sodium Chloride 10 ml 03/11/20 22:00 03/14/20 09:03 Sodium Chloride Flush Syringe 10 Ml IV 10 ml BID [place] Administration Sodium Chloride 10 ml 03/11/20 16:53 Sodium Chloride Flush Syringe 10 Ml IV PRN PRN LINE FLUSH Sodium Chloride 50 ml 03/13/20 20:00 03/13/20 22:01 Nacl 0.9% IV 03/17/20 20:01 50 ml Q24H [place] Administration
--- NOTE | 2020-03-14 11:35 | Progress Note ---
Assessment and Plan Cultures: Blood culture: no growth SARS CoV2 PCR positive Assessment: #Severe sepsis: likely due to bilateral pneumonia. #Severe COVID pneumonia: Inflammatory markers elevated. CT shows bilateral groundglass opacities. #Acute hypoxemic respiratory failure: on high flow nasal cannula. #Elevated LFTs: from COVID-19. #JIM: from COVID #Transaminitis: From Covid Recommendations: -Continue Dexamethasone 6 mg IV/PO daily for 10 days -Continue Remdesivir, D2 of 5, monitor LFTs -Monitor inflammatory markers - ferritin, Ddimer, CRP, LDH -Continue anticoagulation per System Protocol -Prone positioning as possible Dr. Davila back tomorrow. Kar Ledezma MD, FACP [facility] ([facility] O: [phone] F: [phone] Subjective Date of service: 03/14/20 Interval history: Low-grade fever. Remains on high flow. Objective - Exam Narrative Exam: Physical Exam (reviewed in chart due to PPE conservation and minimize risk of transmission) Constitutional: limited due to PPE conservation strategy Head, Ears, Nose: limited due to PPE conservation strategy Eyes: limited due to PPE conservation strategy Neck: limited due to PPE conservation strategy Oral: limited due to PPE conservation strategy Cardiovascular: limited due to PPE conservation strategy Respiratory: limited due to PPE conservation strategy GI: limited due to PPE conservation strategy Musculoskeletal: limited due to PPE conservation strategy Skin: limited due to PPE conservation strategy Hem/Lymphatic: limited due to PPE conservation strategy Psych: limited due to PPE conservation strategy Neurological: limited due to PPE conservation strategy - Constitutional Vitals: Vital Signs Temp Pulse Resp BP Pulse Ox 99.9 F H 92 H 50 H 111/68 92 03/14/20 08:00 03/14/20 11:00 03/14/20 11:00 03/14/20 11:00 03/14/20 11:00 Temperature -Last 24 Hours Temperature 99.9 F Temperature 100.7 F Temperature 99.9 F Temperature 99.1 F Temperature 98.9 F - Labs CBC & Chem 7: 03/14/20 04:43 03/14/20 04:43 Labs: Abnormal lab results 03/13/20 03/13/20 03/13/20 Range/Units 13:05 17:25 17:25 MCH (28-32) pg RDW (13.2-15.2) % Seg Neuts % (Manual) (40.0-70.0) % Lymphocytes % (Manual) (13.4-35.0) % Seg Neutrophils # Man (1.8-7.7) K/mm3 Lymphocytes # (Manual) (1.2-5.4) K/mm3 PT (12.2-14.9) Sec. INR (0.87-1.13) D-Dimer 287.92 H (0-234) ng/mlDDU Sodium 133 L (137-145) mmol/L Chloride 95.0 L (98-107) mmol/L Carbon Dioxide (22-30) mmol/L BUN 39 H (9-20) mg/dL Creatinine 1.8 H (0.8-1.3) mg/dL Glucose 101 H (75-100) mg/dL Calcium 8.3 L (8.4-10.2) mg/dL Magnesium (1.7-2.3) mg/dL Ferritin (30.0-300.0) ng/mL AST 84 H (5-40) units/L Lactate Dehydrogenase 1506 H (91-180) units/L C-Reactive Protein 3.50 H (0.00-1.30) mg/dL NT-Pro-B Natriuret Pep (0-450) pg/mL Albumin 3.2 L (3.9-5) g/dL Urine Creatinine 135.0 H (0.1-20.0) mg/dL 03/13/20 03/13/20 03/13/20 Range/Units 17:25 17:25 17:25 MCH (28-32) pg RDW (13.2-15.2) % Seg Neuts % (Manual) (40.0-70.0) % Lymphocytes % (Manual) (13.4-35.0) % Seg Neutrophils # Man (1.8-7.7) K/mm3 Lymphocytes # (Manual) (1.2-5.4) K/mm3 PT 36.1 H (12.2-14.9) Sec. INR 3.55 H (0.87-1.13) D-Dimer (0-234) ng/mlDDU Sodium (137-145) mmol/L Chloride (98-107) mmol/L Carbon Dioxide (22-30) mmol/L BUN (9-20) mg/dL Creatinine (0.8-1.3) mg/dL Glucose (75-100) mg/dL Calcium (8.4-10.2) mg/dL Magnesium (1.7-2.3) mg/dL Ferritin 3088.0 H (30.0-300.0) ng/mL AST (5-40) units/L Lactate Dehydrogenase (91-180) units/L C-Reactive Protein (0.00-1.30) mg/dL NT-Pro-B Natriuret Pep 2216 H (0-450) pg/mL Albumin (3.9-5) g/dL Urine Creatinine (0.1-20.0) mg/dL 03/14/20 03/14/20 03/14/20 Range/Units 04:43 04:43 04:43 MCH 27 L (28-32) pg RDW 17.8 H (13.2-15.2) % Seg Neuts % (Manual) 93.0 H (40.0-70.0) % Lymphocytes % (Manual) 2.0 L (13.4-35.0) % Seg Neutrophils # Man 9.7 H (1.8-7.7) K/mm3 Lymphocytes # (Manual) 0.2 L (1.2-5.4) K/mm3 PT 44.2 H (12.2-14.9) Sec. INR 4.60 H (0.87-1.13) D-Dimer (0-234) ng/mlDDU Sodium 135 L (137-145) mmol/L Chloride (98-107) mmol/L Carbon Dioxide 20 L (22-30) mmol/L BUN 37 H (9-20) mg/dL Creatinine 1.8 H (0.8-1.3) mg/dL Glucose (75-100) mg/dL Calcium 7.9 L (8.4-10.2) mg/dL Magnesium 2.50 H (1.7-2.3) mg/dL Ferritin (30.0-300.0) ng/mL AST 100 H (5-40) units/L Lactate Dehydrogenase (91-180) units/L C-Reactive Protein (0.00-1.30) mg/dL NT-Pro-B Natriuret Pep (0-450) pg/mL Albumin 2.8 L (3.9-5) g/dL Urine Creatinine (0.1-20.0) mg/dL
--- NOTE | 2020-03-14 12:29 | Progress Note ---
Assessment and Plan Assessment and plan: 44-year-old male with known history of hypertension, CHF with ejection fraction of 40 to 45% (on echo done in 01/2020), Gout presenting to the emergency room complaining of shortness of breath, diarrhea, abdominal pain and vomiting. He says symptoms started 5 days prior. He was recently discharged from here about a week ago after management for acute on chronic systolic CHF. He denies any ingestion of unaccustomed meals. He deneis any contact with someone with COVID- 19. He was recently tested for COVID-19 and was negative. His labs have been reviewed. Had JIM and elevated inflammatory markers. COVID- 19 test ordered. Hold Lasix for now due to JIM. 03/12. Patient seen and examined at bedside this morning. Patient feels much better today but still needs oxygen to maintain saturation. He is on antibiotics for bilateral opacities found on x-ray. Awaiting COVID-19 test today. Continue dexamethasone for now 03/13. COVID-19 test positive. ID consulted. Continue dexamethasone and ant ibiotics for now. Overnight, patient became more hypoxic and had to be placed on BiPAP. Pulmonology consult requested. Patient will be going to the IMCU for close observation. 03/14. He got lasix yesterday and diuresed well. On high flow this AM. INR is supratherapeutic so coumadin is being held Problems -- Acute respiratory failure with hypoxia Current Visit: No Status: Acute Plan to address problem: Continue oxygen supplementation On HFNC. BIPAP prn COVID-19 positive -- COVID-19 positive test (U07.1, COVID-19) with Acute Pneumonia (J12.89, Other viral pneumonia) Current Visit: Yes Status: Acute Plan to address problem: Continue dexamethasone 6 mg IV daily ID recs appreciated Patient not a candidate for remdesivir for now due to JIM. Prone positioning if able Continue to monitor inflammatory markers -- Acute Kidney injury Current Visit: No Status: Acute Plan to address problem: Monitor renal function ---Multiple episodes of diarrhea with abdominal pain Current Visit: No Status: Chronic Plan to address problem: COVID-19 test positive Supportive management Monitor symptoms closely -- Acute on Chronic systolic CHF/EF 40 to 45% Current Visit: No Status: Acute Plan to address problem: Lasix 40mg IV ProBNP >2000 --Gout Current Visit: No Status: Chronic Plan to address problem: Stable. --H/O PE/CVA on chronic anticoagulation --HLD (hyperlipidemia) Current Visit: No Status: Chronic Plan to address problem: Continue home medications --HTN (hypertension) Current Visit: No Status: Chronic Plan to address problem: Monitor BP --DVT prophylaxis Current Visit: No Status: Acute Plan to address problem: On Coumadin. INR elevated so will continue to be held for now. --Full code status Current Visit: Yes Status: Acute History Interval history: Patient seen and examined at bedside this morning. On BIPAP Got lasix yesterday. Hospitalist Physical - Physical exam Narrative exam: VITAL SIGNS: Reviewed. GENERAL: Awake and alert on response to questions. On BiPAP HEAD: No signs of head trauma. EYES: Pupils are equal. Extraocular motions intact. EARS: Hearing grossly intact. MOUTH: Oropharynx is normal. NECK: No adenopathy, no JVD. CHEST: Rales bilaterally CARDIAC: Regular rate and rhythm. S1 and S2, without murmurs, gallops, or rubs. VASCULAR: No Edema. Peripheral pulses normal and equal in all extremities. ABDOMEN: Soft, non tender and non distended. No rebound or guarding, and no masses palpated. Bowel Sounds normal. MUSCULOSKELETAL: Good range of motion of all major joints. Extremities without clubbing, cyanosis or edema. NEUROLOGIC EXAM: Alert and oriented x3. No focal neurologic deficits PSYCHIATRIC: Stable mood SKIN: No obvious lesions - Constitutional Vitals: Temp Pulse Resp BP Pulse Ox 99.9 F H 92 H 50 H 111/68 92 03/14/20 08:00 03/14/20 11:00 03/14/20 11:00 03/14/20 11:00 03/14/20 11:00 Results - Labs CBC & Chem 7: 03/14/20 04:43 03/14/20 04:43 Labs: Laboratory Last Values WBC 10.4 K/mm3 (4.5-11.0) 03/14/20 04:43 RBC 4.54 M/mm3 (3.65-5.03) 03/14/20 04:43 Hgb 12.3 gm/dl (11.8-15.2) 03/14/20 04:43 Hct 38.5 % (35.5-45.6) 03/14/20 04:43 MCV 85 fl (84-94) 03/14/20 04:43 MCH 27 pg (28-32) L 03/14/20 04:43 MCHC 32 % (32-34) 03/14/20 04:43 RDW 17.8 % (13.2-15.2) H 03/14/20 04:43 Plt Count 432 K/mm3 (140-440) 03/14/20 04:43 Lymph % (Auto) 11.9 % (13.4-35.0) L 03/12/20 04:37 Collier % (Auto) 3.9 % (0.0-7.3) 03/12/20 04:37 Eos % (Auto) 0.0 % (0.0-4.3) 03/12/20 04:37 Baso % (Auto) 0.1 % (0.0-1.8) 03/12/20 04:37 Lymph # (Auto) 0.4 K/mm3 (1.2-5.4) L 03/12/20 04:37 Collier # (Auto) 0.1 K/mm3 (0.0-0.8) 03/12/20 04:37 Eos # (Auto) 0.0 K/mm3 (0.0-0.4) 03/12/20 04:37 Baso # (Auto) 0.0 K/mm3 (0.0-0.1) 03/12/20 04:37 Add Manual Diff Complete 03/14/20 04:43 Total Counted 100 03/14/20 04:43 Seg Neutrophils % Regulatory Compliance Coordinator 03/14/20 04:43 Seg Neuts % (Manual) 93.0 % (40.0-70.0) H 03/14/20 04:43 Band Neutrophils % 2.0 % 03/14/20 04:43 Lymphocytes % (Manual) 2.0 % (13.4-35.0) L 03/14/20 04:43 Reactive Lymphs % (Man) 0 % 03/14/20 04:43 Monocytes % (Manual) 3.0 % (0.0-7.3) 03/14/20 04:43 Eosinophils % (Manual) 0 % (0.0-4.3) 03/14/20 04:43 Basophils % (Manual) 0 % (0.0-1.8) 03/14/20 04:43 Metamyelocytes % 0 % 03/14/20 04:43 Myelocytes % 0 % 03/14/20 04:43 Promyelocytes % 0 % 03/14/20 04:43 Blast Cells % 0 % 03/14/20 04:43 Nucleated RBC % Not Reportable 03/14/20 04:43 Seg Neutrophils # 3.0 K/mm3 (1.8-7.7) 03/12/20 04:37 Seg Neutrophils # Man 9.7 K/mm3 (1.8-7.7) H 03/14/20 04:43 Band Neutrophils # 0.2 K/mm3 03/14/20 04:43 Lymphocytes # (Manual) 0.2 K/mm3 (1.2-5.4) L 03/14/20 04:43 Abs React Lymphs (Man) 0.0 K/mm3 03/14/20 04:43 Monocytes # (Manual) 0.3 K/mm3 (0.0-0.8) 03/14/20 04:43 Eosinophils # (Manual) 0.0 K/mm3 (0.0-0.4) 03/14/20 04:43 Basophils # (Manual) 0.0 K/mm3 (0.0-0.1) 03/14/20 04:43 Metamyelocytes # 0.0 K/mm3 03/14/20 04:43 Myelocytes # 0.0 K/mm3 03/14/20 04:43 Promyelocytes # 0.0 K/mm3 03/14/20 04:43 Blast Cells # 0.0 K/mm3 03/14/20 04:43 WBC Morphology Not Reportable 03/14/20 04:43 Hypersegmented Neuts Not Reportable 03/14/20 04:43 Hyposegmented Neuts Not Reportable 03/14/20 04:43 Hypogranular Neuts Not Reportable 03/14/20 04:43 Smudge Cells Not Reportable 03/14/20 04:43 Toxic Granulation Not Reportable 03/14/20 04:43 Toxic Vacuolation Not Reportable 03/14/20 04:43 Dohle Bodies Not Reportable 03/14/20 04:43 Pelger-Huet Anomaly Not Reportable 03/14/20 04:43 Marissa Rods Not Reportable 03/14/20 04:43 Platelet Estimate Consistent w auto 03/14/20 04:43 Clumped Platelets Not Reportable 03/14/20 04:43 Plt Clumps, EDTA Not Reportable 03/14/20 04:43 Large Platelets Not Reportable 03/14/20 04:43 Giant Platelets Not Reportable 03/14/20 04:43 Platelet Satelliting Not Reportable 03/14/20 04:43 Plt Morphology Comment Not Reportable 03/14/20 04:43 RBC Morphology Not Reportable 03/14/20 04:43 Dimorphic RBCs Not Reportable 03/14/20 04:43 Polychromasia Not Reportable 03/14/20 04:43 Hypochromasia Not Reportable 03/14/20 04:43 Poikilocytosis Not Reportable 03/14/20 04:43 Anisocytosis Few 03/14/20 04:43 Microcytosis Few 03/14/20 04:43 Macrocytosis Few 03/14/20 04:43 Spherocytes Not Reportable 03/14/20 04:43 Pappenheimer Bodies Not Reportable 03/14/20 04:43 Sickle Cells Not Reportable 03/14/20 04:43 Target Cells Not Reportable 03/14/20 04:43 Tear Drop Cells Not Reportable 03/14/20 04:43 Ovalocytes Not Reportable 03/14/20 04:43 Helmet Cells Not Reportable 03/14/20 04:43 Carlton-Abram Bodies Not Reportable 03/14/20 04:43 Allen Rings Not Reportable 03/14/20 04:43 Ihlen Cells Not Reportable 03/14/20 04:43 Bite Cells Not Reportable 03/14/20 04:43 Crenated Cell Not Reportable 03/14/20 04:43 Elliptocytes Not Reportable 03/14/20 04:43 Acanthocytes (Spur) Not Reportable 03/14/20 04:43 Rouleaux Not Reportable 03/14/20 04:43 Hemoglobin C Crystals Not Reportable 03/14/20 04:43 Schistocytes Not Reportable 03/14/20 04:43 Malaria parasites Not Reportable 03/14/20 04:43 Steven Bodies Not Reportable 03/14/20 04:43 Hem Pathologist Commnt No 03/14/20 04:43 PT 44.2 Sec. (12.2-14.9) H 03/14/20 04:43 INR 4.60 (0.87-1.13) H 03/14/20 04:43 D-Dimer 287.92 ng/mlDDU (0-234) H 03/13/20 17:25 ABG pH 7.409 (7.320-7.450) 03/13/20 09:13 POC ABG pCO2 34.7 mmHg (32.0-48.0) 03/13/20 09:13 POC ABG pO2 89.0 mmHg (83-108) 03/13/20 09:13 POC ABG HCO3 21.5 03/13/20 09:13 POC ABG Base Excess -2.6 03/13/20 09:13 ABG Hemoglobin 12.5 (12.0-17.5) 03/13/20 09:13 ABG Sodium 130.7 mmol/L (136.0-145.0) L 03/13/20 09:13 ABG Potassium 3.8 mmol/L (3.40-4.50) 03/13/20 09:13 ABG Chloride 102.0 mmol/L (98-107) 03/13/20 09:13 ABG Glucose 98 mg/dL (65-95) H 03/13/20 09:13 FiO2 60.0 03/13/20 09:13 Sodium 135 mmol/L (137-145) L 03/14/20 04:43 Potassium 3.9 mmol/L (3.6-5.0) 03/14/20 04:43 Chloride 99.7 mmol/L (98-107) 03/14/20 04:43 Carbon Dioxide 20 mmol/L (22-30) L 03/14/20 04:43 Anion Gap 19 mmol/L 03/14/20 04:43 BUN 37 mg/dL (9-20) H 03/14/20 04:43 Creatinine 1.8 mg/dL (0.8-1.3) H 03/14/20 04:43 Estimated GFR 49 ml/min 03/14/20 04:43 BUN/Creatinine Ratio 21 % 03/14/20 04:43 Glucose 94 mg/dL (75-100) 03/14/20 04:43 POC Glucose 91 mg/dL (70-105) 03/13/20 08:34 Lactic Acid 1.70 mmol/L (0.7-2.0) 03/11/20 14:29 Calcium 7.9 mg/dL (8.4-10.2) L 03/14/20 04:43 Phosphorus 3.20 mg/dL (2.5-4.5) 03/14/20 04:43 Magnesium 2.50 mg/dL (1.7-2.3) H 03/14/20 04:43 Ferritin 3088.0 ng/mL (30.0-300.0) H 03/13/20 17:25 Total Bilirubin 0.30 mg/dL (0.1-1.2) 03/14/20 04:43 AST 100 units/L (5-40) H 03/14/20 04:43 ALT 41 units/L (7-56) 03/14/20 04:43 Alkaline Phosphatase 100 units/L (35-129) 03/14/20 04:43 Lactate Dehydrogenase 1506 units/L (91-180) H 03/13/20 17:25 C-Reactive Protein 3.50 mg/dL (0.00-1.30) H 03/13/20 17:25 NT-Pro-B Natriuret Pep 2216 pg/mL (0-450) H 03/13/20 17:25 Total Protein 6.3 g/dL (6.3-8.2) 03/14/20 04:43 Albumin 2.8 g/dL (3.9-5) L 03/14/20 04:43 Albumin/Globulin Ratio 0.8 % 03/14/20 04:43 Procalcitonin 0.21 ng/mL (<0.15) 03/13/20 17:25 Arterial Blood Glucose 98 mg/dL (65-95) H 03/13/20 09:13 Arterial Blood Ionized Calcium 4.4 mg/dL (4.6-5.3) L 03/13/20 09:13 Urine Color Yellow (Yellow) 03/13/20 13:05 Urine Turbidity Clear (Clear) 03/13/20 13:05 Urine pH 5.0 (5.0-7.0) 03/13/20 13:05 Ur Specific Daggett 1.015 (1.003-1.030) 03/13/20 13:05 Urine Protein >500 mg/dL (Negative) 03/13/20 13:05 Urine Glucose (UA) Neg mg/dL (Negative) 03/13/20 13:05 Urine Ketones Neg mg/dL (Negative) 03/13/20 13:05 Urine Blood Sm (Negative) 03/13/20 13:05 Urine Nitrite Neg (Negative) 03/13/20 13:05 Urine Bilirubin Neg (Negative) 03/13/20 13:05 Urine Urobilinogen < 2.0 mg/dL (<2.0) 03/13/20 13:05 Ur Leukocyte Esterase Neg (Negative) 03/13/20 13:05 Urine WBC (Auto) 2.0 /HPF (0.0-6.0) 03/13/20 13:05 Urine RBC (Auto) 1.0 /HPF (0.0-6.0) 03/13/20 13:05 U Epithel Cells (Auto) < 1.0 /HPF (0-13.0) 03/13/20 13:05 Urine Bacteria (Auto) 1+ /HPF (Negative) 03/13/20 13:05 Urine Mucus Few /HPF 03/13/20 13:05 Urine Eosinophils None seen (None Seen) 03/13/20 13:05 Urine Creatinine 135.0 mg/dL (0.1-20.0) H 03/13/20 13:05 Urine Sodium 33 mmol/L 03/13/20 13:05 Coronavirus (PCR) Positive (Negative) A 03/12/20 10:07 Microbiology: Microbiology 03/11/20 11:18 Peripheral/Venous Blood Culture - Preliminary NO GROWTH AFTER 72 HOURS 03/11/20 11:18 Peripheral/Venous Blood Culture - Preliminary NO GROWTH AFTER 72 HOURS Rodriguez/IV: Voiding Method Urinal IV Catheter Type [Right INT / Saline Lock Forearm] IV Catheter Type [Right Wrist] INT / Saline Lock Active Medications - Current Medications Current Medications: Generic Name Dose Route Start Last Admin Trade Name Freq PRN Reason Stop Dose Admin Acetaminophen 650 mg 03/11/20 16:53 03/14/20 03:36 Tylenol PO 650 mg Q4H PRN Administration Pain MILD(1-3)/Fever >100.5/LI Benzonatate 100 mg 03/11/20 16:55 03/13/20 22:02 Tessalon Perles PO 100 mg Q8H PRN Administration Cough Clopidogrel Bisulfate 75 mg 03/12/20 10:00 03/14/20 09:02 Plavix PO 75 mg DAILY [place] Administration Dexamethasone 4 mg 03/14/20 10:00 03/14/20 09:02 Decadron PO 03/20/20 10:01 4 mg DAILY [place] Administration Dexamethasone 2 mg 03/14/20 10:00 03/14/20 10:29 Decadron PO 03/20/20 10:01 Not Given DAILY CAR[place]INA Famotidine 20 mg 03/13/20 11:00 03/14/20 09:02 Pepcid PO 20 mg BID [place] Administration Gabapentin 300 mg 03/11/20 22:00 03/14/20 09:01 Gabapentin PO 300 mg BID [place] Administration Hydralazine HCl 50 mg 03/11/20 20:00 03/14/20 09:02 Apresoline PO 50 mg TID [place] Administration REMDESIVIR 100 mg/ Sodium 250 mls @ 500 mls/hr 03/14/20 21:00 Chloride IV 03/17/20 21:29 [id number]@2100 [place] Isosorbide Mononitrate 30 mg 03/12/20 10:00 03/14/20 09:02 Imdur PO 30 mg QDAY [facility] Administration Metoprolol Tartrate 50 mg 03/11/20 22:00 03/14/20 09:02 Metoprolol PO 50 mg BID [place] Administration Ondansetron HCl 4 mg 03/11/20 16:53 Zofran IV Q8H PRN Nausea And Vomiting Sodium Chloride 10 ml 03/11/20 22:00 03/14/20 09:03 Sodium Chloride Flush Syringe 10 Ml IV 10 ml BID [place] Administration Sodium Chloride 10 ml 03/11/20 16:53 Sodium Chloride Flush Syringe 10 Ml IV PRN PRN LINE FLUSH Sodium Chloride 50 ml 03/13/20 20:00 03/13/20 22:01 Nacl 0.9% IV 03/17/20 20:01 50 ml Q24H [place] Administration Nutrition/Malnutrition Assess - Dietary Evaluation Nutrition/Malnutrition Findings: Nutrition Notes Start: 03/12/20 11:06 Freq: Status: Active Protocol: Document 03/12/20 11:06 LM (Rec: 03/12/20 11:09 LM [id number]) Nutrition Notes Need for Assessment generated from: Education Initial or Follow up Brief Note Pertinent Medications Coumadin Weight Status Obese Subjective/Other Information Screen for Coumadin education. Pt stated eating well [employer] and not wt loss. Pt aware of vitamin K and Coumadin interaction and did not want any education. Nutrition Intervention Revisit per MD consult or patient Sign Off request:
[2020-03-14] MEDS: SODIUM CHLORIDE 0.9% 50 ML IVPB IV SCH (21:05)
[2020-03-14] MEDS: REMDESIVIR 100 MG in SODIUM CHLORIDE 0.9% 250ML 250 ML IV SCH (21:05)
[2020-03-15 06:00] LABS: Hematocrit 39.7 % (35.5-45.6); Hemoglobin 12.6 gm/dl (11.8-15.2); Mean Corpuscular HGB Conc 32 % (32-34); Mean Corpuscular Volume 85 fl (84-94); Platelet Count 456 K/mm3 (140-440); Red Blood Count 4.68 M/mm3 (3.65-5.03); Red Cell Distribution Width 18.1 % (13.2-15.2)
[2020-03-15 06:25] LABS: Albumin 2.7 g/dL (3.9-5); Calcium 8.3 mg/dL (8.4-10.2)
[2020-03-15 06:32] LABS: C-Reactive Protein 9.8 mg/dL (0.00-1.30)
[2020-03-15 06:46] LABS: INR 5.57 (0.87-1.13)
[2020-03-15 06:55] LABS: Basophils % (Manual) 0 % (0.0-1.8); Eosinophils % (Manual) 0 % (0.0-4.3); Total Cells Counted 100
[2020-03-15 06:56] LABS: Anisocytosis Few
[2020-03-15 06:57] LABS: Platelet Estimate Consistent w Auto
--- NOTE | 2020-03-15 08:14 | Progress Note ---
Assessment and Plan - Patient Problems (1) Acute respiratory failure with hypoxia Current Visit: Yes Status: Acute Plan to address problem: Patient at present appears to be in mild to moderate distress. Breathing about 25-30 times per minute. Patient is proning adequately at this particular time. Previous nurse states patient would not sit down and kept moving in this is extubated his hypoxia. (2) Suspected COVID-19 virus infection Current Visit: Yes Status: Acute Plan to address problem: Current Visit: Yes Status: Acute Plan to address problem: Continue dexamethasone 6 mg IV daily ID recs appreciated Patient not a candidate for remdesivir for now due to JIM. Prone positioning if able Continue to monitor inflammatory markers (3) Chronic anticoagulation Current Visit: Yes Status: Chronic Plan to address problem: Patient on Eliquis is stable continue present medical management. (4) Chronic kidney disease Current Visit: Yes Status: Chronic Plan to address problem: Possible secondary to COVID-19 CT scan of abdomen negative. This a.m. had increase in serum creatinine. Renal prognosis guarded. (5) Hypertension complications Current Visit: No Status: Acute (6) Gout Current Visit: No Status: Chronic (7) HLD (hyperlipidemia) Current Visit: No Status: Chronic Qualifiers: Hyperlipidemia type: mixed hyperlipidemia Qualified Code(s): E78.2 - Mixed hyperlipidemia Plan to address problem: Check renal function LDL goal less than 100. (8) Gout Current Visit: No Status: Inactive Qualifiers: Gout site: unspecified site Plan to address problem: No acute gouty exacerbation. (9) History of pulmonary embolus (PE) Current Visit: Yes Status: Acute Plan to address problem: Continue anticoagulant Eliquis. Subjective Date of service: 03/15/20 Principal diagnosis: covid pneumonia Interval history: 44-year-old male with known history of hypertension, CHF with ejection fraction of 40 to 45% (on echo done in 01/2020), Gout presenting to the emergency room complaining of shortness of breath, diarrhea, abdominal pain and vomiting. He says symptoms started 5 days prior. He was recently discharged from here about a week ago after management for acute on chronic systolic CHF. He denies any in gestion of unaccustomed meals. He deneis any contact with someone with COVID-19. He was recently tested for COVID-19 and was negative. His labs have been reviewed. Had JIM and elevated inflammatory markers. COVID- 19 test ordered. Hold Lasix for now due to JIM. 03/12. Patient seen and examined at bedside this morning. Patient feels much better today but still needs oxygen to maintain saturation. He is on antibiotics for bilateral opacities found on x-ray. Awaiting COVID-19 test today. Continue dexamethasone for now 03/13. COVID-19 test positive. ID consulted. Continue dexamethasone and antibiotics for now. Overnight, patient became more hypoxic and had to be placed on BiPAP. Pulmonology consult requested. Patient will be going to the IM for close observation. 03/14. He got lasix yesterday and diuresed well. On high flow this AM. INR is supratherapeutic so coumadin is being held Objective - Constitutional Vitals: Vital Signs - 12hr 03/14/20 03/14/20 03/14/20 20:19 20:39 21:00 Temperature Pulse Rate 137 H 101 H 110 H Pulse Rate [ From Monitor] Respiratory 31 H 38 H Rate Blood Pressure 124/90 118/86 O2 Sat by Pulse 98 97 Oximetry 03/14/20 03/14/20 03/14/20 22:00 23:01 23:32 Temperature 98.8 F Pulse Rate 80 88 Pulse Rate [ From Monitor] Respiratory 25 H 25 H Rate Blood Pressure 125/75 114/73 O2 Sat by Pulse 96 94 Oximetry 03/14/20 03/14/20 03/15/20 23:38 23:49 00:00 Temperature 98.8 F Pulse Rate 90 Pulse Rate [ From Monitor] Respiratory 33 H Rate Blood Pressure O2 Sat by Pulse Oximetry 03/15/20 03/15/20 03/15/20 00:01 01:01 02:01 Temperature Pulse Rate 88 105 H 105 H Pulse Rate [ From Monitor] Respiratory 33 H 33 H 22 Rate Blood Pressure 108/58 109/74 108/76 O2 Sat by Pulse 93 98 92 Oximetry 03/15/20 03/15/20 03/15/20 03:01 03:11 03:21 Temperature Pulse Rate 89 89 94 H Pulse Rate [ From Monitor] Respiratory 31 H 27 H 57 H Rate Blood Pressure 73/53 105/76 105/76 O2 Sat by Pulse 100 93 90 Oximetry 03/15/20 03/15/20 03/15/20 03:31 03:34 03:41 Temperature 97.4 F L Pulse Rate 102 H 91 H Pulse Rate [ From Monitor] Respiratory 37 H 24 Rate Blood Pressure 105/76 105/76 O2 Sat by Pulse 92 93 Oximetry 03/15/20 03/15/20 03/15/20 04:00 04:33 04:56 Temperature Pulse Rate 112 H 89 118 H Pulse Rate [ 112 H From Monitor] Respiratory 35 H 28 H Rate Blood Pressure 115/86 115/86 O2 Sat by Pulse 95 98 Oximetry 03/15/20 03/15/20 05:00 06:01 Temperature Pulse Rate 120 H 112 H Pulse Rate [ From Monitor] Respiratory 37 H 29 H Rate Blood Pressure 128/80 127/104 O2 Sat by Pulse 98 97 Oximetry - Labs CBC & Chem 7: 03/15/20 05:08 03/15/20 05:08 Labs: Abnormal lab results 03/15/20 03/15/20 03/15/20 Range/Units 05:08 05:08 05:08 WBC 12.5 H (4.5-11.0) K/mm3 MCH 27 L (28-32) pg RDW 18.1 H (13.2-15.2) % Plt Count 456 H (140-440) K/mm3 Seg Neuts % (Manual) 93.0 H (40.0-70.0) % Lymphocytes % (Manual) 4.0 L (13.4-35.0) % Nucleated RBC % 1.0 H (0.0-0.9) % Seg Neutrophils # Man 11.6 H (1.8-7.7) K/mm3 Lymphocytes # (Manual) 0.5 L (1.2-5.4) K/mm3 PT 51.4 H (12.2-14.9) Sec. INR 5.57 H* (0.87-1.13) Carbon Dioxide 18 L (22-30) mmol/L BUN 50 H (9-20) mg/dL Creatinine 2.0 H (0.8-1.3) mg/dL Calcium 8.3 L (8.4-10.2) mg/dL Ferritin (30.0-300.0) ng/mL AST 84 H (5-40) units/L Lactate Dehydrogenase 1905 H (91-180) units/L C-Reactive Protein 9.80 H (0.00-1.30) mg/dL Albumin 2.7 L (3.9-5) g/dL 03/15/20 Range/Units 05:08 WBC (4.5-11.0) K/mm3 MCH (28-32) pg RDW (13.2-15.2) % Plt Count (140-440) K/mm3 Seg Neuts % (Manual) (40.0-70.0) % Lymphocytes % (Manual) (13.4-35.0) % Nucleated RBC % (0.0-0.9) % Seg Neutrophils # Man (1.8-7.7) K/mm3 Lymphocytes # (Manual) (1.2-5.4) K/mm3 PT (12.2-14.9) Sec. INR (0.87-1.13) Carbon Dioxide (22-30) mmol/L BUN (9-20) mg/dL Creatinine (0.8-1.3) mg/dL Calcium (8.4-10.2) mg/dL Ferritin 2000.0 H (30.0-300.0) ng/mL AST (5-40) units/L Lactate Dehydrogenase (91-180) units/L C-Reactive Protein (0.00-1.30) mg/dL Albumin (3.9-5) g/dL
[2020-03-15] MEDS: hydrALAZINE 25 MG TAB PO SCH ×3 (09:38→22:07)
[2020-03-15] MEDS: DEXAMETHASONE 2 MG TAB PO SCH ×2 (09:39→22:09)
[2020-03-15] MEDS: GABAPENTIN 300 MG CAP PO SCH ×2 (09:39→22:08)
[2020-03-15] MEDS: METOPROLOL TARTRATE 50 MG TAB PO SCH ×2 (09:39→22:12)
[2020-03-15] MEDS: CLOPIDOGREL 75 MG TAB PO SCH (09:39)
[2020-03-15] MEDS: DEXAMETHASONE 4 MG TAB PO SCH (09:39)
[2020-03-15] MEDS: FAMOTIDINE 20 MG TAB PO SCH ×2 (09:39→22:10)
--- NOTE | 2020-03-15 10:29 | Progress Note ---
Assessment and Plan Cultures: Blood culture SARS CoV2 PCR positive Assessment: #Severe sepsis: Remains with severe tachycardia and hypotension, likely due to bilateral pneumonia. #Severe COVID pneumonia: Inflammatory markers elevated. CT shows bilateral groundglass opacities. #Acute hypoxemic respiratory failure: Secondary to COVID-19, possible volume overload, worsening, was on BiPAP overnight, now on high flow nasal cannula. #JIM: from COVID, worsening #Transaminitis: From Covid #Previous DVT: On Coumadin, on hold due to prolonged INR Recommendations: -Increase dexamethasone 6 mg IV/PO twice daily, given hypoxia -Continue remdesivir day 3 of 5 -Monitor inflammatory markers - ferritin, Ddimer, CRP, LDH -Monitor liver function test on Remdesivir -Continue anticoagulation per System Protocol -Prone positioning as possible -obtain TTE -Consider cardiology consult in light of severe hypotension High risk mortality All laboratory, cultures and imaging were reviewed. Will follow Janelle Parra MD Infectious Diseases Route Sales Delivery Driver [facility] M [phone] O [phone] Subjective Date of service: 03/15/20 Principal diagnosis: COVID Interval history: Remains tachycardic on monitor, hypotensive, on high flow nasal cannula complaining of shortness of breath, no fever, patient was on BiPAP overnight Objective - Exam Narrative Exam: Physical Exam: reviewed ED and hospitalist notes, limited due to conservation of PPE and decrease risk of transmission. General appearance: limited due to conservation of PPE Eyes: limited due to conservation of PPE HENT: Atraumatic; limited due to conservation of PPE Lungs: limited due to conservation of PPE CV: limited due to conservation of PPE Abdomen: limited due to conservation of PPE Extremities: limited due to conservation of PPE Skin: limited due to conservation of PPE Psych: limited due to conservation of PPE Neuro: limited due to conservation of PPE - Constitutional Vitals: Vital Signs Temp Pulse Resp BP Pulse Ox 97.9 F 120 H 39 H 104/83 82 L 03/15/20 08:00 03/15/20 10:01 03/15/20 10:01 03/15/20 10:01 03/15/20 10:01 Temperature -Last 24 Hours Temperature 97.9 F Temperature 97.4 F Temperature 98.8 F Temperature 98.8 F Temperature 98.2 F Temperature 98.9 F Temperature 98.2 F - Labs CBC & Chem 7: 03/15/20 05:08 03/15/20 05:08 Labs: Abnormal lab results 03/15/20 03/15/20 03/15/20 Range/Units 05:08 05:08 05:08 WBC 12.5 H (4.5-11.0) K/mm3 MCH 27 L (28-32) pg RDW 18.1 H (13.2-15.2) % Plt Count 456 H (140-440) K/mm3 Seg Neuts % (Manual) 93.0 H (40.0-70.0) % Lymphocytes % (Manual) 4.0 L (13.4-35.0) % Nucleated RBC % 1.0 H (0.0-0.9) % Seg Neutrophils # Man 11.6 H (1.8-7.7) K/mm3 Lymphocytes # (Manual) 0.5 L (1.2-5.4) K/mm3 PT 51.4 H (12.2-14.9) Sec. INR 5.57 H* (0.87-1.13) Carbon Dioxide 18 L (22-30) mmol/L BUN 50 H (9-20) mg/dL Creatinine 2.0 H (0.8-1.3) mg/dL Calcium 8.3 L (8.4-10.2) mg/dL Ferritin (30.0-300.0) ng/mL AST 84 H (5-40) units/L Lactate Dehydrogenase 1905 H (91-180) units/L C-Reactive Protein 9.80 H (0.00-1.30) mg/dL Albumin 2.7 L (3.9-5) g/dL 03/15/20 Range/Units 05:08 WBC (4.5-11.0) K/mm3 MCH (28-32) pg RDW (13.2-15.2) % Plt Count (140-440) K/mm3 Seg Neuts % (Manual) (40.0-70.0) % Lymphocytes % (Manual) (13.4-35.0) % Nucleated RBC % (0.0-0.9) % Seg Neutrophils # Man (1.8-7.7) K/mm3 Lymphocytes # (Manual) (1.2-5.4) K/mm3 PT (12.2-14.9) Sec. INR (0.87-1.13) Carbon Dioxide (22-30) mmol/L BUN (9-20) mg/dL Creatinine (0.8-1.3) mg/dL Calcium (8.4-10.2) mg/dL Ferritin 2000.0 H (30.0-300.0) ng/mL AST (5-40) units/L Lactate Dehydrogenase (91-180) units/L C-Reactive Protein (0.00-1.30) mg/dL Albumin (3.9-5) g/dL
--- NOTE | 2020-03-15 14:12 | Progress Note ---
Assessment and Plan 1. Acute kidney injury: Acute kidney injury superimposed on CKD in the setting of COVID infection. CT abdomen negative for hydro. Monitor renal function. Creatinine level is slightly elevated sicne yesterday. Renal prognosis is guarded. Avoid nephrotoxic agents. Meds dosage based on GFR. 2. FEN: Metabolic acidosis, monitor, monitor. Cautious use of diuretics if needed. Monitor lytes. 3. Acute hypoxic resp failure: Likely secondary to COVID-19 infection. CXR showed pulmonary infiltrate. On BIPAP. Followed by Pulmonary. 4. Severe COVID-19 pneumonia. Followed by ID. On Coumadin and INR 5.57. Steroids. 5. Hypertension: BP is better, adjust meds as needed. Monitor BP. Subjective: Patient was seen and examined at the bedside. - General Appearance General appearance: well-developed, well-nourished, appears stated age, mild resp distress, on HFNC O2 HEENT: ATNC Neck: supple Respiratory: faint rales noted Cardiology: S1S2, no murmur Gastrointestinal: normoactive bowel sounds, not tenderness, not distended Integumentary: no obvious rash Neurologic: AOX4, able to move all 4 extremities Ext: no edema noted Subjective Date of service: 03/15/20 Principal diagnosis: COVID Objective - Vital Signs Vital signs: Vital Signs - 12hr 03/15/20 03/15/20 03/15/20 03:01 03:11 03:21 Temperature Pulse Rate 89 89 94 H Pulse Rate [ From Monitor] Respiratory 31 H 27 H 57 H Rate Blood Pressure 73/53 105/76 105/76 O2 Sat by Pulse 100 93 90 Oximetry 03/15/20 03/15/20 03/15/20 03:31 03:34 03:41 Temperature 97.4 F L Pulse Rate 102 H 91 H Pulse Rate [ From Monitor] Respiratory 37 H 24 Rate Blood Pressure 105/76 105/76 O2 Sat by Pulse 92 93 Oximetry 03/15/20 03/15/20 03/15/20 04:00 04:33 04:56 Temperature Pulse Rate 112 H 89 118 H Pulse Rate [ 112 H From Monitor] Respiratory 35 H 28 H Rate Blood Pressure 115/86 115/86 O2 Sat by Pulse 95 98 Oximetry 03/15/20 03/15/20 03/15/20 05:00 06:01 07:01 Temperature Pulse Rate 120 H 112 H 107 H Pulse Rate [ From Monitor] Respiratory 37 H 29 H 31 H Rate Blood Pressure 128/80 127/104 107/67 O2 Sat by Pulse 98 97 91 Oximetry 03/15/20 03/15/20 03/15/20 08:00 08:01 09:01 Temperature 97.9 F Pulse Rate 118 H 121 H 116 H Pulse Rate [ 115 H From Monitor] Respiratory 30 H 36 H 35 H Rate Blood Pressure 116/77 96/77 O2 Sat by Pulse 92 96 Oximetry 03/15/20 03/15/20 03/15/20 09:13 09:38 09:39 Temperature Pulse Rate 126 H 126 H Pulse Rate [ From Monitor] Respiratory Rate Blood Pressure 96/77 O2 Sat by Pulse 93 Oximetry 03/15/20 03/15/20 03/15/20 10:01 11:01 12:00 Temperature 98.0 F Pulse Rate 120 H 84 92 H Pulse Rate [ 92 H From Monitor] Respiratory 39 H 32 H 22 Rate Blood Pressure 104/83 104/83 O2 Sat by Pulse 82 L 80 L 96 Oximetry 03/15/20 03/15/20 03/15/20 12:01 13:01 13:52 Temperature Pulse Rate 89 94 H Pulse Rate [ From Monitor] Respiratory 40 H 38 H Rate Blood Pressure 104/83 104/83 89/59 O2 Sat by Pulse 92 85 Oximetry - Lab 03/15/20 05:08 03/15/20 05:08 Most recent lab results ABG pH 7.409 (7.320-7.450) 03/13/20 09:13 Calcium 8.3 mg/dL (8.4-10.2) L 03/15/20 05:08 Phosphorus 3.20 mg/dL (2.5-4.5) 03/14/20 04:43 Magnesium 2.50 mg/dL (1.7-2.3) H 03/14/20 04:43 Urine Creatinine 135.0 mg/dL (0.1-20.0) H 03/13/20 13:05 Urine Sodium 33 mmol/L 03/13/20 13:05 Medications & Allergies - Medications Allergies/Adverse Reactions: Allergies No Known Allergies Allergy (Verified 04/21/17 15:31) Home Medications: Home Medications Medication Instructions Recorded Confirmed Last Taken Type Benzonatate [Tessalon Perle] 100 mg PO Q8H PRN #20 capsule 01/23/19 10/24/20 Unknown Rx Ibuprofen [Motrin 600 MG tab] 600 mg PO Q8H PRN #20 tablet 06/12/18 03/13/20 Unknown Rx Aspirin [Aspirin BABY CHEW TAB] 81 mg PO QDAY #100 tab.chew 02/04/20 03/13/20 Unknown Rx Clopidogrel [Plavix] 75 mg PO QDAY #30 tablet 02/04/20 03/13/20 Unknown Rx Furosemide [Lasix TAB] 40 mg PO QDAY #30 tablet 02/04/20 03/13/20 Unknown Rx Gabapentin 300 mg PO BID #60 capsule 02/04/20 03/13/20 Unknown Rx ISOSORBIDE MONOnitrate [Imdur ER] 30 mg PO QDAY #30 tablet 02/04/20 03/13/20 Unknown Rx Metoprolol [Lopressor TAB] 50 mg PO BID #60 tablet 02/04/20 03/13/20 Unknown Rx Potassium Chloride [K-Dur] 20 meq PO QDAY #30 02/04/20 03/13/20 Unknown Rx amLODIPine 10 mg PO DAILY #30 tablet 02/04/20 03/13/20 Unknown Rx hydrALAZINE [Apresoline TAB] 50 mg PO TID #90 tablet 02/04/20 03/13/20 Unknown Rx oxyCODONE /ACETAMINOPHEN [Percocet 1 tab PO Q6H PRN #14 tablet 02/04/20 03/13/20 Unknown Rx 5/325 mg] Famotidine [Pepcid] 40 mg PO QHS #10 tablet 02/13/20 03/13/20 Unknown Rx Prednisone [predniSONE 10 mg 10 mg PO .TAPER #1 tab.ds.pk 02/13/20 03/13/20 Unknown Rx (6-Day Pack, 21 Tabs)] diphenhydrAMINE [Benadryl CAP] 50 mg PO Q8HR PRN #10 capsule 02/13/20 03/13/20 Unknown Rx Cyclobenzaprine HCl [Flexeril 5 MG 5 mg PO TID PRN #15 tab 03/01/20 03/13/20 Unknown Rx TAB] Warfarin [Coumadin] 7.5 mg PO DAILY@1700 #30 tablet 03/01/20 03/13/20 Unknown Rx Active Medications: Generic Name Dose Route Start Last Admin Trade Name Freq PRN Reason Stop Dose Admin Acetaminophen 650 mg 03/11/20 16:53 03/14/20 03:36 Tylenol PO 650 mg Q4H PRN Administration Pain MILD(1-3)/Fever >100.5/LI Benzonatate 100 mg 03/11/20 16:55 03/13/20 22:02 Tessalon Perles PO 100 mg Q8H PRN Administration Cough Clopidogrel Bisulfate 75 mg 03/12/20 10:00 03/15/20 09:39 Plavix PO 75 mg DAILY [place] Administration Dexamethasone 6 mg 03/15/20 22:00 Decadron PO 03/20/20 23:59 Q12HR [place] Famotidine 20 mg 03/13/20 11:00 03/15/20 09:39 Pepcid PO 20 mg BID [place] Administration Gabapentin 300 mg 03/11/20 22:00 03/15/20 09:39 Gabapentin PO 300 mg BID [place] Administration Hydralazine HCl 50 mg 03/11/20 20:00 03/15/20 13:52 Apresoline PO Not Given TID [place] REMDESIVIR 100 mg/ Sodium 250 mls @ 500 mls/hr 03/14/20 21:00 03/14/20 21:05 Chloride IV 03/17/20 21:29 500 mls/hr Q24HR@2100 [place] Administration Isosorbide Mononitrate 30 mg 03/12/20 10:00 03/15/20 09:39 Imdur PO 30 mg QDAY [place] Administration Metoprolol Tartrate 50 mg 03/11/20 22:00 03/15/20 09:39 Metoprolol PO 50 mg BID [place] Administration Ondansetron HCl 4 mg 03/11/20 16:53 Zofran IV Q8H PRN Nausea And Vomiting Sodium Chloride 10 ml 03/11/20 22:00 03/15/20 09:40 Sodium Chloride Flush Syringe 10 Ml IV 10 ml BID [place] Administration Sodium Chloride 10 ml 03/11/20 16:53 Sodium Chloride Flush Syringe 10 Ml IV PRN PRN LINE FLUSH Sodium Chloride 50 ml 03/13/20 20:00 03/14/20 21:05 Nacl 0.9% IV 03/17/20 20:01 50 ml Q24H [place] Administration
[2020-03-15] MEDS ORDERED: SODIUM CHLORIDE 0.9% 50 ML IVPB IV SCH (21:30)
[2020-03-15] MEDS ORDERED: DEXAMETHASONE 2 MG TAB PO SCH (22:00)
[2020-03-15] MEDS: REMDESIVIR 100 MG in SODIUM CHLORIDE 0.9% 250ML 250 ML IV SCH (22:00)
--- NOTE | 2020-03-15 22:55 | Progress Note ---
Assessment and Plan Imp: 1. Covid-19 2. Viral pneumonia 3. Acute respiratory failure, hypoxia 4. JIM 5. Anion-gap metabolic acidosis 6. Hyponatremia 7. Obesity Rec: 1. Cont. steroids/Remdesivir 2. Hold further Lasix to preserve renal function; believe bilateral infiltrates are due to pneumonia not fluid 3. INR is > 2.0; would hold Vit K unless actively bleeding given current hypercoagulable state due to Covid-19 4. Personally asked patient to self-prone to help judge off intubation; he refuses; any worsening in oxygenation will result in intubation, he understands 5. Prognosis is guarded Plan of care reviewed w/ patient, he understands/agrees CCt 31 minutes Subjective Date of service: 03/15/20 Principal diagnosis: covid pneumonia Interval history: No events. Now on HFNC at 40LPM, 100% FiO2, plus a NRB. + SOB. Poor historian. Refuses to prone himself. Active Medications Acetaminophen (Tylenol) 650 mg PO Q4H PRN PRN Reason: Pain MILD(1-3)/Fever >100.5/LI Last Admin: 03/14/20 03:36 Dose: 650 mg Documented by: Benzonatate (Tessalon Perles) 100 mg PO Q8H PRN PRN Reason: Cough Last Admin: 03/13/20 22:02 Dose: 100 mg Documented by: Clopidogrel Bisulfate (Plavix) 75 mg PO DAILY [facility] Last Admin: 03/15/20 09:39 Dose: 75 mg Documented by: Dexamethasone (Decadron) 6 mg PO Q12HR [facility] Stop: 03/20/20 23:59 Last Admin: 03/15/20 22:09 Dose: 6 mg Documented by: Famotidine (Pepcid) 20 mg PO BID [facility] Last Admin: 03/15/20 22:10 Dose: 20 mg Documented by: Gabapentin (Gabapentin) 300 mg PO BID [facility] Last Admin: 03/15/20 22:08 Dose: 300 mg Documented by: Hydralazine HCl (Apresoline) 50 mg PO TID [facility] Last Admin: 03/15/20 22:07 Dose: 50 mg Documented by: REMDESIVIR 100 mg/ Sodium (Chloride) 250 mls @ 500 mls/hr IV Q24HR@2100 [facility] Stop: 03/17/20 21:29 Last Admin: 03/15/20 22:00 Dose: 500 mls/hr Documented by: Isosorbide Mononitrate (Imdur) 30 mg PO QDAY [facility] Last Admin: 03/15/20 09:39 Dose: 30 mg Documented by: Metoprolol Tartrate (Metoprolol) 50 mg PO BID [facility] Last Admin: 03/15/20 22:12 Dose: 50 mg Documented by: Ondansetron HCl (Zofran) 4 mg IV Q8H PRN PRN Reason: Nausea And Vomiting Sodium Chloride (Sodium Chloride Flush Syringe 10 Ml) 10 ml IV BID [facility] Last Admin: 03/15/20 22:01 Dose: 10 ml Documented by: Sodium Chloride (Sodium Chloride Flush Syringe 10 Ml) 10 ml IV PRN PRN PRN Reason: LINE FLUSH Sodium Chloride (Nacl 0.9%) 50 ml IV Q24H [facility] Stop: 03/17/20 21:31 Last Admin: 03/15/20 22:01 Dose: 50 ml Documented by: Objective Vital Signs - 12hr 03/15/20 03/15/20 03/15/20 11:01 12:00 12:01 Temperature 98.0 F Pulse Rate 84 92 H 89 Pulse Rate [ 92 H From Monitor] Respiratory 32 H 22 40 H Rate Blood Pressure 104/83 104/83 O2 Sat by Pulse 80 L 96 92 Oximetry 03/15/20 03/15/20 03/15/20 13:01 13:52 14:00 Temperature Pulse Rate 94 H 93 H Pulse Rate [ From Monitor] Respiratory 38 H 21 Rate Blood Pressure 104/83 89/59 110/71 O2 Sat by Pulse 85 97 Oximetry 03/15/20 03/15/20 03/15/20 15:00 16:00 17:00 Temperature 98.4 F Pulse Rate 94 H 95 H Pulse Rate [ 101 H From Monitor] Respiratory 27 H 30 H Rate Blood Pressure 110/71 97/50 91/49 O2 Sat by Pulse 92 90 84 Oximetry 03/15/20 03/15/20 03/15/20 18:00 19:00 20:00 Temperature 97.8 F Pulse Rate 90 91 H 100 H Pulse Rate [ 104 H From Monitor] Respiratory 26 H 21 26 H Rate Blood Pressure 104/71 97/57 97/57 O2 Sat by Pulse 80 L 100 85 Oximetry 03/15/20 03/15/20 03/15/20 21:51 21:55 22:07 Temperature Pulse Rate 111 H 105 H Pulse Rate [ From Monitor] Respiratory 32 H Rate Blood Pressure 141/95 116/63 O2 Sat by Pulse 97 97 Oximetry 03/15/20 22:12 Temperature Pulse Rate 110 H Pulse Rate [ From Monitor] Respiratory Rate Blood Pressure 116/63 O2 Sat by Pulse Oximetry Constitutional: alert, other (critically ill on HFNC) Eyes: non-icteric ENT: oropharynx moist Neck: supple Effort: mildly labored Ascultation: Bilateral: rales Cardiovascular: irregular rhythm (ir/ir, tachy) Gastrointestinal: normoactive bowel sounds, soft, non-tender, non-distended Integumentary: normal Extremities: no cyanosis, no edema, pink and warm Neurologic: normal mental status, non-focal exam, pupils equal and round, CN II- XII normal Psychiatric: mood appropriate, affect normal CBC and BMP: 03/15/20 05:08 03/15/20 05:08 ABG, PT/INR, D-dimer: ABG ABG pH 7.409 (7.320-7.450) 03/13/20 09:13 POC ABG pCO2 34.7 mmHg (32.0-48.0) 03/13/20 09:13 POC ABG pO2 89.0 mmHg (83-108) 03/13/20 09:13 POC ABG HCO3 21.5 03/13/20 09:13 PT/INR, D-dimer PT 51.4 Sec. (12.2-14.9) H 03/15/20 05:08 INR 5.57 (0.87-1.13) H* 03/15/20 05:08 D-Dimer 287.92 ng/mlDDU (0-234) H 03/13/20 17:25 Abnormal lab findings: Abnormal Labs 03/11/20 03/11/20 03/11/20 11:18 11:18 11:18 WBC Hgb MCH RDW 17.6 H Plt Count Lymph % (Auto) Lymph # (Auto) 0.8 L Seg Neutrophils % 80.1 H Seg Neuts % (Manual) Lymphocytes % (Manual) Nucleated RBC % Seg Neutrophils # Man Lymphocytes # (Manual) PT INR D-Dimer ABG pH POC ABG pCO2 POC ABG pO2 ABG Sodium ABG Glucose Sodium 132 L Chloride Carbon Dioxide 19 L BUN 26 H Creatinine 1.8 H Glucose POC Glucose Calcium 8.0 L Magnesium Ferritin AST Lactate Dehydrogenase 902 H C-Reactive Protein 6.70 H NT-Pro-B Natriuret Pep Albumin Arterial Blood Glucose Arterial Blood Ionized Calcium Urine Creatinine Coronavirus (PCR) 03/11/20 03/11/20 03/11/20 11:18 11:18 11:18 WBC Hgb MCH RDW Plt Count Lymph % (Auto) Lymph # (Auto) Seg Neutrophils % Seg Neuts % (Manual) Lymphocytes % (Manual) Nucleated RBC % Seg Neutrophils # Man Lymphocytes # (Manual) PT 21.3 H INR 1.82 H D-Dimer 261.32 H ABG pH POC ABG pCO2 POC ABG pO2 ABG Sodium ABG Glucose Sodium Chloride Carbon Dioxide BUN Creatinine Glucose POC Glucose Calcium Magnesium Ferritin 894.4 H AST Lactate Dehydrogenase C-Reactive Protein NT-Pro-B Natriuret Pep 893.1 H Albumin Arterial Blood Glucose Arterial Blood Ionized Calcium Urine Creatinine Coronavirus (PCR) 03/11/20 03/11/20 03/11/20 18:00 18:00 18:00 WBC Hgb MCH RDW Plt Count Lymph % (Auto) Lymph # (Auto) Seg Neutrophils % Seg Neuts % (Manual) Lymphocytes % (Manual) Nucleated RBC % Seg Neutrophils # Man Lymphocytes # (Manual) PT INR D-Dimer ABG pH POC ABG pCO2 POC ABG pO2 ABG Sodium ABG Glucose Sodium 132 L Chloride Carbon Dioxide 18 L BUN Creatinine Glucose POC Glucose Calcium Magnesium Ferritin 967.8 H AST Lactate Dehydrogenase 973 H C-Reactive Protein 6.40 H NT-Pro-B Natriuret Pep Albumin Arterial Blood Glucose Arterial Blood Ionized Calcium Urine Creatinine Coronavirus (PCR) 03/11/20 03/12/20 03/12/20 18:15 04:37 04:37 WBC 3.5 L Hgb 11.5 L MCH 27 L RDW 17.2 H Plt Count Lymph % (Auto) 11.9 L Lymph # (Auto) 0.4 L Seg Neutrophils % 84.1 H Seg Neuts % (Manual) Lymphocytes % (Manual) Nucleated RBC % Seg Neutrophils # Man Lymphocytes # (Manual) PT INR D-Dimer ABG pH 7.478 H POC ABG pCO2 24.6 L POC ABG pO2 69.7 L ABG Sodium 129.3 L ABG Glucose Sodium 135 L Chloride Carbon Dioxide 19 L BUN 30 H Creatinine 1.9 H Glucose 112 H POC Glucose Calcium 7.9 L Magnesium Ferritin AST 59 H Lactate Dehydrogenase C-Reactive Protein NT-Pro-B Natriuret Pep Albumin 3.0 L Arterial Blood Glucose Arterial Blood Ionized Calcium 4.3 L Urine Creatinine Coronavirus (PCR) 03/12/20 03/12/20 03/12/20 04:37 10:07 16:50 WBC Hgb MCH RDW Plt Count Lymph % (Auto) Lymph # (Auto) Seg Neutrophils % Seg Neuts % (Manual) Lymphocytes % (Manual) Nucleated RBC % Seg Neutrophils # Man Lymphocytes # (Manual) PT 24.7 H INR 2.19 H D-Dimer ABG pH POC ABG pCO2 POC ABG pO2 ABG Sodium ABG Glucose Sodium Chloride Carbon Dioxide BUN Creatinine Glucose POC Glucose 110 H Calcium Magnesium Ferritin AST Lactate Dehydrogenase C-Reactive Protein NT-Pro-B Natriuret Pep Albumin Arterial Blood Glucose Arterial Blood Ionized Calcium Urine Creatinine Coronavirus (PCR) Positive A 03/13/20 03/13/20 03/13/20 09:13 13:05 17:25 WBC Hgb MCH RDW Plt Count Lymph % (Auto) Lymph # (Auto) Seg Neutrophils % Seg Neuts % (Manual) Lymphocytes % (Manual) Nucleated RBC % Seg Neutrophils # Man Lymphocytes # (Manual) PT INR D-Dimer 287.92 H ABG pH POC ABG pCO2 POC ABG pO2 ABG Sodium 130.7 L ABG Glucose 98 H Sodium Chloride Carbon Dioxide BUN Creatinine Glucose POC Glucose Calcium Magnesium Ferritin AST Lactate Dehydrogenase C-Reactive Protein NT-Pro-B Natriuret Pep Albumin Arterial Blood Glucose 98 H Arterial Blood Ionized Calcium 4.4 L Urine Creatinine 135.0 H Coronavirus (PCR) 03/13/20 03/13/20 03/13/20 17:25 17:25 17:25 WBC Hgb MCH RDW Plt Count Lymph % (Auto) Lymph # (Auto) Seg Neutrophils % Seg Neuts % (Manual) Lymphocytes % (Manual) Nucleated RBC % Seg Neutrophils # Man Lymphocytes # (Manual) PT INR D-Dimer ABG pH POC ABG pCO2 POC ABG pO2 ABG Sodium ABG Glucose Sodium 133 L Chloride 95.0 L Carbon Dioxide BUN 39 H Creatinine 1.8 H Glucose 101 H POC Glucose Calcium 8.3 L Magnesium Ferritin 3088.0 H AST 84 H Lactate Dehydrogenase 1506 H C-Reactive Protein 3.50 H NT-Pro-B Natriuret Pep 2216 H Albumin 3.2 L Arterial Blood Glucose Arterial Blood Ionized Calcium Urine Creatinine Coronavirus (PCR) 03/13/20 03/14/20 03/14/20 17:25 04:43 04:43 WBC Hgb MCH RDW Plt Count Lymph % (Auto) Lymph # (Auto) Seg Neutrophils % Seg Neuts % (Manual) Lymphocytes % (Manual) Nucleated RBC % Seg Neutrophils # Man Lymphocytes # (Manual) PT 36.1 H 44.2 H INR 3.55 H 4.60 H D-Dimer ABG pH POC ABG pCO2 POC ABG pO2 ABG Sodium ABG Glucose Sodium 135 L Chloride Carbon Dioxide 20 L BUN 37 H Creatinine 1.8 H Glucose POC Glucose Calcium 7.9 L Magnesium 2.50 H Ferritin AST 100 H Lactate Dehydrogenase C-Reactive Protein NT-Pro-B Natriuret Pep Albumin 2.8 L Arterial Blood Glucose Arterial Blood Ionized Calcium Urine Creatinine Coronavirus (PCR) 03/14/20 03/15/20 03/15/20 04:43 05:08 05:08 WBC 12.5 H Hgb MCH 27 L 27 L RDW 17.8 H 18.1 H Plt Count 456 H Lymph % (Auto) Lymph # (Auto) Seg Neutrophils % Seg Neuts % (Manual) 93.0 H 93.0 H Lymphocytes % (Manual) 2.0 L 4.0 L Nucleated RBC % 1.0 H Seg Neutrophils # Man 9.7 H 11.6 H Lymphocytes # (Manual) 0.2 L 0.5 L PT 51.4 H INR 5.57 H* D-Dimer ABG pH POC ABG pCO2 POC ABG pO2 ABG Sodium ABG Glucose Sodium Chloride Carbon Dioxide BUN Creatinine Glucose POC Glucose Calcium Magnesium Ferritin AST Lactate Dehydrogenase C-Reactive Protein NT-Pro-B Natriuret Pep Albumin Arterial Blood Glucose Arterial Blood Ionized Calcium Urine Creatinine Coronavirus (PCR) 03/15/20 03/15/20 05:08 05:08 WBC Hgb MCH RDW Plt Count Lymph % (Auto) Lymph # (Auto) Seg Neutrophils % Seg Neuts % (Manual) Lymphocytes % (Manual) Nucleated RBC % Seg Neutrophils # Man Lymphocytes # (Manual) PT INR D-Dimer ABG pH POC ABG pCO2 POC ABG pO2 ABG Sodium ABG Glucose Sodium Chloride Carbon Dioxide 18 L BUN 50 H Creatinine 2.0 H Glucose POC Glucose Calcium 8.3 L Magnesium Ferritin 2000.0 H AST 84 H Lactate Dehydrogenase 1905 H C-Reactive Protein 9.80 H NT-Pro-B Natriuret Pep Albumin 2.7 L Arterial Blood Glucose Arterial Blood Ionized Calcium Urine Creatinine Coronavirus (PCR) Chest x-ray: report reviewed, image reviewed
[2020-03-16] MEDS ORDERED: LORazepam 2 MG/ML VIAL IV ONE (03:00)
[2020-03-16] MEDS ORDERED: LORazepam 2 MG/ML VIAL ONE (03:53)
[2020-03-16] MEDS ORDERED: MIDAZOLAM 5 MG/5 ML INJ MDV IV ONE ×3 (05:00→05:32)
[2020-03-16] MEDS ORDERED: ROCURONIUM 50 MG/5 ML INJ IV ONE ×2 (05:39)
[2020-03-16] MEDS ORDERED: ETOMIDATE 20 MG/10 ML INJ IV ONE ×3 (05:39→05:40)
[2020-03-16] MEDS ORDERED: SUCCINYLCHOLINE CHLORIDE 200 MG/10 ML INJ MDV ONE ×2 (05:39)
[2020-03-16] MEDS ORDERED: SUCCINYLCHOLINE CHLORIDE 200 MG/10 ML INJ MDV IV ONE (05:40)
[2020-03-16] MEDS ORDERED: FUROSEMIDE 20 MG/2 ML INJ IV ONE (09:00)
[2020-03-16] MEDS ORDERED: METOPROLOL TARTRATE 50 MG TAB ONE (09:43)
[2020-03-16] MEDS ORDERED: FUROSEMIDE 20 MG/2 ML INJ ONE ×2 (09:43→09:49)
[2020-03-16] MEDS ORDERED: FENTANYL DRIP IV ONE (09:43)
[2020-03-16] MEDS ORDERED: FAMOTIDINE 20 MG TAB ONE (09:43)
[2020-03-16] MEDS ORDERED: GABAPENTIN 300 MG CAP ONE (09:43)
[2020-03-16] MEDS ORDERED: PROPOFOL 1,000 MG/100 ML BOTTLE IV ONE ×2 (09:43→15:26)
[2020-03-16] MEDS ORDERED: CLOPIDOGREL 75 MG TAB ONE (09:43)
[2020-03-16] MEDS ORDERED: fentaNYL DRIP Premix 2,000 MCG/100 ML BAG IV ONE (09:47)
--- NOTE | 2020-03-16 16:42 | Physician Progress Note ---
TIME: 8:30 a.m. [employer] system down. SUBJECTIVE: Events of overnight noted. The patient is now intubated on vent, on Diprivan, sedated. OBJECTIVE: VITAL SIGNS: BP 90/50, heart rate of 78, respiratory rate of 22/20. GENERAL: Ill-appearing -Armenian male, lying in bed, orally intubated, on vent. HEENT: Orally intubated and sedated. LUNGS: Rare rhonchi, rales at bases. CARDIOVASCULAR: Normal S1, S2. ABDOMEN: Positive bowel sounds, soft, nontender. EXTREMITIES: Warm to touch. No edema. NEUROLOGIC: Sedated on vent. VENT SETTINGS: The patient is on CMV of 20, PEEP of 12, tidal volume of 450, FiO2 of 100, MV of 22.2. Chest x-ray, bilateral alveolar infiltrates noted. On KUB, tube appeared to be in stomach. Labs pending. ASSESSMENT: 1. Acute respiratory failure, on vent. 2. COVID-19 positive. 3. Antibody positive. 4. Hypertension. 5. Multiorgan system failure. 6. Obesity. 7. Renal insufficiency. 8. Altered mental status. PLAN: 1. Continue on vent. Continue to monitor closely. Wean FiO2 as tolerated. Continue on steroids. Continue on meds as per ID. I spoke with Dr. Davila in reference to plan. Give one dose of Lasix. Monitor closely, monitor renal function closely. Await laboratory data. We will start proning today. 2. Dietary consult. 3. Tube feeding. 4. Overall prognosis is poor. 5. Total time 40 minutes. JOB# [id number] RONNELL/NTS
[2020-03-16] MEDS: hydrALAZINE 25 MG TAB PO SCH ×2 (17:26→22:00)
[2020-03-16] MEDS: DEXAMETHASONE 2 MG TAB PO SCH (17:26)
[2020-03-16] MEDS: GABAPENTIN 300 MG CAP PO SCH ×2 (17:27→22:03)
[2020-03-16] MEDS: FAMOTIDINE 20 MG TAB PO SCH ×2 (17:27→22:03)
[2020-03-16] MEDS: CLOPIDOGREL 75 MG TAB PO SCH (17:27)
[2020-03-16] MEDS: METOPROLOL TARTRATE 50 MG TAB PO SCH (17:27)
--- NOTE | 2020-03-16 19:24 | XRay Report ---
XR chest 1V ap INDICATION / CLINICAL INFORMATION: respiratory distress. COMPARISON: Same day FINDINGS: SUPPORT DEVICES: Unchanged. HEART / MEDIASTINUM: Unchanged. LUNGS / PLEURA: Lung parenchyma is not significantly changed. Small pleural effusions. No pneumothor ax. ADDITIONAL FINDINGS: No significant additional findings. IMPRESSION: 1. No significant interval change in the persistent bilateral diffuse airspace disease. Signer Name: Leighton Almaguer MD Signed: 03/16/2020 7:20 PM Workstation Name: [id number]
--- NOTE | 2020-03-16 20:08 | Progress Note ---
Assessment and Plan 1. Acute kidney injury: Acute kidney injury superimposed on CKD in the setting of COVID infection. CT abdomen negative for hydro. Monitor renal function. Creatinine level is increasing. Renal prognosis is guarded. Avoid nephrotoxic agents. Meds dosage based on GFR. No labs from today. 2. FEN: Metabolic acidosis, monitor, monitor. Cautious use of diuretics if needed. Monitor lytes. 3. Acute hypoxic resp failure: Likely secondary to COVID-19 infection. CXR showed pulmonary infiltrate. Intubated, on vent. Followed by Pulmonary. 4. Severe COVID-19 pneumonia. Followed by ID. On Coumadin and INR was 5.57. Steroids. 5. Hypertension: Monitor BP. Subjective: Patient was seen and examined at the bedside. - General Appearance General appearance: well-developed, well-nourished, appears stated age, no distress, intubated, on vent HEENT: ATNC Eyes: Pupils reacting to light Neck: supple Respiratory: MV sounds Cardiology: S1S2, no murmur Gastrointestinal: normoactive bowel sounds, not tenderness, not distended Integumentary: no obvious rash Neurologic: sedated Ext: no edema noted Subjective Date of service: 03/16/20 Principal diagnosis: covid pneumonia Objective - Vital Signs Vital signs: Vital Signs - 12hr 03/16/20 03/16/20 03/16/20 08:23 09:00 10:00 Pulse Rate 101 H 101 H 100 H Respiratory 31 H 31 H Rate Blood Pressure 89/53 89/56 79/45 O2 Sat by Pulse 94 95 95 Oximetry 03/16/20 03/16/20 03/16/20 11:00 11:50 12:00 Pulse Rate 100 H 102 H 106 H Respiratory 34 H 35 H Rate Blood Pressure 86/55 92/57 98/62 O2 Sat by Pulse 95 96 92 Oximetry 03/16/20 03/16/20 03/16/20 13:00 14:00 15:00 Pulse Rate 105 H 105 H 107 H Respiratory 32 H 29 H 33 H Rate Blood Pressure 98/48 82/53 97/60 O2 Sat by Pulse 93 93 97 Oximetry 03/16/20 03/16/20 03/16/20 16:00 17:00 17:58 Pulse Rate 106 H 102 H 104 H Respiratory 27 H 22 Rate Blood Pressure 93/57 96/58 87/51 O2 Sat by Pulse 90 95 92 Oximetry 03/16/20 18:00 Pulse Rate 103 H Respiratory 23 Rate Blood Pressure 85/54 O2 Sat by Pulse 93 Oximetry - Lab 03/15/20 05:08 03/15/20 05:08 Most recent lab results ABG pH 7.339 (7.320-7.450) 03/16/20 17:45 Calcium 8.3 mg/dL (8.4-10.2) L 03/15/20 05:08 Phosphorus 3.20 mg/dL (2.5-4.5) 03/14/20 04:43 Magnesium 2.50 mg/dL (1.7-2.3) H 03/14/20 04:43 Urine Creatinine 135.0 mg/dL (0.1-20.0) H 03/13/20 13:05 Urine Sodium 33 mmol/L 03/13/20 13:05 Medications & Allergies - Medications Allergies/Adverse Reactions: Allergies No Known Allergies Allergy (Verified 04/21/17 15:31) Home Medications: Home Medications Medication Instructions Recorded Confirmed Last Taken Type Benzonatate [Tessalon Perle] 100 mg PO Q8H PRN #20 capsule 06/12/18 03/13/20 Unknown Rx Ibuprofen [Motrin 600 MG tab] 600 mg PO Q8H PRN #20 tablet 06/12/18 03/13/20 Unknown Rx Aspirin [Aspirin BABY CHEW TAB] 81 mg PO QDAY #100 tab.chew 02/04/20 03/13/20 Unknown Rx Clopidogrel [Plavix] 75 mg PO QDAY #30 tablet 02/04/20 03/13/20 Unknown Rx Furosemide [Lasix TAB] 40 mg PO QDAY #30 tablet 02/04/20 03/13/20 Unknown Rx Gabapentin 300 mg PO BID #60 capsule 02/04/20 03/13/20 Unknown Rx ISOSORBIDE MONOnitrate [Imdur ER] 30 mg PO QDAY #30 tablet 02/04/20 03/13/20 Unknown Rx Metoprolol [Lopressor TAB] 50 mg PO BID #60 tablet 02/04/20 03/13/20 Unknown Rx Potassium Chloride [K-Dur] 20 meq PO QDAY #30 02/04/20 03/13/20 Unknown Rx amLODIPine 10 mg PO DAILY #30 tablet 02/04/20 03/13/20 Unknown Rx hydrALAZINE [Apresoline TAB] 50 mg PO TID #90 tablet 02/04/20 03/13/20 Unknown Rx oxyCODONE /ACETAMINOPHEN [Percocet 1 tab PO Q6H PRN #14 tablet 02/04/20 03/13/20 Unknown Rx 5/325 mg] Famotidine [Pepcid] 40 mg PO QHS #10 tablet 02/13/20 03/13/20 Unknown Rx Prednisone [predniSONE 10 mg 10 mg PO .TAPER #1 tab.ds.pk 02/13/20 03/13/20 Unknown Rx (6-Day Pack, 21 Tabs)] diphenhydrAMINE [Benadryl CAP] 50 mg PO Q8HR PRN #10 capsule 02/13/20 03/13/20 Unknown Rx Cyclobenzaprine HCl [Flexeril 5 MG 5 mg PO TID PRN #15 tab 03/01/20 03/13/20 Unknown Rx TAB] Warfarin [Coumadin] 7.5 mg PO DAILY@1700 #30 tablet 03/01/20 03/13/20 Unknown Rx Active Medications: Generic Name Dose Route Start Last Admin Trade Name Freq PRN Reason Stop Dose Admin Acetaminophen 650 mg 03/11/20 16:53 03/14/20 03:36 Tylenol PO 650 mg Q4H PRN Administration Pain MILD(1-3)/Fever >100.5/LI Benzonatate 100 mg 03/11/20 16:55 03/13/20 22:02 Tessalon Perles PO 100 mg Q8H PRN Administration Cough Clopidogrel Bisulfate 75 mg 03/12/20 10:00 03/16/20 17:27 Plavix PO Not Given DAILY [place] Dexamethasone 6 mg 03/15/20 22:00 03/16/20 17:26 Decadron PO 03/20/20 23:59 Not Given Q12HR [place] Famotidine 20 mg 03/13/20 11:00 03/16/20 17:27 Pepcid PO Not Given BID [place] Gabapentin 300 mg 03/11/20 22:00 03/16/20 17:27 Gabapentin PO Not Given BID [place] Hydralazine HCl 50 mg 03/11/20 20:00 03/16/20 17:26 Apresoline PO Not Given TID [place] REMDESIVIR 100 mg/ Sodium 250 mls @ 500 mls/hr 03/14/20 21:00 03/15/20 22:00 Chloride IV 03/17/20 21:29 500 mls/hr Q24HR@2100 [place] Administration Isosorbide Mononitrate 30 mg 03/12/20 10:00 03/16/20 17:27 Imdur PO Not Given QDAY [place] Metoprolol Tartrate 50 mg 03/11/20 22:00 03/16/20 17:27 Metoprolol PO Not Given BID [place] Ondansetron HCl 4 mg 03/11/20 16:53 Zofran IV Q8H PRN Nausea And Vomiting Sodium Chloride 10 ml 03/11/20 22:00 03/16/20 17:27 Sodium Chloride Flush Syringe 10 Ml IV Not Given BID [place] Sodium Chloride 10 ml 03/11/20 16:53 Sodium Chloride Flush Syringe 10 Ml IV PRN PRN LINE FLUSH Sodium Chloride 50 ml 03/15/20 21:30 03/15/20 22:01 Nacl 0.9% IV 03/17/20 21:31 50 ml Q24H [place] Administration
--- NOTE | 2020-03-16 20:23 | Progress Note ---
Assessment and Plan Cultures: Blood culture SARS CoV2 PCR positive Assessment: #Severe sepsis: Remains with severe tachycardia and hypotension, likely due to bilateral pneumonia. #Severe COVID pneumonia: Inflammatory markers elevated. CT shows bilateral groundglass opacities. #Acute hypoxemic respiratory failure: Secondary to COVID-19, possible volume overload, worsening, was on BiPAP overnight, now on high flow nasal cannula. #JIM: from COVID, worsening #Transaminitis: From Covid #Previous DVT: On Coumadin, on hold due to prolonged INR Recommendations: -Continue dexamethasone 6 mg IV/PO twice daily, given hypoxia -Continue remdesivir day 4 of 5 -Monitor inflammatory markers - ferritin, Ddimer, CRP, LDH -Monitor liver function test on Remdesivir -Continue anticoagulation per System Protocol -Prone positioning as possible -obtain TTE - pending High risk mortality All laboratory, cultures and imaging were reviewed. Will follow Janelle Parra MD Infectious Diseases Senior Product Analyst [facility] ([facility]) M [phone] O [phone] Subjective Date of service: 03/16/20 Principal diagnosis: covid pneumonia Interval history: Patient is now intubated no fever Objective - Exam Narrative Exam: Physical Exam: reviewed ED and hospitalist notes, limited due to conservation of PPE and decrease risk of transmission. General appearance: limited due to conservation of PPE Eyes: limited due to conservation of PPE HENT: Atraumatic; limited due to conservation of PPE Lungs: limited due to conservation of PPE CV: limited due to conservation of PPE Abdomen: limited due to conservation of PPE Extremities: limited due to conservation of PPE Skin: limited due to conservation of PPE Psych: limited due to conservation of PPE Neuro: limited due to conservation of PPE - Constitutional Vitals: Vital Signs Temp Pulse Resp BP Pulse Ox 97.8 F 103 H 23 85/54 93 03/15/20 20:00 03/16/20 18:00 03/16/20 18:00 03/16/20 18:00 03/16/20 18:00 - Labs CBC & Chem 7: 03/15/20 05:08 03/15/20 05:08 Labs: Abnormal lab results 03/16/20 03/16/20 03/16/20 Range/Units 07:28 17:45 20:19 POC ABG pCO2 28.4 L (32.0-48.0) mmHg POC ABG pO2 68.0 L 57.6 L (83-108) mmHg ABG Oxyhemoglobin 90.6 L 84.5 L (94-98) ABG Sodium 134.3 L 135.0 L (136.0-145.0) mmol/L ABG Potassium 4.8 H (3.40-4.50) mmol/L ABG Glucose 127 H 112 H (65-95) mg/dL POC Glucose 137 H (70-105) mg/dL Arterial Blood Glucose 127 H 112 H (65-95) mg/dL Arterial Blood Ionized Calcium 4.5 L 4.4 L (4.6-5.3) mg/dL
[2020-03-16] MEDS ORDERED: SODIUM CHLORIDE 0.9% 250ML 250 ML ONE (20:58)
[2020-03-16] MEDS ORDERED: LORazepam 2 MG/ML VIAL IV PRN (21:26)
[2020-03-16] MEDS ORDERED: LIP THERAPY VASELINE TP PRN (21:27)
[2020-03-16] MEDS ORDERED: MINERAL OIL/PETROLATUM, WHITE OPHTH OINT 3.5 GM OU PRN (21:27)
[2020-03-16] MEDS ORDERED: fentaNYL 100 MCG/2 ML INJ IV PRN (21:27)
[2020-03-16] MEDS: REMDESIVIR 100 MG in SODIUM CHLORIDE 0.9% 250ML 250 ML IV SCH (22:04)
--- NOTE | 2020-03-16 23:27 | Progress Note ---
Assessment and Plan Assessment and plan: 44-year-old male with known history of hypertension, CHF with ejection fraction of 40 to 45% (on echo done in 01/2020), Gout presenting to the emergency room complaining of shortness of breath, diarrhea, abdominal pain and vomiting. He says symptoms started 5 days prior. He was recently discharged from here about a week ago after management for acute on chronic systolic CHF. He denies any ingestion of unaccustomed meals. He denies any contact with someone with COVID- 19. He was recently tested for COVID-19 and was negative. His labs have been reviewed. Had JIM and elevated inflammatory markers. COVID- 19 test ordered. Hold Lasix for now due to JIM. 03/12. Patient seen and examined at bedside this morning. Patient feels much better today but still needs oxygen to maintain saturation. He is on antibiotics for bilateral opacities found on x-ray. Awaiting COVID-19 test today. Continue dexamethasone for now 03/13. COVID-19 test positive. ID consulted. Continue dexamethasone and ant ibiotics for now. Overnight, patient became more hypoxic and had to be placed on BiPAP. Pulmonology consult requested. Patient will be going to the IMCU for close observation. 03/14. He got lasix yesterday and diuresed well. On high flow this AM. INR is supratherapeutic so coumadin is being held 03/16: Clinical Deteriorated overnight requiring intubation, Carroting Machine Offbearer following, ID also following. Supportive care. IGG pending, MADISYN pending (1) Acute respiratory failure with hypoxia Current Visit: Yes Status: Acute Plan to address problem: Patient at present appears to be in mild to moderate distress. Previous nurse states patient would not sit down and kept moving in this is extubated his h ypoxia. Now intubated (2) Suspected COVID-19 virus infection Current Visit: Yes Status: Acute Plan to address problem: Current Visit: Yes Status: Acute Plan to address problem: Continue dexamethasone 6 mg IV daily ID recs appreciated Patient not a candidate for remdesivir for now due to JIM. Prone positioning if able Continue to monitor inflammatory markers (3) Chronic anticoagulation Current Visit: Yes Status: Chronic Plan to address problem: Patient on Eliquis is stable continue present medical management. (4) Chronic kidney disease Current Visit: Yes Status: Chronic Plan to address problem: Possible secondary to COVID-19 CT scan of abdomen negative. This a.m. had increase in serum creatinine. Renal prognosis guarded. (5) Hypertension complications Current Visit: No Status: Acute (6) Gout Current Visit: No Status: Chronic (7) HLD (hyperlipidemia) Current Visit: No Status: Chronic Qualifiers: Hyperlipidemia type: mixed hyperlipidemia Qualified Code(s): E78.2 - Mixed hyperlipidemia Plan to address problem: Check renal function LDL goal less than 100. (8) Gout Current Visit: No Status: Inactive Qualifiers: Gout site: unspecified site Plan to address problem: No acute gouty exacerbation. (9) History of pulmonary embolus (PE) Current Visit: Yes Status: Acute Plan to address problem: Continue anticoagulant Eliquis. The high probability of a clinically significant, sudden or life threatening deterioration of the [pulmonary] system(s) required my full and direct attention, intervention and personal management. The aggregate critical care time was [35] minutes. This time is in addition to time spent performing reporte d procedures but includes the following: [X] Data Review and interpretation [X] Patient assessment and monitoring of vital signs [X] Documentation [X] Medication orders and management History Interval history: Patient seen and examined, was intubated due to worsening respiratory distress. Hospitalist Physical - Physical exam Narrative exam: VITAL SIGNS: Reviewed. GENERAL: sedated HEAD: No signs of head trauma. EYES: Pupils are equal. Extraocular motions intact. EARS: Hearing grossly intact. MOUTH: orally intubated NECK: No adenopathy, no JVD. CHEST: Has some rales. CARDIAC: Regular rate and rhythm. S1 and S2, without murmurs, gallops, or rubs. VASCULAR: No Edema. Peripheral pulses normal and equal in all extremities. ABDOMEN: Soft, non tender and non distended. No rebound or guarding, and no masses palpated. Bowel Sounds normal. MUSCULOSKELETAL: Good range of motion of all major joints. Extremities without clubbing, cyanosis or edema. NEUROLOGIC EXAM: sedated No focal neurologic deficits PSYCHIATRIC: sedated SKIN: No obvious lesions - Constitutional Vitals: Temp Pulse Resp BP Pulse Ox 98.2 F 105 H 15 112/67 100 03/16/20 20:00 03/16/20 22:00 03/16/20 22:00 03/16/20 22:00 03/16/20 22:00 Results - Labs CBC & Chem 7: 03/17/20 05:40 03/17/20 11:05 Labs: Laboratory Last Values WBC 12.5 K/mm3 (4.5-11.0) H 03/15/20 05:08 RBC 4.68 M/mm3 (3.65-5.03) 03/15/20 05:08 Hgb 12.6 gm/dl (11.8-15.2) 03/15/20 05:08 Hct 39.7 % (35.5-45.6) 03/15/20 05:08 MCV 85 fl (84-94) 03/15/20 05:08 MCH 27 pg (28-32) L 03/15/20 05:08 MCHC 32 % (32-34) 03/15/20 05:08 RDW 18.1 % (13.2-15.2) H 03/15/20 05:08 Plt Count 456 K/mm3 (140-440) H 03/15/20 05:08 Lymph % (Auto) 11.9 % (13.4-35.0) L 03/12/20 04:37 [place] % (Auto) 3.9 % (0.0-7.3) 03/12/20 04:37 Eos % (Auto) 0.0 % (0.0-4.3) 03/12/20 04:37 Baso % (Auto) 0.1 % (0.0-1.8) 03/12/20 04:37 Lymph # (Auto) 0.4 K/mm3 (1.2-5.4) L 03/12/20 04:37 Bath # (Auto) 0.1 K/mm3 (0.0-0.8) 03/12/20 04:37 Eos # (Auto) 0.0 K/mm3 (0.0-0.4) 03/12/20 04:37 Baso # (Auto) 0.0 K/mm3 (0.0-0.1) 03/12/20 04:37 Add Manual Diff Complete 03/15/20 05:08 Total Counted 100 03/15/20 05:08 Seg Neutrophils % Resort Host 03/15/20 05:08 Seg Neuts % (Manual) 93.0 % (40.0-70.0) H 03/15/20 05:08 Band Neutrophils % 0 % 03/15/20 05:08 Lymphocytes % (Manual) 4.0 % (13.4-35.0) L 03/15/20 05:08 Reactive Lymphs % (Man) 0 % 03/15/20 05:08 Monocytes % (Manual) 3.0 % (0.0-7.3) 03/15/20 05:08 Eosinophils % (Manual) 0 % (0.0-4.3) 03/15/20 05:08 Basophils % (Manual) 0 % (0.0-1.8) 03/15/20 05:08 Metamyelocytes % 0 % 03/15/20 05:08 Myelocytes % 0 % 03/15/20 05:08 Promyelocytes % 0 % 03/15/20 05:08 Blast Cells % 0 % 03/15/20 05:08 Nucleated RBC % 1.0 % (0.0-0.9) H 03/15/20 05:08 Seg Neutrophils # 3.0 K/mm3 (1.8-7.7) 03/12/20 04:37 Seg Neutrophils # Man 11.6 K/mm3 (1.8-7.7) H 03/15/20 05:08 Band Neutrophils # 0.0 K/mm3 03/15/20 05:08 Lymphocytes # (Manual) 0.5 K/mm3 (1.2-5.4) L 03/15/20 05:08 Abs React Lymphs (Man) 0.0 K/mm3 03/15/20 05:08 Monocytes # (Manual) 0.4 K/mm3 (0.0-0.8) 03/15/20 05:08 Eosinophils # (Manual) 0.0 K/mm3 (0.0-0.4) 03/15/20 05:08 Basophils # (Manual) 0.0 K/mm3 (0.0-0.1) 03/15/20 05:08 Metamyelocytes # 0.0 K/mm3 03/15/20 05:08 Myelocytes # 0.0 K/mm3 03/15/20 05:08 Promyelocytes # 0.0 K/mm3 03/15/20 05:08 Blast Cells # 0.0 K/mm3 03/15/20 05:08 WBC Morphology Not Reportable 03/15/20 05:08 Hypersegmented Neuts Not Reportable 03/15/20 05:08 Hyposegmented Neuts Not Reportable 03/15/20 05:08 Hypogranular Neuts Not Reportable 03/15/20 05:08 Smudge Cells Not Reportable 03/15/20 05:08 Toxic Granulation Not Reportable 03/15/20 05:08 Toxic Vacuolation Not Reportable 03/15/20 05:08 Dohle Bodies Not Reportable 03/15/20 05:08 Pelger-Huet Anomaly Not Reportable 03/15/20 05:08 Marissa Rods Not Reportable 03/15/20 05:08 Platelet Estimate Consistent w auto 03/15/20 05:08 Clumped Platelets Not Reportable 03/15/20 05:08 Plt Clumps, EDTA Not Reportable 03/15/20 05:08 Large Platelets Not Reportable 03/15/20 05:08 Giant Platelets Not Reportable 03/15/20 05:08 Platelet Satelliting Not Reportable 03/15/20 05:08 Plt Morphology Comment Not Reportable 03/15/20 05:08 RBC Morphology Not Reportable 03/15/20 05:08 Dimorphic RBCs Not Reportable 03/15/20 05:08 Polychromasia Few 03/15/20 05:08 Hypochromasia Not Reportable 03/15/20 05:08 Poikilocytosis Not Reportable 03/15/20 05:08 Anisocytosis Few 03/15/20 05:08 Microcytosis Not Reportable 03/15/20 05:08 Macrocytosis Not Reportable 03/15/20 05:08 Spherocytes Not Reportable 03/15/20 05:08 Pappenheimer Bodies Not Reportable 03/15/20 05:08 Sickle Cells Not Reportable 03/15/20 05:08 Target Cells Not Reportable 03/15/20 05:08 Tear Drop Cells Not Reportable 03/15/20 05:08 Ovalocytes Not Reportable 03/15/20 05:08 Helmet Cells Not Reportable 03/15/20 05:08 [place] Bodies Not Reportable 03/15/20 05:08 [place] Rings Not Reportable 03/15/20 05:08 [place] Cells Not Reportable 03/15/20 05:08 Bite Cells Not Reportable 03/15/20 05:08 Crenated Cell Not Reportable 03/15/20 05:08 Elliptocytes Not Reportable 03/15/20 05:08 Acanthocytes (Spur) Not Reportable 03/15/20 05:08 Rouleaux Not Reportable 03/15/20 05:08 Hemoglobin C Crystals Not Reportable 03/15/20 05:08 Schistocytes Not Reportable 03/15/20 05:08 Malaria parasites Not Reportable 03/15/20 05:08 Steven Bodies Not Reportable 03/15/20 05:08 Hem Pathologist Commnt No 03/15/20 05:08 PT 51.4 Sec. (12.2-14.9) H 03/15/20 05:08 INR 5.57 (0.87-1.13) H* 03/15/20 05:08 D-Dimer 287.92 ng/mlDDU (0-234) H 03/13/20 17:25 ABG pH 7.339 (7.320-7.450) 03/16/20 17:45 POC ABG pCO2 33.4 mmHg (32.0-48.0) 03/16/20 17:45 POC ABG pO2 57.6 mmHg (83-108) L 03/16/20 17:45 POC ABG HCO3 17.6 03/16/20 17:45 POC ABG Base Excess -7.2 03/16/20 17:45 ABG Hemoglobin 13.2 (12.0-17.5) 03/16/20 17:45 ABG Oxyhemoglobin 84.5 (94-98) L 03/16/20 17:45 ABG Methemoglobin 0.1 (0.0-1.5) 03/16/20 17:45 ABG Sodium 135.0 mmol/L (136.0-145.0) L 03/16/20 17:45 ABG Potassium 4.5 mmol/L (3.40-4.50) 03/16/20 17:45 ABG Chloride 106.0 mmol/L (98-107) 03/16/20 17:45 ABG Glucose 112 mg/dL (65-95) H 03/16/20 17:45 Carboxyhemoglobin 0.9 (0.5-1.5) 03/16/20 17:45 FiO2 100 03/16/20 17:45 Sodium 140 mmol/L (137-145) 03/15/20 05:08 Potassium 4.2 mmol/L (3.6-5.0) 03/15/20 05:08 Chloride 101.7 mmol/L (98-107) 03/15/20 05:08 Carbon Dioxide 18 mmol/L (22-30) L 03/15/20 05:08 Anion Gap 25 mmol/L 03/15/20 05:08 BUN 50 mg/dL (9-20) H 03/15/20 05:08 Creatinine 2.0 mg/dL (0.8-1.3) H 03/15/20 05:08 Estimated GFR 44 ml/min 03/15/20 05:08 BUN/Creatinine Ratio 25 % 03/15/20 05:08 Glucose 91 mg/dL (75-100) 03/15/20 05:08 POC Glucose 137 mg/dL (70-105) H 03/16/20 20:19 Lactic Acid 1.70 mmol/L (0.7-2.0) 03/11/20 14:29 Calcium 8.3 mg/dL (8.4-10.2) L 03/15/20 05:08 Phosphorus 3.20 mg/dL (2.5-4.5) 03/14/20 04:43 Magnesium 2.50 mg/dL (1.7-2.3) H 03/14/20 04:43 Ferritin 2000.0 ng/mL (30.0-300.0) H 03/15/20 05:08 Total Bilirubin 0.30 mg/dL (0.1-1.2) 03/15/20 05:08 AST 84 units/L (5-40) H 03/15/20 05:08 ALT 52 units/L (7-56) 03/15/20 05:08 Alkaline Phosphatase 117 units/L (35-129) 03/15/20 05:08 Lactate Dehydrogenase 1905 units/L (91-180) H 03/15/20 05:08 C-Reactive Protein 9.80 mg/dL (0.00-1.30) H 03/15/20 05:08 NT-Pro-B Natriuret Pep 2216 pg/mL (0-450) H 03/13/20 17:25 Total Protein 6.5 g/dL (6.3-8.2) 03/15/20 05:08 Albumin 2.7 g/dL (3.9-5) L 03/15/20 05:08 Albumin/Globulin Ratio 0.7 % 03/15/20 05:08 Procalcitonin 0.21 ng/mL (<0.15) 03/13/20 17:25 Arterial Blood Glucose 112 mg/dL (65-95) H 03/16/20 17:45 Arterial Blood Ionized Calcium 4.4 mg/dL (4.6-5.3) L 03/16/20 17:45 Urine Color Yellow (Yellow) 03/13/20 13:05 Urine Turbidity Clear (Clear) 03/13/20 13:05 Urine pH 5.0 (5.0-7.0) 03/13/20 13:05 Ur Specific [place] 1.015 (1.003-1.030) 03/13/20 13:05 Urine Protein >500 mg/dL (Negative) 03/13/20 13:05 Urine Glucose (UA) Neg mg/dL (Negative) 03/13/20 13:05 Urine Ketones Neg mg/dL (Negative) 03/13/20 13:05 Urine Blood Sm (Negative) 03/13/20 13:05 Urine Nitrite Neg (Negative) 03/13/20 13:05 Urine Bilirubin Neg (Negative) 03/13/20 13:05 Urine Urobilinogen < 2.0 mg/dL (<2.0) 03/13/20 13:05 Ur Leukocyte Esterase Neg (Negative) 03/13/20 13:05 Urine WBC (Auto) 2.0 /HPF (0.0-6.0) 03/13/20 13:05 Urine RBC (Auto) 1.0 /HPF (0.0-6.0) 03/13/20 13:05 U Epithel Cells (Auto) < 1.0 /HPF (0-13.0) 03/13/20 13:05 Urine Bacteria (Auto) 1+ /HPF (Negative) 03/13/20 13:05 Urine Mucus Few /HPF 03/13/20 13:05 Urine Eosinophils None seen (None Seen) 03/13/20 13:05 Urine Creatinine 135.0 mg/dL (0.1-20.0) H 03/13/20 13:05 Urine Sodium 33 mmol/L 03/13/20 13:05 Coronavirus (PCR) Positive (Negative) A 03/12/20 10:07 Rodriguez/IV: Voiding Method Urinal IV Catheter Type [Right INT / Saline Lock Forearm] IV Catheter Type [Right Wrist] INT / Saline Lock Active Medications - Current Medications Current Medications: Generic Name Dose Route Start Last Admin Trade Name Freq PRN Reason Stop Dose Admin Acetaminophen 650 mg 03/11/20 16:53 03/14/20 03:36 Tylenol PO 650 mg Q4H PRN Administration Pain MILD(1-3)/Fever >100.5/LI Benzonatate 100 mg 03/11/20 16:55 03/13/20 22:02 Tessalon Perles PO 100 mg Q8H PRN Administration Cough Clopidogrel Bisulfate 75 mg 03/12/20 10:00 03/16/20 17:27 Plavix PO Not Given DAILY [place] Dexamethasone 6 mg 03/15/20 22:00 03/16/20 17:26 Decadron PO 03/20/20 23:59 Not Given Q12HR [place] Famotidine 20 mg 03/13/20 11:00 03/16/20 22:03 Pepcid PO 20 mg BID [place] Administration Gabapentin 300 mg 03/11/20 22:00 03/16/20 22:03 Gabapentin PO 300 mg BID [place] Administration Hydralazine HCl 50 mg 03/11/20 20:00 03/16/20 17:26 Apresoline PO Not Given TID [place] Hydrophilic Ointment 1 applic 03/16/20 21:27 Vaseline Lip Therapy TP Q2HR PRN Dry Lips REMDESIVIR 100 mg/ Sodium 250 mls @ 500 mls/hr 03/14/20 21:00 03/16/20 22:04 Chloride IV 03/17/20 21:29 500 mls/hr Q24HR@2100 [place] Administration Fentanyl Citrate 2,000 mcg in 100 mls @ 6.45 mls/hr 03/16/20 22:00 Fentanyl Drip Premix IV TITR [place] Protocol 1 MCG/KG/HR Propofol 1,000 mg in 100 mls @ 3.87 mls/hr 03/16/20 22:00 Diprivan 10 Mg/Ml IV TITR [place] Protocol 5 MCG/KG/MIN Isosorbide Mononitrate 30 mg 03/12/20 10:00 03/16/20 17:27 Imdur PO Not Given QDAY [place] Lorazepam 1 mg 03/16/20 21:26 Ativan IV Q4H PRN Agitation Metoprolol Tartrate 50 mg 03/11/20 22:00 03/16/20 17:27 Metoprolol PO Not Given BID [facility] Multi-Ingred Cream/Lotion/Oil/Oint 1 applic 03/16/20 21:27 Artificial Tears Ophth Oint OU Q4HR PRN Dry Eye(s) Ondansetron HCl 4 mg 03/11/20 16:53 Zofran IV Q8H PRN Nausea And Vomiting Sodium Chloride 10 ml 03/11/20 22:00 03/16/20 17:27 Sodium Chloride Flush Syringe 10 Ml IV Not Given BID [place] Sodium Chloride 10 ml 03/11/20 16:53 Sodium Chloride Flush Syringe 10 Ml IV PRN PRN LINE FLUSH Sodium Chloride 50 ml 03/15/20 21:30 03/15/20 22:01 Nacl 0.9% IV 03/17/20 21:31 50 ml Q24H [place] Administration Nutrition/Malnutrition Assess - Dietary Evaluation Nutrition/Malnutrition Findings: Nutrition Notes Start: 03/12/20 11:06 Freq: Status: Active Protocol: Document 03/12/20 11:06 LM (Rec: 03/12/20 11:09 LM [id number]) Nutrition Notes Need for Assessment generated from: Education Initial or Follow up Brief Note Pertinent Medications Coumadin Weight Status Obese Subjective/Other Information Screen for Coumadin education. 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 Pt aware of vitamin K and Coumadin interaction and did not want any education. Nutrition Intervention Revisit per MD consult or patient Sign Off request:
--- NOTE | 2020-03-16 23:55 | XRay Report ---
CHEST 1 VIEW 9:30 AM INDICATION / CLINICAL INFORMATION: Respiratory failure. COMPARISON: 03/13/20. FINDINGS: SUPPORT DEVICES: There is a new endotracheal tube with the tip 4 cm above the remi. There is a naso gastric tube doubled back on itself in the proximal stomach with the tip overlying the mid thoracic e sophagus. HEART / MEDIASTINUM: Unchanged. LUNGS / PLEURA: There is moderate diffuse parenchymal disease throughout both lungs, more prominent i n the lower lung zones and predominantly groundglass in appearance. No pneumothorax. ADDITIONAL FINDINGS: No significant additional findings. IMPRESSION: 1. The nasogastric tube is doubled back on itself in the stomach with the tip overlying the mid thora cic esophagus. The tube needs to be repositioned/replaced. 2. New endotracheal tube in satisfactory position. 3. Moderate diffuse bilateral parenchymal disease has increased significantly. Differential diagnosis includes edema, pneumonia and ARDS. Signer Name: Harjeet Bernard MD Signed: 03/16/2020 11:51 PM Workstation Name: [id number]
--- NOTE | 2020-03-16 23:57 | XRay Report ---
ABDOMEN 1 VIEW 9:30 AM INDICATION / CLINICAL INFORMATION: NG tube placement. COMPARISON: None available. FINDINGS: TUBES / LINES: There is a nasogastric tube which doubles back on itself in the stomach with the tip o verlying the mid thoracic esophagus. BOWEL GAS PATTERN: No significant abnormality. FREE AIR / EXTRALUMINAL GAS: None seen. ADDITIONAL FINDINGS: No significant additional findings. IMPRESSION: The nasogastric tube needs to be replaced or repositioned. Please note that subsequent im ages demonstrated proper positioning of the nasogastric tube. Signer Name: Harjeet Bernard MD Signed: 03/16/2020 11:53 PM Workstation Name: [id number]
[2020-03-17] MEDS: fentaNYL DRIP Premix 2,000 MCG/100 ML BAG IV SCH ×2 (02:05→17:53)
[2020-03-17 02:49] LABS: Mean Corpuscular HGB Conc 31 % (32-34); Mean Corpuscular Volume 88 fl (84-94); Platelet Count 602 K/mm3 (140-440); Red Cell Distribution Width 18.3 % (13.2-15.2)
[2020-03-17 03:00] LABS: Hematocrit 40.5 % (35.5-45.6); Hemoglobin 12.3 gm/dl (11.8-15.2)
[2020-03-17 03:01] LABS: Basophils # (Auto) 0.1 K/mm3 (0.0-0.1); Basophils % (Auto) 0.3 % (0.0-1.8); Lymphocytes # (Auto) 0.5 K/mm3 (1.2-5.4); Monocytes # (Auto) 0.9 K/mm3 (0.0-0.8); Monocytes % (Auto) 3.5 % (0.0-7.3)
[2020-03-17 03:11] LABS: INR 8.5 (0.87-1.13)
[2020-03-17 03:16] LABS: Albumin 2.7 g/dL (3.9-5); Calcium 7.8 mg/dL (8.4-10.2)
[2020-03-17] MEDS ORDERED: PHYTONADIONE 10 MG/1 ML (ADULT ONLY)*INJECTION SUB-Q ONE (03:39)
[2020-03-17] MEDS ORDERED: INSULIN REGULAR, HUMAN 100 UNIT/ML 3ML VIAL IV ONE (03:42)
[2020-03-17] MEDS ORDERED: DEXTROSE 50% IN WATER (25GM) 50 ML SYRINGE IV ONE (03:45)
[2020-03-17] MEDS ORDERED: SODIUM BICARB 8.4% 50 MEQ/50 ML SYRINGE IV ONE (03:46)
[2020-03-17] MEDS ORDERED: CALCIUM GLUCONATE 1,000 MG in SODIUM CHLORIDE 0.9% 100 ML IV ONE (03:47)
[2020-03-17] MEDS ORDERED: SODIUM POLYSTYRENE 15 GM/60 ML ORAL LIQD PO ONE ×2 (03:48→18:00)
[2020-03-17 06:57] LABS: Mean Corpuscular HGB Conc 31 % (32-34); Mean Corpuscular Volume 88 fl (84-94); Platelet Count 584 K/mm3 (140-440); Red Blood Count 4.53 M/mm3 (3.65-5.03); Red Cell Distribution Width 18.5 % (13.2-15.2)
[2020-03-17 07:07] LABS: Hematocrit 39.8 % (35.5-45.6); Hemoglobin 12.2 gm/dl (11.8-15.2)
[2020-03-17 07:09] LABS: Lymphocytes % (Auto) 2.1 % (13.4-35.0); Monocytes % (Auto) 3.3 % (0.0-7.3)
[2020-03-17 07:10] LABS: Basophils % (Auto) 0.1 % (0.0-1.8); Lymphocytes # (Auto) 0.5 K/mm3 (1.2-5.4); Monocytes # (Auto) 0.7 K/mm3 (0.0-0.8)
[2020-03-17 07:28] LABS: Albumin 2.5 g/dL (3.9-5); Calcium 7.9 mg/dL (8.4-10.2)
[2020-03-17 08:02] LABS: INR 9.47 (0.87-1.13)
[2020-03-17] MEDS: hydrALAZINE 25 MG TAB PO SCH (08:40)
[2020-03-17] MEDS: METOPROLOL TARTRATE 50 MG TAB PO SCH ×2 (09:01→21:00)
--- NOTE | 2020-03-17 09:12 | Progress Note ---
Assessment and Plan Cultures: Blood culture SARS CoV2 PCR positive Assessment: #Severe sepsis: With low-grade fever and worsening leukocytosis, likely due to bilateral pneumonia. #Severe COVID pneumonia: Inflammatory markers elevated. CT shows bilateral groundglass opacities. #Acute hypoxemic respiratory failure: Secondary to COVID-19, possible volume overload patient is now intubated #JIM: from COVID, worsening. Renal on board. #Transaminitis: From Covid #Previous DVT: On Coumadin, on hold due to prolonged INR Recommendations: -Obtain new blood cultures, respiratory cultures given low-grade fever and worsening leukocytosis. -Obtain SARS-CoV-2 IgG -Continue dexamethasone 6 mg IV/PO twice daily, given hypoxia -Completed remdesivir -Monitor inflammatory markers - ferritin, Ddimer, CRP, LDH -Continue anticoagulation per System Protocol -Prone positioning as possible -obtain TTE - pending High risk mortality All laboratory, cultures and imaging were reviewed. Will follow Janelle Parra MD Infectious Diseases Associate Director [employer] Services [facility] [phone] O [phone] Subjective Date of service: 03/17/20 Principal diagnosis: covid pneumonia Interval history: Patient remains intubated, FiO2 85 PEEP 16, noted 100.7 fever, on sedative. Objective - Exam Narrative Exam: General appearance: Sedated, intubated in no acute distress Eyes: anicteric sclerae, moist conjunctivae; no lid-lag; PERRLA HENT: Atraumatic; oropharynx limited with endotracheal tube NG tube Lungs: Diminished breath sound bilaterally CV: RRR no murmur Abdomen: Soft, non-tender; no masses or hepatosplenomegaly Extremities: no edema, no cyanosis Skin: No rash. Psych: Sedated Neuro: Sedated Condom catheter and a rectal tube - Constitutional Vitals: Vital Signs Temp Pulse Resp BP Pulse Ox 99.4 F 106 H 20 99/67 100 03/17/20 08:00 03/17/20 09:01 03/17/20 08:00 03/17/20 09:01 03/17/20 08:58 Temperature -Last 24 Hours Temperature 99.4 F Temperature 100.7 F Temperature 98.8 F Temperature 98.2 F - Labs CBC & Chem 7: 03/17/20 05:40 03/17/20 05:40 Labs: Abnormal lab results 03/16/20 03/16/20 03/16/20 Range/Units 02:13 02:13 02:13 WBC 25.9 H (4.5-11.0) K/mm3 MCH 27 L (28-32) pg MCHC 31 L (32-34) % RDW 18.3 H (13.2-15.2) % Plt Count 602 H (140-440) K/mm3 Lymph % (Auto) 2.0 L (13.4-35.0) % Lymph # (Auto) 0.5 L (1.2-5.4) K/mm3 [place] # (Auto) 0.9 H (0.0-0.8) K/mm3 Seg Neutrophils # 24.4 H (1.8-7.7) K/mm3 PT 71.7 H (12.2-14.9) Sec. INR 8.50 H* (0.87-1.13) POC ABG pCO2 (32.0-48.0) mmHg POC ABG pO2 (83-108) mmHg ABG Oxyhemoglobin (94-98) ABG Sodium (136.0-145.0) mmol/L ABG Potassium (3.40-4.50) mmol/L ABG Glucose (65-95) mg/dL Potassium 6.1 H* D (3.6-5.0) mmol/L Carbon Dioxide 13 L (22-30) mmol/L BUN 105 H (9-20) mg/dL Creatinine 5.1 H D (0.8-1.3) mg/dL Glucose 135 H (75-100) mg/dL POC Glucose (70-105) mg/dL Calcium 7.8 L (8.4-10.2) mg/dL AST 62 H (5-40) units/L Alkaline Phosphatase 171 H (35-129) units/L Total Protein 5.9 L (6.3-8.2) g/dL Albumin 2.7 L (3.9-5) g/dL Arterial Blood Glucose (65-95) mg/dL Arterial Blood Ionized Calcium (4.6-5.3) mg/dL 03/16/20 03/16/20 03/16/20 Range/Units 07:28 17:45 20:19 WBC (4.5-11.0) K/mm3 MCH (28-32) pg MCHC (32-34) % RDW (13.2-15.2) % Plt Count (140-440) K/mm3 Lymph % (Auto) (13.4-35.0) % Lymph # (Auto) (1.2-5.4) K/mm3 [place] # (Auto) (0.0-0.8) K/mm3 Seg Neutrophils # (1.8-7.7) K/mm3 PT (12.2-14.9) Sec. INR (0.87-1.13) POC ABG pCO2 28.4 L (32.0-48.0) mmHg POC ABG pO2 68.0 L 57.6 L (83-108) mmHg ABG Oxyhemoglobin 90.6 L 84.5 L (94-98) ABG Sodium 134.3 L 135.0 L (136.0-145.0) mmol/L ABG Potassium 4.8 H (3.40-4.50) mmol/L ABG Glucose 127 H 112 H (65-95) mg/dL Potassium (3.6-5.0) mmol/L Carbon Dioxide (22-30) mmol/L BUN (9-20) mg/dL Creatinine (0.8-1.3) mg/dL Glucose (75-100) mg/dL POC Glucose 137 H (70-105) mg/dL Calcium (8.4-10.2) mg/dL AST (5-40) units/L Alkaline Phosphatase (35-129) units/L Total Protein (6.3-8.2) g/dL Albumin (3.9-5) g/dL Arterial Blood Glucose 127 H 112 H (65-95) mg/dL Arterial Blood Ionized Calcium 4.5 L 4.4 L (4.6-5.3) mg/dL 03/17/20 03/17/20 03/17/20 Range/Units 05:18 05:40 05:40 WBC 21.4 H (4.5-11.0) K/mm3 MCH 27 L (28-32) pg MCHC 31 L (32-34) % RDW 18.5 H (13.2-15.2) % Plt Count 584 H (140-440) K/mm3 Lymph % (Auto) 2.1 L (13.4-35.0) % Lymph # (Auto) 0.5 L (1.2-5.4) K/mm3 [place] # (Auto) (0.0-0.8) K/mm3 Seg Neutrophils # 20.2 H (1.8-7.7) K/mm3 PT 78.1 H (12.2-14.9) Sec. INR 9.47 H* (0.87-1.13) POC ABG pCO2 (32.0-48.0) mmHg POC ABG pO2 (83-108) mmHg ABG Oxyhemoglobin (94-98) ABG Sodium (136.0-145.0) mmol/L ABG Potassium (3.40-4.50) mmol/L ABG Glucose (65-95) mg/dL Potassium (3.6-5.0) mmol/L Carbon Dioxide (22-30) mmol/L BUN (9-20) mg/dL Creatinine (0.8-1.3) mg/dL Glucose (75-100) mg/dL POC Glucose 215 H (70-105) mg/dL Calcium (8.4-10.2) mg/dL AST (5-40) units/L Alkaline Phosphatase (35-129) units/L Total Protein (6.3-8.2) g/dL Albumin (3.9-5) g/dL Arterial Blood Glucose (65-95) mg/dL Arterial Blood Ionized Calcium (4.6-5.3) mg/dL 03/17/20 Range/Units 05:40 WBC (4.5-11.0) K/mm3 MCH (28-32) pg MCHC (32-34) % RDW (13.2-15.2) % Plt Count (140-440) K/mm3 Lymph % (Auto) (13.4-35.0) % Lymph # (Auto) (1.2-5.4) K/mm3 [place] # (Auto) (0.0-0.8) K/mm3 Seg Neutrophils # (1.8-7.7) K/mm3 PT (12.2-14.9) Sec. INR (0.87-1.13) POC ABG pCO2 (32.0-48.0) mmHg POC ABG pO2 (83-108) mmHg ABG Oxyhemoglobin (94-98) ABG Sodium (136.0-145.0) mmol/L ABG Potassium (3.40-4.50) mmol/L ABG Glucose (65-95) mg/dL Potassium 5.2 H (3.6-5.0) mmol/L Carbon Dioxide 21 L D (22-30) mmol/L BUN 112 H (9-20) mg/dL Creatinine 5.7 H (0.8-1.3) mg/dL Glucose 211 H (75-100) mg/dL POC Glucose (70-105) mg/dL Calcium 7.9 L (8.4-10.2) mg/dL AST (5-40) units/L Alkaline Phosphatase 154 H (35-129) units/L Total Protein (6.3-8.2) g/dL Albumin 2.5 L (3.9-5) g/dL Arterial Blood Glucose (65-95) mg/dL Arterial Blood Ionized Calcium (4.6-5.3) mg/dL
--- NOTE | 2020-03-17 09:14 | Progress Note ---
Subjective Principal diagnosis: covid pneumonia Interval history: on vent Objective Vital Signs - 12hr vent ac 85% 450 p16 r 20 03/16/20 03/16/20 03/16/20 22:00 23:00 23:40 Temperature Pulse Rate 102 H 108 H 103 H Pulse Rate [ From Monitor] Respiratory 15 18 13 Rate Respiratory 26 H Rate [ Generalized] Blood Pressure 112/60 104/59 97/58 O2 Sat by Pulse 100 92 100 Oximetry 03/17/20 03/17/20 03/17/20 00:00 00:01 01:00 Temperature 98.8 F Pulse Rate 105 H 104 H 106 H Pulse Rate [ From Monitor] Respiratory 12 20 Rate Respiratory Rate [ Generalized] Blood Pressure 97/58 90/59 91/61 O2 Sat by Pulse 100 100 100 Oximetry 03/17/20 03/17/20 03/17/20 02:00 03:00 04:00 Temperature 100.7 F H Pulse Rate 105 H 106 H 102 H Pulse Rate [ 102 H From Monitor] Respiratory 20 18 24 Rate Respiratory Rate [ Generalized] Blood Pressure 94/63 102/57 91/59 O2 Sat by Pulse 100 100 98 Oximetry 03/17/20 03/17/20 03/17/20 04:23 05:00 06:00 Temperature Pulse Rate 108 H 112 H 113 H Pulse Rate [ From Monitor] Respiratory 15 17 Rate Respiratory Rate [ Generalized] Blood Pressure 91/59 98/59 100/60 O2 Sat by Pulse 100 100 100 Oximetry 03/17/20 03/17/20 03/17/20 07:00 08:00 08:40 Temperature 99.4 F Pulse Rate 112 H 106 H 104 H Pulse Rate [ From Monitor] Respiratory 20 20 Rate Respiratory Rate [ Generalized] Blood Pressure 96/65 99/60 98/64 O2 Sat by Pulse 100 100 Oximetry 03/17/20 03/17/20 03/17/20 08:58 09:00 09:01 Temperature Pulse Rate 105 H 104 H 106 H Pulse Rate [ From Monitor] Respiratory Rate Respiratory Rate [ Generalized] Blood Pressure 99/67 98/64 99/67 O2 Sat by Pulse 100 Oximetry Constitutional: other (critically ill on vent sedated) Eyes: non-icteric ENT: oropharynx moist Neck: supple Effort: mildly labored Ascultation: Bilateral: rales Cardiovascular: irregular rhythm (ir/ir, tachy) Gastrointestinal: normoactive bowel sounds, soft, non-tender, non-distended Integumentary: normal Extremities: no cyanosis, no edema, pink and warm Neurologic: other CBC and BMP: 03/17/20 05:40 03/17/20 05:40 ABG, PT/INR, D-dimer: ABG ABG pH 7.339 (7.320-7.450) 03/16/20 17:45 POC ABG pCO2 33.4 mmHg (32.0-48.0) 03/16/20 17:45 POC ABG pO2 57.6 mmHg (83-108) L 03/16/20 17:45 POC ABG HCO3 17.6 03/16/20 17:45 PT/INR, D-dimer PT 78.1 Sec. (12.2-14.9) H 03/17/20 05:40 INR 9.47 (0.87-1.13) H* 03/17/20 05:40 D-Dimer 287.92 ng/mlDDU (0-234) H 03/13/20 17:25 Abnormal lab findings: Abnormal Labs 03/11/20 03/11/20 03/11/20 11:18 11:18 11:18 WBC Hgb MCH MCHC RDW 17.6 H Plt Count Lymph % (Auto) Lymph # (Auto) 0.8 L [place] # (Auto) Seg Neutrophils % 80.1 H Seg Neuts % (Manual) Lymphocytes % (Manual) Nucleated RBC % Seg Neutrophils # Seg Neutrophils # Man Lymphocytes # (Manual) PT INR D-Dimer ABG pH POC ABG pCO2 POC ABG pO2 ABG Oxyhemoglobin ABG Sodium ABG Potassium ABG Glucose Sodium 132 L Potassium Chloride Carbon Dioxide 19 L BUN 26 H Creatinine 1.8 H Glucose POC Glucose Calcium 8.0 L Magnesium Ferritin AST Alkaline Phosphatase Lactate Dehydrogenase 902 H C-Reactive Protein 6.70 H NT-Pro-B Natriuret Pep Total Protein Albumin Arterial Blood Glucose Arterial Blood Ionized Calcium Urine Creatinine Coronavirus (PCR) 03/11/20 03/11/20 03/11/20 11:18 11:18 11:18 WBC Hgb MCH MCHC RDW Plt Count Lymph % (Auto) Lymph # (Auto) [place] # (Auto) Seg Neutrophils % Seg Neuts % (Manual) Lymphocytes % (Manual) Nucleated RBC % Seg Neutrophils # Seg Neutrophils # Man Lymphocytes # (Manual) PT 21.3 H INR 1.82 H D-Dimer 261.32 H ABG pH POC ABG pCO2 POC ABG pO2 ABG Oxyhemoglobin ABG Sodium ABG Potassium ABG Glucose Sodium Potassium Chloride Carbon Dioxide BUN Creatinine Glucose POC Glucose Calcium Magnesium Ferritin 894.4 H AST Alkaline Phosphatase Lactate Dehydrogenase C-Reactive Protein NT-Pro-B Natriuret Pep 893.1 H Total Protein Albumin Arterial Blood Glucose Arterial Blood Ionized Calcium Urine Creatinine Coronavirus (PCR) 03/11/20 03/11/20 03/11/20 18:00 18:00 18:00 WBC Hgb MCH MCHC RDW Plt Count Lymph % (Auto) Lymph # (Auto) [place] # (Auto) Seg Neutrophils % Seg Neuts % (Manual) Lymphocytes % (Manual) Nucleated RBC % Seg Neutrophils # Seg Neutrophils # Man Lymphocytes # (Manual) PT INR D-Dimer ABG pH POC ABG pCO2 POC ABG pO2 ABG Oxyhemoglobin ABG Sodium ABG Potassium ABG Glucose Sodium 132 L Potassium Chloride Carbon Dioxide 18 L BUN Creatinine Glucose POC Glucose Calcium Magnesium Ferritin 967.8 H AST Alkaline Phosphatase Lactate Dehydrogenase 973 H C-Reactive Protein 6.40 H NT-Pro-B Natriuret Pep Total Protein Albumin Arterial Blood Glucose Arterial Blood Ionized Calcium Urine Creatinine Coronavirus (PCR) 03/11/20 03/12/20 03/12/20 18:15 04:37 04:37 WBC 3.5 L Hgb 11.5 L MCH 27 L MCHC RDW 17.2 H Plt Count Lymph % (Auto) 11.9 L Lymph # (Auto) 0.4 L [place] # (Auto) Seg Neutrophils % 84.1 H Seg Neuts % (Manual) Lymphocytes % (Manual) Nucleated RBC % Seg Neutrophils # Seg Neutrophils # Man Lymphocytes # (Manual) PT INR D-Dimer ABG pH 7.478 H POC ABG pCO2 24.6 L POC ABG pO2 69.7 L ABG Oxyhemoglobin ABG Sodium 129.3 L ABG Potassium ABG Glucose Sodium 135 L Potassium Chloride Carbon Dioxide 19 L BUN 30 H Creatinine 1.9 H Glucose 112 H POC Glucose Calcium 7.9 L Magnesium Ferritin AST 59 H Alkaline Phosphatase Lactate Dehydrogenase C-Reactive Protein NT-Pro-B Natriuret Pep Total Protein Albumin 3.0 L Arterial Blood Glucose Arterial Blood Ionized Calcium 4.3 L Urine Creatinine Coronavirus (PCR) 10/23/20 10/23/20 10/23/20 04:37 10:07 16:50 WBC Hgb MCH MCHC RDW Plt Count Lymph % (Auto) Lymph # (Auto) [place] # (Auto) Seg Neutrophils % Seg Neuts % (Manual) Lymphocytes % (Manual) Nucleated RBC % Seg Neutrophils # Seg Neutrophils # Man Lymphocytes # (Manual) PT 24.7 H INR 2.19 H D-Dimer ABG pH POC ABG pCO2 POC ABG pO2 ABG Oxyhemoglobin ABG Sodium ABG Potassium ABG Glucose Sodium Potassium Chloride Carbon Dioxide BUN Creatinine Glucose POC Glucose 110 H Calcium Magnesium Ferritin AST Alkaline Phosphatase Lactate Dehydrogenase C-Reactive Protein NT-Pro-B Natriuret Pep Total Protein Albumin Arterial Blood Glucose Arterial Blood Ionized Calcium Urine Creatinine Coronavirus (PCR) Positive A 03/13/20 03/13/20 03/13/20 09:13 13:05 17:25 WBC Hgb MCH MCHC RDW Plt Count Lymph % (Auto) Lymph # (Auto) [place] # (Auto) Seg Neutrophils % Seg Neuts % (Manual) Lymphocytes % (Manual) Nucleated RBC % Seg Neutrophils # Seg Neutrophils # Man Lymphocytes # (Manual) PT INR D-Dimer 287.92 H ABG pH POC ABG pCO2 POC ABG pO2 ABG Oxyhemoglobin ABG Sodium 130.7 L ABG Potassium ABG Glucose 98 H Sodium Potassium Chloride Carbon Dioxide BUN Creatinine Glucose POC Glucose Calcium Magnesium Ferritin AST Alkaline Phosphatase Lactate Dehydrogenase C-Reactive Protein NT-Pro-B Natriuret Pep Total Protein Albumin Arterial Blood Glucose 98 H Arterial Blood Ionized Calcium 4.4 L Urine Creatinine 135.0 H Coronavirus (PCR) 03/13/20 03/13/20 03/13/20 17:25 17:25 17:25 WBC Hgb MCH MCHC RDW Plt Count Lymph % (Auto) Lymph # (Auto) [place] # (Auto) Seg Neutrophils % Seg Neuts % (Manual) Lymphocytes % (Manual) Nucleated RBC % Seg Neutrophils # Seg Neutrophils # Man Lymphocytes # (Manual) PT INR D-Dimer ABG pH POC ABG pCO2 POC ABG pO2 ABG Oxyhemoglobin ABG Sodium ABG Potassium ABG Glucose Sodium 133 L Potassium Chloride 95.0 L Carbon Dioxide BUN 39 H Creatinine 1.8 H Glucose 101 H POC Glucose Calcium 8.3 L Magnesium Ferritin 3088.0 H AST 84 H Alkaline Phosphatase Lactate Dehydrogenase 1506 H C-Reactive Protein 3.50 H NT-Pro-B Natriuret Pep 2216 H Total Protein Albumin 3.2 L Arterial Blood Glucose Arterial Blood Ionized Calcium Urine Creatinine Coronavirus (PCR) 03/13/20 03/14/20 03/14/20 17:25 04:43 04:43 WBC Hgb MCH MCHC RDW Plt Count Lymph % (Auto) Lymph # (Auto) [place] # (Auto) Seg Neutrophils % Seg Neuts % (Manual) Lymphocytes % (Manual) Nucleated RBC % Seg Neutrophils # Seg Neutrophils # Man Lymphocytes # (Manual) PT 36.1 H 44.2 H INR 3.55 H 4.60 H D-Dimer ABG pH POC ABG pCO2 POC ABG pO2 ABG Oxyhemoglobin ABG Sodium ABG Potassium ABG Glucose Sodium 135 L Potassium Chloride Carbon Dioxide 20 L BUN 37 H Creatinine 1.8 H Glucose POC Glucose Calcium 7.9 L Magnesium 2.50 H Ferritin AST 100 H Alkaline Phosphatase Lactate Dehydrogenase C-Reactive Protein NT-Pro-B Natriuret Pep Total Protein Albumin 2.8 L Arterial Blood Glucose Arterial Blood Ionized Calcium Urine Creatinine Coronavirus (PCR) 03/14/20 03/15/20 03/15/20 04:43 05:08 05:08 WBC 12.5 H Hgb MCH 27 L 27 L MCHC RDW 17.8 H 18.1 H Plt Count 456 H Lymph % (Auto) Lymph # (Auto) [place] # (Auto) Seg Neutrophils % Seg Neuts % (Manual) 93.0 H 93.0 H Lymphocytes % (Manual) 2.0 L 4.0 L Nucleated RBC % 1.0 H Seg Neutrophils # Seg Neutrophils # Man 9.7 H 11.6 H Lymphocytes # (Manual) 0.2 L 0.5 L PT 51.4 H INR 5.57 H* D-Dimer ABG pH POC ABG pCO2 POC ABG pO2 ABG Oxyhemoglobin ABG Sodium ABG Potassium ABG Glucose Sodium Potassium Chloride Carbon Dioxide BUN Creatinine Glucose POC Glucose Calcium Magnesium Ferritin AST Alkaline Phosphatase Lactate Dehydrogenase C-Reactive Protein NT-Pro-B Natriuret Pep Total Protein Albumin Arterial Blood Glucose Arterial Blood Ionized Calcium Urine Creatinine Coronavirus (PCR) 03/15/20 03/15/20 03/16/20 05:08 05:08 02:13 WBC Hgb MCH MCHC RDW Plt Count Lymph % (Auto) Lymph # (Auto) [place] # (Auto) Seg Neutrophils % Seg Neuts % (Manual) Lymphocytes % (Manual) Nucleated RBC % Seg Neutrophils # Seg Neutrophils # Man Lymphocytes # (Manual) PT 71.7 H INR 8.50 H* D-Dimer ABG pH POC ABG pCO2 POC ABG pO2 ABG Oxyhemoglobin ABG Sodium ABG Potassium ABG Glucose Sodium Potassium Chloride Carbon Dioxide 18 L BUN 50 H Creatinine 2.0 H Glucose POC Glucose Calcium 8.3 L Magnesium Ferritin 2000.0 H AST 84 H Alkaline Phosphatase Lactate Dehydrogenase 1905 H C-Reactive Protein 9.80 H NT-Pro-B Natriuret Pep Total Protein Albumin 2.7 L Arterial Blood Glucose Arterial Blood Ionized Calcium Urine Creatinine Coronavirus (PCR) 03/16/20 03/16/20 03/16/20 02:13 02:13 07:28 WBC 25.9 H Hgb MCH 27 L MCHC 31 L RDW 18.3 H Plt Count 602 H Lymph % (Auto) 2.0 L Lymph # (Auto) 0.5 L [place] # (Auto) 0.9 H Seg Neutrophils % Seg Neuts % (Manual) Lymphocytes % (Manual) Nucleated RBC % Seg Neutrophils # 24.4 H Seg Neutrophils # Man Lymphocytes # (Manual) PT INR D-Dimer ABG pH POC ABG pCO2 28.4 L POC ABG pO2 68.0 L ABG Oxyhemoglobin 90.6 L ABG Sodium 134.3 L ABG Potassium 4.8 H ABG Glucose 127 H Sodium Potassium 6.1 H* D Chloride Carbon Dioxide 13 L BUN 105 H Creatinine 5.1 H D Glucose 135 H POC Glucose Calcium 7.8 L Magnesium Ferritin AST 62 H Alkaline Phosphatase 171 H Lactate Dehydrogenase C-Reactive Protein NT-Pro-B Natriuret Pep Total Protein 5.9 L Albumin 2.7 L Arterial Blood Glucose 127 H Arterial Blood Ionized Calcium 4.5 L Urine Creatinine Coronavirus (PCR) 03/16/20 03/16/20 03/17/20 17:45 20:19 05:18 WBC Hgb MCH MCHC RDW Plt Count Lymph % (Auto) Lymph # (Auto) [place] # (Auto) Seg Neutrophils % Seg Neuts % (Manual) Lymphocytes % (Manual) Nucleated RBC % Seg Neutrophils # Seg Neutrophils # Man Lymphocytes # (Manual) PT INR D-Dimer ABG pH POC ABG pCO2 POC ABG pO2 57.6 L ABG Oxyhemoglobin 84.5 L ABG Sodium 135.0 L ABG Potassium ABG Glucose 112 H Sodium Potassium Chloride Carbon Dioxide BUN Creatinine Glucose POC Glucose 137 H 215 H Calcium Magnesium Ferritin AST Alkaline Phosphatase Lactate Dehydrogenase C-Reactive Protein NT-Pro-B Natriuret Pep Total Protein Albumin Arterial Blood Glucose 112 H Arterial Blood Ionized Calcium 4.4 L Urine Creatinine Coronavirus (PCR) 03/17/20 03/17/20 03/17/20 05:40 05:40 05:40 WBC 21.4 H Hgb MCH 27 L MCHC 31 L RDW 18.5 H Plt Count 584 H Lymph % (Auto) 2.1 L Lymph # (Auto) 0.5 L [place] # (Auto) Seg Neutrophils % Seg Neuts % (Manual) Lymphocytes % (Manual) Nucleated RBC % Seg Neutrophils # 20.2 H Seg Neutrophils # Man Lymphocytes # (Manual) PT 78.1 H INR 9.47 H* D-Dimer ABG pH POC ABG pCO2 POC ABG pO2 ABG Oxyhemoglobin ABG Sodium ABG Potassium ABG Glucose Sodium Potassium 5.2 H Chloride Carbon Dioxide 21 L D BUN 112 H Creatinine 5.7 H Glucose 211 H POC Glucose Calcium 7.9 L Magnesium Ferritin AST Alkaline Phosphatase 154 H Lactate Dehydrogenase C-Reactive Protein NT-Pro-B Natriuret Pep Total Protein Albumin 2.5 L Arterial Blood Glucose Arterial Blood Ionized Calcium Urine Creatinine Coronavirus (PCR) Chest x-ray: report reviewed, image reviewed
[2020-03-17] MEDS: CLOPIDOGREL 75 MG TAB PO SCH (09:43)
[2020-03-17] MEDS: FAMOTIDINE 20 MG TAB PO SCH (09:43)
[2020-03-17] MEDS: DEXAMETHASONE 2 MG TAB PO SCH ×2 (09:43→21:00)
[2020-03-17] MEDS ORDERED: PHYTONADIONE(ADULT ONLY) 10 MG in SODIUM CHLORIDE 0.9% 50 ML IV ONE (10:00)
[2020-03-17] MEDS ORDERED: LIPASE 10,500/PROTEASE 25,000/AMYLASE 43,750 (UNITS) DR CAP FEEDTUBE PRN (11:01)
[2020-03-17] MEDS ORDERED: SIMPLE SYRUP 15 ML FEEDTUBE PRN ×2 (11:01)
[2020-03-17] MEDS ORDERED: SODIUM BICARBONATE 325 MG TAB FEEDTUBE PRN (11:01)
--- NOTE | 2020-03-17 11:06 | Progress Note ---
Assessment and Plan 1. Acute kidney injury: Acute kidney injury superimposed on CKD in the setting of COVID infection. CT abdomen negative for hydro. Monitor renal function. Significant increase in the Creatinine level noted. UOP is low. Renal prognosis is guarded. Avoid nephrotoxic agents. Meds dosage based on GFR. Bladder scan ordered, spoke to the nurse. Patient required hemodialysis due to worsening renal function and associated hyperkalemia and metabolic acidosis. D/w patient's (03/17) over the phone about the indications, benefits, risks and alternatives involved in hemodialysis. She voiced understanding and gave verbal consent. Vascular consulted for dialysis catheter placement. Hemodialysis: 03/17. 2. FEN: Hyperkalemia, HD today, monitor. Metabolic acidosis, HD today, monitor. Cautious use of diuretics if needed. Monitor lytes. 3. Acute hypoxic resp failure: Likely secondary to COVID-19 infection. CXR showed pulmonary infiltrate. Intubated, on vent. Followed by Pulmonary. 4. Severe COVID-19 pneumonia. Followed by ID. On Steroids. 5. Hypocoagulable state: On Coumadin and INR is 9.47. 6. Hypertension: BP med held due to hypotension. Monitor BP. Subjective: Patient was seen and examined at the bedside. - General Appearance General appearance: well-developed, well-nourished, appears stated age, no distress, intubated, on vent HEENT: ATNC Eyes: Pupils reacting to light Neck: supple Respiratory: MV sounds Cardiology: S1S2, no murmur Gastrointestinal: normoactive bowel sounds, not tenderness, not distended Integumentary: no obvious rash Neurologic: sedated Ext: no edema noted Subjective Date of service: 03/17/20 Principal diagnosis: covid pneumonia Objective - Vital Signs Vital signs: Vital Signs - 12hr 03/16/20 03/17/20 03/17/20 23:40 00:00 00:01 Temperature 98.8 F Pulse Rate 103 H 105 H 104 H Pulse Rate [ From Monitor] Respiratory 13 12 Rate Blood Pressure 97/58 97/58 90/59 O2 Sat by Pulse 100 100 100 Oximetry 03/17/20 03/17/20 03/17/20 01:00 02:00 03:00 Temperature Pulse Rate 106 H 105 H 106 H Pulse Rate [ From Monitor] Respiratory 20 20 18 Rate Blood Pressure 91/61 94/63 102/57 O2 Sat by Pulse 100 100 100 Oximetry 03/17/20 03/17/20 03/17/20 04:00 04:23 05:00 Temperature 100.7 F H Pulse Rate 102 H 108 H 112 H Pulse Rate [ 102 H From Monitor] Respiratory 24 15 Rate Blood Pressure 91/59 91/59 98/59 O2 Sat by Pulse 98 100 100 Oximetry 03/17/20 03/17/20 03/17/20 06:00 07:00 08:00 Temperature 99.4 F Pulse Rate 113 H 112 H 106 H Pulse Rate [ 106 H From Monitor] Respiratory 17 20 20 Rate Blood Pressure 100/60 96/65 99/60 O2 Sat by Pulse 100 100 100 Oximetry 03/17/20 03/17/20 03/17/20 08:40 08:58 09:00 Temperature Pulse Rate 104 H 105 H 105 H Pulse Rate [ From Monitor] Respiratory 22 Rate Blood Pressure 98/64 99/67 99/67 O2 Sat by Pulse 100 100 Oximetry 03/17/20 03/17/20 09:01 10:00 Temperature Pulse Rate 106 H 106 H Pulse Rate [ From Monitor] Respiratory 24 Rate Blood Pressure 99/67 94/64 O2 Sat by Pulse 100 Oximetry - Lab 03/17/20 05:40 03/17/20 05:40 Most recent lab results ABG pH 7.339 (7.320-7.450) 03/16/20 17:45 Calcium 7.9 mg/dL (8.4-10.2) L 03/17/20 05:40 Phosphorus 3.20 mg/dL (2.5-4.5) 03/14/20 04:43 Magnesium 2.50 mg/dL (1.7-2.3) H 03/14/20 04:43 Urine Creatinine 135.0 mg/dL (0.1-20.0) H 03/13/20 13:05 Urine Sodium 33 mmol/L 03/13/20 13:05 Medications & Allergies - Medications Allergies/Adverse Reactions: Allergies No Known Allergies Allergy (Verified 04/21/17 15:31) Home Medications: Home Medications Medication Instructions Recorded Confirmed Last Taken Type Benzonatate [Tessalon Perle] 100 mg PO Q8H PRN #20 capsule 06/12/18 03/13/20 Unknown Rx Ibuprofen [Motrin 600 MG tab] 600 mg PO Q8H PRN #20 tablet 06/12/18 03/13/20 Unknown Rx Aspirin [Aspirin BABY CHEW TAB] 81 mg PO QDAY #100 tab.chew 02/04/20 03/13/20 Unknown Rx Clopidogrel [Plavix] 75 mg PO QDAY #30 tablet 02/04/20 03/13/20 Unknown Rx Furosemide [Lasix TAB] 40 mg PO QDAY #30 tablet 02/04/20 03/13/20 Unknown Rx Gabapentin 300 mg PO BID #60 capsule 02/04/20 03/13/20 Unknown Rx ISOSORBIDE MONOnitrate [Imdur ER] 30 mg PO QDAY #30 tablet 02/04/20 03/13/20 Unknown Rx Metoprolol [Lopressor TAB] 50 mg PO BID #60 tablet 02/04/20 03/13/20 Unknown Rx Potassium Chloride [K-Dur] 20 meq PO QDAY #30 02/04/20 03/13/20 Unknown Rx amLODIPine 10 mg PO DAILY #30 tablet 02/04/20 03/13/20 Unknown Rx hydrALAZINE [Apresoline TAB] 50 mg PO TID #90 tablet 02/04/20 03/13/20 Unknown Rx oxyCODONE /ACETAMINOPHEN [Percocet 1 tab PO Q6H PRN #14 tablet 02/04/20 03/13/20 Unknown Rx 5/325 mg] Famotidine [Pepcid] 40 mg PO QHS #10 tablet 02/13/20 03/13/20 Unknown Rx Prednisone [predniSONE 10 mg 10 mg PO .TAPER #1 tab.ds.pk 02/13/20 03/13/20 Unknown Rx (6-Day Pack, 21 Tabs)] diphenhydrAMINE [Benadryl CAP] 50 mg PO Q8HR PRN #10 capsule 02/13/20 03/13/20 Unknown Rx Cyclobenzaprine HCl [Flexeril 5 MG 5 mg PO TID PRN #15 tab 03/01/20 03/13/20 Unknown Rx TAB] Warfarin [Coumadin] 7.5 mg PO DAILY@1700 #30 tablet 03/01/20 03/13/20 Unknown Rx Active Medications: Generic Name Dose Route Start Last Admin Trade Name Freq PRN Reason Stop Dose Admin Acetaminophen 650 mg 03/11/20 16:53 03/14/20 03:36 Tylenol PO 650 mg Q4H PRN Administration Pain MILD(1-3)/Fever >100.5/LI Lipase/Protease/Amylase 1 each 03/17/20 11:01 Pancrebeth Real 10,500 Unit FEEDTUBE PRN PRN For Clogged Feeding Tube Benzonatate 100 mg 03/11/20 16:55 03/13/20 22:02 Tessalon Perles PO 100 mg Q8H PRN Administration Cough Clopidogrel Bisulfate 75 mg 03/12/20 10:00 03/17/20 09:43 Plavix PO 75 mg DAILY [place] Administration Dexamethasone 6 mg 03/15/20 22:00 03/17/20 09:43 Decadron PO 03/20/20 23:59 6 mg Q12HR [place] Administration Famotidine 20 mg 03/18/20 10:00 Pepcid PO DAILY [facility] Hydrophilic Ointment 1 applic 03/16/20 21:27 Vaseline Lip Therapy TP Q2HR PRN Dry Lips Fentanyl Citrate 2,000 mcg in 100 mls @ 6.45 mls/hr 03/16/20 22:00 03/17/20 02:05 Fentanyl Drip Premix IV 1 mcg/kg/hr TITR [place] 6.45 mls/hr Administration Protocol 1 MCG/KG/HR Propofol 1,000 mg in 100 mls @ 3.87 mls/hr 03/16/20 22:00 03/17/20 06:14 Diprivan 10 Mg/Ml IV 25 mcg/kg/min TITR [place] 19.35 mls/hr Administration Protocol 5 MCG/KG/MIN Insulin Human Lispro 0 unit 03/17/20 11:00 Humalog SUB-Q Q6H [facility] Protocol Isosorbide Mononitrate 30 mg 03/12/20 10:00 03/17/20 09:00 Imdur PO Not Given QDAY [place] Lorazepam 1 mg 03/16/20 21:26 Ativan IV Q4H PRN Agitation Metoprolol Tartrate 50 mg 03/11/20 22:00 03/17/20 09:01 Metoprolol PO Not Given BID [facility] Multi-Ingred Cream/Lotion/Oil/Oint 1 applic 03/16/20 21:27 Artificial Tears Ophth Oint OU Q4HR PRN Dry Eye(s) Ondansetron HCl 4 mg 03/11/20 16:53 Zofran IV Q8H PRN Nausea And Vomiting Simple Syrup 15 ml 03/17/20 11:01 Simple Syrup FEEDTUBE PRN PRN Hypoglycemia Simple Syrup 30 ml 03/17/20 11:01 Simple Syrup FEEDTUBE PRN PRN Hypoglycemia Sodium Bicarbonate 325 mg 03/17/20 11:01 Sodium Bicarbonate FEEDTUBE PRN PRN For Clogged Feeding Tube Sodium Chloride 10 ml 03/11/20 22:00 03/17/20 09:44 Sodium Chloride Flush Syringe 10 Ml IV 10 ml BID [place] Administration Sodium Chloride 10 ml 03/11/20 16:53 Sodium Chloride Flush Syringe 10 Ml IV PRN PRN LINE FLUSH
[2020-03-17] MEDS ORDERED: SODIUM BICARB 8.4% 50 MEQ/50 ML SYRINGE IV STA (11:26)
[2020-03-17 11:54] LABS: Calcium 8.1 mg/dL (8.4-10.2)
[2020-03-17] MEDS ORDERED: SODIUM CHLORIDE 0.9% 100 ML IV PRN (12:00)
[2020-03-17] MEDS: INSULIN LISPRO 100 UNIT/ML VIAL 3 mL SUB-Q SCH ×2 (12:21→18:29)
[2020-03-17 12:36] LABS: INR 9.22 (0.87-1.13)
--- NOTE | 2020-03-17 14:20 | Progress Note ---
Assessment and Plan Assessment and plan: 44-year-old male with known history of hypertension, CHF with ejection fraction of 40 to 45% (on echo done in 01/2020), Gout presenting to the emergency room complaining of shortness of breath, diarrhea, abdominal pain and vomiting. He says symptoms started 5 days prior. He was recently discharged from here about a week ago after management for acute on chronic systolic CHF. He denies any ingestion of unaccustomed meals. He denies any contact with someone with COVID- 19. He was recently tested for COVID-19 and was negative. His labs have been reviewed. Had JIM and elevated inflammatory markers. COVID- 19 test ordered. Hold Lasix for now due to JIM. 03/12. Patient seen and examined at bedside this morning. Patient feels much better today but still needs oxygen to maintain saturation. He is on antibiotics for bilateral opacities found on x-ray. Awaiting COVID-19 test today. Continue dexamethasone for now 03/13. COVID-19 test positive. ID consulted. Continue dexamethasone and ant ibiotics for now. Overnight, patient became more hypoxic and had to be placed on BiPAP. Pulmonology consult requested. Patient will be going to the IMCU for close observation. 03/14. He got lasix yesterday and diuresed well. On high flow this AM. INR is supratherapeutic so coumadin is being held 03/16: Clinical Deteriorated overnight requiring intubation, Edge Cutter following, ID also following. Supportive care. IGG pending, MADISYN pending 03/17: Continue weaning from ventilator as tolerated, Discussed with ID, will order Convalescent plasma (1) Acute respiratory failure with hypoxia Current Visit: Yes Status: Acute Plan to address problem: Patient at present appears to be in mild to moderate distress. Previous nurse states patient would not sit down and kept moving in this is extubated his hypoxia. Now intubated (2) Suspected COVID-19 virus infection Current Visit: Yes Status: Acute Plan to address problem: Current Visit: Yes Status: Acute Plan to address problem: Continue dexamethasone 6 mg IV daily ID recs appreciated Patient not a candidate for remdesivir for now due to JIM. Prone positioning if able Continue to monitor inflammatory markers (3) Chronic anticoagulation Current Visit: Yes Status: Chronic Plan to address problem: Patient on Eliquis is stable continue present medical management. (4) Chronic kidney disease Current Visit: Yes Status: Chronic Plan to address problem: Possible secondary to COVID-19 CT scan of abdomen negative. This a.m. had increase in serum creatinine. Renal prognosis guarded. (5) Hypertension complications Current Visit: No Status: Acute (6) Gout Current Visit: No Status: Chronic (7) HLD (hyperlipidemia) Current Visit: No Status: Chronic Qualifiers: Hyperlipidemia type: mixed hyperlipidemia Qualified Code(s): E78.2 - Mixed hyperlipidemia Plan to address problem: Check renal function LDL goal less than 100. (8) Gout Current Visit: No Status: Inactive Qualifiers: Gout site: unspecified site Plan to address problem: No acute gouty exacerbation. (9) History of pulmonary embolus (PE) Current Visit: Yes Status: Acute Plan to address problem: Continue anticoagulant Eliquis. The high probability of a clinically significant, sudden or life threatening deterioration of the [pulmonary] system(s) required my full and direct attention, intervention and personal management. The aggregate critical care time was [35] minutes. This time is in addition to time spent performing re ported procedures but includes the following: [X] Data Review and interpretation [X] Patient assessment and monitoring of vital signs [X] Documentation [X] Medication orders and management History Interval history: Patient seen and examined, was intubated due to worsening respiratory distress. Hospitalist Physical - Physical exam Narrative exam: VITAL SIGNS: Reviewed. GENERAL: sedated HEAD: No signs of head trauma. EYES: Pupils are equal. Extraocular motions intact. EARS: Hearing grossly intact. MOUTH: orally intubated NECK: No adenopathy, no JVD. CHEST: Has some rales. CARDIAC: Regular rate and rhythm. S1 and S2, without murmurs, gallops, or rubs. VASCULAR: No Edema. Peripheral pulses normal and equal in all extremities. ABDOMEN: Soft, non tender and non distended. No rebound or guarding, and no masses palpated. Bowel Sounds normal. MUSCULOSKELETAL: Good range of motion of all major joints. Extremities without clubbing, cyanosis or edema. NEUROLOGIC EXAM: sedated No focal neurologic deficits PSYCHIATRIC: sedated SKIN: No obvious lesions - Constitutional Vitals: Temp Pulse Resp BP Pulse Ox 99.4 F 107 H 19 115/70 100 03/17/20 08:00 03/17/20 12:17 03/17/20 12:16 03/17/20 12:17 03/17/20 12:17 Results - Labs CBC & Chem 7: 03/17/20 05:40 03/17/20 11:05 Labs: Laboratory Last Values WBC 21.4 K/mm3 (4.5-11.0) H 03/17/20 05:40 RBC 4.53 M/mm3 (3.65-5.03) 03/17/20 05:40 Hgb 12.2 gm/dl (11.8-15.2) 03/17/20 05:40 Hct 39.8 % (35.5-45.6) 03/17/20 05:40 MCV 88 fl (84-94) 03/17/20 05:40 MCH 27 pg (28-32) L 03/17/20 05:40 MCHC 31 % (32-34) L 03/17/20 05:40 RDW 18.5 % (13.2-15.2) H 03/17/20 05:40 Plt Count 584 K/mm3 (140-440) H 03/17/20 05:40 Lymph % (Auto) 2.1 % (13.4-35.0) L 03/17/20 05:40 [place] % (Auto) 3.3 % (0.0-7.3) 03/17/20 05:40 Eos % (Auto) 0.0 % (0.0-4.3) 03/17/20 05:40 Baso % (Auto) 0.1 % (0.0-1.8) 03/17/20 05:40 Lymph # (Auto) 0.5 K/mm3 (1.2-5.4) L 03/17/20 05:40 [place] # (Auto) 0.7 K/mm3 (0.0-0.8) 03/17/20 05:40 Eos # (Auto) 0.0 K/mm3 (0.0-0.4) 03/17/20 05:40 Baso # (Auto) 0.0 K/mm3 (0.0-0.1) 03/17/20 05:40 Add Manual Diff Complete 03/15/20 05:08 Total Counted 100 03/15/20 05:08 Seg Neutrophils % Pest Controller 03/17/20 05:40 Seg Neuts % (Manual) 93.0 % (40.0-70.0) H 03/15/20 05:08 Band Neutrophils % 0 % 03/15/20 05:08 Lymphocytes % (Manual) 4.0 % (13.4-35.0) L 03/15/20 05:08 Reactive Lymphs % (Man) 0 % 03/15/20 05:08 Monocytes % (Manual) 3.0 % (0.0-7.3) 03/15/20 05:08 Eosinophils % (Manual) 0 % (0.0-4.3) 03/15/20 05:08 Basophils % (Manual) 0 % (0.0-1.8) 03/15/20 05:08 Metamyelocytes % 0 % 03/15/20 05:08 Myelocytes % 0 % 03/15/20 05:08 Promyelocytes % 0 % 03/15/20 05:08 Blast Cells % 0 % 03/15/20 05:08 Nucleated RBC % 1.0 % (0.0-0.9) H 03/15/20 05:08 Seg Neutrophils # 20.2 K/mm3 (1.8-7.7) H 03/17/20 05:40 Seg Neutrophils # Man 11.6 K/mm3 (1.8-7.7) H 03/15/20 05:08 Band Neutrophils # 0.0 K/mm3 03/15/20 05:08 Lymphocytes # (Manual) 0.5 K/mm3 (1.2-5.4) L 03/15/20 05:08 Abs React Lymphs (Man) 0.0 K/mm3 03/15/20 05:08 Monocytes # (Manual) 0.4 K/mm3 (0.0-0.8) 03/15/20 05:08 Eosinophils # (Manual) 0.0 K/mm3 (0.0-0.4) 03/15/20 05:08 Basophils # (Manual) 0.0 K/mm3 (0.0-0.1) 03/15/20 05:08 Metamyelocytes # 0.0 K/mm3 03/15/20 05:08 Myelocytes # 0.0 K/mm3 03/15/20 05:08 Promyelocytes # 0.0 K/mm3 03/15/20 05:08 Blast Cells # 0.0 K/mm3 03/15/20 05:08 WBC Morphology Not Reportable 03/15/20 05:08 Hypersegmented Neuts Not Reportable 03/15/20 05:08 Hyposegmented Neuts Not Reportable 03/15/20 05:08 Hypogranular Neuts Not Reportable 03/15/20 05:08 Smudge Cells Not Reportable 03/15/20 05:08 Toxic Granulation Not Reportable 03/15/20 05:08 Toxic Vacuolation Not Reportable 03/15/20 05:08 Dohle Bodies Not Reportable 03/15/20 05:08 Pelger-Huet Anomaly Not Reportable 03/15/20 05:08 Marissa Rods Not Reportable 03/15/20 05:08 Platelet Estimate Consistent w auto 03/15/20 05:08 Clumped Platelets Not Reportable 03/15/20 05:08 Plt Clumps, EDTA Not Reportable 03/15/20 05:08 Large Platelets Not Reportable 03/15/20 05:08 Giant Platelets Not Reportable 03/15/20 05:08 Platelet Satelliting Not Reportable 03/15/20 05:08 Plt Morphology Comment Not Reportable 03/15/20 05:08 RBC Morphology Not Reportable 03/15/20 05:08 Dimorphic RBCs Not Reportable 03/15/20 05:08 Polychromasia Few 03/15/20 05:08 Hypochromasia Not Reportable 03/15/20 05:08 Poikilocytosis Not Reportable 03/15/20 05:08 Anisocytosis Few 03/15/20 05:08 Microcytosis Not Reportable 03/15/20 05:08 Macrocytosis Not Reportable 03/15/20 05:08 Spherocytes Not Reportable 03/15/20 05:08 Pappenheimer Bodies Not Reportable 03/15/20 05:08 Sickle Cells Not Reportable 03/15/20 05:08 Target Cells Not Reportable 03/15/20 05:08 Tear Drop Cells Not Reportable 03/15/20 05:08 Ovalocytes Not Reportable 03/15/20 05:08 Helmet Cells Not Reportable 03/15/20 05:08 [place] Bodies Not Reportable 03/15/20 05:08 [place] Rings Not Reportable 03/15/20 05:08 Rosalia Cells Not Reportable 03/15/20 05:08 Bite Cells Not Reportable 03/15/20 05:08 Crenated Cell Not Reportable 03/15/20 05:08 Elliptocytes Not Reportable 03/15/20 05:08 Acanthocytes (Spur) Not Reportable 03/15/20 05:08 Rouleaux Not Reportable 03/15/20 05:08 Hemoglobin C Crystals Not Reportable 03/15/20 05:08 Schistocytes Not Reportable 03/15/20 05:08 Malaria parasites Not Reportable 03/15/20 05:08 Steven Bodies Not Reportable 03/15/20 05:08 Hem Pathologist Commnt No 03/15/20 05:08 PT 76.5 Sec. (12.2-14.9) H 03/17/20 11:05 INR 9.22 (0.87-1.13) H* 03/17/20 11:05 D-Dimer 287.92 ng/mlDDU (0-234) H 03/13/20 17:25 ABG pH 7.196 (7.320-7.450) L 03/17/20 11:10 POC ABG pCO2 52.2 mmHg (32.0-48.0) H 03/17/20 11:10 POC ABG pO2 58.6 mmHg (83-108) L 03/17/20 11:10 POC ABG HCO3 19.8 03/17/20 11:10 POC ABG Base Excess -8.5 03/17/20 11:10 ABG Hemoglobin 13.3 (12.0-17.5) 03/17/20 11:10 ABG Oxyhemoglobin 84.5 (94-98) L 03/16/20 17:45 ABG Methemoglobin 0.1 (0.0-1.5) 03/16/20 17:45 ABG Sodium 134.4 mmol/L (136.0-145.0) L 03/17/20 11:10 ABG Potassium 5.5 mmol/L (3.40-4.50) H 03/17/20 11:10 ABG Chloride 103.0 mmol/L (98-107) 03/17/20 11:10 ABG Glucose 115 mg/dL (65-95) H 03/17/20 11:10 Carboxyhemoglobin 0.9 (0.5-1.5) 03/16/20 17:45 FiO2 75.0 03/17/20 11:10 Sodium 141 mmol/L (137-145) 03/17/20 11:05 Potassium 5.3 mmol/L (3.6-5.0) H 03/17/20 11:05 Chloride 98.4 mmol/L (98-107) 03/17/20 11:05 Carbon Dioxide 20 mmol/L (22-30) L 03/17/20 11:05 Anion Gap 28 mmol/L 03/17/20 11:05 BUN 111 mg/dL (9-20) H 03/17/20 11:05 Creatinine 5.8 mg/dL (0.8-1.3) H 03/17/20 11:05 Estimated GFR 13 ml/min 03/17/20 11:05 BUN/Creatinine Ratio 19 % 03/17/20 11:05 Glucose 194 mg/dL (75-100) H 03/17/20 11:05 POC Glucose 128 mg/dL (70-105) H 03/17/20 12:07 Lactic Acid 1.70 mmol/L (0.7-2.0) 03/11/20 14:29 Calcium 8.1 mg/dL (8.4-10.2) L 03/17/20 11:05 Phosphorus 3.20 mg/dL (2.5-4.5) 03/14/20 04:43 Magnesium 2.50 mg/dL (1.7-2.3) H 03/14/20 04:43 Ferritin 2000.0 ng/mL (30.0-300.0) H 03/15/20 05:08 Total Bilirubin 0.30 mg/dL (0.1-1.2) 03/17/20 05:40 AST 37 units/L (5-40) 03/17/20 05:40 ALT 41 units/L (7-56) 03/17/20 05:40 Alkaline Phosphatase 154 units/L (35-129) H 03/17/20 05:40 Lactate Dehydrogenase 1905 units/L (91-180) H 03/15/20 05:08 C-Reactive Protein 9.80 mg/dL (0.00-1.30) H 03/15/20 05:08 NT-Pro-B Natriuret Pep 2216 pg/mL (0-450) H 03/13/20 17:25 Total Protein 6.4 g/dL (6.3-8.2) 03/17/20 05:40 Albumin 2.5 g/dL (3.9-5) L 03/17/20 05:40 Albumin/Globulin Ratio 0.6 % 03/17/20 05:40 Procalcitonin 0.21 ng/mL (<0.15) 03/13/20 17:25 Arterial Blood Glucose 115 mg/dL (65-95) H 03/17/20 11:10 Arterial Blood Ionized Calcium 4.5 mg/dL (4.6-5.3) L 03/17/20 11:10 Urine Color Yellow (Yellow) 03/13/20 13:05 Urine Turbidity Clear (Clear) 03/13/20 13:05 Urine pH 5.0 (5.0-7.0) 03/13/20 13:05 Ur Specific [place] 1.015 (1.003-1.030) 03/13/20 13:05 Urine Protein >500 mg/dL (Negative) 03/13/20 13:05 Urine Glucose (UA) Neg mg/dL (Negative) 03/13/20 13:05 Urine Ketones Neg mg/dL (Negative) 03/13/20 13:05 Urine Blood Sm (Negative) 03/13/20 13:05 Urine Nitrite Neg (Negative) 03/13/20 13:05 Urine Bilirubin Neg (Negative) 03/13/20 13:05 Urine Urobilinogen < 2.0 mg/dL (<2.0) 03/13/20 13:05 Ur Leukocyte Esterase Neg (Negative) 03/13/20 13:05 Urine WBC (Auto) 2.0 /HPF (0.0-6.0) 03/13/20 13:05 Urine RBC (Auto) 1.0 /HPF (0.0-6.0) 03/13/20 13:05 U Epithel Cells (Auto) < 1.0 /HPF (0-13.0) 03/13/20 13:05 Urine Bacteria (Auto) 1+ /HPF (Negative) 03/13/20 13:05 Urine Mucus Few /HPF 03/13/20 13:05 Urine Eosinophils None seen (None Seen) 03/13/20 13:05 Urine Creatinine 135.0 mg/dL (0.1-20.0) H 03/13/20 13:05 Urine Sodium 33 mmol/L 03/13/20 13:05 Coronavirus (PCR) Positive (Negative) A 03/12/20 10:07 SARS-CoV-2 IgG Ab Nonreactive (NonReactive) 03/15/20 05:08 Microbiology: Microbiology 03/17/20 11:05 Peripheral/Venous Blood Culture - Preliminary Culture in Progress 03/17/20 11:05 Peripheral/Venous Blood Culture - Preliminary Culture in Progress 03/15/20 14:52 Peripheral/Venous Blood Culture - Preliminary Culture in Progress 03/15/20 14:52 Peripheral/Venous Blood Culture - Preliminary Culture in Progress Rodriguez/IV: Voiding Method Condom Catheter IV Catheter Type [] INT / Saline Lock IV Catheter Type [Right INT / Saline Lock Forearm] IV Catheter Type [Right Wrist] INT / Saline Lock Active Medications - Current Medications Current Medications: Generic Name Dose Route Start Last Admin Trade Name Freq PRN Reason Stop Dose Admin Acetaminophen 650 mg 03/11/20 16:53 03/14/20 03:36 Tylenol PO 650 mg Q4H PRN Administration Pain MILD(1-3)/Fever >100.5/LI Lipase/Protease/Amylase 1 each 03/17/20 11:[address] 10,500 Unit FEEDTUBE PRN PRN For Clogged Feeding Tube Benzonatate 100 mg 03/11/20 16:55 03/13/20 22:02 Tessalon Perles PO 100 mg Q8H PRN Administration Cough Clopidogrel Bisulfate 75 mg 03/12/20 10:00 03/17/20 09:43 Plavix PO 75 mg DAILY CAR[place]INA Administration Dexamethasone 6 mg 03/15/20 22:00 03/17/20 09:43 Decadron PO 03/20/20 23:59 6 mg Q12HR [place] Administration Famotidine 20 mg 03/18/20 10:00 Pepcid PO DAILY [place] Hydrophilic Ointment 1 applic 03/16/20 21:27 Vaseline Lip Therapy TP Q2HR PRN Dry Lips Fentanyl Citrate 2,000 mcg in 100 mls @ 6.45 mls/hr 03/16/20 22:00 03/17/20 02:05 Fentanyl Drip Premix IV 1 mcg/kg/hr TITR CAROLINA 6.45 mls/hr Administration Protocol 1 MCG/KG/HR Propofol 1,000 mg in 100 mls @ 3.87 mls/hr 03/16/20 22:00 03/17/20 11:38 Diprivan 10 Mg/Ml IV 20 mcg/kg/min TITR [place] 15.48 mls/hr Administration Protocol 5 MCG/KG/MIN Sodium Chloride 100 mls @ 999 mls/hr 03/17/20 12:00 Nacl 0.9% IV JERMAINE PRN Hypotension Insulin Human Lispro 0 unit 03/17/20 11:00 03/17/20 12:21 Humalog SUB-Q Not Given Q6H [facility] Protocol Isosorbide Mononitrate 30 mg 03/12/20 10:00 03/17/20 09:00 Imdur PO Not Given QDAY [facility] Lorazepam 1 mg 03/16/20 21:26 Ativan IV Q4H PRN Agitation Metoprolol Tartrate 50 mg 03/11/20 22:00 03/17/20 09:01 Metoprolol PO Not Given BID [facility] Multi-Ingred Cream/Lotion/Oil/Oint 1 applic 03/16/20 21:27 Artificial Tears Ophth Oint OU Q4HR PRN Dry Eye(s) Ondansetron HCl 4 mg 03/11/20 16:53 Zofran IV Q8H PRN Nausea And Vomiting Simple Syrup 15 ml 03/17/20 11:01 Simple Syrup FEEDTUBE PRN PRN Hypoglycemia Simple Syrup 30 ml 03/17/20 11:01 Simple Syrup FEEDTUBE PRN PRN Hypoglycemia Sodium Bicarbonate 325 mg 03/17/20 11:01 Sodium Bicarbonate FEEDTUBE PRN PRN For Clogged Feeding Tube Sodium Chloride 10 ml 03/11/20 22:00 03/17/20 09:44 Sodium Chloride Flush Syringe 10 Ml IV 10 ml BID [facility] Administration Sodium Chloride 10 ml 03/11/20 16:53 Sodium Chloride Flush Syringe 10 Ml IV PRN PRN LINE FLUSH Nutrition/Malnutrition Assess - Dietary Evaluation Nutrition/Malnutrition Findings: Nutrition Notes Start: 03/12/20 11:06 Freq: Status: Active Protocol: Document 03/17/20 10:23 AL (Rec: 03/17/20 11:08 AL [email or web address]) Co-Sign 03/17/20 10:23 MK Nutrition Notes Need for Assessment generated from: MD Order Initial or Follow up Assessment Current Diagnosis Acute Kidney Injury, Hypertension,Heart Failure, Hyperlipidemia Other Pertinent Diagnosis SOB, Diarrhea, N/V, Gout, COVID-19 (+) Current Diet Cardiac Labs/Tests K 5.2 BUN 112 Cr 5.7 BG 211 Pertinent Medications Propofol 100 ml Fentanyl 100 ml Height 6 ft 1 in Weight 129 kg [place] Body Weight (kg) 83.63 BMI 37.5 Weight Status Obese Subjective/Other Information MD consult for TF. Pt intubated. Percent of energy/protein needs met: 0%/0% Burn Absent Trauma Absent Current % PO Negligible Minimum of two criteria No physical signs of malnutrition #1 Nutrition Diagnosis Inadequate oral intake Etiology COVID-19 (+) As Evidenced by Signs and Symptoms pt on ventilator Is patient on ventilator? Yes Is Patient Ambulatory and/or Out of Bed No REE-([place]-confined to bed) 2671.524 Kcal/Kg value to use for calculation 15 Approximate Energy Requirements Using 1935 kcal/Kg Calculation Used for Recommendations Kcal/kg Additional Notes Pro: 85-127 g Pro (.8-1.2 g/kg AdBW) Fluid: 1 ml/kcal Nutrition Intervention Change Diet Order: TF Nutrition Support: Nepro 1.8 at 45 ml/hr (goal rate). Flush 200 ml q4h. If proned: 12 hr proned: 20 ml/hr for 12 hr with 50 ml q4h flush 12 hr not proned: 70 ml/hr for 12 hr with 335 ml q4h flush Kcal 1,944 Protein (gm) 87 Fluid (mL) 785 Goal #1 Start TF Goal #2 Meet 75% of energy and protein needs via TF Anticipated Discharge Needs: unable to determine at this time Follow-Up By: 03/19/20 Additional Comments TF start and tolerance. Renal labs.
[2020-03-17 15:07] LABS: Calcium 7.4 mg/dL (8.4-10.2)
[2020-03-17 15:19] LABS: Hepatitis B Surface Antigen Non-Reactive (Negative); Hepatitis C Virus Antibody Non-Reactive (NonReactive)
[2020-03-17] MEDS: ACETAMINOPHEN 325 MG TAB PO PRN ×2 (16:07→20:57)
[2020-03-17] MEDS ORDERED: SODIUM CHLORIDE 0.9% 500 ML 500 ML IV NR (16:52)
--- NOTE | 2020-03-17 17:52 | Event Note ---
Date: 03/17/20 Patient with elevated INR of greater than 9 despite vitamin K administration. No history of Coumadin. At that level, is dangerous to place any large bore catheter. 3 units of FFP was ordered so that a Vas-Cath can be placed in the morning.
--- NOTE | 2020-03-17 18:24 | XRay Report ---
CHEST 1 VIEW INDICATION / CLINICAL INFORMATION: sepsis. COMPARISON: 03/16/2020 FINDINGS: SUPPORT DEVICES: Stable, satisfactory device positioning. HEART / MEDIASTINUM: Stable. LUNGS / PLEURA: Diffuse pulmonary airspace disease is overall unchanged when compared to prior examin ation. No pneumothorax. ADDITIONAL FINDINGS: No significant additional findings. IMPRESSION: 1. Diffuse airspace disease without significant change. Signer Name: Harjeet Figueroa MD Signed: 03/17/2020 6:19 PM Workstation Name: [id number]
[2020-03-18] MEDS: INSULIN LISPRO 100 UNIT/ML VIAL 3 mL SUB-Q SCH ×5 (00:48→23:50)
[2020-03-18 05:55] LABS: Mean Corpuscular HGB Conc 30 % (32-34); Mean Corpuscular Volume 89 fl (84-94); Platelet Count 560 K/mm3 (140-440); Red Blood Count 3.92 M/mm3 (3.65-5.03); Red Cell Distribution Width 18.5 % (13.2-15.2)
[2020-03-18 05:56] LABS: Hemoglobin 10.6 gm/dl (11.8-15.2)
[2020-03-18 06:09] LABS: INR 1.39 (0.87-1.13)
[2020-03-18 06:14] LABS: Calcium 7.2 mg/dL (8.4-10.2)
--- NOTE | 2020-03-18 07:53 | Progress Note ---
Assessment and Plan Cultures: Blood culture 03/11/2020 no growth Blood culture 03/15/2022 no growth today Blood culture 03/17/2022 pending SARS CoV2 PCR positive Assessment: #Severe sepsis: Worsening with high fever, worsening leukocytosis, elevated lactate, coagulopathy; likely due to bilateral pneumonia secondary to Covid +/- HAP. #Severe COVID pneumonia: Inflammatory markers elevated. CT shows bilateral g roundglass opacities. Repeat chest x-ray shows bilateral infiltrates. #Acute hypoxemic respiratory failure: Secondary to COVID-19, possible volume overload, remains intubated, however improving FiO2 today at 55 #JIM: from COVID, worsening. Renal on board. #Transaminitis: From Covid #Previous DVT: On Coumadin, on hold due to prolonged INR #Lactic acidosis: Secondary to sepsis. #Elevated INR: Coagulopathy in the setting of sepsis versus Coumadin toxicity Recommendations: -Follow-up new blood cultures, respiratory cultures -Start cefepime and IV vancomycin IV renally adjusted -SARS Covid 2 IgG negative, patient may benefit from COVID-19 convalescent plasma -Continue dexamethasone 6 mg IV/PO twice daily, given hypoxia -Remdesivir stopped after day 4 due to worsening renal failure -Monitor inflammatory markers - ferritin, Ddimer, CRP, LDH -Continue anticoagulation per System Protocol -Prone positioning as possible -obtain TTE - pending High risk mortality All laboratory, cultures and imaging were reviewed. Will follow Janelle Parra MD Infectious Diseases Central Office Equipment Installer [facility] [id number] [phone] O [phone] Subjective Date of service: 03/18/20 Principal diagnosis: covid pneumonia Interval history: Patient remains intubated, sedated FiO2 55 PEEP 16, noted 102.3 fever, on sedative, noted elevated lactate, elevated INR to 9 received plasma/vitamin K Objective - Exam Narrative Exam: Physical Exam: reviewed ED and hospitalist notes, limited due to conservation of PPE and decrease risk of transmission. General appearance: limited due to conservation of PPE Eyes: limited due to conservation of PPE HENT: Atraumatic; limited due to conservation of PPE Lungs: limited due to conservation of PPE CV: limited due to conservation of PPE Abdomen: limited due to conservation of PPE Extremities: limited due to conservation of PPE Skin: limited due to conservation of PPE Psych: limited due to conservation of PPE Neuro: limited due to conservation of PPE Condom catheter and a rectal tube - Constitutional Vitals: Vital Signs Temp Pulse Resp BP Pulse Ox 100.7 F H 99 H 21 94/53 98 03/18/20 04:00 03/18/20 07:32 03/18/20 07:30 03/18/20 07:30 03/18/20 07:32 Temperature -Last 24 Hours Temperature 100.7 F Temperature 99.3 F Temperature 101.6 F Temperature 101.8 F Temperature 102.3 F Temperature 99.5 F Temperature 99.4 F - Labs CBC & Chem 7: 03/18/20 05:55 03/18/20 04:45 Labs: Abnormal lab results 03/17/20 03/17/20 03/17/20 Range/Units 05:40 05:40 11:05 WBC (4.5-11.0) K/mm3 Hgb (11.8-15.2) gm/dl Hct (35.5-45.6) % MCH (28-32) pg MCHC (32-34) % RDW (13.2-15.2) % Plt Count (140-440) K/mm3 PT (12.2-14.9) Sec. INR 9.47 H* (0.87-1.13) ABG pH (7.320-7.450) POC ABG pCO2 (32.0-48.0) mmHg POC ABG pO2 (83-108) mmHg ABG Sodium (136.0-145.0) mmol/L ABG Potassium (3.40-4.50) mmol/L ABG Glucose (65-95) mg/dL Potassium 5.3 H (3.6-5.0) mmol/L Chloride (98-107) mmol/L Carbon Dioxide 21 L D 20 L (22-30) mmol/L BUN 111 H (9-20) mg/dL Creatinine 5.7 H 5.8 H (0.8-1.3) mg/dL Glucose 194 H (75-100) mg/dL POC Glucose (70-105) mg/dL Lactic Acid (0.7-2.0) mmol/L Calcium 8.1 L (8.4-10.2) mg/dL Arterial Blood Glucose (65-95) mg/dL Arterial Blood Ionized Calcium (4.6-5.3) mg/dL 10/28/20 10/28/20 10/28/20 Range/Units 11:05 11:10 12:07 WBC (4.5-11.0) K/mm3 Hgb (11.8-15.2) gm/dl Hct (35.5-45.6) % MCH (28-32) pg MCHC (32-34) % RDW (13.2-15.2) % Plt Count (140-440) K/mm3 PT 76.5 H (12.2-14.9) Sec. INR 9.22 H* (0.87-1.13) ABG pH 7.196 L (7.320-7.450) POC ABG pCO2 52.2 H (32.0-48.0) mmHg POC ABG pO2 58.6 L (83-108) mmHg ABG Sodium 134.4 L (136.0-145.0) mmol/L ABG Potassium 5.5 H (3.40-4.50) mmol/L ABG Glucose 115 H (65-95) mg/dL Potassium (3.6-5.0) mmol/L Chloride (98-107) mmol/L Carbon Dioxide (22-30) mmol/L BUN (9-20) mg/dL Creatinine (0.8-1.3) mg/dL Glucose (75-100) mg/dL POC Glucose 128 H (70-105) mg/dL Lactic Acid (0.7-2.0) mmol/L Calcium (8.4-10.2) mg/dL Arterial Blood Glucose 115 H (65-95) mg/dL Arterial Blood Ionized Calcium 4.5 L (4.6-5.3) mg/dL 03/17/20 03/17/20 03/17/20 Range/Units 14:00 17:38 19:13 WBC (4.5-11.0) K/mm3 Hgb (11.8-15.2) gm/dl Hct (35.5-45.6) % MCH (28-32) pg MCHC (32-34) % RDW (13.2-15.2) % Plt Count (140-440) K/mm3 PT (12.2-14.9) Sec. INR (0.87-1.13) ABG pH (7.320-7.450) POC ABG pCO2 (32.0-48.0) mmHg POC ABG pO2 (83-108) mmHg ABG Sodium (136.0-145.0) mmol/L ABG Potassium (3.40-4.50) mmol/L ABG Glucose (65-95) mg/dL Potassium 5.4 H (3.6-5.0) mmol/L Chloride (98-107) mmol/L Carbon Dioxide 20 L (22-30) mmol/L BUN 127 H (9-20) mg/dL Creatinine 6.8 H (0.8-1.3) mg/dL Glucose 140 H (75-100) mg/dL POC Glucose 155 H (70-105) mg/dL Lactic Acid 2.40 H* (0.7-2.0) mmol/L Calcium 7.4 L (8.4-10.2) mg/dL Arterial Blood Glucose (65-95) mg/dL Arterial Blood Ionized Calcium (4.6-5.3) mg/dL 03/18/20 03/18/20 03/18/20 Range/Units 00:10 04:45 04:45 WBC (4.5-11.0) K/mm3 Hgb (11.8-15.2) gm/dl Hct (35.5-45.6) % MCH (28-32) pg MCHC (32-34) % RDW (13.2-15.2) % Plt Count (140-440) K/mm3 PT 17.2 H (12.2-14.9) Sec. INR 1.39 H (0.87-1.13) ABG pH (7.320-7.450) POC ABG pCO2 (32.0-48.0) mmHg POC ABG pO2 (83-108) mmHg ABG Sodium (136.0-145.0) mmol/L ABG Potassium (3.40-4.50) mmol/L ABG Glucose (65-95) mg/dL Potassium 5.8 H (3.6-5.0) mmol/L Chloride 95.5 L (98-107) mmol/L Carbon Dioxide (22-30) mmol/L BUN 150 H (9-20) mg/dL Creatinine 9.0 H (0.8-1.3) mg/dL Glucose 185 H (75-100) mg/dL POC Glucose 154 H (70-105) mg/dL Lactic Acid (0.7-2.0) mmol/L Calcium 7.2 L (8.4-10.2) mg/dL Arterial Blood Glucose (65-95) mg/dL Arterial Blood Ionized Calcium (4.6-5.3) mg/dL 03/18/20 03/18/20 03/18/20 Range/Units 05:55 05:55 05:57 WBC 20.1 H (4.5-11.0) K/mm3 Hgb 10.6 L (11.8-15.2) gm/dl Hct 35.0 L (35.5-45.6) % MCH 27 L (28-32) pg MCHC 30 L (32-34) % RDW 18.5 H (13.2-15.2) % Plt Count 560 H (140-440) K/mm3 PT (12.2-14.9) Sec. INR (0.87-1.13) ABG pH (7.320-7.450) POC ABG pCO2 (32.0-48.0) mmHg POC ABG pO2 (83-108) mmHg ABG Sodium (136.0-145.0) mmol/L ABG Potassium (3.40-4.50) mmol/L ABG Glucose (65-95) mg/dL Potassium (3.6-5.0) mmol/L Chloride (98-107) mmol/L Carbon Dioxide (22-30) mmol/L BUN (9-20) mg/dL Creatinine (0.8-1.3) mg/dL Glucose (75-100) mg/dL POC Glucose 185 H 187 H (70-105) mg/dL Lactic Acid (0.7-2.0) mmol/L Calcium (8.4-10.2) mg/dL Arterial Blood Glucose (65-95) mg/dL Arterial Blood Ionized Calcium (4.6-5.3) mg/dL
[2020-03-18] MEDS ORDERED: SODIUM POLYSTYRENE 15 GM/60 ML ORAL LIQD PO NR (07:57)
--- NOTE | 2020-03-18 07:58 | Progress Note ---
Assessment and Plan Assessment and plan: 44-year-old male with known history of hypertension, CHF with ejection fraction of 40 to 45% (on echo done in 01/2020), Gout presenting to the emergency room complaining of shortness of breath, diarrhea, abdominal pain and vomiting. He says symptoms started 5 days prior. He was recently discharged from here about a week ago after management for acute on chronic systolic CHF. He denies any ingestion of unaccustomed meals. He denies any contact with someone with COVID- 19. He was recently tested for COVID-19 and was negative. His labs have been reviewed. Had JIM and elevated inflammatory markers. COVID- 19 test ordered. Hold Lasix for now due to JIM. 03/12. Patient seen and examined at bedside this morning. Patient feels much better today but still needs oxygen to maintain saturation. He is on antibiotics for bilateral opacities found on x-ray. Awaiting COVID-19 test today. Continue dexamethasone for now 03/13. COVID-19 test positive. ID consulted. Continue dexamethasone and ant ibiotics for now. Overnight, patient became more hypoxic and had to be placed on BiPAP. Pulmonology consult requested. Patient will be going to the IMCU for close observation. 03/14. He got lasix yesterday and diuresed well. On high flow this AM. INR is supratherapeutic so coumadin is being held 03/16: Clinical Deteriorated overnight requiring intubation, Sales Representative [employer] following, ID also following. Supportive care. IGG pending, MADISYN pending 03/17: Continue weaning from ventilator as tolerated, Discussed with ID, will order Convalescent plasma 03/18: Patient continues on Mechanical ventilation, INR improved, Vascath planned for today since INR is improved. Will likely need Dialysis starting today. Continue to work up fever, and follow cultures, cxr continues to show bilateral infiltrates, WBC elevated, and for elevated K, will give Kayaxelate. Will check renal ultrasound as I do not see that this has been done. Severe Sepsis Acute respiratory failure with hypoxia Hyperkalemia Urinary Retention L3 Veterbral body lesion- Follow up with ct when clinically stable Suspected COVID-19 virus infection Chronic anticoagulation with secondary coagulopathy Acute ON Chronic kidney disease secondary to ATN, worsening Hypertension complications Gout HLD (hyperlipidemia) Gout History of pulmonary embolus (PE) The high probability of a clinically significant, sudden or life threatening deterioration of the [pulmonary] system(s) required my full and direct a ttention, intervention and personal management. The aggregate critical care time was [35] minutes. This time is in addition to time spent performing reported procedures but includes the following: [X] Data Review and interpretation [X] Patient assessment and monitoring of vital signs [X] Documentation [X] Medication orders and management History Interval history: Patient seen and examined, per report, fever was as high as 106, patient continues on full mechanical ventilation. Hospitalist Physical - Physical exam Narrative exam: VITAL SIGNS: Reviewed. Exam is limited due to conservation of PPE GENERAL: sedated HEAD: No signs of head trauma. EYES: Pupils are equal. EARS: Hearing grossly intact. MOUTH: orally intubated NECK: No adenopathy, no JVD. CHEST: Has some rales. CARDIAC: Regular rate and rhythm. S1 and S2, without murmurs, gallops, or rubs. VASCULAR: No Edema. Peripheral pulses normal and equal in all extremities. ABDOMEN: Soft, non tender and non distended. No rebound or guarding, and no masses palpated. Bowel Sounds normal. MUSCULOSKELETAL: Extremities without clubbing, cyanosis or edema. NEUROLOGIC EXAM: sedated No focal neurologic deficits PSYCHIATRIC: sedated SKIN: No obvious lesions - Constitutional Vitals: Temp Pulse Resp BP Pulse Ox 100.7 F H 99 H 21 94/53 98 03/18/20 04:00 03/18/20 07:32 03/18/20 07:30 03/18/20 07:30 03/18/20 07:32 Results - Labs CBC & Chem 7: 03/18/20 05:55 03/18/20 04:45 Labs: Laboratory Last Values WBC 20.1 K/mm3 (4.5-11.0) H 03/18/20 05:55 RBC 3.92 M/mm3 (3.65-5.03) 03/18/20 05:55 Hgb 10.6 gm/dl (11.8-15.2) L 03/18/20 05:55 Hct 35.0 % (35.5-45.6) L 03/18/20 05:55 MCV 89 fl (84-94) 03/18/20 05:55 MCH 27 pg (28-32) L 03/18/20 05:55 MCHC 30 % (32-34) L 03/18/20 05:55 RDW 18.5 % (13.2-15.2) H 03/18/20 05:55 Plt Count 560 K/mm3 (140-440) H 03/18/20 05:55 Lymph % (Auto) 2.1 % (13.4-35.0) L 03/17/20 05:40 Gillespie % (Auto) 3.3 % (0.0-7.3) 03/17/20 05:40 Eos % (Auto) 0.0 % (0.0-4.3) 03/17/20 05:40 Baso % (Auto) 0.1 % (0.0-1.8) 03/17/20 05:40 Lymph # (Auto) 0.5 K/mm3 (1.2-5.4) L 03/17/20 05:40 Gillespie # (Auto) 0.7 K/mm3 (0.0-0.8) 03/17/20 05:40 Eos # (Auto) 0.0 K/mm3 (0.0-0.4) 03/17/20 05:40 Baso # (Auto) 0.0 K/mm3 (0.0-0.1) 03/17/20 05:40 Add Manual Diff Complete 03/15/20 05:08 Total Counted 100 03/15/20 05:08 Seg Neutrophils % Plastic Machine Operator 03/17/20 05:40 Seg Neuts % (Manual) 93.0 % (40.0-70.0) H 03/15/20 05:08 Band Neutrophils % 0 % 03/15/20 05:08 Lymphocytes % (Manual) 4.0 % (13.4-35.0) L 03/15/20 05:08 Reactive Lymphs % (Man) 0 % 03/15/20 05:08 Monocytes % (Manual) 3.0 % (0.0-7.3) 03/15/20 05:08 Eosinophils % (Manual) 0 % (0.0-4.3) 03/15/20 05:08 Basophils % (Manual) 0 % (0.0-1.8) 03/15/20 05:08 Metamyelocytes % 0 % 03/15/20 05:08 Myelocytes % 0 % 03/15/20 05:08 Promyelocytes % 0 % 03/15/20 05:08 Blast Cells % 0 % 03/15/20 05:08 Nucleated RBC % 1.0 % (0.0-0.9) H 03/15/20 05:08 Seg Neutrophils # 20.2 K/mm3 (1.8-7.7) H 03/17/20 05:40 Seg Neutrophils # Man 11.6 K/mm3 (1.8-7.7) H 03/15/20 05:08 Band Neutrophils # 0.0 K/mm3 03/15/20 05:08 Lymphocytes # (Manual) 0.5 K/mm3 (1.2-5.4) L 03/15/20 05:08 Abs React Lymphs (Man) 0.0 K/mm3 03/15/20 05:08 Monocytes # (Manual) 0.4 K/mm3 (0.0-0.8) 03/15/20 05:08 Eosinophils # (Manual) 0.0 K/mm3 (0.0-0.4) 03/15/20 05:08 Basophils # (Manual) 0.0 K/mm3 (0.0-0.1) 03/15/20 05:08 Metamyelocytes # 0.0 K/mm3 03/15/20 05:08 Myelocytes # 0.0 K/mm3 03/15/20 05:08 Promyelocytes # 0.0 K/mm3 03/15/20 05:08 Blast Cells # 0.0 K/mm3 03/15/20 05:08 WBC Morphology Not Reportable 03/15/20 05:08 Hypersegmented Neuts Not Reportable 03/15/20 05:08 Hyposegmented Neuts Not Reportable 03/15/20 05:08 Hypogranular Neuts Not Reportable 03/15/20 05:08 Smudge Cells Not Reportable 03/15/20 05:08 Toxic Granulation Not Reportable 03/15/20 05:08 Toxic Vacuolation Not Reportable 03/15/20 05:08 Dohle Bodies Not Reportable 03/15/20 05:08 Pelger-Huet Anomaly Not Reportable 03/15/20 05:08 Marissa Rods Not Reportable 03/15/20 05:08 Platelet Estimate Consistent w auto 03/15/20 05:08 Clumped Platelets Not Reportable 03/15/20 05:08 Plt Clumps, EDTA Not Reportable 03/15/20 05:08 Large Platelets Not Reportable 03/15/20 05:08 Giant Platelets Not Reportable 03/15/20 05:08 Platelet Satelliting Not Reportable 03/15/20 05:08 Plt Morphology Comment Not Reportable 03/15/20 05:08 RBC Morphology Not Reportable 03/15/20 05:08 Dimorphic RBCs Not Reportable 03/15/20 05:08 Polychromasia Few 03/15/20 05:08 Hypochromasia Not Reportable 03/15/20 05:08 Poikilocytosis Not Reportable 03/15/20 05:08 Anisocytosis Few 03/15/20 05:08 Microcytosis Not Reportable 03/15/20 05:08 Macrocytosis Not Reportable 03/15/20 05:08 Spherocytes Not Reportable 03/15/20 05:08 Pappenheimer Bodies Not Reportable 03/15/20 05:08 Sickle Cells Not Reportable 03/15/20 05:08 Target Cells Not Reportable 03/15/20 05:08 Tear Drop Cells Not Reportable 03/15/20 05:08 Ovalocytes Not Reportable 03/15/20 05:08 Helmet Cells Not Reportable 03/15/20 05:08 [place] Bodies Not Reportable 03/15/20 05:08 [place] Rings Not Reportable 03/15/20 05:08 [place] Cells Not Reportable 03/15/20 05:08 Bite Cells Not Reportable 03/15/20 05:08 Crenated Cell Not Reportable 03/15/20 05:08 Elliptocytes Not Reportable 03/15/20 05:08 Acanthocytes (Spur) Not Reportable 03/15/20 05:08 Rouleaux Not Reportable 03/15/20 05:08 Hemoglobin C Crystals Not Reportable 03/15/20 05:08 Schistocytes Not Reportable 03/15/20 05:08 Malaria parasites Not Reportable 03/15/20 05:08 Steven Bodies Not Reportable 03/15/20 05:08 Hem Pathologist Commnt No 03/15/20 05:08 PT 17.2 Sec. (12.2-14.9) H 03/18/20 04:45 INR 1.39 (0.87-1.13) H 03/18/20 04:45 D-Dimer 287.92 ng/mlDDU (0-234) H 03/13/20 17:25 ABG pH 7.196 (7.320-7.450) L 03/17/20 11:10 POC ABG pCO2 52.2 mmHg (32.0-48.0) H 03/17/20 11:10 POC ABG pO2 58.6 mmHg (83-108) L 03/17/20 11:10 POC ABG HCO3 19.8 03/17/20 11:10 POC ABG Base Excess -8.5 03/17/20 11:10 ABG Hemoglobin 13.3 (12.0-17.5) 03/17/20 11:10 ABG Oxyhemoglobin 84.5 (94-98) L 03/16/20 17:45 ABG Methemoglobin 0.1 (0.0-1.5) 03/16/20 17:45 ABG Sodium 134.4 mmol/L (136.0-145.0) L 03/17/20 11:10 ABG Potassium 5.5 mmol/L (3.40-4.50) H 03/17/20 11:10 ABG Chloride 103.0 mmol/L (98-107) 03/17/20 11:10 ABG Glucose 115 mg/dL (65-95) H 03/17/20 11:10 Carboxyhemoglobin 0.9 (0.5-1.5) 03/16/20 17:45 FiO2 75.0 03/17/20 11:10 Sodium 144 mmol/L (137-145) 03/18/20 04:45 Potassium 5.8 mmol/L (3.6-5.0) H 03/18/20 04:45 Chloride 95.5 mmol/L (98-107) L 03/18/20 04:45 Carbon Dioxide 28 mmol/L (22-30) D 03/18/20 04:45 Anion Gap 26 mmol/L 03/18/20 04:45 BUN 150 mg/dL (9-20) H 03/18/20 04:45 Creatinine 9.0 mg/dL (0.8-1.3) H 03/18/20 04:45 Estimated GFR 8 ml/min 03/18/20 04:45 BUN/Creatinine Ratio 17 % 03/18/20 04:45 Glucose 185 mg/dL (75-100) H 03/18/20 04:45 POC Glucose 187 mg/dL (70-105) H 03/18/20 05:57 Lactic Acid 2.40 mmol/L (0.7-2.0) H* 03/17/20 19:13 Calcium 7.2 mg/dL (8.4-10.2) L 03/18/20 04:45 Phosphorus 3.20 mg/dL (2.5-4.5) 03/14/20 04:43 Magnesium 2.50 mg/dL (1.7-2.3) H 03/14/20 04:43 Ferritin 2000.0 ng/mL (30.0-300.0) H 03/15/20 05:08 Total Bilirubin 0.30 mg/dL (0.1-1.2) 03/17/20 05:40 AST 37 units/L (5-40) 03/17/20 05:40 ALT 41 units/L (7-56) 03/17/20 05:40 Alkaline Phosphatase 154 units/L (35-129) H 03/17/20 05:40 Lactate Dehydrogenase 1905 units/L (91-180) H 03/15/20 05:08 C-Reactive Protein 9.80 mg/dL (0.00-1.30) H 03/15/20 05:08 NT-Pro-B Natriuret Pep 2216 pg/mL (0-450) H 03/13/20 17:25 Total Protein 6.4 g/dL (6.3-8.2) 03/17/20 05:40 Albumin 2.5 g/dL (3.9-5) L 03/17/20 05:40 Albumin/Globulin Ratio 0.6 % 03/17/20 05:40 Procalcitonin 0.21 ng/mL (<0.15) 03/13/20 17:25 Arterial Blood Glucose 115 mg/dL (65-95) H 03/17/20 11:10 Arterial Blood Ionized Calcium 4.5 mg/dL (4.6-5.3) L 03/17/20 11:10 Urine Color Yellow (Yellow) 03/13/20 13:05 Urine Turbidity Clear (Clear) 03/13/20 13:05 Urine pH 5.0 (5.0-7.0) 03/13/20 13:05 Ur Specific [place] 1.015 (1.003-1.030) 03/13/20 13:05 Urine Protein >500 mg/dL (Negative) 03/13/20 13:05 Urine Glucose (UA) Neg mg/dL (Negative) 03/13/20 13:05 Urine Ketones Neg mg/dL (Negative) 03/13/20 13:05 Urine Blood Sm (Negative) 03/13/20 13:05 Urine Nitrite Neg (Negative) 03/13/20 13:05 Urine Bilirubin Neg (Negative) 03/13/20 13:05 Urine Urobilinogen < 2.0 mg/dL (<2.0) 03/13/20 13:05 Ur Leukocyte Esterase Neg (Negative) 03/13/20 13:05 Urine WBC (Auto) 2.0 /HPF (0.0-6.0) 03/13/20 13:05 Urine RBC (Auto) 1.0 /HPF (0.0-6.0) 03/13/20 13:05 U Epithel Cells (Auto) < 1.0 /HPF (0-13.0) 03/13/20 13:05 Urine Bacteria (Auto) 1+ /HPF (Negative) 03/13/20 13:05 Urine Mucus Few /HPF 03/13/20 13:05 Urine Eosinophils None seen (None Seen) 03/13/20 13:05 Urine Creatinine 135.0 mg/dL (0.1-20.0) H 03/13/20 13:05 Urine Sodium 33 mmol/L 03/13/20 13:05 Coronavirus (PCR) Positive (Negative) A 03/12/20 10:07 Hepatitis A IgM Ab Non-reactive (NonReactive) 03/17/20 14:37 Hep Bs Antigen Non-reactive (Negative) 03/17/20 14:37 Hep B Core IgM Ab Non-reactive (NonReactive) 03/17/20 14:37 Hepatitis C Antibody Non-reactive (NonReactive) 03/17/20 14:37 SARS-CoV-2 IgG Ab Nonreactive (NonReactive) 03/15/20 05:08 Blood Type O POSITIVE 03/17/20 19:13 Antibody Screen Negative 03/17/20 19:13 Microbiology: Microbiology 03/17/20 11:05 Peripheral/Venous Blood Culture - Preliminary Culture in Progress 03/17/20 11:05 Peripheral/Venous Blood Culture - Preliminary Culture in Progress 03/15/20 14:52 Peripheral/Venous Blood Culture - Preliminary Culture in Progress 03/15/20 14:52 Peripheral/Venous Blood Culture - Preliminary Culture in Progress Rodriguez/IV: Voiding Method Indwelling Catheter IV Catheter Type [Left Forearm INT / Saline Lock ] IV Catheter Type [Right INT / Saline Lock Forearm] IV Catheter Type [Right Wrist] INT / Saline Lock Active Medications - Current Medications Current Medications: Generic Name Dose Route Start Last Admin Trade Name Freq PRN Reason Stop Dose Admin Acetaminophen 650 mg 03/11/20 16:53 03/17/20 20:57 Tylenol PO 650 mg Q4H PRN Administration Pain MILD(1-3)/Fever >100.5/LI Lipase/Protease/Amylase 1 each 03/17/20 11:[address] 10,500 Unit FEEDTUBE PRN PRN For Clogged Feeding Tube Benzonatate 100 mg 03/11/20 16:55 03/13/20 22:02 Tessalon Perles PO 100 mg Q8H PRN Administration Cough Clopidogrel Bisulfate 75 mg 03/12/20 10:00 03/17/20 09:43 Plavix PO 75 mg DAILY CAROLINA Administration Dexamethasone 6 mg 03/15/20 22:00 03/17/20 21:00 Decadron PO 03/20/20 23:59 6 mg Q12HR CAROLINA Administration Famotidine 20 mg 03/18/20 10:00 Pepcid PO DAILY CAROLINA Hydrophilic Ointment 1 applic 03/16/20 21:27 Vaseline Lip Therapy TP Q2HR PRN Dry Lips Fentanyl Citrate 2,000 mcg in 100 mls @ 6.45 mls/hr 03/16/20 22:00 03/17/20 17:53 Fentanyl Drip Premix IV 1 mcg/kg/hr TITR CAROLINA 6.45 mls/hr Administration Protocol 1 MCG/KG/HR Propofol 1,000 mg in 100 mls @ 3.87 mls/hr 03/16/20 22:00 03/18/20 00:34 Diprivan 10 Mg/Ml IV 20 mcg/kg/min TITR CAROLINA 15.48 mls/hr Administration Protocol 5 MCG/KG/MIN Sodium Chloride 100 mls @ 999 mls/hr 10/28/20 12:00 Nacl 0.9% IV JERMAINE PRN Hypotension Cefepime HCl 1 gm in 100 mls @ 200 mls/hr 03/18/20 10:00 Cefepime/Ns 1 Gm/100 Ml IV Q24HR [facility] Protocol Insulin Human Lispro 0 unit 03/17/20 11:00 03/18/20 05:56 Humalog SUB-Q 2 unit Q6H CAROLINA Administration Protocol Isosorbide Mononitrate 30 mg 03/12/20 10:00 03/17/20 09:00 Imdur PO Not Given QDAY CAROLINA Lorazepam 1 mg 03/16/20 21:26 Ativan IV Q4H PRN Agitation Metoprolol Tartrate 50 mg 03/11/20 22:00 03/17/20 21:00 Metoprolol PO Not Given BID CAROLINA Multi-Ingred Cream/Lotion/Oil/Oint 1 applic 03/16/20 21:27 Artificial Tears Ophth Oint OU Q4HR PRN Dry Eye(s) Ondansetron HCl 4 mg 03/11/20 16:53 Zofran IV Q8H PRN Nausea And Vomiting Simple Syrup 15 ml 03/17/20 11:01 Simple Syrup FEEDTUBE PRN PRN Hypoglycemia Simple Syrup 30 ml 03/17/20 11:01 Simple Syrup FEEDTUBE PRN PRN Hypoglycemia Sodium Bicarbonate 325 mg 03/17/20 11:01 Sodium Bicarbonate FEEDTUBE PRN PRN For Clogged Feeding Tube Sodium Chloride 10 ml 03/11/20 22:00 03/17/20 21:01 Sodium Chloride Flush Syringe 10 Ml IV 10 ml BID [place] Administration Sodium Chloride 10 ml 03/11/20 16:53 Sodium Chloride Flush Syringe 10 Ml IV PRN PRN LINE FLUSH Nutrition/Malnutrition Assess - Dietary Evaluation Nutrition/Malnutrition Findings: Nutrition Notes Start: 03/12/20 11:06 Freq: Status: Active Protocol: Document 03/17/20 10:23 AL (Rec: 03/17/20 11:08 AL [email or web address]) Co-Sign 03/17/20 10:23 MK Nutrition Notes Need for Assessment generated from: MD Order Initial or Follow up Assessment Current Diagnosis Acute Kidney Injury, Hypertension,Heart Failure, Hyperlipidemia Other Pertinent Diagnosis SOB, Diarrhea, N/V, Gout, COVID-19 (+) Current Diet Cardiac Labs/Tests K 5.2 BUN 112 Cr 5.7 BG 211 Pertinent Medications Propofol 100 ml Fentanyl 100 ml Height 6 ft 1 in Weight 129 kg [place] Body Weight (kg) 83.63 BMI 37.5 Weight Status Obese Subjective/Other Information MD consult for TF. Pt intubated. Percent of energy/protein needs met: 0%/0% Burn Absent Trauma Absent Current % PO Negligible Minimum of two criteria No physical signs of malnutrition #1 Nutrition Diagnosis Inadequate oral intake Etiology COVID-19 (+) As Evidenced by Signs and Symptoms pt on ventilator Is patient on ventilator? Yes Is Patient Ambulatory and/or Out of Bed No REE-([place]-confined to bed) 2671.524 Kcal/Kg value to use for calculation 15 Approximate Energy Requirements Using 1935 kcal/Kg Calculation Used for Recommendations Kcal/kg Additional Notes Pro: 85-127 g Pro (.8-1.2 g/kg AdBW) Fluid: 1 ml/kcal Nutrition Intervention Change Diet Order: TF Nutrition Support: Nepro 1.8 at 45 ml/hr (goal rate). Flush 200 ml q4h. If proned: 12 hr proned: 20 ml/hr for 12 hr with 50 ml q4h flush 12 hr not proned: 70 ml/hr for 12 hr with 335 ml q4h flush Kcal 1,944 Protein (gm) 87 Fluid (mL) 785 Goal #1 Start TF Goal #2 Meet 75% of energy and protein needs via TF Anticipated Discharge Needs: unable to determine at this time Follow-Up By: 03/19/20 Additional Comments TF start and tolerance. Renal labs.
[2020-03-18] MEDS ORDERED: VANCOMYCIN PHARMACY TO DOSE IV SCH (08:00)
[2020-03-18] MEDS: fentaNYL DRIP Premix 2,000 MCG/100 ML BAG IV SCH ×2 (09:02→22:54)
[2020-03-18] MEDS: METOPROLOL TARTRATE 50 MG TAB PO SCH (09:16)
[2020-03-18] MEDS: FAMOTIDINE 20 MG TAB PO SCH (09:16)
[2020-03-18] MEDS: CLOPIDOGREL 75 MG TAB PO SCH (09:16)
[2020-03-18] MEDS: DEXAMETHASONE 2 MG TAB PO SCH ×2 (09:17→21:36)
[2020-03-18] MEDS ORDERED: VANCOMYCIN 2,000 MG in SODIUM CHLORIDE 0.9% 500 ML 500 ML IV ONE (09:30)
--- NOTE | 2020-03-18 09:57 | XRay Report ---
CHEST 1 VIEW 03/16/2020 5:21 AM INDICATION / CLINICAL INFORMATION: ett placement. COMPARISON: 03/13/20 FINDINGS: SUPPORT DEVICES: Endotracheal tube has been placed in expected position with the tip 4.8 cm above the remi. HEART / MEDIASTINUM: Stable. LUNGS / PLEURA: Slight worsening of bilateral pulmonary opacities. No pneumothorax. ADDITIONAL FINDINGS: No significant additional findings. IMPRESSION: 1. Endotracheal tube in expected position. 2. Interval worsening. Signer Name: Abril Borden MD Signed: 03/16/2020 6:22 AM Workstation Name: [id number]
[2020-03-18 10:26] LABS: ABG Base Excess -2.7 mmol/L (-2.0-3.0); ABG HCO3 27.2 mmol/L (20.0-26.0); ABG Methemoglobin 0.7 % (0.0-1.5); ABG Oxygen Saturation 96.2 % (95.0-99.0); ABG PCO2 76.7 mm Hg; ABG PO2 95.4 mm Hg (80.0-90.0)
[2020-03-18 10:51] LABS: ABG PH 7.168 pH Units (7.350-7.450)
[2020-03-18] MEDS: CEFEPIME/NS 1 GM/100 ML 1 GM/100 ML BAG IV SCH (13:44)
--- NOTE | 2020-03-18 14:18 | Operative Report ---
Operative Report Operative Report: Exam: Ultrasound-guided placement of Vas-Cath Clinical indication: Patient with a history of COVID-19, acute renal failure who initially presented with elevated INR as well. Patient is intubated and in the ICU. Date: 03/18/2020 Procedure: Following an explanation of the risks, benefits and alternatives; kimberly kaufman informed consent was obtained from the patient's . The procedure was performed at bedside in the ICU. Initial ultrasound evaluation of the patient's left groin demonstrated the left common femoral vein was widely patent. The patient left groin was prepped and draped in the usual sterile fashion. 1% lidocaine was used for anesthesia. Under ultrasound guidance, left common femoral vein was cannulated with a 7 cm 18-gauge needle. A 0.035 guidewire was advanced centrally easily. The needle was removed and following serial dilation over the guidewire, a 30 cm dialysis catheter was advanced over the guidewire easily. The guidewire was removed. Nonpulsatile blood return from all 3 ports. The catheter was flushed and locked with sterile saline. The catheter was securely fastened to the skin surface using 2-0 nylon suture and a sterile dressing applied. The patient tolerated the procedure well. There were no immediate postprocedure complications. No sedation was given secondary to the patient's intubated status Impression: Ultrasound-guided placement of Vas-Cath via the left common femoral vein.
[2020-03-18] MEDS ORDERED: SODIUM CHLORIDE 0.9% 500 ML 500 ML IV ONE (15:04)
--- NOTE | 2020-03-18 15:16 | Progress Note ---
Assessment and Plan 1. Acute kidney injury: Acute kidney injury superimposed on CKD in the setting of COVID infection. CT abdomen negative for hydro. Monitor renal function. Significant increase in the Creatinine level noted. Monitor UOP. Renal prognosis is guarded. Avoid nephrotoxic agents. Meds dosage based on GFR. Bladder scan ordered, spoke to the nurse. Patient required hemodialysis due to worsening renal function and associated hyperkalemia and metabolic acidosis. D/w patient's (03/17) over the phone about the indications, benefits, risks and alternatives involved in hemodialysis. She voiced understanding and gave verbal consent. Vascular consulted for dialysis catheter placement. Unable to insert catheter yesterday due to high INR. Hemodialysis: 03/18. 2. FEN: Hyperkalemia, HD today, monitor. Metabolic acidosis, HD today, monitor. Cautious use of diuretics if needed. Monitor lytes. 3. Acute hypoxic resp failure: Likely secondary to COVID-19 infection. CXR showed pulmonary infiltrate. Intubated, on vent. Followed by Pulmonary. 4. Severe COVID-19 pneumonia. Followed by ID. On Steroids. 5. Hypocoagulable state: On Coumadin. INR is 1.39 today. 6. Hypotension: BP med held due to hypotension. Was on Levophed until this AM. Monitor BP. Subjective: Patient was seen and examined at the bedside. - General Appearance General appearance: well-developed, well-nourished, appears stated age, no distress, intubated, on vent HEENT: ATNC Eyes: Pupils reacting to light Neck: supple Respiratory: MV sounds Cardiology: S1S2, no murmur Gastrointestinal: normoactive bowel sounds, not tenderness, not distended Integumentary: no obvious rash Neurologic: sedated Ext: no edema noted : Rodriguez catheter Subjective Date of service: 03/18/20 Principal diagnosis: covid pneumonia Objective - Vital Signs Vital signs: Vital Signs - 12hr 03/18/20 03/18/20 03/18/20 03:20 03:30 03:40 Temperature Pulse Rate 116 H 114 H 113 H Pulse Rate [ From Monitor] Respiratory 20 21 25 H Rate Respiratory Rate [ Generalized] Blood Pressure 106/57 107/55 107/55 O2 Sat by Pulse 98 100 100 Oximetry O2 Sat by Pulse Oximetry [ Bilateral] 03/18/20 03/18/20 03/18/20 03:50 04:00 04:10 Temperature 100.7 F H Pulse Rate 112 H 112 H 113 H Pulse Rate [ From Monitor] Respiratory 19 23 20 Rate Respiratory Rate [ Generalized] Blood Pressure 106/53 104/55 O2 Sat by Pulse 100 100 100 Oximetry O2 Sat by Pulse Oximetry [ Bilateral] 03/18/20 03/18/20 03/18/20 04:20 04:30 04:40 Temperature Pulse Rate 111 H 110 H 110 H Pulse Rate [ From Monitor] Respiratory 19 20 20 Rate Respiratory Rate [ Generalized] Blood Pressure 107/53 104/51 104/51 O2 Sat by Pulse 100 100 100 Oximetry O2 Sat by Pulse Oximetry [ Bilateral] 03/18/20 03/18/20 03/18/20 04:50 05:00 05:30 Temperature Pulse Rate 109 H 110 H 108 H Pulse Rate [ From Monitor] Respiratory 20 20 20 Rate Respiratory Rate [ Generalized] Blood Pressure 105/54 103/54 O2 Sat by Pulse 100 100 100 Oximetry O2 Sat by Pulse Oximetry [ Bilateral] 03/18/20 03/18/20 03/18/20 06:00 06:30 07:00 Temperature Pulse Rate 108 H 105 H 103 H Pulse Rate [ From Monitor] Respiratory 19 20 16 Rate Respiratory Rate [ Generalized] Blood Pressure 97/49 103/56 95/47 O2 Sat by Pulse 100 100 100 Oximetry O2 Sat by Pulse Oximetry [ Bilateral] 03/18/20 03/18/20 03/18/20 07:30 07:32 08:00 Temperature 98.6 F Pulse Rate 100 H 99 H 97 H Pulse Rate [ 97 H From Monitor] Respiratory 21 17 Rate Respiratory Rate [ Generalized] Blood Pressure 94/53 101/57 O2 Sat by Pulse 100 98 100 Oximetry O2 Sat by Pulse Oximetry [ Bilateral] 03/18/20 03/18/20 03/18/20 08:30 09:00 09:16 Temperature Pulse Rate 98 H 98 H 97 H Pulse Rate [ From Monitor] Respiratory 22 15 Rate Respiratory Rate [ Generalized] Blood Pressure 104/57 103/53 O2 Sat by Pulse 100 100 Oximetry O2 Sat by Pulse Oximetry [ Bilateral] 03/18/20 03/18/20 03/18/20 09:30 10:00 10:30 Temperature Pulse Rate 98 H 87 88 Pulse Rate [ From Monitor] Respiratory 25 H 16 20 Rate Respiratory 24 Rate [ Generalized] Blood Pressure 94/55 95/53 94/52 O2 Sat by Pulse 100 100 100 Oximetry O2 Sat by Pulse Oximetry [ Bilateral] 03/18/20 03/18/20 03/18/20 10:38 11:00 11:30 Temperature Pulse Rate 102 H 86 84 Pulse Rate [ From Monitor] Respiratory 25 H 20 Rate Respiratory Rate [ Generalized] Blood Pressure 87/46 82/45 O2 Sat by Pulse 97 100 100 Oximetry O2 Sat by Pulse Oximetry [ Bilateral] 03/18/20 03/18/20 03/18/20 12:00 12:30 13:00 Temperature 97.9 F Pulse Rate 86 86 85 Pulse Rate [ 108 H From Monitor] Respiratory 20 23 24 Rate Respiratory Rate [ Generalized] Blood Pressure 80/41 82/43 84/44 O2 Sat by Pulse 87 87 91 Oximetry O2 Sat by Pulse Oximetry [ Bilateral] 03/18/20 03/18/20 03/18/20 13:30 13:48 14:00 Temperature 97.9 F Pulse Rate 87 87 88 Pulse Rate [ From Monitor] Respiratory 25 H 21 Rate Respiratory Rate [ Generalized] Blood Pressure 82/45 81/42 91/50 O2 Sat by Pulse 92 Oximetry O2 Sat by Pulse 90 Oximetry [ Bilateral] 03/18/20 03/18/20 03/18/20 14:11 14:15 14:30 Temperature Pulse Rate 88 89 89 Pulse Rate [ From Monitor] Respiratory Rate Respiratory Rate [ Generalized] Blood Pressure 94/55 95/56 82/54 O2 Sat by Pulse Oximetry O2 Sat by Pulse Oximetry [ Bilateral] 03/18/20 03/18/20 03/18/20 14:32 14:45 14:48 Temperature Pulse Rate 89 95 H 89 Pulse Rate [ From Monitor] Respiratory Rate Respiratory Rate [ Generalized] Blood Pressure 95/50 84/51 96/44 O2 Sat by Pulse Oximetry O2 Sat by Pulse Oximetry [ Bilateral] 03/18/20 15:00 Temperature Pulse Rate 87 Pulse Rate [ From Monitor] Respiratory Rate Respiratory Rate [ Generalized] Blood Pressure 96/52 O2 Sat by Pulse Oximetry O2 Sat by Pulse Oximetry [ Bilateral] - Lab 03/18/20 05:55 03/18/20 04:45 Most recent lab results ABG pH 7.168 pH Units (7.350-7.450) L* 03/18/20 Unknown ABG pCO2 76.7 mm Hg 03/18/20 Unknown ABG pO2 95.4 mm Hg (80.0-90.0) H 03/18/20 Unknown ABG HCO3 27.2 mmol/L (20.0-26.0) H 03/18/20 Unknown ABG O2 Saturation 96.2 % (95.0-99.0) 03/18/20 Unknown Calcium 7.2 mg/dL (8.4-10.2) L 03/18/20 04:45 Phosphorus 3.20 mg/dL (2.5-4.5) 03/14/20 04:43 Magnesium 2.50 mg/dL (1.7-2.3) H 03/14/20 04:43 Urine Creatinine 135.0 mg/dL (0.1-20.0) H 03/13/20 13:05 Urine Sodium 33 mmol/L 03/13/20 13:05 Medications & Allergies - Medications Allergies/Adverse Reactions: Allergies No Known Allergies Allergy (Verified 04/21/17 15:31) Home Medications: Home Medications Medication Instructions Recorded Confirmed Last Taken Type Benzonatate [Tessalon Perle] 100 mg PO Q8H PRN #20 capsule 06/12/18 03/13/20 Unknown Rx Ibuprofen [Motrin 600 MG tab] 600 mg PO Q8H PRN #20 tablet 06/12/18 03/13/20 Unknown Rx Aspirin [Aspirin BABY CHEW TAB] 81 mg PO QDAY #100 tab.chew 02/04/20 03/13/20 Unknown Rx Clopidogrel [Plavix] 75 mg PO QDAY #30 tablet 02/04/20 03/13/20 Unknown Rx Furosemide [Lasix TAB] 40 mg PO QDAY #30 tablet 02/04/20 03/13/20 Unknown Rx Gabapentin 300 mg PO BID #60 capsule 02/04/20 03/13/20 Unknown Rx ISOSORBIDE MONOnitrate [Imdur ER] 30 mg PO QDAY #30 tablet 02/04/20 03/13/20 Unknown Rx Metoprolol [Lopressor TAB] 50 mg PO BID #60 tablet 02/04/20 03/13/20 Unknown Rx Potassium Chloride [K-Dur] 20 meq PO QDAY #30 02/04/20 03/13/20 Unknown Rx amLODIPine 10 mg PO DAILY #30 tablet 02/04/20 03/13/20 Unknown Rx hydrALAZINE [Apresoline TAB] 50 mg PO TID #90 tablet 02/04/20 03/13/20 Unknown Rx oxyCODONE /ACETAMINOPHEN [Percocet 1 tab PO Q6H PRN #14 tablet 02/04/20 03/13/20 Unknown Rx 5/325 mg] Famotidine [Pepcid] 40 mg PO QHS #10 tablet 02/13/20 03/13/20 Unknown Rx Prednisone [predniSONE 10 mg 10 mg PO .TAPER #1 tab.ds.pk 02/13/20 03/13/20 Unknown Rx (6-Day Pack, 21 Tabs)] diphenhydrAMINE [Benadryl CAP] 50 mg PO Q8HR PRN #10 capsule 02/13/20 03/13/20 Unknown Rx Cyclobenzaprine HCl [Flexeril 5 MG 5 mg PO TID PRN #15 tab 03/01/20 03/13/20 Unknown Rx TAB] Warfarin [Coumadin] 7.5 mg PO DAILY@1700 #30 tablet 03/01/20 03/13/20 Unknown Rx Active Medications: Generic Name Dose Route Start Last Admin Trade Name Freq PRN Reason Stop Dose Admin Acetaminophen 650 mg 03/11/20 16:53 03/17/20 20:57 Tylenol PO 650 mg Q4H PRN Administration Pain MILD(1-3)/Fever >100.5/LI Lipase/Protease/Amylase 1 each 03/17/20 11:01 Pancrebeth Real 10,500 Unit FEEDTUBE PRN PRN For Clogged Feeding Tube Benzonatate 100 mg 03/11/20 16:55 03/13/20 22:02 Tessalon Perles PO 100 mg Q8H PRN Administration Cough Clopidogrel Bisulfate 75 mg 03/12/20 10:00 03/18/20 09:16 Plavix PO 75 mg DAILY [place] Administration Dexamethasone 6 mg 03/15/20 22:00 03/18/20 09:17 Decadron PO 03/20/20 23:59 6 mg Q12HR [place] Administration Famotidine 20 mg 03/18/20 10:00 03/18/20 09:16 Pepcid PO 20 mg DAILY [place] Administration Hydrophilic Ointment 1 applic 03/16/20 21:27 Vaseline Lip Therapy TP Q2HR PRN Dry Lips Fentanyl Citrate 2,000 mcg in 100 mls @ 6.45 mls/hr 03/16/20 22:00 03/18/20 09:02 Fentanyl Drip Premix IV 1 mcg/kg/hr TITR [place] 6.45 mls/hr Administration Protocol 1 MCG/KG/HR Propofol 1,000 mg in 100 mls @ 3.87 mls/hr 03/16/20 22:00 03/18/20 13:48 Diprivan 10 Mg/Ml IV 10 mcg/kg/min TITR [place] 7.74 mls/hr Titration Protocol 5 MCG/KG/MIN Sodium Chloride 100 mls @ 999 mls/hr 03/17/20 12:00 Nacl 0.9% IV JERMAINE PRN Hypotension Cefepime HCl 1 gm in 100 mls @ 200 mls/hr 03/18/20 10:00 03/18/20 13:44 Cefepime/Ns 1 Gm/100 Ml IV 200 mls/hr QPM [place] Administration Protocol Sodium Chloride 500 mls @ 999 mls/hr 03/18/20 15:04 Nacl 0.9% 500 Ml IV 03/18/20 15:34 ONCE ONE Insulin Human Lispro 0 unit 03/17/20 11:00 03/18/20 13:41 Humalog SUB-Q 2 unit Q6H [facility] Administration Protocol Isosorbide Mononitrate 30 mg 03/12/20 10:00 03/18/20 13:48 Imdur PO Not Given QDAY [facility] Lorazepam 1 mg 03/16/20 21:26 Ativan IV Q4H PRN Agitation Metoprolol Tartrate 50 mg 03/11/20 22:00 03/18/20 09:16 Metoprolol PO 50 mg BID [facility] Administration Multi-Ingred Cream/Lotion/Oil/Oint 1 applic 03/16/20 21:27 Artificial Tears Ophth Oint OU Q4HR PRN Dry Eye(s) Ondansetron HCl 4 mg 03/11/20 16:53 Zofran IV Q8H PRN Nausea And Vomiting Simple Syrup 15 ml 03/17/20 11:01 Simple Syrup FEEDTUBE PRN PRN Hypoglycemia Simple Syrup 30 ml 03/17/20 11:01 Simple Syrup FEEDTUBE PRN PRN Hypoglycemia Sodium Bicarbonate 325 mg 03/17/20 11:01 Sodium Bicarbonate FEEDTUBE PRN PRN For Clogged Feeding Tube Sodium Chloride 10 ml 03/11/20 22:00 03/18/20 09:02 Sodium Chloride Flush Syringe 10 Ml IV 10 ml BID [place] Administration Sodium Chloride 10 ml 03/11/20 16:53 Sodium Chloride Flush Syringe 10 Ml IV PRN PRN LINE FLUSH
--- NOTE | 2020-03-18 16:45 | Progress Note ---
Assessment and Plan Imp: 1. Covid-19 2. Viral pneumonia 3. Acute respiratory failure, hypoxia 4. JIM 5. Anion-gap metabolic acidosis 6. Hyponatremia 7. Obesity 8. Hyperkalemia Rec: 1. Cont. steroids/Remdesivir 2. HD per renal; defer hyperkalemia to renal 3. Avoid additional blood products unless absolutely necessary 4. D/c Metoprolol and Imdur due to hypotension 5. Wean PEEP by +2 as tolerated every 6 hours, in order to keep sats 88% or > 6. TFs, SCDs, GI PPx 7. Prognosis is guarded to poor CCt 31 minutes Subjective Date of service: 03/18/20 Principal diagnosis: covid pneumonia Interval history: No events. Intubated. Hypotensive but not requiring pressors. Sedated on Fentanyl and Propofol. Active Medications Acetaminophen (Tylenol) 650 mg PO Q4H PRN PRN Reason: Pain MILD(1-3)/Fever >100.5/LI Last Admin: 03/17/20 20:57 Dose: 650 mg Documented by: Lipase/Protease/Amylase (Pancreaze Dr 10,500 Unit) 1 each FEEDTUBE PRN PRN PRN Reason: For Clogged Feeding Tube Benzonatate (Tessalon Perles) 100 mg PO Q8H PRN PRN Reason: Cough Last Admin: 03/13/20 22:02 Dose: 100 mg Documented by: Clopidogrel Bisulfate (Plavix) 75 mg PO DAILY [facility] Last Admin: 03/18/20 09:16 Dose: 75 mg Documented by: Dexamethasone (Decadron) 6 mg PO Q12HR [facility] Stop: 03/20/20 23:59 Last Admin: 03/18/20 09:17 Dose: 6 mg Documented by: Famotidine (Pepcid) 20 mg PO DAILY [facility] Last Admin: 03/18/20 09:16 Dose: 20 mg Documented by: Hydrophilic Ointment (Vaseline Lip Therapy) 1 applic TP Q2HR PRN PRN Reason: Dry Lips Fentanyl Citrate (Fentanyl Drip Premix) 2,000 mcg in 100 mls @ 6.45 mls/hr IV TITR [facility]; Protocol Last Admin: 03/18/20 09:02 Dose: 1 mcg/kg/hr, 6.45 mls/hr Documented by: Propofol (Diprivan 10 Mg/Ml) 1,000 mg in 100 mls @ 3.87 mls/hr IV TITR [facility]; Protocol Last Titration: 03/18/20 13:48 Dose: 10 mcg/kg/min, 7.74 mls/hr Documented by: Sodium Chloride (Nacl 0.9%) 100 mls @ 999 mls/hr IV JERMAINE PRN PRN Reason: Hypotension Cefepime HCl (Cefepime/Ns 1 Gm/100 Ml) 1 gm in 100 mls @ 200 mls/hr IV QPM [facility]; Protocol Last Admin: 03/18/20 13:44 Dose: 200 mls/hr Documented by: Insulin Human Lispro (Humalog) 0 unit SUB-Q Q6H [place]; Protocol Last Admin: 03/18/20 13:41 Dose: 2 unit Documented by: Lorazepam (Ativan) 1 mg IV Q4H PRN PRN Reason: Agitation Multi-Ingred Cream/Lotion/Oil/Oint (Artificial Tears Ophth Oint) 1 applic OU Q4HR PRN PRN Reason: Dry Eye(s) Ondansetron HCl (Zofran) 4 mg IV Q8H PRN PRN Reason: Nausea And Vomiting Simple Syrup (Simple Syrup) 15 ml FEEDTUBE PRN PRN PRN Reason: Hypoglycemia Simple Syrup (Simple Syrup) 30 ml FEEDTUBE PRN PRN PRN Reason: Hypoglycemia Sodium Bicarbonate (Sodium Bicarbonate) 325 mg FEEDTUBE PRN PRN PRN Reason: For Clogged Feeding Tube Sodium Chloride (Sodium Chloride Flush Syringe 10 Ml) 10 ml IV BID [facility] Last Admin: 03/18/20 09:02 Dose: 10 ml Documented by: Sodium Chloride (Sodium Chloride Flush Syringe 10 Ml) 10 ml IV PRN PRN PRN Reason: LINE FLUSH Objective - Exam Narrative Exam: Limited exam done today to conserve PPE and decrease Covid exposure Vital Signs - 12hr 03/18/20 03/18/20 03/18/20 04:50 05:00 05:30 Temperature Pulse Rate 109 H 110 H 108 H Pulse Rate [ From Monitor] Respiratory 20 20 20 Rate Respiratory Rate [ Generalized] Blood Pressure 105/54 103/54 O2 Sat by Pulse 100 100 100 Oximetry O2 Sat by Pulse Oximetry [ Bilateral] 03/18/20 03/18/20 03/18/20 06:00 06:30 07:00 Temperature Pulse Rate 108 H 105 H 103 H Pulse Rate [ From Monitor] Respiratory 19 20 16 Rate Respiratory Rate [ Generalized] Blood Pressure 97/49 103/56 95/47 O2 Sat by Pulse 100 100 100 Oximetry O2 Sat by Pulse Oximetry [ Bilateral] 03/18/20 03/18/20 03/18/20 07:30 07:32 08:00 Temperature 98.6 F Pulse Rate 100 H 99 H 97 H Pulse Rate [ 97 H From Monitor] Respiratory 21 17 Rate Respiratory Rate [ Generalized] Blood Pressure 94/53 101/57 O2 Sat by Pulse 100 98 100 Oximetry O2 Sat by Pulse Oximetry [ Bilateral] 03/18/20 03/18/20 03/18/20 08:30 09:00 09:16 Temperature Pulse Rate 98 H 98 H 97 H Pulse Rate [ From Monitor] Respiratory 22 15 Rate Respiratory Rate [ Generalized] Blood Pressure 104/57 103/53 O2 Sat by Pulse 100 100 Oximetry O2 Sat by Pulse Oximetry [ Bilateral] 03/18/20 03/18/20 03/18/20 09:30 10:00 10:30 Temperature Pulse Rate 98 H 87 88 Pulse Rate [ From Monitor] Respiratory 25 H 16 20 Rate Respiratory 24 Rate [ Generalized] Blood Pressure 94/55 95/53 94/52 O2 Sat by Pulse 100 100 100 Oximetry O2 Sat by Pulse Oximetry [ Bilateral] 03/18/20 03/18/20 03/18/20 10:38 11:00 11:30 Temperature Pulse Rate 102 H 86 84 Pulse Rate [ From Monitor] Respiratory 25 H 20 Rate Respiratory Rate [ Generalized] Blood Pressure 87/46 82/45 O2 Sat by Pulse 97 100 100 Oximetry O2 Sat by Pulse Oximetry [ Bilateral] 03/18/20 03/18/20 03/18/20 12:00 12:30 13:00 Temperature 97.9 F Pulse Rate 86 86 85 Pulse Rate [ 108 H From Monitor] Respiratory 20 23 24 Rate Respiratory Rate [ Generalized] Blood Pressure 80/41 82/43 84/44 O2 Sat by Pulse 87 87 91 Oximetry O2 Sat by Pulse Oximetry [ Bilateral] 03/18/20 03/18/20 03/18/20 13:30 13:48 14:00 Temperature 97.9 F Pulse Rate 87 87 88 Pulse Rate [ From Monitor] Respiratory 25 H 21 Rate Respiratory Rate [ Generalized] Blood Pressure 82/45 81/42 91/50 O2 Sat by Pulse 92 Oximetry O2 Sat by Pulse 90 Oximetry [ Bilateral] 03/18/20 03/18/20 03/18/20 14:11 14:15 14:30 Temperature Pulse Rate 88 89 89 Pulse Rate [ From Monitor] Respiratory Rate Respiratory Rate [ Generalized] Blood Pressure 94/55 95/56 82/54 O2 Sat by Pulse Oximetry O2 Sat by Pulse Oximetry [ Bilateral] 03/18/20 03/18/20 03/18/20 14:32 14:45 14:48 Temperature Pulse Rate 89 95 H 89 Pulse Rate [ From Monitor] Respiratory Rate Respiratory Rate [ Generalized] Blood Pressure 95/50 84/51 96/44 O2 Sat by Pulse Oximetry O2 Sat by Pulse Oximetry [ Bilateral] 03/18/20 03/18/20 03/18/20 15:00 15:15 15:17 Temperature Pulse Rate 87 91 H 90 Pulse Rate [ From Monitor] Respiratory Rate Respiratory Rate [ Generalized] Blood Pressure 96/52 84/56 94/46 O2 Sat by Pulse Oximetry O2 Sat by Pulse Oximetry [ Bilateral] 03/18/20 03/18/20 03/18/20 15:30 15:32 15:45 Temperature Pulse Rate 91 H 91 H 89 Pulse Rate [ From Monitor] Respiratory Rate Respiratory Rate [ Generalized] Blood Pressure 84/57 95/51 79/50 O2 Sat by Pulse Oximetry O2 Sat by Pulse Oximetry [ Bilateral] 03/18/20 03/18/20 03/18/20 15:47 16:00 16:15 Temperature Pulse Rate 91 H 91 H 88 Pulse Rate [ From Monitor] Respiratory Rate Respiratory Rate [ Generalized] Blood Pressure 93/52 93/57 87/52 O2 Sat by Pulse Oximetry O2 Sat by Pulse Oximetry [ Bilateral] 03/18/20 03/18/20 16:18 16:30 Temperature Pulse Rate 90 91 H Pulse Rate [ From Monitor] Respiratory Rate Respiratory Rate [ Generalized] Blood Pressure 90/49 90/48 O2 Sat by Pulse Oximetry O2 Sat by Pulse Oximetry [ Bilateral] Constitutional: other (critically ill on vent sedated) Eyes: non-icteric ENT: oropharynx moist Neck: supple Effort: normal Cardiovascular: regular rate and rhythm Gastrointestinal: non-distended Integumentary: normal Extremities: no cyanosis, no edema, pink and warm Neurologic: unable to assess Psychiatric: other (unable to assess) CBC and BMP: 03/18/20 05:55 03/18/20 04:45 ABG, PT/INR, D-dimer: ABG ABG pH 7.168 pH Units (7.350-7.450) L* 03/18/20 Unknown POC ABG pCO2 52.2 mmHg (32.0-48.0) H 03/17/20 11:10 ABG pCO2 76.7 mm Hg 03/18/20 Unknown POC ABG pO2 58.6 mmHg (83-108) L 03/17/20 11:10 ABG pO2 95.4 mm Hg (80.0-90.0) H 03/18/20 Unknown POC ABG HCO3 19.8 03/17/20 11:10 ABG O2 Saturation 96.2 % (95.0-99.0) 03/18/20 Unknown PT/INR, D-dimer PT 17.2 Sec. (12.2-14.9) H 03/18/20 04:45 INR 1.39 (0.87-1.13) H 03/18/20 04:45 D-Dimer 287.92 ng/mlDDU (0-234) H 03/13/20 17:25 Abnormal lab findings: Abnormal Labs 03/11/20 03/11/20 03/11/20 11:18 11:18 11:18 WBC Hgb Hct MCH MCHC RDW 17.6 H Plt Count Lymph % (Auto) Lymph # (Auto) 0.8 L [place] # (Auto) Seg Neutrophils % 80.1 H Seg Neuts % (Manual) Lymphocytes % (Manual) Nucleated RBC % Seg Neutrophils # Seg Neutrophils # Man Lymphocytes # (Manual) PT INR D-Dimer ABG pH POC ABG pCO2 POC ABG pO2 ABG pO2 ABG HCO3 ABG Base Excess ABG Hemoglobin ABG Oxyhemoglobin ABG Sodium ABG Potassium ABG Glucose Oxyhemoglobin Sodium 132 L Potassium Chloride Carbon Dioxide 19 L BUN 26 H Creatinine 1.8 H Glucose POC Glucose Lactic Acid Calcium 8.0 L Magnesium Ferritin AST Alkaline Phosphatase Lactate Dehydrogenase 902 H C-Reactive Protein 6.70 H NT-Pro-B Natriuret Pep Total Protein Albumin Arterial Blood Glucose Arterial Blood Ionized Calcium Urine Creatinine Coronavirus (PCR) 03/11/20 03/11/20 03/11/20 11:18 11:18 11:18 WBC Hgb Hct MCH MCHC RDW Plt Count Lymph % (Auto) Lymph # (Auto) [place] # (Auto) Seg Neutrophils % Seg Neuts % (Manual) Lymphocytes % (Manual) Nucleated RBC % Seg Neutrophils # Seg Neutrophils # Man Lymphocytes # (Manual) PT 21.3 H INR 1.82 H D-Dimer 261.32 H ABG pH POC ABG pCO2 POC ABG pO2 ABG pO2 ABG HCO3 ABG Base Excess ABG Hemoglobin ABG Oxyhemoglobin ABG Sodium ABG Potassium ABG Glucose Oxyhemoglobin Sodium Potassium Chloride Carbon Dioxide BUN Creatinine Glucose POC Glucose Lactic Acid Calcium Magnesium Ferritin 894.4 H AST Alkaline Phosphatase Lactate Dehydrogenase C-Reactive Protein NT-Pro-B Natriuret Pep 893.1 H Total Protein Albumin Arterial Blood Glucose Arterial Blood Ionized Calcium Urine Creatinine Coronavirus (PCR) 03/11/20 03/11/20 03/11/20 18:00 18:00 18:00 WBC Hgb Hct MCH MCHC RDW Plt Count Lymph % (Auto) Lymph # (Auto) [place] # (Auto) Seg Neutrophils % Seg Neuts % (Manual) Lymphocytes % (Manual) Nucleated RBC % Seg Neutrophils # Seg Neutrophils # Man Lymphocytes # (Manual) PT INR D-Dimer ABG pH POC ABG pCO2 POC ABG pO2 ABG pO2 ABG HCO3 ABG Base Excess ABG Hemoglobin ABG Oxyhemoglobin ABG Sodium ABG Potassium ABG Glucose Oxyhemoglobin Sodium 132 L Potassium Chloride Carbon Dioxide 18 L BUN Creatinine Glucose POC Glucose Lactic Acid Calcium Magnesium Ferritin 967.8 H AST Alkaline Phosphatase Lactate Dehydrogenase 973 H C-Reactive Protein 6.40 H NT-Pro-B Natriuret Pep Total Protein Albumin Arterial Blood Glucose Arterial Blood Ionized Calcium Urine Creatinine Coronavirus (PCR) 03/11/20 03/12/20 03/12/20 18:15 04:37 04:37 WBC 3.5 L Hgb 11.5 L Hct MCH 27 L MCHC RDW 17.2 H Plt Count Lymph % (Auto) 11.9 L Lymph # (Auto) 0.4 L [place] # (Auto) Seg Neutrophils % 84.1 H Seg Neuts % (Manual) Lymphocytes % (Manual) Nucleated RBC % Seg Neutrophils # Seg Neutrophils # Man Lymphocytes # (Manual) PT INR D-Dimer ABG pH 7.478 H POC ABG pCO2 24.6 L POC ABG pO2 69.7 L ABG pO2 ABG HCO3 ABG Base Excess ABG Hemoglobin ABG Oxyhemoglobin ABG Sodium 129.3 L ABG Potassium ABG Glucose Oxyhemoglobin Sodium 135 L Potassium Chloride Carbon Dioxide 19 L BUN 30 H Creatinine 1.9 H Glucose 112 H POC Glucose Lactic Acid Calcium 7.9 L Magnesium Ferritin AST 59 H Alkaline Phosphatase Lactate Dehydrogenase C-Reactive Protein NT-Pro-B Natriuret Pep Total Protein Albumin 3.0 L Arterial Blood Glucose Arterial Blood Ionized Calcium 4.3 L Urine Creatinine Coronavirus (PCR) 03/12/20 03/12/20 03/12/20 04:37 10:07 16:50 WBC Hgb Hct MCH MCHC RDW Plt Count Lymph % (Auto) Lymph # (Auto) [place] # (Auto) Seg Neutrophils % Seg Neuts % (Manual) Lymphocytes % (Manual) Nucleated RBC % Seg Neutrophils # Seg Neutrophils # Man Lymphocytes # (Manual) PT 24.7 H INR 2.19 H D-Dimer ABG pH POC ABG pCO2 POC ABG pO2 ABG pO2 ABG HCO3 ABG Base Excess ABG Hemoglobin ABG Oxyhemoglobin ABG Sodium ABG Potassium ABG Glucose Oxyhemoglobin Sodium Potassium Chloride Carbon Dioxide BUN Creatinine Glucose POC Glucose 110 H Lactic Acid Calcium Magnesium Ferritin AST Alkaline Phosphatase Lactate Dehydrogenase C-Reactive Protein NT-Pro-B Natriuret Pep Total Protein Albumin Arterial Blood Glucose Arterial Blood Ionized Calcium Urine Creatinine Coronavirus (PCR) Positive A 03/13/20 03/13/20 03/13/20 09:13 13:05 17:25 WBC Hgb Hct MCH MCHC RDW Plt Count Lymph % (Auto) Lymph # (Auto) [place] # (Auto) Seg Neutrophils % Seg Neuts % (Manual) Lymphocytes % (Manual) Nucleated RBC % Seg Neutrophils # Seg Neutrophils # Man Lymphocytes # (Manual) PT INR D-Dimer 287.92 H ABG pH POC ABG pCO2 POC ABG pO2 ABG pO2 ABG HCO3 ABG Base Excess ABG Hemoglobin ABG Oxyhemoglobin ABG Sodium 130.7 L ABG Potassium ABG Glucose 98 H Oxyhemoglobin Sodium Potassium Chloride Carbon Dioxide BUN Creatinine Glucose POC Glucose Lactic Acid Calcium Magnesium Ferritin AST Alkaline Phosphatase Lactate Dehydrogenase C-Reactive Protein NT-Pro-B Natriuret Pep Total Protein Albumin Arterial Blood Glucose 98 H Arterial Blood Ionized Calcium 4.4 L Urine Creatinine 135.0 H Coronavirus (PCR) 03/13/20 03/13/20 03/13/20 17:25 17:25 17:25 WBC Hgb Hct MCH MCHC RDW Plt Count Lymph % (Auto) Lymph # (Auto) [place] # (Auto) Seg Neutrophils % Seg Neuts % (Manual) Lymphocytes % (Manual) Nucleated RBC % Seg Neutrophils # Seg Neutrophils # Man Lymphocytes # (Manual) PT INR D-Dimer ABG pH POC ABG pCO2 POC ABG pO2 ABG pO2 ABG HCO3 ABG Base Excess ABG Hemoglobin ABG Oxyhemoglobin ABG Sodium ABG Potassium ABG Glucose Oxyhemoglobin Sodium 133 L Potassium Chloride 95.0 L Carbon Dioxide BUN 39 H Creatinine 1.8 H Glucose 101 H POC Glucose Lactic Acid Calcium 8.3 L Magnesium Ferritin 3088.0 H AST 84 H Alkaline Phosphatase Lactate Dehydrogenase 1506 H C-Reactive Protein 3.50 H NT-Pro-B Natriuret Pep 2216 H Total Protein Albumin 3.2 L Arterial Blood Glucose Arterial Blood Ionized Calcium Urine Creatinine Coronavirus (PCR) 03/13/20 03/14/20 03/14/20 17:25 04:43 04:43 WBC Hgb Hct MCH MCHC RDW Plt Count Lymph % (Auto) Lymph # (Auto) [place] # (Auto) Seg Neutrophils % Seg Neuts % (Manual) Lymphocytes % (Manual) Nucleated RBC % Seg Neutrophils # Seg Neutrophils # Man Lymphocytes # (Manual) PT 36.1 H 44.2 H INR 3.55 H 4.60 H D-Dimer ABG pH POC ABG pCO2 POC ABG pO2 ABG pO2 ABG HCO3 ABG Base Excess ABG Hemoglobin ABG Oxyhemoglobin ABG Sodium ABG Potassium ABG Glucose Oxyhemoglobin Sodium 135 L Potassium Chloride Carbon Dioxide 20 L BUN 37 H Creatinine 1.8 H Glucose POC Glucose Lactic Acid Calcium 7.9 L Magnesium 2.50 H Ferritin AST 100 H Alkaline Phosphatase Lactate Dehydrogenase C-Reactive Protein NT-Pro-B Natriuret Pep Total Protein Albumin 2.8 L Arterial Blood Glucose Arterial Blood Ionized Calcium Urine Creatinine Coronavirus (PCR) 03/14/20 03/15/20 03/15/20 04:43 05:08 05:08 WBC 12.5 H Hgb Hct MCH 27 L 27 L MCHC RDW 17.8 H 18.1 H Plt Count 456 H Lymph % (Auto) Lymph # (Auto) [place] # (Auto) Seg Neutrophils % Seg Neuts % (Manual) 93.0 H 93.0 H Lymphocytes % (Manual) 2.0 L 4.0 L Nucleated RBC % 1.0 H Seg Neutrophils # Seg Neutrophils # Man 9.7 H 11.6 H Lymphocytes # (Manual) 0.2 L 0.5 L PT 51.4 H INR 5.57 H* D-Dimer ABG pH POC ABG pCO2 POC ABG pO2 ABG pO2 ABG HCO3 ABG Base Excess ABG Hemoglobin ABG Oxyhemoglobin ABG Sodium ABG Potassium ABG Glucose Oxyhemoglobin Sodium Potassium Chloride Carbon Dioxide BUN Creatinine Glucose POC Glucose Lactic Acid Calcium Magnesium Ferritin AST Alkaline Phosphatase Lactate Dehydrogenase C-Reactive Protein NT-Pro-B Natriuret Pep Total Protein Albumin Arterial Blood Glucose Arterial Blood Ionized Calcium Urine Creatinine Coronavirus (PCR) 03/15/20 03/15/20 03/16/20 05:08 05:08 02:13 WBC Hgb Hct MCH MCHC RDW Plt Count Lymph % (Auto) Lymph # (Auto) [place] # (Auto) Seg Neutrophils % Seg Neuts % (Manual) Lymphocytes % (Manual) Nucleated RBC % Seg Neutrophils # Seg Neutrophils # Man Lymphocytes # (Manual) PT 71.7 H INR 8.50 H* D-Dimer ABG pH POC ABG pCO2 POC ABG pO2 ABG pO2 ABG HCO3 ABG Base Excess ABG Hemoglobin ABG Oxyhemoglobin ABG Sodium ABG Potassium ABG Glucose Oxyhemoglobin Sodium Potassium Chloride Carbon Dioxide 18 L BUN 50 H Creatinine 2.0 H Glucose POC Glucose Lactic Acid Calcium 8.3 L Magnesium Ferritin 2000.0 H AST 84 H Alkaline Phosphatase Lactate Dehydrogenase 1905 H C-Reactive Protein 9.80 H NT-Pro-B Natriuret Pep Total Protein Albumin 2.7 L Arterial Blood Glucose Arterial Blood Ionized Calcium Urine Creatinine Coronavirus (PCR) 03/16/20 03/16/20 03/16/20 02:13 02:13 07:28 WBC 25.9 H Hgb Hct MCH 27 L MCHC 31 L RDW 18.3 H Plt Count 602 H Lymph % (Auto) 2.0 L Lymph # (Auto) 0.5 L [place] # (Auto) 0.9 H Seg Neutrophils % Seg Neuts % (Manual) Lymphocytes % (Manual) Nucleated RBC % Seg Neutrophils # 24.4 H Seg Neutrophils # Man Lymphocytes # (Manual) PT INR D-Dimer ABG pH POC ABG pCO2 28.4 L POC ABG pO2 68.0 L ABG pO2 ABG HCO3 ABG Base Excess ABG Hemoglobin ABG Oxyhemoglobin 90.6 L ABG Sodium 134.3 L ABG Potassium 4.8 H ABG Glucose 127 H Oxyhemoglobin Sodium Potassium 6.1 H* D Chloride Carbon Dioxide 13 L BUN 105 H Creatinine 5.1 H D Glucose 135 H POC Glucose Lactic Acid Calcium 7.8 L Magnesium Ferritin AST 62 H Alkaline Phosphatase 171 H Lactate Dehydrogenase C-Reactive Protein NT-Pro-B Natriuret Pep Total Protein 5.9 L Albumin 2.7 L Arterial Blood Glucose 127 H Arterial Blood Ionized Calcium 4.5 L Urine Creatinine Coronavirus (PCR) 03/16/20 03/16/20 03/17/20 17:45 20:19 05:18 WBC Hgb Hct MCH MCHC RDW Plt Count Lymph % (Auto) Lymph # (Auto) [place] # (Auto) Seg Neutrophils % Seg Neuts % (Manual) Lymphocytes % (Manual) Nucleated RBC % Seg Neutrophils # Seg Neutrophils # Man Lymphocytes # (Manual) PT INR D-Dimer ABG pH POC ABG pCO2 POC ABG pO2 57.6 L ABG pO2 ABG HCO3 ABG Base Excess ABG Hemoglobin ABG Oxyhemoglobin 84.5 L ABG Sodium 135.0 L ABG Potassium ABG Glucose 112 H Oxyhemoglobin Sodium Potassium Chloride Carbon Dioxide BUN Creatinine Glucose POC Glucose 137 H 215 H Lactic Acid Calcium Magnesium Ferritin AST Alkaline Phosphatase Lactate Dehydrogenase C-Reactive Protein NT-Pro-B Natriuret Pep Total Protein Albumin Arterial Blood Glucose 112 H Arterial Blood Ionized Calcium 4.4 L Urine Creatinine Coronavirus (PCR) 03/17/20 03/17/20 03/17/20 05:40 05:40 05:40 WBC 21.4 H Hgb Hct MCH 27 L MCHC 31 L RDW 18.5 H Plt Count 584 H Lymph % (Auto) 2.1 L Lymph # (Auto) 0.5 L [place] # (Auto) Seg Neutrophils % Seg Neuts % (Manual) Lymphocytes % (Manual) Nucleated RBC % Seg Neutrophils # 20.2 H Seg Neutrophils # Man Lymphocytes # (Manual) PT 78.1 H INR 9.47 H* D-Dimer ABG pH POC ABG pCO2 POC ABG pO2 ABG pO2 ABG HCO3 ABG Base Excess ABG Hemoglobin ABG Oxyhemoglobin ABG Sodium ABG Potassium ABG Glucose Oxyhemoglobin Sodium Potassium 5.2 H Chloride Carbon Dioxide 21 L D BUN 112 H Creatinine 5.7 H Glucose 211 H POC Glucose Lactic Acid Calcium 7.9 L Magnesium Ferritin AST Alkaline Phosphatase 154 H Lactate Dehydrogenase C-Reactive Protein NT-Pro-B Natriuret Pep Total Protein Albumin 2.5 L Arterial Blood Glucose Arterial Blood Ionized Calcium Urine Creatinine Coronavirus (PCR) 03/17/20 03/17/20 03/17/20 11:05 11:05 11:10 WBC Hgb Hct MCH MCHC RDW Plt Count Lymph % (Auto) Lymph # (Auto) [place] # (Auto) Seg Neutrophils % Seg Neuts % (Manual) Lymphocytes % (Manual) Nucleated RBC % Seg Neutrophils # Seg Neutrophils # Man Lymphocytes # (Manual) PT 76.5 H INR 9.22 H* D-Dimer ABG pH 7.196 L POC ABG pCO2 52.2 H POC ABG pO2 58.6 L ABG pO2 ABG HCO3 ABG Base Excess ABG Hemoglobin ABG Oxyhemoglobin ABG Sodium 134.4 L ABG Potassium 5.5 H ABG Glucose 115 H Oxyhemoglobin Sodium Potassium 5.3 H Chloride Carbon Dioxide 20 L BUN 111 H Creatinine 5.8 H Glucose 194 H POC Glucose Lactic Acid Calcium 8.1 L Magnesium Ferritin AST Alkaline Phosphatase Lactate Dehydrogenase C-Reactive Protein NT-Pro-B Natriuret Pep Total Protein Albumin Arterial Blood Glucose 115 H Arterial Blood Ionized Calcium 4.5 L Urine Creatinine Coronavirus (PCR) 03/17/20 03/17/20 03/17/20 12:07 14:00 17:38 WBC Hgb Hct MCH MCHC RDW Plt Count Lymph % (Auto) Lymph # (Auto) [place] # (Auto) Seg Neutrophils % Seg Neuts % (Manual) Lymphocytes % (Manual) Nucleated RBC % Seg Neutrophils # Seg Neutrophils # Man Lymphocytes # (Manual) PT INR D-Dimer ABG pH POC ABG pCO2 POC ABG pO2 ABG pO2 ABG HCO3 ABG Base Excess ABG Hemoglobin ABG Oxyhemoglobin ABG Sodium ABG Potassium ABG Glucose Oxyhemoglobin Sodium Potassium 5.4 H Chloride Carbon Dioxide 20 L BUN 127 H Creatinine 6.8 H Glucose 140 H POC Glucose 128 H 155 H Lactic Acid Calcium 7.4 L Magnesium Ferritin AST Alkaline Phosphatase Lactate Dehydrogenase C-Reactive Protein NT-Pro-B Natriuret Pep Total Protein Albumin Arterial Blood Glucose Arterial Blood Ionized Calcium Urine Creatinine Coronavirus (PCR) 03/17/20 03/18/20 03/18/20 19:13 00:10 04:45 WBC Hgb Hct MCH MCHC RDW Plt Count Lymph % (Auto) Lymph # (Auto) [place] # (Auto) Seg Neutrophils % Seg Neuts % (Manual) Lymphocytes % (Manual) Nucleated RBC % Seg Neutrophils # Seg Neutrophils # Man Lymphocytes # (Manual) PT 17.2 H INR 1.39 H D-Dimer ABG pH POC ABG pCO2 POC ABG pO2 ABG pO2 ABG HCO3 ABG Base Excess ABG Hemoglobin ABG Oxyhemoglobin ABG Sodium ABG Potassium ABG Glucose Oxyhemoglobin Sodium Potassium Chloride Carbon Dioxide BUN Creatinine Glucose POC Glucose 154 H Lactic Acid 2.40 H* Calcium Magnesium Ferritin AST Alkaline Phosphatase Lactate Dehydrogenase C-Reactive Protein NT-Pro-B Natriuret Pep Total Protein Albumin Arterial Blood Glucose Arterial Blood Ionized Calcium Urine Creatinine Coronavirus (PCR) 03/18/20 03/18/20 03/18/20 04:45 05:55 05:55 WBC 20.1 H Hgb 10.6 L Hct 35.0 L MCH 27 L MCHC 30 L RDW 18.5 H Plt Count 560 H Lymph % (Auto) Lymph # (Auto) [place] # (Auto) Seg Neutrophils % Seg Neuts % (Manual) Lymphocytes % (Manual) Nucleated RBC % Seg Neutrophils # Seg Neutrophils # Man Lymphocytes # (Manual) PT INR D-Dimer ABG pH POC ABG pCO2 POC ABG pO2 ABG pO2 ABG HCO3 ABG Base Excess ABG Hemoglobin ABG Oxyhemoglobin ABG Sodium ABG Potassium ABG Glucose Oxyhemoglobin Sodium Potassium 5.8 H Chloride 95.5 L Carbon Dioxide BUN 150 H Creatinine 9.0 H Glucose 185 H POC Glucose 185 H Lactic Acid Calcium 7.2 L Magnesium Ferritin AST Alkaline Phosphatase Lactate Dehydrogenase C-Reactive Protein NT-Pro-B Natriuret Pep Total Protein Albumin Arterial Blood Glucose Arterial Blood Ionized Calcium Urine Creatinine Coronavirus (PCR) 03/18/20 03/18/20 03/18/20 05:57 12:29 Unknown WBC Hgb Hct MCH MCHC RDW Plt Count Lymph % (Auto) Lymph # (Auto) [place] # (Auto) Seg Neutrophils % Seg Neuts % (Manual) Lymphocytes % (Manual) Nucleated RBC % Seg Neutrophils # Seg Neutrophils # Man Lymphocytes # (Manual) PT INR D-Dimer ABG pH 7.168 L* POC ABG pCO2 POC ABG pO2 ABG pO2 95.4 H ABG HCO3 27.2 H ABG Base Excess -2.7 L ABG Hemoglobin 11.7 L ABG Oxyhemoglobin ABG Sodium ABG Potassium ABG Glucose Oxyhemoglobin 93.8 L Sodium Potassium Chloride Carbon Dioxide BUN Creatinine Glucose POC Glucose 187 H 179 H Lactic Acid Calcium Magnesium Ferritin AST Alkaline Phosphatase Lactate Dehydrogenase C-Reactive Protein NT-Pro-B Natriuret Pep Total Protein Albumin Arterial Blood Glucose Arterial Blood Ionized Calcium Urine Creatinine Coronavirus (PCR) Chest x-ray: report reviewed
[2020-03-18] MEDS: NORepinephrine/NS 4 MG-250 ML 4 MG/250 ML BAG IV SCH (19:16)
[2020-03-19 04:29] LABS: ABG Base Excess -1.6 mmol/L (-2.0-3.0); ABG HCO3 24.6 mmol/L (20.0-26.0); ABG Methemoglobin 0.6 % (0.0-1.5); ABG Oxygen Saturation 94.8 % (95.0-99.0); ABG PCO2 48.2 mm Hg; ABG PH 7.327 pH Units (7.350-7.450)
[2020-03-19 04:57] LABS: Hematocrit 32.9 % (35.5-45.6); Hemoglobin 10.4 gm/dl (11.8-15.2); Mean Corpuscular HGB Conc 32 % (32-34); Mean Corpuscular Volume 86 fl (84-94); Platelet Count 427 K/mm3 (140-440); Red Blood Count 3.81 M/mm3 (3.65-5.03)
[2020-03-19 05:18] LABS: Calcium 6.9 mg/dL (8.4-10.2)
[2020-03-19] MEDS: NORepinephrine/NS 4 MG-250 ML 4 MG/250 ML BAG IV SCH ×2 (07:09→17:11)
[2020-03-19] MEDS: INSULIN LISPRO 100 UNIT/ML VIAL 3 mL SUB-Q SCH ×4 (07:20→23:52)
[2020-03-19] MEDS: ACETAMINOPHEN 325 MG TAB PO PRN ×3 (08:55→21:46)
[2020-03-19] MEDS ORDERED: SODIUM CHLORIDE 0.9% 100 ML IV PRN (09:00)
[2020-03-19] MEDS: DEXAMETHASONE 2 MG TAB PO SCH ×3 (09:08→23:52)
[2020-03-19] MEDS: FAMOTIDINE 20 MG TAB PO SCH (09:08)
[2020-03-19] MEDS: CLOPIDOGREL 75 MG TAB PO SCH (09:08)
--- NOTE | 2020-03-19 09:20 | Progress Note ---
Assessment and Plan - Patient Problems (1) Acute respiratory failure with hypoxia Current Visit: Yes Status: Acute (2) History of pulmonary embolus (PE) Current Visit: Yes Status: Acute (3) Chronic kidney disease Current Visit: Yes Status: Chronic (4) Acute bronchitis Current Visit: No Status: Acute (5) Acute congestive heart failure Current Visit: No Status: Acute (6) Sepsis Current Visit: Yes Status: Acute (7) Sepsis associated hypotension Current Visit: Yes Status: Acute (8) ARDS (adult respiratory distress syndrome) Current Visit: Yes Status: Acute (9) Elevated INR Current Visit: Yes Status: Acute Subjective Principal diagnosis: covid pneumonia Interval history: on vent. Now on levophed at 6ug. No proning overnight secondary to bp Ac 60% p14 tv 450 Objective Vital Signs - 12hr 03/18/20 03/18/20 03/18/20 21:30 22:00 22:30 Temperature 99.6 F Pulse Rate 91 H 107 H 97 H Pulse Rate [ From Monitor] Respiratory 26 H 30 H 17 Rate Respiratory 18 Rate [ Generalized] Blood Pressure 93/56 94/63 107/62 O2 Sat by Pulse 94 88 94 Oximetry 03/18/20 03/18/20 03/18/20 23:00 23:16 23:30 Temperature 99.9 F H Pulse Rate 96 H 99 H Pulse Rate [ From Monitor] Respiratory 23 20 Rate Respiratory Rate [ Generalized] Blood Pressure 100/67 103/58 O2 Sat by Pulse 94 94 Oximetry 03/18/20 03/18/20 03/19/20 23:34 23:39 00:00 Temperature Pulse Rate 101 H 98 H 98 H Pulse Rate [ 93 H From Monitor] Respiratory 18 18 Rate Respiratory Rate [ Generalized] Blood Pressure 103/58 105/58 102/64 O2 Sat by Pulse 94 93 94 Oximetry 03/19/20 03/19/20 03/19/20 00:30 01:00 01:30 Temperature Pulse Rate 98 H 97 H 99 H Pulse Rate [ From Monitor] Respiratory 18 16 20 Rate Respiratory Rate [ Generalized] Blood Pressure 104/65 113/65 107/63 O2 Sat by Pulse 95 95 95 Oximetry 03/19/20 03/19/20 03/19/20 02:00 02:30 03:00 Temperature Pulse Rate 103 H 103 H 103 H Pulse Rate [ From Monitor] Respiratory 23 14 20 Rate Respiratory Rate [ Generalized] Blood Pressure 112/53 85/64 110/52 O2 Sat by Pulse 96 94 95 Oximetry 03/19/20 03/19/20 03/19/20 03:30 04:00 04:11 Temperature 98.9 F Pulse Rate 104 H 103 H 107 H Pulse Rate [ 93 H From Monitor] Respiratory 20 18 Rate Respiratory Rate [ Generalized] Blood Pressure 92/58 77/56 77/56 O2 Sat by Pulse 94 94 93 Oximetry 03/19/20 03/19/20 03/19/20 04:30 05:00 05:30 Temperature Pulse Rate 107 H 104 H 107 H Pulse Rate [ From Monitor] Respiratory 20 18 16 Rate Respiratory Rate [ Generalized] Blood Pressure 77/56 77/62 99/57 O2 Sat by Pulse 92 92 Oximetry 03/19/20 03/19/20 03/19/20 06:00 06:30 07:00 Temperature Pulse Rate 104 H 108 H 110 H Pulse Rate [ From Monitor] Respiratory 25 H 24 14 Rate Respiratory Rate [ Generalized] Blood Pressure 103/62 117/65 102/72 O2 Sat by Pulse 93 92 93 Oximetry 03/19/20 03/19/20 03/19/20 07:30 08:00 08:04 Temperature 102.8 F H Pulse Rate 114 H 115 H 108 H Pulse Rate [ 115 H From Monitor] Respiratory 19 21 Rate Respiratory Rate [ Generalized] Blood Pressure 97/75 92/60 92/60 O2 Sat by Pulse 93 93 94 Oximetry 03/19/20 08:30 Temperature Pulse Rate 113 H Pulse Rate [ From Monitor] Respiratory 19 Rate Respiratory Rate [ Generalized] Blood Pressure 102/69 O2 Sat by Pulse 93 Oximetry Constitutional: other (critically ill on vent sedated) Eyes: non-icteric ENT: oropharynx moist Neck: supple Effort: normal Ascultation: Bilateral: diminished breath sounds, rales Cardiovascular: regular rate and rhythm Gastrointestinal: non-distended Integumentary: normal Extremities: no cyanosis, no edema, pink and warm Neurologic: unable to assess Psychiatric: other (unable to assess) CBC and BMP: 03/19/20 04:40 03/19/20 04:40 ABG, PT/INR, D-dimer: ABG ABG pH 7.327 pH Units (7.350-7.450) L 03/19/20 03:45 POC ABG pCO2 58.4 mmHg (32.0-48.0) H 03/18/20 17:29 ABG pCO2 48.2 mm Hg 03/19/20 03:45 POC ABG pO2 71.0 mmHg (83-108) L 03/18/20 17:29 ABG pO2 76.0 mm Hg (80.0-90.0) L 03/19/20 03:45 POC ABG HCO3 26.3 03/18/20 17:29 ABG O2 Saturation 94.8 % (95.0-99.0) L 03/19/20 03:45 PT/INR, D-dimer PT 17.2 Sec. (12.2-14.9) H 03/18/20 04:45 INR 1.39 (0.87-1.13) H 03/18/20 04:45 D-Dimer 287.92 ng/mlDDU (0-234) H 03/13/20 17:25 Abnormal lab findings: Abnormal Labs 03/11/20 03/11/20 03/11/20 11:18 11:18 11:18 WBC Hgb Hct MCH MCHC RDW 17.6 H Plt Count Lymph % (Auto) Lymph # (Auto) 0.8 L Centre # (Auto) Seg Neutrophils % 80.1 H Seg Neuts % (Manual) Lymphocytes % (Manual) Nucleated RBC % Seg Neutrophils # Seg Neutrophils # Man Lymphocytes # (Manual) PT INR D-Dimer ABG pH POC ABG pCO2 POC ABG pO2 ABG pO2 ABG HCO3 ABG O2 Saturation ABG Base Excess ABG Hemoglobin ABG Oxyhemoglobin ABG Sodium ABG Potassium ABG Glucose Oxyhemoglobin Carboxyhemoglobin Sodium 132 L Potassium Chloride Carbon Dioxide 19 L BUN 26 H Creatinine 1.8 H Glucose POC Glucose Lactic Acid Calcium 8.0 L Magnesium Ferritin AST Alkaline Phosphatase Lactate Dehydrogenase 902 H C-Reactive Protein 6.70 H NT-Pro-B Natriuret Pep Total Protein Albumin Arterial Blood Glucose Arterial Blood Ionized Calcium Urine Creatinine Coronavirus (PCR) 03/11/20 03/11/20 03/11/20 11:18 11:18 11:18 WBC Hgb Hct MCH MCHC RDW Plt Count Lymph % (Auto) Lymph # (Auto) Centre # (Auto) Seg Neutrophils % Seg Neuts % (Manual) Lymphocytes % (Manual) Nucleated RBC % Seg Neutrophils # Seg Neutrophils # Man Lymphocytes # (Manual) PT 21.3 H INR 1.82 H D-Dimer 261.32 H ABG pH POC ABG pCO2 POC ABG pO2 ABG pO2 ABG HCO3 ABG O2 Saturation ABG Base Excess ABG Hemoglobin ABG Oxyhemoglobin ABG Sodium ABG Potassium ABG Glucose Oxyhemoglobin Carboxyhemoglobin Sodium Potassium Chloride Carbon Dioxide BUN Creatinine Glucose POC Glucose Lactic Acid Calcium Magnesium Ferritin 894.4 H AST Alkaline Phosphatase Lactate Dehydrogenase C-Reactive Protein NT-Pro-B Natriuret Pep 893.1 H Total Protein Albumin Arterial Blood Glucose Arterial Blood Ionized Calcium Urine Creatinine Coronavirus (PCR) 03/11/20 03/11/20 03/11/20 18:00 18:00 18:00 WBC Hgb Hct MCH MCHC RDW Plt Count Lymph % (Auto) Lymph # (Auto) Centre # (Auto) Seg Neutrophils % Seg Neuts % (Manual) Lymphocytes % (Manual) Nucleated RBC % Seg Neutrophils # Seg Neutrophils # Man Lymphocytes # (Manual) PT INR D-Dimer ABG pH POC ABG pCO2 POC ABG pO2 ABG pO2 ABG HCO3 ABG O2 Saturation ABG Base Excess ABG Hemoglobin ABG Oxyhemoglobin ABG Sodium ABG Potassium ABG Glucose Oxyhemoglobin Carboxyhemoglobin Sodium 132 L Potassium Chloride Carbon Dioxide 18 L BUN Creatinine Glucose POC Glucose Lactic Acid Calcium Magnesium Ferritin 967.8 H AST Alkaline Phosphatase Lactate Dehydrogenase 973 H C-Reactive Protein 6.40 H NT-Pro-B Natriuret Pep Total Protein Albumin Arterial Blood Glucose Arterial Blood Ionized Calcium Urine Creatinine Coronavirus (PCR) 03/11/20 03/12/20 03/12/20 18:15 04:37 04:37 WBC 3.5 L Hgb 11.5 L Hct MCH 27 L MCHC RDW 17.2 H Plt Count Lymph % (Auto) 11.9 L Lymph # (Auto) 0.4 L Centre # (Auto) Seg Neutrophils % 84.1 H Seg Neuts % (Manual) Lymphocytes % (Manual) Nucleated RBC % Seg Neutrophils # Seg Neutrophils # Man Lymphocytes # (Manual) PT INR D-Dimer ABG pH 7.478 H POC ABG pCO2 24.6 L POC ABG pO2 69.7 L ABG pO2 ABG HCO3 ABG O2 Saturation ABG Base Excess ABG Hemoglobin ABG Oxyhemoglobin ABG Sodium 129.3 L ABG Potassium ABG Glucose Oxyhemoglobin Carboxyhemoglobin Sodium 135 L Potassium Chloride Carbon Dioxide 19 L BUN 30 H Creatinine 1.9 H Glucose 112 H POC Glucose Lactic Acid Calcium 7.9 L Magnesium Ferritin AST 59 H Alkaline Phosphatase Lactate Dehydrogenase C-Reactive Protein NT-Pro-B Natriuret Pep Total Protein Albumin 3.0 L Arterial Blood Glucose Arterial Blood Ionized Calcium 4.3 L Urine Creatinine Coronavirus (PCR) 03/12/20 03/12/20 03/12/20 04:37 10:07 16:50 WBC Hgb Hct MCH MCHC RDW Plt Count Lymph % (Auto) Lymph # (Auto) Centre # (Auto) Seg Neutrophils % Seg Neuts % (Manual) Lymphocytes % (Manual) Nucleated RBC % Seg Neutrophils # Seg Neutrophils # Man Lymphocytes # (Manual) PT 24.7 H INR 2.19 H D-Dimer ABG pH POC ABG pCO2 POC ABG pO2 ABG pO2 ABG HCO3 ABG O2 Saturation ABG Base Excess ABG Hemoglobin ABG Oxyhemoglobin ABG Sodium ABG Potassium ABG Glucose Oxyhemoglobin Carboxyhemoglobin Sodium Potassium Chloride Carbon Dioxide BUN Creatinine Glucose POC Glucose 110 H Lactic Acid Calcium Magnesium Ferritin AST Alkaline Phosphatase Lactate Dehydrogenase C-Reactive Protein NT-Pro-B Natriuret Pep Total Protein Albumin Arterial Blood Glucose Arterial Blood Ionized Calcium Urine Creatinine Coronavirus (PCR) Positive A 03/13/20 03/13/20 03/13/20 09:13 13:05 17:25 WBC Hgb Hct MCH MCHC RDW Plt Count Lymph % (Auto) Lymph # (Auto) Centre # (Auto) Seg Neutrophils % Seg Neuts % (Manual) Lymphocytes % (Manual) Nucleated RBC % Seg Neutrophils # Seg Neutrophils # Man Lymphocytes # (Manual) PT INR D-Dimer 287.92 H ABG pH POC ABG pCO2 POC ABG pO2 ABG pO2 ABG HCO3 ABG O2 Saturation ABG Base Excess ABG Hemoglobin ABG Oxyhemoglobin ABG Sodium 130.7 L ABG Potassium ABG Glucose 98 H Oxyhemoglobin Carboxyhemoglobin Sodium Potassium Chloride Carbon Dioxide BUN Creatinine Glucose POC Glucose Lactic Acid Calcium Magnesium Ferritin AST Alkaline Phosphatase Lactate Dehydrogenase C-Reactive Protein NT-Pro-B Natriuret Pep Total Protein Albumin Arterial Blood Glucose 98 H Arterial Blood Ionized Calcium 4.4 L Urine Creatinine 135.0 H Coronavirus (PCR) 03/13/20 03/13/20 03/13/20 17:25 17:25 17:25 WBC Hgb Hct MCH MCHC RDW Plt Count Lymph % (Auto) Lymph # (Auto) Centre # (Auto) Seg Neutrophils % Seg Neuts % (Manual) Lymphocytes % (Manual) Nucleated RBC % Seg Neutrophils # Seg Neutrophils # Man Lymphocytes # (Manual) PT INR D-Dimer ABG pH POC ABG pCO2 POC ABG pO2 ABG pO2 ABG HCO3 ABG O2 Saturation ABG Base Excess ABG Hemoglobin ABG Oxyhemoglobin ABG Sodium ABG Potassium ABG Glucose Oxyhemoglobin Carboxyhemoglobin Sodium 133 L Potassium Chloride 95.0 L Carbon Dioxide BUN 39 H Creatinine 1.8 H Glucose 101 H POC Glucose Lactic Acid Calcium 8.3 L Magnesium Ferritin 3088.0 H AST 84 H Alkaline Phosphatase Lactate Dehydrogenase 1506 H C-Reactive Protein 3.50 H NT-Pro-B Natriuret Pep 2216 H Total Protein Albumin 3.2 L Arterial Blood Glucose Arterial Blood Ionized Calcium Urine Creatinine Coronavirus (PCR) 03/13/20 03/14/20 03/14/20 17:25 04:43 04:43 WBC Hgb Hct MCH MCHC RDW Plt Count Lymph % (Auto) Lymph # (Auto) Centre # (Auto) Seg Neutrophils % Seg Neuts % (Manual) Lymphocytes % (Manual) Nucleated RBC % Seg Neutrophils # Seg Neutrophils # Man Lymphocytes # (Manual) PT 36.1 H 44.2 H INR 3.55 H 4.60 H D-Dimer ABG pH POC ABG pCO2 POC ABG pO2 ABG pO2 ABG HCO3 ABG O2 Saturation ABG Base Excess ABG Hemoglobin ABG Oxyhemoglobin ABG Sodium ABG Potassium ABG Glucose Oxyhemoglobin Carboxyhemoglobin Sodium 135 L Potassium Chloride Carbon Dioxide 20 L BUN 37 H Creatinine 1.8 H Glucose POC Glucose Lactic Acid Calcium 7.9 L Magnesium 2.50 H Ferritin AST 100 H Alkaline Phosphatase Lactate Dehydrogenase C-Reactive Protein NT-Pro-B Natriuret Pep Total Protein Albumin 2.8 L Arterial Blood Glucose Arterial Blood Ionized Calcium Urine Creatinine Coronavirus (PCR) 03/14/20 03/15/20 03/15/20 04:43 05:08 05:08 WBC 12.5 H Hgb Hct MCH 27 L 27 L MCHC RDW 17.8 H 18.1 H Plt Count 456 H Lymph % (Auto) Lymph # (Auto) Centre # (Auto) Seg Neutrophils % Seg Neuts % (Manual) 93.0 H 93.0 H Lymphocytes % (Manual) 2.0 L 4.0 L Nucleated RBC % 1.0 H Seg Neutrophils # Seg Neutrophils # Man 9.7 H 11.6 H Lymphocytes # (Manual) 0.2 L 0.5 L PT 51.4 H INR 5.57 H* D-Dimer ABG pH POC ABG pCO2 POC ABG pO2 ABG pO2 ABG HCO3 ABG O2 Saturation ABG Base Excess ABG Hemoglobin ABG Oxyhemoglobin ABG Sodium ABG Potassium ABG Glucose Oxyhemoglobin Carboxyhemoglobin Sodium Potassium Chloride Carbon Dioxide BUN Creatinine Glucose POC Glucose Lactic Acid Calcium Magnesium Ferritin AST Alkaline Phosphatase Lactate Dehydrogenase C-Reactive Protein NT-Pro-B Natriuret Pep Total Protein Albumin Arterial Blood Glucose Arterial Blood Ionized Calcium Urine Creatinine Coronavirus (PCR) 03/15/20 03/15/20 03/16/20 05:08 05:08 02:13 WBC Hgb Hct MCH MCHC RDW Plt Count Lymph % (Auto) Lymph # (Auto) Centre # (Auto) Seg Neutrophils % Seg Neuts % (Manual) Lymphocytes % (Manual) Nucleated RBC % Seg Neutrophils # Seg Neutrophils # Man Lymphocytes # (Manual) PT 71.7 H INR 8.50 H* D-Dimer ABG pH POC ABG pCO2 POC ABG pO2 ABG pO2 ABG HCO3 ABG O2 Saturation ABG Base Excess ABG Hemoglobin ABG Oxyhemoglobin ABG Sodium ABG Potassium ABG Glucose Oxyhemoglobin Carboxyhemoglobin Sodium Potassium Chloride Carbon Dioxide 18 L BUN 50 H Creatinine 2.0 H Glucose POC Glucose Lactic Acid Calcium 8.3 L Magnesium Ferritin 2000.0 H AST 84 H Alkaline Phosphatase Lactate Dehydrogenase 1905 H C-Reactive Protein 9.80 H NT-Pro-B Natriuret Pep Total Protein Albumin 2.7 L Arterial Blood Glucose Arterial Blood Ionized Calcium Urine Creatinine Coronavirus (PCR) 03/16/20 03/16/20 03/16/20 02:13 02:13 07:28 WBC 25.9 H Hgb Hct MCH 27 L MCHC 31 L RDW 18.3 H Plt Count 602 H Lymph % (Auto) 2.0 L Lymph # (Auto) 0.5 L Centre # (Auto) 0.9 H Seg Neutrophils % Seg Neuts % (Manual) Lymphocytes % (Manual) Nucleated RBC % Seg Neutrophils # 24.4 H Seg Neutrophils # Man Lymphocytes # (Manual) PT INR D-Dimer ABG pH POC ABG pCO2 28.4 L POC ABG pO2 68.0 L ABG pO2 ABG HCO3 ABG O2 Saturation ABG Base Excess ABG Hemoglobin ABG Oxyhemoglobin 90.6 L ABG Sodium 134.3 L ABG Potassium 4.8 H ABG Glucose 127 H Oxyhemoglobin Carboxyhemoglobin Sodium Potassium 6.1 H* D Chloride Carbon Dioxide 13 L BUN 105 H Creatinine 5.1 H D Glucose 135 H POC Glucose Lactic Acid Calcium 7.8 L Magnesium Ferritin AST 62 H Alkaline Phosphatase 171 H Lactate Dehydrogenase C-Reactive Protein NT-Pro-B Natriuret Pep Total Protein 5.9 L Albumin 2.7 L Arterial Blood Glucose 127 H Arterial Blood Ionized Calcium 4.5 L Urine Creatinine Coronavirus (PCR) 03/16/20 03/16/20 03/17/20 17:45 20:19 05:18 WBC Hgb Hct MCH MCHC RDW Plt Count Lymph % (Auto) Lymph # (Auto) Centre # (Auto) Seg Neutrophils % Seg Neuts % (Manual) Lymphocytes % (Manual) Nucleated RBC % Seg Neutrophils # Seg Neutrophils # Man Lymphocytes # (Manual) PT INR D-Dimer ABG pH POC ABG pCO2 POC ABG pO2 57.6 L ABG pO2 ABG HCO3 ABG O2 Saturation ABG Base Excess ABG Hemoglobin ABG Oxyhemoglobin 84.5 L ABG Sodium 135.0 L ABG Potassium ABG Glucose 112 H Oxyhemoglobin Carboxyhemoglobin Sodium Potassium Chloride Carbon Dioxide BUN Creatinine Glucose POC Glucose 137 H 215 H Lactic Acid Calcium Magnesium Ferritin AST Alkaline Phosphatase Lactate Dehydrogenase C-Reactive Protein NT-Pro-B Natriuret Pep Total Protein Albumin Arterial Blood Glucose 112 H Arterial Blood Ionized Calcium 4.4 L Urine Creatinine Coronavirus (PCR) 03/17/20 03/17/20 03/17/20 05:40 05:40 05:40 WBC 21.4 H Hgb Hct MCH 27 L MCHC 31 L RDW 18.5 H Plt Count 584 H Lymph % (Auto) 2.1 L Lymph # (Auto) 0.5 L Centre # (Auto) Seg Neutrophils % Seg Neuts % (Manual) Lymphocytes % (Manual) Nucleated RBC % Seg Neutrophils # 20.2 H Seg Neutrophils # Man Lymphocytes # (Manual) PT 78.1 H INR 9.47 H* D-Dimer ABG pH POC ABG pCO2 POC ABG pO2 ABG pO2 ABG HCO3 ABG O2 Saturation ABG Base Excess ABG Hemoglobin ABG Oxyhemoglobin ABG Sodium ABG Potassium ABG Glucose Oxyhemoglobin Carboxyhemoglobin Sodium Potassium 5.2 H Chloride Carbon Dioxide 21 L D BUN 112 H Creatinine 5.7 H Glucose 211 H POC Glucose Lactic Acid Calcium 7.9 L Magnesium Ferritin AST Alkaline Phosphatase 154 H Lactate Dehydrogenase C-Reactive Protein NT-Pro-B Natriuret Pep Total Protein Albumin 2.5 L Arterial Blood Glucose Arterial Blood Ionized Calcium Urine Creatinine Coronavirus (PCR) 03/17/20 03/17/20 03/17/20 11:05 11:05 11:10 WBC Hgb Hct MCH MCHC RDW Plt Count Lymph % (Auto) Lymph # (Auto) Centre # (Auto) Seg Neutrophils % Seg Neuts % (Manual) Lymphocytes % (Manual) Nucleated RBC % Seg Neutrophils # Seg Neutrophils # Man Lymphocytes # (Manual) PT 76.5 H INR 9.22 H* D-Dimer ABG pH 7.196 L POC ABG pCO2 52.2 H POC ABG pO2 58.6 L ABG pO2 ABG HCO3 ABG O2 Saturation ABG Base Excess ABG Hemoglobin ABG Oxyhemoglobin ABG Sodium 134.4 L ABG Potassium 5.5 H ABG Glucose 115 H Oxyhemoglobin Carboxyhemoglobin Sodium Potassium 5.3 H Chloride Carbon Dioxide 20 L BUN 111 H Creatinine 5.8 H Glucose 194 H POC Glucose Lactic Acid Calcium 8.1 L Magnesium Ferritin AST Alkaline Phosphatase Lactate Dehydrogenase C-Reactive Protein NT-Pro-B Natriuret Pep Total Protein Albumin Arterial Blood Glucose 115 H Arterial Blood Ionized Calcium 4.5 L Urine Creatinine Coronavirus (PCR) 03/17/20 03/17/20 03/17/20 12:07 14:00 17:38 WBC Hgb Hct MCH MCHC RDW Plt Count Lymph % (Auto) Lymph # (Auto) Centre # (Auto) Seg Neutrophils % Seg Neuts % (Manual) Lymphocytes % (Manual) Nucleated RBC % Seg Neutrophils # Seg Neutrophils # Man Lymphocytes # (Manual) PT INR D-Dimer ABG pH POC ABG pCO2 POC ABG pO2 ABG pO2 ABG HCO3 ABG O2 Saturation ABG Base Excess ABG Hemoglobin ABG Oxyhemoglobin ABG Sodium ABG Potassium ABG Glucose Oxyhemoglobin Carboxyhemoglobin Sodium Potassium 5.4 H Chloride Carbon Dioxide 20 L BUN 127 H Creatinine 6.8 H Glucose 140 H POC Glucose 128 H 155 H Lactic Acid Calcium 7.4 L Magnesium Ferritin AST Alkaline Phosphatase Lactate Dehydrogenase C-Reactive Protein NT-Pro-B Natriuret Pep Total Protein Albumin Arterial Blood Glucose Arterial Blood Ionized Calcium Urine Creatinine Coronavirus (PCR) 03/17/20 03/18/20 03/18/20 19:13 00:10 04:45 WBC Hgb Hct MCH MCHC RDW Plt Count Lymph % (Auto) Lymph # (Auto) Centre # (Auto) Seg Neutrophils % Seg Neuts % (Manual) Lymphocytes % (Manual) Nucleated RBC % Seg Neutrophils # Seg Neutrophils # Man Lymphocytes # (Manual) PT 17.2 H INR 1.39 H D-Dimer ABG pH POC ABG pCO2 POC ABG pO2 ABG pO2 ABG HCO3 ABG O2 Saturation ABG Base Excess ABG Hemoglobin ABG Oxyhemoglobin ABG Sodium ABG Potassium ABG Glucose Oxyhemoglobin Carboxyhemoglobin Sodium Potassium Chloride Carbon Dioxide BUN Creatinine Glucose POC Glucose 154 H Lactic Acid 2.40 H* Calcium Magnesium Ferritin AST Alkaline Phosphatase Lactate Dehydrogenase C-Reactive Protein NT-Pro-B Natriuret Pep Total Protein Albumin Arterial Blood Glucose Arterial Blood Ionized Calcium Urine Creatinine Coronavirus (PCR) 03/18/20 03/18/20 03/18/20 04:45 05:55 05:55 WBC 20.1 H Hgb 10.6 L Hct 35.0 L MCH 27 L MCHC 30 L RDW 18.5 H Plt Count 560 H Lymph % (Auto) Lymph # (Auto) Centre # (Auto) Seg Neutrophils % Seg Neuts % (Manual) Lymphocytes % (Manual) Nucleated RBC % Seg Neutrophils # Seg Neutrophils # Man Lymphocytes # (Manual) PT INR D-Dimer ABG pH POC ABG pCO2 POC ABG pO2 ABG pO2 ABG HCO3 ABG O2 Saturation ABG Base Excess ABG Hemoglobin ABG Oxyhemoglobin ABG Sodium ABG Potassium ABG Glucose Oxyhemoglobin Carboxyhemoglobin Sodium Potassium 5.8 H Chloride 95.5 L Carbon Dioxide BUN 150 H Creatinine 9.0 H Glucose 185 H POC Glucose 185 H Lactic Acid Calcium 7.2 L Magnesium Ferritin AST Alkaline Phosphatase Lactate Dehydrogenase C-Reactive Protein NT-Pro-B Natriuret Pep Total Protein Albumin Arterial Blood Glucose Arterial Blood Ionized Calcium Urine Creatinine Coronavirus (PCR) 03/18/20 03/18/20 03/18/20 05:57 12:29 17:29 WBC Hgb Hct MCH MCHC RDW Plt Count Lymph % (Auto) Lymph # (Auto) Centre # (Auto) Seg Neutrophils % Seg Neuts % (Manual) Lymphocytes % (Manual) Nucleated RBC % Seg Neutrophils # Seg Neutrophils # Man Lymphocytes # (Manual) PT INR D-Dimer ABG pH 7.271 L POC ABG pCO2 58.4 H POC ABG pO2 71.0 L ABG pO2 ABG HCO3 ABG O2 Saturation ABG Base Excess ABG Hemoglobin 10.9 L ABG Oxyhemoglobin 91.6 L ABG Sodium 134.7 L ABG Potassium ABG Glucose 157 H Oxyhemoglobin Carboxyhemoglobin 0.3 L Sodium Potassium Chloride Carbon Dioxide BUN Creatinine Glucose POC Glucose 187 H 179 H Lactic Acid Calcium Magnesium Ferritin AST Alkaline Phosphatase Lactate Dehydrogenase C-Reactive Protein NT-Pro-B Natriuret Pep Total Protein Albumin Arterial Blood Glucose 157 H Arterial Blood Ionized Calcium 4.0 L Urine Creatinine Coronavirus (PCR) 03/18/20 03/18/20 03/19/20 17:45 Unknown 00:01 WBC Hgb Hct MCH MCHC RDW Plt Count Lymph % (Auto) Lymph # (Auto) Centre # (Auto) Seg Neutrophils % Seg Neuts % (Manual) Lymphocytes % (Manual) Nucleated RBC % Seg Neutrophils # Seg Neutrophils # Man Lymphocytes # (Manual) PT INR D-Dimer ABG pH 7.168 L* POC ABG pCO2 POC ABG pO2 ABG pO2 95.4 H ABG HCO3 27.2 H ABG O2 Saturation ABG Base Excess -2.7 L ABG Hemoglobin 11.7 L ABG Oxyhemoglobin ABG Sodium ABG Potassium ABG Glucose Oxyhemoglobin 93.8 L Carboxyhemoglobin Sodium Potassium Chloride Carbon Dioxide BUN Creatinine Glucose POC Glucose 164 H 149 H Lactic Acid Calcium Magnesium Ferritin AST Alkaline Phosphatase Lactate Dehydrogenase C-Reactive Protein NT-Pro-B Natriuret Pep Total Protein Albumin Arterial Blood Glucose Arterial Blood Ionized Calcium Urine Creatinine Coronavirus (PCR) 03/19/20 03/19/20 03/19/20 03:45 04:40 04:40 WBC 15.2 H Hgb 10.4 L Hct 32.9 L MCH 27 L MCHC RDW 18.0 H Plt Count Lymph % (Auto) Lymph # (Auto) Centre # (Auto) Seg Neutrophils % Seg Neuts % (Manual) Lymphocytes % (Manual) Nucleated RBC % Seg Neutrophils # Seg Neutrophils # Man Lymphocytes # (Manual) PT INR D-Dimer ABG pH 7.327 L POC ABG pCO2 POC ABG pO2 ABG pO2 76.0 L ABG HCO3 ABG O2 Saturation 94.8 L ABG Base Excess ABG Hemoglobin 10.6 L ABG Oxyhemoglobin ABG Sodium ABG Potassium ABG Glucose Oxyhemoglobin 92.5 L Carboxyhemoglobin Sodium Potassium Chloride 94.6 L Carbon Dioxide BUN 108 H Creatinine 8.4 H Glucose 147 H POC Glucose Lactic Acid Calcium 6.9 L Magnesium Ferritin AST Alkaline Phosphatase Lactate Dehydrogenase C-Reactive Protein NT-Pro-B Natriuret Pep Total Protein Albumin Arterial Blood Glucose Arterial Blood Ionized Calcium Urine Creatinine Coronavirus (PCR) 03/19/20 05:33 WBC Hgb Hct MCH MCHC RDW Plt Count Lymph % (Auto) Lymph # (Auto) Centre # (Auto) Seg Neutrophils % Seg Neuts % (Manual) Lymphocytes % (Manual) Nucleated RBC % Seg Neutrophils # Seg Neutrophils # Man Lymphocytes # (Manual) PT INR D-Dimer ABG pH POC ABG pCO2 POC ABG pO2 ABG pO2 ABG HCO3 ABG O2 Saturation ABG Base Excess ABG Hemoglobin ABG Oxyhemoglobin ABG Sodium ABG Potassium ABG Glucose Oxyhemoglobin Carboxyhemoglobin Sodium Potassium Chloride Carbon Dioxide BUN Creatinine Glucose POC Glucose 155 H Lactic Acid Calcium Magnesium Ferritin AST Alkaline Phosphatase Lactate Dehydrogenase C-Reactive Protein NT-Pro-B Natriuret Pep Total Protein Albumin Arterial Blood Glucose Arterial Blood Ionized Calcium Urine Creatinine Coronavirus (PCR)
--- NOTE | 2020-03-19 10:19 | Progress Note ---
Assessment and Plan Assessment and plan: 44-year-old male with known history of hypertension, CHF with ejection fraction of 40 to 45% (on echo done in 01/2020), Gout presenting to the emergency room complaining of shortness of breath, diarrhea, abdominal pain and vomiting. He says symptoms started 5 days prior. He was recently discharged from here about a week ago after management for acute on chronic systolic CHF. He denies any ingestion of unaccustomed meals. He denies any contact with someone with COVID- 19. He was recently tested for COVID-19 and was negative. His labs have been reviewed. Had JIM and elevated inflammatory markers. COVID- 19 test ordered. Hold Lasix for now due to JIM. 03/12. Patient seen and examined at bedside this morning. Patient feels much better today but still needs oxygen to maintain saturation. He is on antibiotics for bilateral opacities found on x-ray. Awaiting COVID-19 test today. Continue dexamethasone for now 03/13. COVID-19 test positive. ID consulted. Continue dexamethasone and ant ibiotics for now. Overnight, patient became more hypoxic and had to be placed on BiPAP. Pulmonology consult requested. Patient will be going to the IMCU for close observation. 03/14. He got lasix yesterday and diuresed well. On high flow this AM. INR is supratherapeutic so coumadin is being held 03/16: Clinical Deteriorated overnight requiring intubation, Wallpaper Embosser Helper following, ID also following. Supportive care. IGG pending, MADISYN pending 03/17: Continue weaning from ventilator as tolerated, Discussed with ID, will order Convalescent plasma 03/18: Patient continues on Mechanical ventilation, INR improved, Vascath planned for today since INR is improved. Will likely need Dialysis starting today. Continue to work up fever, and follow cultures, cxr continues to show bilateral infiltrates, WBC elevated, and for elevated K, will give Kayaxelate. Will check renal ultrasound as I do not see that this has been done. 03/19: Remains with severe sepsis and shock, unable to prone overnight, Discussed with farm machine operator, patient continues of levophed due to shock, Rodriguez placed due to urinary retention, considering patient now on dialysis will discuss with Patient Financial Specialist if we need to continue HD considering patient is Oligouric. Also proceed with repeating chest x-ray to ensure no further pathology. Awaiting results of convalescent plasma which has been ordered for the patient. I called Patient's spouse, Maris Baker Severe Sepsis Septic shock Acute respiratory failure with hypoxia Hyperkalemia Urinary Retention L3 Veterbral body lesion- Follow up with ct when clinically stable Suspected COVID-19 virus infection Chronic anticoagulation with secondary coagulopathy Acute ON Chronic kidney disease secondary to ATN, worsening- Oligouric. Hypertension complications Gout HLD (hyperlipidemia) Gout History of pulmonary embolus (PE) The high probability of a clinically significant, sudden or life threatening deterioration of the [pulmonary] system(s) required my full and direct attention, intervention and personal management. The aggregate critical care time was [35] minutes. This time is in addition to time spent performing reported procedures but includes the following: [X] Data Review and interpretation [X] Patient assessment and monitoring of vital signs [X] Documentation [X] Medication orders and management History Interval history: Patient seen and examined, per report, still on full ventilatory support, recurrent fever, HD started, was unable to prone yesterday due to low BP but no increased oxygen demand from yesterday Hospitalist Physical - Physical exam Narrative exam: VITAL SIGNS: Reviewed. Exam is limited due to conservation of PPE GENERAL: sedated HEAD: No signs of head trauma. EYES: Pupils are equal. EARS: Hearing grossly intact. MOUTH: orally intubated NECK: No adenopathy, no JVD. CHEST: Has some rales. CARDIAC: Regular rate and rhythm. S1 and S2, without murmurs, gallops, or rubs. VASCULAR: No Edema. Peripheral pulses normal and equal in all extremities. ABDOMEN: Soft, non tender and non distended. No rebound or guarding, and no masses palpated. Bowel Sounds normal. MUSCULOSKELETAL: Extremities without clubbing, cyanosis or edema. NEUROLOGIC EXAM: sedated No focal neurologic deficits PSYCHIATRIC: sedated SKIN: No obvious lesions - Constitutional Vitals: Temp Pulse Resp BP Pulse Ox 102.8 F H 114 H 17 118/53 93 03/19/20 08:00 03/19/20 09:30 03/19/20 09:30 03/19/20 09:30 03/19/20 09:30 Results - Labs CBC & Chem 7: 03/19/20 04:40 03/19/20 04:40 Labs: Laboratory Last Values WBC 15.2 K/mm3 (4.5-11.0) H 03/19/20 04:40 RBC 3.81 M/mm3 (3.65-5.03) 03/19/20 04:40 Hgb 10.4 gm/dl (11.8-15.2) L 03/19/20 04:40 Hct 32.9 % (35.5-45.6) L 03/19/20 04:40 MCV 86 fl (84-94) 03/19/20 04:40 MCH 27 pg (28-32) L 03/19/20 04:40 MCHC 32 % (32-34) 03/19/20 04:40 RDW 18.0 % (13.2-15.2) H 03/19/20 04:40 Plt Count 427 K/mm3 (140-440) 03/19/20 04:40 Lymph % (Auto) 2.1 % (13.4-35.0) L 03/17/20 05:40 [place] % (Auto) 3.3 % (0.0-7.3) 03/17/20 05:40 Eos % (Auto) 0.0 % (0.0-4.3) 03/17/20 05:40 Baso % (Auto) 0.1 % (0.0-1.8) 03/17/20 05:40 Lymph # (Auto) 0.5 K/mm3 (1.2-5.4) L 03/17/20 05:40 [place] # (Auto) 0.7 K/mm3 (0.0-0.8) 03/17/20 05:40 Eos # (Auto) 0.0 K/mm3 (0.0-0.4) 03/17/20 05:40 Baso # (Auto) 0.0 K/mm3 (0.0-0.1) 03/17/20 05:40 Add Manual Diff Complete 03/15/20 05:08 Total Counted 100 03/15/20 05:08 Seg Neutrophils % Torch Straightener 03/17/20 05:40 Seg Neuts % (Manual) 93.0 % (40.0-70.0) H 03/15/20 05:08 Band Neutrophils % 0 % 03/15/20 05:08 Lymphocytes % (Manual) 4.0 % (13.4-35.0) L 03/15/20 05:08 Reactive Lymphs % (Man) 0 % 03/15/20 05:08 Monocytes % (Manual) 3.0 % (0.0-7.3) 03/15/20 05:08 Eosinophils % (Manual) 0 % (0.0-4.3) 03/15/20 05:08 Basophils % (Manual) 0 % (0.0-1.8) 03/15/20 05:08 Metamyelocytes % 0 % 03/15/20 05:08 Myelocytes % 0 % 03/15/20 05:08 Promyelocytes % 0 % 03/15/20 05:08 Blast Cells % 0 % 03/15/20 05:08 Nucleated RBC % 1.0 % (0.0-0.9) H 03/15/20 05:08 Seg Neutrophils # 20.2 K/mm3 (1.8-7.7) H 03/17/20 05:40 Seg Neutrophils # Man 11.6 K/mm3 (1.8-7.7) H 03/15/20 05:08 Band Neutrophils # 0.0 K/mm3 03/15/20 05:08 Lymphocytes # (Manual) 0.5 K/mm3 (1.2-5.4) L 03/15/20 05:08 Abs React Lymphs (Man) 0.0 K/mm3 03/15/20 05:08 Monocytes # (Manual) 0.4 K/mm3 (0.0-0.8) 03/15/20 05:08 Eosinophils # (Manual) 0.0 K/mm3 (0.0-0.4) 03/15/20 05:08 Basophils # (Manual) 0.0 K/mm3 (0.0-0.1) 03/15/20 05:08 Metamyelocytes # 0.0 K/mm3 03/15/20 05:08 Myelocytes # 0.0 K/mm3 03/15/20 05:08 Promyelocytes # 0.0 K/mm3 03/15/20 05:08 Blast Cells # 0.0 K/mm3 03/15/20 05:08 WBC Morphology Not Reportable 03/15/20 05:08 Hypersegmented Neuts Not Reportable 03/15/20 05:08 Hyposegmented Neuts Not Reportable 03/15/20 05:08 Hypogranular Neuts Not Reportable 03/15/20 05:08 Smudge Cells Not Reportable 03/15/20 05:08 Toxic Granulation Not Reportable 03/15/20 05:08 Toxic Vacuolation Not Reportable 03/15/20 05:08 Dohle Bodies Not Reportable 03/15/20 05:08 Pelger-Huet Anomaly Not Reportable 03/15/20 05:08 Marissa Rods Not Reportable 03/15/20 05:08 Platelet Estimate Consistent w auto 03/15/20 05:08 Clumped Platelets Not Reportable 03/15/20 05:08 Plt Clumps, EDTA Not Reportable 03/15/20 05:08 Large Platelets Not Reportable 03/15/20 05:08 Giant Platelets Not Reportable 03/15/20 05:08 Platelet Satelliting Not Reportable 03/15/20 05:08 Plt Morphology Comment Not Reportable 03/15/20 05:08 RBC Morphology Not Reportable 03/15/20 05:08 Dimorphic RBCs Not Reportable 03/15/20 05:08 Polychromasia Few 03/15/20 05:08 Hypochromasia Not Reportable 03/15/20 05:08 Poikilocytosis Not Reportable 03/15/20 05:08 Anisocytosis Few 03/15/20 05:08 Microcytosis Not Reportable 03/15/20 05:08 Macrocytosis Not Reportable 03/15/20 05:08 Spherocytes Not Reportable 03/15/20 05:08 Pappenheimer Bodies Not Reportable 03/15/20 05:08 Sickle Cells Not Reportable 03/15/20 05:08 Target Cells Not Reportable 03/15/20 05:08 Tear Drop Cells Not Reportable 03/15/20 05:08 Ovalocytes Not Reportable 03/15/20 05:08 Helmet Cells Not Reportable 03/15/20 05:08 [place] Bodies Not Reportable 03/15/20 05:08 [place] Rings Not Reportable 03/15/20 05:08 [place] Cells Not Reportable 03/15/20 05:08 Bite Cells Not Reportable 03/15/20 05:08 Crenated Cell Not Reportable 03/15/20 05:08 Elliptocytes Not Reportable 03/15/20 05:08 Acanthocytes (Spur) Not Reportable 03/15/20 05:08 Rouleaux Not Reportable 03/15/20 05:08 Hemoglobin C Crystals Not Reportable 03/15/20 05:08 Schistocytes Not Reportable 03/15/20 05:08 Malaria parasites Not Reportable 03/15/20 05:08 Steven Bodies Not Reportable 03/15/20 05:08 Hem Pathologist Commnt No 03/15/20 05:08 PT 17.2 Sec. (12.2-14.9) H 03/18/20 04:45 INR 1.39 (0.87-1.13) H 03/18/20 04:45 D-Dimer 287.92 ng/mlDDU (0-234) H 03/13/20 17:25 ABG pH 7.327 pH Units (7.350-7.450) L 03/19/20 03:45 POC ABG pCO2 58.4 mmHg (32.0-48.0) H 03/18/20 17:29 ABG pCO2 48.2 mm Hg 03/19/20 03:45 POC ABG pO2 71.0 mmHg (83-108) L 03/18/20 17:29 ABG pO2 76.0 mm Hg (80.0-90.0) L 03/19/20 03:45 POC ABG HCO3 26.3 03/18/20 17:29 ABG HCO3 24.6 mmol/L (20.0-26.0) 03/19/20 03:45 ABG O2 Saturation 94.8 % (95.0-99.0) L 03/19/20 03:45 ABG O2 Content 13.8 (0.0-44) 03/19/20 03:45 POC ABG Base Excess -1.3 03/18/20 17:29 ABG Base Excess -1.6 mmol/L (-2.0-3.0) 03/19/20 03:45 ABG Hemoglobin 10.6 gm/dl (14.0-18.0) L 03/19/20 03:45 ABG Oxyhemoglobin 91.6 (94-98) L 03/18/20 17:29 ABG Carboxyhemoglobin 1.8 % (0.0-5.0) 03/19/20 03:45 ABG Methemoglobin 0.6 % (0.0-1.5) 03/19/20 03:45 ABG Sodium 134.7 mmol/L (136.0-145.0) L 03/18/20 17:29 ABG Potassium 4.1 mmol/L (3.40-4.50) 03/18/20 17:29 ABG Chloride 100.0 mmol/L (98-107) 03/18/20 17:29 ABG Glucose 157 mg/dL (65-95) H 03/18/20 17:29 Oxyhemoglobin 92.5 % (95.0-99.0) L 03/19/20 03:45 Carboxyhemoglobin 0.3 (0.5-1.5) L 03/18/20 17: FiO2 60 % 03/19/20 03:45 Sodium 139 mmol/L (137-145) 03/19/20 04:40 Potassium 4.9 mmol/L (3.6-5.0) 03/19/20 04:40 Chloride 94.6 mmol/L (98-107) L 03/19/20 04:40 Carbon Dioxide 23 mmol/L (22-30) 03/19/20 04:40 Anion Gap 26 mmol/L 03/19/20 04:40 BUN 108 mg/dL (9-20) H 03/19/20 04:40 Creatinine 8.4 mg/dL (0.8-1.3) H 03/19/20 04:40 Estimated GFR 8 ml/min 03/19/20 04:40 BUN/Creatinine Ratio 13 % 03/19/20 04:40 Glucose 147 mg/dL (75-100) H 03/19/20 04:40 POC Glucose 155 mg/dL (70-105) H 03/19/20 05:33 Lactic Acid 2.40 mmol/L (0.7-2.0) H* 03/17/20 19:13 Calcium 6.9 mg/dL (8.4-10.2) L 03/19/20 04:40 Phosphorus 3.20 mg/dL (2.5-4.5) 03/14/20 04:43 Magnesium 2.50 mg/dL (1.7-2.3) H 03/14/20 04:43 Ferritin 2000.0 ng/mL (30.0-300.0) H 03/15/20 05:08 Total Bilirubin 0.30 mg/dL (0.1-1.2) 03/17/20 05:40 AST 37 units/L (5-40) 03/17/20 05:40 ALT 41 units/L (7-56) 03/17/20 05:40 Alkaline Phosphatase 154 units/L (35-129) H 03/17/20 05:40 Lactate Dehydrogenase 1905 units/L (91-180) H 03/15/20 05:08 C-Reactive Protein 9.80 mg/dL (0.00-1.30) H 03/15/20 05:08 NT-Pro-B Natriuret Pep 2216 pg/mL (0-450) H 03/13/20 17:25 Total Protein 6.4 g/dL (6.3-8.2) 03/17/20 05:40 Albumin 2.5 g/dL (3.9-5) L 03/17/20 05:40 Albumin/Globulin Ratio 0.6 % 03/17/20 05:40 Procalcitonin 0.21 ng/mL (<0.15) 03/13/20 17:25 Arterial Blood Glucose 157 mg/dL (65-95) H 03/18/20 17:29 Arterial Blood Ionized Calcium 4.0 mg/dL (4.6-5.3) L 03/18/20 17:29 Urine Color Yellow (Yellow) 03/13/20 13:05 Urine Turbidity Clear (Clear) 03/13/20 13:05 Urine pH 5.0 (5.0-7.0) 03/13/20 13:05 Ur Specific [place] 1.015 (1.003-1.030) 03/13/20 13:05 Urine Protein >500 mg/dL (Negative) 03/13/20 13:05 Urine Glucose (UA) Neg mg/dL (Negative) 03/13/20 13:05 Urine Ketones Neg mg/dL (Negative) 03/13/20 13:05 Urine Blood Sm (Negative) 03/13/20 13:05 Urine Nitrite Neg (Negative) 03/13/20 13:05 Urine Bilirubin Neg (Negative) 03/13/20 13:05 Urine Urobilinogen < 2.0 mg/dL (<2.0) 03/13/20 13:05 Ur Leukocyte Esterase Neg (Negative) 03/13/20 13:05 Urine WBC (Auto) 2.0 /HPF (0.0-6.0) 03/13/20 13:05 Urine RBC (Auto) 1.0 /HPF (0.0-6.0) 03/13/20 13:05 U Epithel Cells (Auto) < 1.0 /HPF (0-13.0) 03/13/20 13:05 Urine Bacteria (Auto) 1+ /HPF (Negative) 03/13/20 13:05 Urine Mucus Few /HPF 03/13/20 13:05 Urine Eosinophils None seen (None Seen) 03/13/20 13:05 Urine Creatinine 135.0 mg/dL (0.1-20.0) H 03/13/20 13:05 Urine Sodium 33 mmol/L 03/13/20 13:05 Coronavirus (PCR) Positive (Negative) A 03/12/20 10:07 Hepatitis A IgM Ab Non-reactive (NonReactive) 03/17/20 14:37 Hep Bs Antigen Non-reactive (Negative) 03/17/20 14:37 Hep B Core IgM Ab Non-reactive (NonReactive) 03/17/20 14:37 Hepatitis C Antibody Non-reactive (NonReactive) 03/17/20 14:37 SARS-CoV-2 IgG Ab Nonreactive (NonReactive) 03/15/20 05:08 Blood Type O POSITIVE 03/17/20 19:13 Antibody Screen Negative 03/17/20 19:13 Microbiology: Microbiology 03/15/20 14:52 Peripheral/Venous Blood Culture - Preliminary NO GROWTH AFTER 48 HOURS 03/15/20 14:52 Peripheral/Venous Blood Culture - Preliminary NO GROWTH AFTER 48 HOURS 03/17/20 11:30 Tracheal Aspirate Sputum Culture - Preliminary 03/17/20 11:05 Peripheral/Venous Blood Culture - Preliminary NO GROWTH AFTER 24 HOURS 03/17/20 11:05 Peripheral/Venous Blood Culture - Preliminary NO GROWTH AFTER 24 HOURS Rodriguez/IV: Voiding Method Indwelling Catheter IV Catheter Type [Left Femoral trialysis cath ] IV Catheter Type [Left Forearm INT / Saline Lock ] IV Catheter Type [Right INT / Saline Lock Forearm] IV Catheter Type [Right Wrist] INT / Saline Lock Active Medications - Current Medications Current Medications: Generic Name Dose Route Start Last Admin Trade Name Freq PRN Reason Stop Dose Admin Acetaminophen 650 mg 03/11/20 16:53 03/19/20 08:55 Tylenol PO 650 mg Q4H PRN Administration Pain MILD(1-3)/Fever >100.5/LI Lipase/Protease/Amylase 1 each 03/17/20 11:01 Margaret Real 10,500 Unit FEEDTUBE PRN PRN For Clogged Feeding Tube Benzonatate 100 mg 03/11/20 16:55 03/13/20 22:02 Tessalon Perles PO 100 mg Q8H PRN Administration Cough Clopidogrel Bisulfate 75 mg 03/12/20 10:00 03/19/20 09:08 Plavix PO 75 mg DAILY [place] Administration Dexamethasone 6 mg 03/15/20 22:00 03/19/20 09:08 Decadron PO 03/20/20 23:59 6 mg Q12HR [place] Administration Enoxaparin Sodium 30 mg 03/20/20 22:00 Enoxaparin SUB-Q QDAY@2200 [facility] Protocol Famotidine 20 mg 03/18/20 10:00 03/19/20 09:08 Pepcid PO 20 mg DAILY [facility] Administration Hydrophilic Ointment 1 applic 03/16/20 21:27 Vaseline Lip Therapy TP Q2HR PRN Dry Lips Fentanyl Citrate 2,000 mcg in 100 mls @ 6.45 mls/hr 03/16/20 22:00 03/18/20 22:54 Fentanyl Drip Premix IV 1 mcg/kg/hr TITR [place] 6.45 mls/hr Administration Protocol 1 MCG/KG/HR Propofol 1,000 mg in 100 mls @ 3.87 mls/hr 03/16/20 22:00 03/19/20 08:15 Diprivan 10 Mg/Ml IV 10 mcg/kg/min TITR [place] 7.74 mls/hr Titration Protocol 5 MCG/KG/MIN Cefepime HCl 1 gm in 100 mls @ 200 mls/hr 03/18/20 10:00 03/18/20 13:44 Cefepime/Ns 1 Gm/100 Ml IV 200 mls/hr QPM [place] Administration Protocol Norepinephrine 4 mg in 250 mls @ 7.5 mls/hr 03/18/20 18:00 03/19/20 08:30 Levophed Drip 4 Mg/Ns 250 Ml IV 6 mcg/min TITR [place] 22.5 mls/hr Titration Protocol 2 MCG/MIN Sodium Chloride 100 mls @ 999 mls/hr 03/19/20 09:00 Nacl 0.9% IV JERMAINE PRN Hypotension Insulin Human Lispro 0 unit 03/17/20 11:00 03/19/20 07:20 Humalog SUB-Q Not Given Q6H [place] Protocol Lorazepam 1 mg 03/16/20 21:26 Ativan IV Q4H PRN Agitation Multi-Ingred Cream/Lotion/Oil/Oint 1 applic 03/16/20 21:27 Artificial Tears Ophth Oint OU Q4HR PRN Dry Eye(s) Ondansetron HCl 4 mg 03/11/20 16:53 Zofran IV Q8H PRN Nausea And Vomiting Simple Syrup 15 ml 03/17/20 11:01 Simple Syrup FEEDTUBE PRN PRN Hypoglycemia Simple Syrup 30 ml 03/17/20 11:01 Simple Syrup FEEDTUBE PRN PRN Hypoglycemia Sodium Bicarbonate 325 mg 03/17/20 11:01 Sodium Bicarbonate FEEDTUBE PRN PRN For Clogged Feeding Tube Sodium Chloride 10 ml 03/11/20 22:00 03/19/20 09:08 Sodium Chloride Flush Syringe 10 Ml IV 10 ml BID [place] Administration Sodium Chloride 10 ml 03/11/20 16:53 Sodium Chloride Flush Syringe 10 Ml IV PRN PRN LINE FLUSH Nutrition/Malnutrition Assess - Dietary Evaluation Nutrition/Malnutrition Findings: Nutrition Notes Start: 03/12/20 11:06 Freq: Status: Active Protocol: Document 03/18/20 13:51 ESTIVEN (Rec: 03/18/20 14:00 ESTIVEN [id number]) Co-Sign 03/18/20 13:51 Nutrition Notes Initial or Follow up Reassessment Current Diagnosis Acute Kidney Injury, Hypertension,Heart Failure, Hyperlipidemia Other Pertinent Diagnosis SOB, Diarrhea, N/V, Gout, COVID-19 (+) Current Diet Nepro 1.8 at 45ml/hr Labs/Tests K 5.8 Cr 9.0 BG 185 POC 179 Pertinent Medications Kionex Humalog Decadron Height 6 ft 1 in Weight 129 kg [place] Body Weight (kg) 83.63 BMI 37.5 Weight Status Obese Subjective/Other Information F/u TF and renal labs. Per MD, JIM worsening, HD planned to start. Observed Nepro hanging and running at 45ml/hr. Pt was not proned and HOB to >30 degrees. Percent of energy/protein needs met: 100%/100% Burn Absent Trauma Absent GI Symptoms None Current % PO Negligible Minimum of two criteria No physical signs of malnutrition #1 Nutrition Diagnosis Inadequate oral intake Diagnosis Progress(for reassessment Continues documentation) Is patient on ventilator? Yes Is Patient Ambulatory and/or Out of Bed No REE-([facility]-confined to bed) 2671.524 Kcal/Kg value to use for calculation 15 Approximate Energy Requirements Using 1935 kcal/Kg Calculation Used for Recommendations Kcal/kg Additional Notes Pro: 85-127 g Pro (.8-1.2 g/kg AdBW) Fluid: 1 ml/kcal Nutrition Intervention Change Diet Order: TF Nutrition Support: Nepro 1.8 at 45 ml/hr (goal rate). Flush 200 ml q4h. If proned: 12 hr proned: 20 ml/hr for 12 hr with 50 ml q4h flush 12 hr not proned: 70 ml/hr for 12 hr with 335 ml q4h flush Kcal 1,944 Protein (gm) 87 Fluid (mL) 785 Goal #1 TF tolerance Goal #2 Meet 75% of energy and protein needs via TF Anticipated Discharge Needs: unable to determine at this time Follow-Up By: 03/23/20 Additional Comments F/u TF and HD initiation
--- NOTE | 2020-03-19 11:21 | XRay Report ---
CHEST 1 VIEW INDICATION / CLINICAL INFORMATION: RESPIRATORY FAILURE. COMPARISON: 03/17/2020 FINDINGS: SUPPORT DEVICES: Stable, satisfactory device positioning. HEART / MEDIASTINUM: Stable. LUNGS / PLEURA: Diffuse bilateral pulmonary opacities are unchanged from prior exam No pneumothorax. ADDITIONAL FINDINGS: No significant additional findings. IMPRESSION: 1. No significant change since prior exam. Signer Name: Dalton Rodriguez MD Signed: 03/19/2020 11:16 AM Workstation Name: [id number]
--- NOTE | 2020-03-19 12:36 | Progress Note ---
Assessment and Plan 1. Acute kidney injury: Acute kidney injury superimposed on CKD in the setting of COVID infection. CT abdomen negative for hydro. Monitor renal function. UOP is low. Renal prognosis is guarded. Avoid nephrotoxic agents. Meds dosage based on GFR. Patient required hemodialysis due to worsening renal function and associated hyperkalemia and metabolic acidosis. D/w patient's (03/17) over the phone about the indications, benefits, risks and alternatives involved in hemodialysis. She voiced understanding and gave verbal consent. Hemodialysis: 03/18, 03/19. 2. FEN: Hyperkalemia, improved, monitor. Metabolic acidosis, on HD, monitor. Cautious use of diuretics if needed. Monitor lytes. 3. Acute hypoxic resp failure: Likely secondary to COVID-19 infection. CXR showed pulmonary infiltrate. Intubated, on vent. Followed by Pulmonary. 4. Severe COVID-19 pneumonia. Followed by ID. On Steroids. 5. Hypocoagulable state: On Coumadin. INR was 1.39 yesterday. 6. Hypotension: BP med held due to hypotension. Monitor BP. Subjective: Patient was seen and examined at the bedside. - General Appearance General appearance: well-developed, well-nourished, appears stated age, no distress, intubated, on vent HEENT: ATNC Eyes: Pupils reacting to light Neck: supple Respiratory: MV sounds Cardiology: S1S2, no murmur Gastrointestinal: normoactive bowel sounds, not tenderness, not distended Integumentary: no obvious rash Neurologic: sedated Ext: no edema noted : Rodriguez catheter Subjective Date of service: 03/19/20 Principal diagnosis: covid pneumonia Objective - Vital Signs Vital signs: Vital Signs - 12hr 03/19/20 03/19/20 03/19/20 01:00 01:30 02:00 Temperature Pulse Rate 97 H 99 H 103 H Pulse Rate [ From Monitor] Respiratory 16 20 23 Rate Respiratory Rate [ Generalized] Blood Pressure 113/65 107/63 112/53 O2 Sat by Pulse 95 95 96 Oximetry 03/19/20 03/19/20 03/19/20 02:30 03:00 03:30 Temperature Pulse Rate 103 H 103 H 104 H Pulse Rate [ From Monitor] Respiratory 14 20 20 Rate Respiratory Rate [ Generalized] Blood Pressure 85/64 110/52 92/58 O2 Sat by Pulse 94 95 94 Oximetry 03/19/20 03/19/20 03/19/20 04:00 04:11 04:30 Temperature 98.9 F Pulse Rate 103 H 107 H 107 H Pulse Rate [ 93 H From Monitor] Respiratory 18 20 Rate Respiratory Rate [ Generalized] Blood Pressure 77/56 77/56 77/56 O2 Sat by Pulse 94 93 92 Oximetry 03/19/20 03/19/20 03/19/20 05:00 05:30 06:00 Temperature Pulse Rate 104 H 107 H 104 H Pulse Rate [ From Monitor] Respiratory 18 16 25 H Rate Respiratory Rate [ Generalized] Blood Pressure 77/62 99/57 103/62 O2 Sat by Pulse 92 93 Oximetry 03/19/20 03/19/20 03/19/20 06:30 07:00 07:30 Temperature Pulse Rate 108 H 110 H 114 H Pulse Rate [ From Monitor] Respiratory 24 14 19 Rate Respiratory Rate [ Generalized] Blood Pressure 117/65 102/72 97/75 O2 Sat by Pulse 92 93 93 Oximetry 03/19/20 03/19/20 03/19/20 08:00 08:04 08:30 Temperature 102.8 F H Pulse Rate 110 H 108 H 113 H Pulse Rate [ 115 H From Monitor] Respiratory 21 19 Rate Respiratory Rate [ Generalized] Blood Pressure 92/60 92/60 102/69 O2 Sat by Pulse 93 94 93 Oximetry 03/19/20 03/19/20 03/19/20 08:46 09:00 09:16 Temperature Pulse Rate 117 H 115 H 117 H Pulse Rate [ From Monitor] Respiratory 17 20 16 Rate Respiratory Rate [ Generalized] Blood Pressure 105/78 105/78 111/42 O2 Sat by Pulse 92 93 94 Oximetry 03/19/20 03/19/20 03/19/20 09:30 09:46 10:00 Temperature Pulse Rate 114 H 116 H 119 H Pulse Rate [ From Monitor] Respiratory 17 24 17 Rate Respiratory 18 Rate [ Generalized] Blood Pressure 118/53 98/48 102/49 O2 Sat by Pulse 93 93 92 Oximetry 03/19/20 03/19/20 03/19/20 10:15 10:31 10:45 Temperature Pulse Rate 118 H 116 H 121 H Pulse Rate [ From Monitor] Respiratory 20 22 14 Rate Respiratory Rate [ Generalized] Blood Pressure 97/51 113/56 114/51 O2 Sat by Pulse 93 93 93 Oximetry 03/19/20 03/19/20 11:00 11:50 Temperature 102.0 F H Pulse Rate 116 H Pulse Rate [ From Monitor] Respiratory 17 Rate Respiratory Rate [ Generalized] Blood Pressure 128/70 108/60 O2 Sat by Pulse 93 94 Oximetry - Lab 03/19/20 04:40 03/19/20 04:40 Most recent lab results ABG pH 7.327 pH Units (7.350-7.450) L 03/19/20 03:45 ABG pCO2 48.2 mm Hg 03/19/20 03:45 ABG pO2 76.0 mm Hg (80.0-90.0) L 03/19/20 03:45 ABG HCO3 24.6 mmol/L (20.0-26.0) 03/19/20 03:45 ABG O2 Saturation 94.8 % (95.0-99.0) L 03/19/20 03:45 Calcium 6.9 mg/dL (8.4-10.2) L 03/19/20 04:40 Phosphorus 3.20 mg/dL (2.5-4.5) 03/14/20 04:43 Magnesium 2.50 mg/dL (1.7-2.3) H 03/14/20 04:43 Urine Creatinine 135.0 mg/dL (0.1-20.0) H 03/13/20 13:05 Urine Sodium 33 mmol/L 03/13/20 13:05 Medications & Allergies - Medications Allergies/Adverse Reactions: Allergies No Known Allergies Allergy (Verified 04/21/17 15:31) Home Medications: Home Medications Medication Instructions Recorded Confirmed Last Taken Type Benzonatate [Tessalon Perle] 100 mg PO Q8H PRN #20 capsule 06/12/18 03/13/20 Unknown Rx Ibuprofen [Motrin 600 MG tab] 600 mg PO Q8H PRN #20 tablet 06/12/18 03/13/20 Unknown Rx Aspirin [Aspirin BABY CHEW TAB] 81 mg PO QDAY #100 tab.chew 02/04/20 03/13/20 U nknown Rx Clopidogrel [Plavix] 75 mg PO QDAY #30 tablet 02/04/20 03/13/20 Unknown Rx Furosemide [Lasix TAB] 40 mg PO QDAY #30 tablet 02/04/20 03/13/20 Unknown Rx Gabapentin 300 mg PO BID #60 capsule 02/04/20 03/13/20 Unknown Rx ISOSORBIDE MONOnitrate [Imdur ER] 30 mg PO QDAY #30 tablet 02/04/20 03/13/20 Unknown Rx Metoprolol [Lopressor TAB] 50 mg PO BID #60 tablet 02/04/20 03/13/20 Unknown Rx Potassium Chloride [K-Dur] 20 meq PO QDAY #30 02/04/20 03/13/20 Unknown Rx amLODIPine 10 mg PO DAILY #30 tablet 02/04/20 03/13/20 Unknown Rx hydrALAZINE [Apresoline TAB] 50 mg PO TID #90 tablet 02/04/20 03/13/20 Unknown Rx oxyCODONE /ACETAMINOPHEN [Percocet 1 tab PO Q6H PRN #14 tablet 02/04/20 03/13/20 Unknown Rx 5/325 mg] Famotidine [Pepcid] 40 mg PO QHS #10 tablet 02/13/20 03/13/20 Unknown Rx Prednisone [predniSONE 10 mg 10 mg PO .TAPER #1 tab.ds.pk 02/13/20 03/13/20 Un known Rx (6-Day Pack, 21 Tabs)] diphenhydrAMINE [Benadryl CAP] 50 mg PO Q8HR PRN #10 capsule 02/13/20 03/13/20 Unknown Rx Cyclobenzaprine HCl [Flexeril 5 MG 5 mg PO TID PRN #15 tab 03/01/20 03/13/20 Unknown Rx TAB] Warfarin [Coumadin] 7.5 mg PO DAILY@1700 #30 tablet 03/01/20 03/13/20 Unknown Rx Active Medications: Generic Name Dose Route Start Last Admin Trade Name Freq PRN Reason Stop Dose Admin Acetaminophen 650 mg 03/11/20 16:53 03/19/20 12:02 Tylenol PO 650 mg Q4H PRN Administration Pain MILD(1-3)/Fever >100.5/LI Lipase/Protease/Amylase 1 each 03/17/20 11:01 Pancreazwally Real 10,500 Unit FEEDTUBE PRN PRN For Clogged Feeding Tube Benzonatate 100 mg 03/11/20 16:55 03/13/20 22:02 Tessalon Perles PO 100 mg Q8H PRN Administration Cough Clopidogrel Bisulfate 75 mg 03/12/20 10:00 03/19/20 09:08 Plavix PO 75 mg DAILY [place] Administration Dexamethasone 6 mg 03/15/20 22:00 03/19/20 09:08 Decadron PO 03/20/20 23:59 6 mg Q12HR [place] Administration Enoxaparin Sodium 30 mg 03/19/20 22:00 Enoxaparin SUB-Q QDAY@2200 [facility] Protocol Famotidine 20 mg 03/18/20 10:00 03/19/20 09:08 Pepcid PO 20 mg DAILY [facility] Administration Hydrophilic Ointment 1 applic 03/16/20 21:27 Vaseline Lip Therapy TP Q2HR PRN Dry Lips Fentanyl Citrate 2,000 mcg in 100 mls @ 6.45 mls/hr 03/16/20 22:00 03/18/20 22:54 Fentanyl Drip Premix IV 1 mcg/kg/hr TITR [place] 6.45 mls/hr Administration Protocol 1 MCG/KG/HR Propofol 1,000 mg in 100 mls @ 3.87 mls/hr 03/16/20 22:00 03/19/20 08:15 Diprivan 10 Mg/Ml IV 10 mcg/kg/min TITR [place] 7.74 mls/hr Titration Protocol 5 MCG/KG/MIN Cefepime HCl 1 gm in 100 mls @ 200 mls/hr 03/18/20 10:00 03/18/20 13:44 Cefepime/Ns 1 Gm/100 Ml IV 200 mls/hr QPM [facility] Administration Protocol Norepinephrine 4 mg in 250 mls @ 7.5 mls/hr 03/18/20 18:00 03/19/20 08:30 Levophed Drip 4 Mg/Ns 250 Ml IV 6 mcg/min TITR [place] 22.5 mls/hr Titration Protocol 2 MCG/MIN Sodium Chloride 100 mls @ 999 mls/hr 03/19/20 09:00 Nacl 0.9% IV JERMAINE PRN Hypotension Insulin Human Lispro 0 unit 03/17/20 11:00 03/19/20 12:09 Humalog SUB-Q 2 unit Q6H [facility] Administration Protocol Lorazepam 1 mg 03/16/20 21:26 Ativan IV Q4H PRN Agitation Multi-Ingred Cream/Lotion/Oil/Oint 1 applic 03/16/20 21:27 Artificial Tears Ophth Oint OU Q4HR PRN Dry Eye(s) Ondansetron HCl 4 mg 03/11/20 16:53 Zofran IV Q8H PRN Nausea And Vomiting Simple Syrup 15 ml 03/17/20 11:01 Simple Syrup FEEDTUBE PRN PRN Hypoglycemia Simple Syrup 30 ml 03/17/20 11:01 Simple Syrup FEEDTUBE PRN PRN Hypoglycemia Sodium Bicarbonate 325 mg 03/17/20 11:01 Sodium Bicarbonate FEEDTUBE PRN PRN For Clogged Feeding Tube Sodium Chloride 10 ml 03/11/20 22:00 03/19/20 09:08 Sodium Chloride Flush Syringe 10 Ml IV 10 ml BID [place] Administration Sodium Chloride 10 ml 03/11/20 16:53 Sodium Chloride Flush Syringe 10 Ml IV PRN PRN LINE FLUSH
--- NOTE | 2020-03-19 13:01 | Progress Note ---
Assessment and Plan Cultures: Blood culture 03/11/2020 no growth Blood culture 03/15/2022 no growth today Blood culture 03/17/2022 no growth today Respiratory culture 03/17/2020 pending SARS CoV2 PCR positive Assessment: #Severe sepsis with septic shock: Worsening with high fever, worsening leukocytosis, elevated lactate, coagulopathy NOW pressors; likely due to bilateral pneumonia secondary to Covid +/- HAP. #Severe COVID pneumonia: Inflammatory markers elevated. CT shows bilateral gr oundglass opacities. Repeat chest x-ray shows bilateral infiltrates. #Acute hypoxemic respiratory failure: Secondary to COVID-19, possible volume overload, remains intubated, however improving FiO2 today at 55 #JIM: from COVID, worsening. Renal on board. #Transaminitis: From Covid #Previous DVT: On Coumadin, on hold due to prolonged INR #Lactic acidosis: Secondary to sepsis. #Elevated INR: Coagulopathy in the setting of sepsis versus Coumadin toxicity Recommendations: -Follow-up new blood cultures, respiratory cultures -Continue cefepime and IV vancomycin IV renally adjusted day 2 -SARS Covid 2 IgG negative, patient may benefit from COVID-19 convalescent larissa sma -Continue dexamethasone 6 mg IV/PO twice daily, given hypoxia -Remdesivir stopped after day 4 due to worsening renal failure -Monitor inflammatory markers - ferritin, Ddimer, CRP, LDH -ordered today -Continue anticoagulation per System Protocol -Prone positioning as possible -obtain TTE - pending -Obtain MRSA PCR High risk mortality, guarded prognosis Dr. Villeda rounding this weekend All laboratory, cultures and imaging were reviewed. Will follow Janelle Parra MD Infectious Diseases [employer] [facility] M [phone] O [phone] Subjective Date of service: 03/19/20 Principal diagnosis: covid pneumonia Interval history: Patient remains with high fever 102.8, NOW on pressors - levophed at 8, intubated, sedated on sedative Objective - Exam Narrative Exam: Physical Exam: reviewed ED and hospitalist notes, limited due to conservation of PPE and decrease risk of transmission. General appearance: limited due to conservation of PPE Eyes: limited due to conservation of PPE HENT: Atraumatic; limited due to conservation of PPE Lungs: limited due to conservation of PPE CV: limited due to conservation of PPE Abdomen: limited due to conservation of PPE Extremities: limited due to conservation of PPE Skin: limited due to conservation of PPE Psych: limited due to conservation of PPE Neuro: limited due to conservation of PPE Condom catheter and a rectal tube - Constitutional Vitals: Vital Signs Temp Pulse Resp BP Pulse Ox 102.0 F H 116 H 17 108/60 94 03/19/20 11:50 03/19/20 11:00 03/19/20 11:00 03/19/20 11:50 03/19/20 11:50 Temperature -Last 24 Hours Temperature 102.0 F Temperature 102.8 F Temperature 98.9 F Temperature 99.9 F Temperature 99.6 F Temperature 98.7 F Temperature 98.4 F Temperature 98.4 F Temperature 97.9 F - Labs CBC & Chem 7: 03/19/20 04:40 03/19/20 04:40 Labs: Abnormal lab results 03/18/20 03/18/20 03/18/20 Range/Units 12:29 17:29 17:45 WBC (4.5-11.0) K/mm3 Hgb (11.8-15.2) gm/dl Hct (35.5-45.6) % MCH (28-32) pg RDW (13.2-15.2) % ABG pH 7.271 L (7.320-7.450) POC ABG pCO2 58.4 H (32.0-48.0) mmHg POC ABG pO2 71.0 L (83-108) mmHg ABG pO2 (80.0-90.0) mm Hg ABG O2 Saturation (95.0-99.0) % ABG Hemoglobin 10.9 L (12.0-17.5) ABG Oxyhemoglobin 91.6 L (94-98) ABG Sodium 134.7 L (136.0-145.0) mmol/L ABG Glucose 157 H (65-95) mg/dL Oxyhemoglobin (95.0-99.0) % Carboxyhemoglobin 0.3 L (0.5-1.5) Chloride (98-107) mmol/L BUN (9-20) mg/dL Creatinine (0.8-1.3) mg/dL Glucose (75-100) mg/dL POC Glucose 179 H 164 H (70-105) mg/dL Calcium (8.4-10.2) mg/dL Arterial Blood Glucose 157 H (65-95) mg/dL Arterial Blood Ionized Calcium 4.0 L (4.6-5.3) mg/dL 03/19/20 03/19/20 03/19/20 Range/Units 00:01 03:45 04:40 WBC 15.2 H (4.5-11.0) K/mm3 Hgb 10.4 L (11.8-15.2) gm/dl Hct 32.9 L (35.5-45.6) % MCH 27 L (28-32) pg RDW 18.0 H (13.2-15.2) % ABG pH 7.327 L (7.320-7.450) POC ABG pCO2 (32.0-48.0) mmHg POC ABG pO2 (83-108) mmHg ABG pO2 76.0 L (80.0-90.0) mm Hg ABG O2 Saturation 94.8 L (95.0-99.0) % ABG Hemoglobin 10.6 L (12.0-17.5) ABG Oxyhemoglobin (94-98) ABG Sodium (136.0-145.0) mmol/L ABG Glucose (65-95) mg/dL Oxyhemoglobin 92.5 L (95.0-99.0) % Carboxyhemoglobin (0.5-1.5) Chloride (98-107) mmol/L BUN (9-20) mg/dL Creatinine (0.8-1.3) mg/dL Glucose (75-100) mg/dL POC Glucose 149 H (70-105) mg/dL Calcium (8.4-10.2) mg/dL Arterial Blood Glucose (65-95) mg/dL Arterial Blood Ionized Calcium (4.6-5.3) mg/dL 03/19/20 03/19/20 03/19/20 Range/Units 04:40 05:33 12:01 WBC (4.5-11.0) K/mm3 Hgb (11.8-15.2) gm/dl Hct (35.5-45.6) % MCH (28-32) pg RDW (13.2-15.2) % ABG pH (7.320-7.450) POC ABG pCO2 (32.0-48.0) mmHg POC ABG pO2 (83-108) mmHg ABG pO2 (80.0-90.0) mm Hg ABG O2 Saturation (95.0-99.0) % ABG Hemoglobin (12.0-17.5) ABG Oxyhemoglobin (94-98) ABG Sodium (136.0-145.0) mmol/L ABG Glucose (65-95) mg/dL Oxyhemoglobin (95.0-99.0) % Carboxyhemoglobin (0.5-1.5) Chloride 94.6 L (98-107) mmol/L BUN 108 H (9-20) mg/dL Creatinine 8.4 H (0.8-1.3) mg/dL Glucose 147 H (75-100) mg/dL POC Glucose 155 H 163 H (70-105) mg/dL Calcium 6.9 L (8.4-10.2) mg/dL Arterial Blood Glucose (65-95) mg/dL Arterial Blood Ionized Calcium (4.6-5.3) mg/dL
[2020-03-19] MEDS: fentaNYL DRIP Premix 2,000 MCG/100 ML BAG IV SCH ×3 (13:57→21:56)
[2020-03-19] MEDS ORDERED: dilTIAZem 25 MG/5 ML INJ IV ONE (15:55)
[2020-03-19] MEDS: CEFEPIME/NS 1 GM/100 ML 1 GM/100 ML BAG IV SCH (17:11)
[2020-03-19 17:33] LABS: C-Reactive Protein 32.8 mg/dL (0.00-1.30)
[2020-03-19] MEDS ORDERED: ENOXAPARIN 30 MG/0.3 ML INJ SUB-Q SCH (22:00)
[2020-03-19] MEDS ORDERED: SODIUM CHLORIDE 0.9% 250ML 250 ML IV ONE (23:35)
[2020-03-20] MEDS ORDERED: METOPROLOL TARTRATE 5 MG/5 ML INJ IV ONE ×2 (00:24→03:58)
[2020-03-20] MEDS: fentaNYL DRIP Premix 2,000 MCG/100 ML BAG IV SCH (03:30)
[2020-03-20] MEDS ORDERED: VASOPRESSIN 20 UNIT in SODIUM CHLORIDE 0.9% 100 ML IV SCH (06:00)
[2020-03-20] MEDS: NORepinephrine/NS 4 MG-250 ML 4 MG/250 ML BAG IV SCH (06:20)
[2020-03-20 06:42] VITALS: BP 60/26
[2020-03-20] MEDS ORDERED: SODIUM BICARB 8.4% 50 MEQ/50 ML SYRINGE IV ONE ×2 (07:00→07:22)
[2020-03-20] MEDS ORDERED: EPINEPHrine 1 MG/10 ML SYRINGE ONE (07:00)
[2020-03-20] MEDS ORDERED: CALCIUM CHLORIDE 1,000 MG/10 ML SYRINGE IV ONE (07:00)
--- NOTE | 2020-03-20 07:52 | Event Note ---
Date: 03/20/20 Responded to Code blue, this is the second code 5 mins from the first one. Patient already intubated and chest compression ongoing, multiple rounds of Epinephrine and Sodium bicarb with Calcuim given but unfortunately could not return spontenaous Pulse. Patient 7:44am. Spouse was notified during the code and after patient was pronounced.
--- NOTE | 2020-03-20 07:54 | Death Summary ---
Summary - Providers Date of service: 03/20/20 Consults: 03/12/20 15:13 Consult to Physician [CONS] Routine Comment: Consulting Provider: ANH HOLLINS Physician Instructions: Reason For Exam: COVID-19 03/13/20 07:33 Consult to Physician [CONS] Routine Comment: Consulting Provider: RYNE LINARES Physician Instructions: Reason For Exam: JIM 03/13/20 07:40 Consult to Physician [CONS] Routine Comment: Consulting Provider: FANNIE TIPTON Physician Instructions: Reason For Exam: Respiratory failure 03/16/20 18:47 Consult to Dietitian/Nutrition [CONS] Routine Physician Instructions: Reason For Exam: Reason for Consult: Write/Manage Tube Feeding 03/17/20 11:42 Consult to Interventional Radiology [CONS] Urgent Consulting Provider: AURELIA MORALES Reason For Exam: Hemodialysis catheter Notified:: . 03/18/20 07:52 Consult to PICC Line RN [CONS] Routine Reason For Exam: multiple drips Type Line:: PICC 03/19/20 17:35 Consult to Wound/ET Nurse [CONS] Routine Reason For Exam: wound eval for bilateral cheeks Attending: JOANNE PERRY MD - summary Date of admission: 03/11/20 16:53 Date of : 03/20/20 Reason for admission: Respiratory failure Significant findings: COVID-19 positive Procedures/treatments rendered: 44-year-old male with known history of hypertension, CHF with ejection fraction of 40 to 45% (on echo done in 01/2020), Gout presenting to the emergency room complaining of shortness of breath, diarrhea, abdominal pain and vomiting. He says symptoms started 5 days prior. He was recently discharged from here about a week ago after management for acute on chronic systolic CHF. He denies any ingestion of unaccustomed meals. He denies any contact with someone with COVID- 19. He was recently tested for COVID-19 and was negative. His labs have been reviewed. Had JIM and elevated inflammatory markers. COVID- 19 test ordered. Hold Lasix for now due to JIM. During the course of hospitalization the patient was retested for Covid test which came back positive he was started on dexamethasone with ID physician and pulmonary consultation following this patient became more hypoxic. Patient was transferred to [facility] and subsequently started on Lasix which he diuresed well. Unfortunately INR was noted to be supratherapeutic and Coumadin was held he clinically deteriorated overnight required intubation. Echocardiogram was ordered. Patient also went into renal failure requiring Vas-Cath to be placed with correction of INR. Was started on HD unfortunately did not improve but rather went into severe sepsis with septic shock was unable to be prone. He coded this a.m. went into V. tach arrest resuscitated and subsequently went into PEA and despite ACLS protocol was unable to be resuscitated. Spouse was notified of patient's demise. Condolences offered. Cardiopulmonary Arrest Ventricular Tachycardia COVID19 Severe Sepsis Septic shock Acute respiratory failure with hypoxia Hyperkalemia Urinary Retention L3 Veterbral body lesion- Follow up with ct when clinically stable Chronic anticoagulation with secondary coagulopathy Acute ON Chronic kidney disease secondary to ATN, worsening- Oligouric. Hypertension complications Gout HLD (hyperlipidemia) Gout History of pulmonary embolus (PE)
[2020-03-20 08:20] LABS: Calcium 8.9 mg/dL (8.4-10.2)
[2020-03-20] MEDS ORDERED: SODIUM CHLORIDE 0.9% 100 ML IV PRN (09:45)
[2020-03-20] MEDS ORDERED: VANCOMYCIN 2,000 MG in SODIUM CHLORIDE 0.9% 500 ML 500 ML IV ONE (10:00)
[2020-03-20] MEDS ORDERED: CEFEPIME/NS 2 GM/100 ML 2 GM/100 ML BAG IV SCH (22:00)
== END 2020-03-20 12:55 | DRG 871 ==
LOC: ED 10:33 → 3A 16:53 → IMCU 03-13 11:41 → CC1 03-16 17:05
PROVIDERS: ADMIT Internal Medicine; ATTEND Internal Medicine
PROC: 4A033R1 Measurement of Arterial Saturation, Peripheral, Percutaneous Approach (ICD-10-PCS; 2020-03-11)
PROC: 5A09357 Assistance with Respiratory Ventilation, Less than 24 Consecutive Hours, Continuous Positive Airway Pressure (ICD-10-PCS; 2020-03-12)
PROC: 5A09357 Assistance with Respiratory Ventilation, Less than 24 Consecutive Hours, Continuous Positive Airway Pressure (ICD-10-PCS; 2020-03-13)
PROC: XW033E5 Introduction of Remdesivir Anti-infective into Peripheral Vein, Percutaneous Approach, New Technology Group 5 (ICD-10-PCS; 2020-03-13)
PROC: 5A09357 Assistance with Respiratory Ventilation, Less than 24 Consecutive Hours, Continuous Positive Airway Pressure (ICD-10-PCS; 2020-03-14)
PROC: XW033E5 Introduction of Remdesivir Anti-infective into Peripheral Vein, Percutaneous Approach, New Technology Group 5 (ICD-10-PCS; 2020-03-14)
PROC: 5A09357 Assistance with Respiratory Ventilation, Less than 24 Consecutive Hours, Continuous Positive Airway Pressure (ICD-10-PCS; 2020-03-15)
PROC: 0BH17EZ Insertion of Endotracheal Airway into Trachea, Via Natural or Artificial Opening (ICD-10-PCS; principal; 2020-03-16)
PROC: 5A1945Z Respiratory Ventilation, 24-96 Consecutive Hours (ICD-10-PCS; 2020-03-16)
PROC: 30233K1 Transfusion of Nonautologous Frozen Plasma into Peripheral Vein, Percutaneous Approach (ICD-10-PCS; 2020-03-17)
PROC: 5A1D70Z Performance of Urinary Filtration, Intermittent, Less than 6 Hours Per Day (ICD-10-PCS; 2020-03-18)
PROC: 06HY33Z Insertion of Infusion Device into Lower Vein, Percutaneous Approach (ICD-10-PCS; 2020-03-18)
PROC: B54CZZA Ultrasonography of Left Lower Extremity Veins, Guidance (ICD-10-PCS; 2020-03-18)
PROC: 5A1D70Z Performance of Urinary Filtration, Intermittent, Less than 6 Hours Per Day (ICD-10-PCS; 2020-03-19)
DX: A41.89 Other specified sepsis (principal); U07.1 COVID-19; J96.01 Acute respiratory failure with hypoxia; J12.89 Other viral pneumonia; R65.21 Severe sepsis with septic shock; N17.0 Acute kidney failure with tubular necrosis; I50.23 Acute on chronic systolic (congestive) heart failure; E87.2 Acidosis; D68.8 Other specified coagulation defects; G95.89 Other specified diseases of spinal cord; I13.0 Hypertensive heart and chronic kidney disease with heart failure and stage 1 through stage 4 chronic kidney disease, or unspecified chronic kidney disease; E87.1 Hypo-osmolality and hyponatremia; M10.9 Gout, unspecified; N18.9 Chronic kidney disease, unspecified; R33.9 Retention of urine, unspecified; E78.5 Hyperlipidemia, unspecified; E87.5 Hyperkalemia; R74.01 Elevation of levels of liver transaminase levels; E66.9 Obesity, unspecified; J20.9 Acute bronchitis, unspecified; Z68.39 Body mass index [BMI] 39.0-39.9, adult; Z86.711 Personal history of pulmonary embolism; Z79.899 Other long term (current) drug therapy; Z79.82 Long term (current) use of aspirin; Z79.01 Long term (current) use of anticoagulants; Z72.89 Other problems related to lifestyle
CPT/HCPCS: 36415; 36600; 71045; 74018; 74176; 80048; 80051; 80053; 80074; 80202; 81001; 82140; 82570; 82728; 82803; 82805; 82947; 82962; 83615; 83735; 83880; 84100; 84145; 84300; 84478; 85007; 85025; 85027; 85379; 85610; 86140; 86850; 86900; 86901; 87040; 87070; 87205; 89050; 92950; 94003; 94660; 94760; 96365; 96375; G0378; J0171; J0330; J0456; J0610; J0692; J0696; J1100; J1650; J1815; J1940; J2060; J2250; J2704; J3010; J3370; J3430; J7040; J7050; J8540; P9017; U0003